=== PATIENT | female | born 1945 | race Caucasian/White ===

== ENCOUNTER 2022-06-15 10:12 | Inpatient (IN) ==
[2022-06-15] MEDS ORDERED: CEFEPIME 2,000 MG/20 ML VIAL IV STA (10:41)
[2022-06-15] MEDS ORDERED: SODIUM CHLORIDE 0.9% 1000ML 1,000 ML IV SCH (10:45)
[2022-06-15] MEDS ORDERED: methylPREDNISolone 125 MG/2 ML VIAL IV STA (10:59)
[2022-06-15] MEDS ORDERED: ALBUT/IPRATROP 3MG/0.5MG NEB 3 ML VIAL NEB STA (10:59)
--- NOTE | 2022-06-15 10:59 | Emergency Department Note ---
Impression & Plan Pneumonia, Tachycardia, Exertional dyspnea, URI (upper respiratory infection) ED Provider Note INFORMANT: Patient ED PROVIDER(S): Omar Briones DO CHIEF COMPLAINT: Weakness, upper respiratory infectious symptoms PLAN: Disposition: Admission Condition: Stable Outpatient prescription management: none Referral: I spoke with the hospitalist, who will see the patient for admission/observation and further evaluation and consultation. MEDICAL DECISION MAKING: This is a 76-year-old female who presents to the ED with a chief complaint of generalized weakness. She also reports some subjective fevers and chills. She reports decreased energy and tiredness as well as a cough. She is a smoker. History of COPD. The patient states that she was around her grandson who had the flu recently as well. The patient has diminished breath sounds bilaterally with expiratory wheezing. She is tachycardic with a heart rate of 127. Her blood pressure is mildly elevated. She is afebrile. Oxygen saturations are in the high 80s to low 90s without oxygen. A chest x-ray shows a right upper lobe pneumonia. The patient does have a leukocytosis of 21,000. Chemistry panel did not show any electrolyte abnormality. Troponin was mildly elevated likely related to her tachycardia. Lactic acid was negative and a procalcitonin was positive. The patient was given IV cefepime. She was also given 2 L normal saline IV as well as IV Solu-Medrol and a DuoNeb treatment. She will be seen by the hospitalist for further inpatient evaluation and care. Triage Nursing notes reviewed. Vital Signs: reviewed Prior /Outside records reviewed: none Differential diagnosis: Differential includes pneumonia, influenza, other viral illness, hypoxia, less likely PE, tachycardia could be related to dehydration or infection Diagnostics, as interpreted by me: 12 lead ECG: Sinus tach rate of 120. No ST elevation. No PVCs. Normal QTC. Cardiac Monitoring ordered: Sinus tach at a rate of 120s Medical decision rules: Imaging studies: Chest x-ray: Right upper lobe pneumonia. Procedures: none. Critical care: none. HPI: See MDM above. PAST MEDICAL HISTORY: See Below PAST SURGICAL HISTORY: See Below SOCIAL HISTORY: See Below HOME MEDICATIONS: See Below ALLERGIES: See Below VITALS: See Below PHYSICAL EXAMINATION: CONSTITUTIONAL/VITAL SIGNS: Reviewed GENERAL: Non-toxic in appearance. INTEGUMENTARY: Warm, dry, and [place]. HEAD: Normocephalic. EYES: without scleral icterus. ENT/OROPHARYNX: clear and moist. RESPIRATORY: No increased work of breathing. Lungs clear. CARDIOVASCULAR: Regular rate. Regular rhythm. GI/ABDOMEN: Soft and nontender. . EXTREMITIES: Normal NEUROLOGICAL: Intact without focal deficits. PSYCHIATRIC: Normal affect. MUSCULOSKELETAL: Normal. TRIAGE NURSING DOCUMENTATION REVIEWED. Past Med/Surg History Medical History COPD (chronic obstructive pulmonary disease) Smoker Social History Smoking Status: Current every day smoker Preferred Language: Romanian Feels Safe at Home: Yes Allergies Allergies Allergy/AdvReac Type Severity Reaction Status Date / Time No Known Allergies Allergy Unverified 07/19/18 15:12 Home Meds Home Medications Medication Instructions Recorded Confirmed albuterol sulfate 90 mcg/actuation 2 inha inhalation Q4H PRN 06/15/22 06/15/22 aerosol inhaler shortness of breath or wheezing budesonide-formoterol HFA 160 2 puff inhalation BID 06/15/22 06/15/22 mcg-4.5 mcg/actuation aerosol inhaler Results & Data (ED) Vital Signs Vital Signs - 24 hr 06/15/22 10:28 06/15/22 11:12 06/15/22 11:12 Temperature 36.6 C Temperature Source Temporal Artery Scan Pulse Rate 127 H Pulse Rate [Right Finger] Pulse Rhythm [Right Finger] Pulse Strength [Right Finger] Respiratory Rate 20 Respiratory Effort / Characteristics Respiratory Depth Respiratory Pattern Blood Pressure 153/69 H Blood Pressure [Right Arm] Blood Pressure Mean 97 Blood Pressure Mean [Right Arm] Pulse Oximetry 90 Oxygen Delivery Method Room Air Room Air Room Air Oxygen Flow Rate Sepsis New/Unexplained Change in Mental Status No Sepsis Action Taken by Nursing No Action Required Oxygen Flow Rate - Titration Pulse Oximetry Post Tiitration 06/15/22 12:00 06/15/22 12:30 Temperature Temperature Source Pulse Rate Pulse Rate [Right Finger] 107 H Pulse Rhythm [Right Finger] Regular Pulse Strength [Right Finger] Normal Respiratory Rate 18 Respiratory Effort / Characteristics Non-Labored Respiratory Depth Normal Respiratory Pattern Regular Blood Pressure Blood Pressure [Right Arm] 135/82 Blood Pressure Mean Blood Pressure Mean [Right Arm] 99 Pulse Oximetry 92 88 L Oxygen Delivery Method Room Air Nasal Cannula Oxygen Flow Rate 0 Sepsis New/Unexplained Change in Mental Status Sepsis Action Taken by Nursing Oxygen Flow Rate - Titration 2 Pulse Oximetry Post Tiitration 97 Laboratory Data 06/15/22 10:59 06/15/22 10:59 Lab Results 06/15/22 06/15/22 06/15/22 Range/Units 10:59 10:59 10:59 WBC 21.03 H (4.8-10.8) K/ul RBC 4.31 (4.20-5.40) M/uL Hgb 13.8 (12.0-16.0) g/dl Hct 39.0 (37.0-47.0) % MCV 90.5 (80.0-100.0) fL MCH 32.0 (25.0-34.0) pg MCHC 35.4 (32.0-36.0) g/dL RDW Std Deviation 41.8 (36.4-46.3) fL RDW Coeff of Fernanda 12.4 (11.5-14.5) % Plt Count 279 (130-400) K/uL MPV 10.3 (9.4-12.4) fL Immature Gran % (Auto) 0.9 % Neut % (Auto) 83.1 % Lymph % (Auto) 4.0 % Gilliam % (Auto) 11.7 % Eos % (Auto) 0.1 % Baso % (Auto) 0.2 % Neut # (Auto) 17.47 H (1.40-6.50) K/uL Lymph # (Auto) 0.85 L (1.2-3.4) K/uL Gilliam # (Auto) 2.45 H (0.11-0.59) K/uL Eos # (Auto) 0.03 (0-0.50) K/uL Baso # (Auto) 0.05 (0-0.2) K/uL Immature Gran # (Auto) 0.18 (0.01-0.20) K/uL Sodium 130 L (136-145) mmol/L Potassium 4.0 (3.5-5.1) mmol/L Chloride 96 L (98-107) mmol/L Carbon Dioxide 26 (21-32) mmol/L Anion Gap 8 (3-11) BUN 18 (6-23) mg/dl Creatinine 0.87 (0.6-1.2) mg/dl Est Cr Clr Drug Dosing 45.5 ml/min Est GFR ( Amer) 75.0 ml/min Est GFR (Non-Af Amer) 64.7 ml/min BUN/Creatinine Ratio 20.7 H (10-20) Glucose 140 H (70-99(Fasting)) mg/dl Lactate 1.1 (0.4-2.0) mmol/L Calcium 8.8 (8.5-10.1) mg/dl Magnesium 1.8 (1.7-2.4) mg/dl Total Bilirubin 0.9 (0.2-1.0) mg/dl Direct Bilirubin 0.4 H (0-0.2) mg/dl AST 18 (13-39) U/L ALT 23 (7-52) U/L Alkaline Phosphatase 255 H (34-104) U/L Troponin I High Sens 19.7 H (0-14) pg/ml Total Protein 6.4 (6.0-8.3) gm/dl Albumin 3.1 L (3.4-5.0) gm/dl Procalcitonin (0-0.5) ng/ml SARS-CoV-2 (PCR) (Negative) Influenza Type A (PCR) (Neg) Influenza Type B (PCR) (Neg) RSV (RT-PCR) (Neg) 06/15/22 06/15/22 Range/Units 10:59 11:44 WBC (4.8-10.8) K/ul RBC (4.20-5.40) M/uL Hgb (12.0-16.0) g/dl Hct (37.0-47.0) % MCV (80.0-100.0) fL MCH (25.0-34.0) pg MCHC (32.0-36.0) g/dL RDW Std Deviation (36.4-46.3) fL RDW Coeff of Fernanda (11.5-14.5) % Plt Count (130-400) K/uL MPV (9.4-12.4) fL Immature Gran % (Auto) % Neut % (Auto) % Lymph % (Auto) % Gilliam % (Auto) % Eos % (Auto) % Baso % (Auto) % Neut # (Auto) (1.40-6.50) K/uL Lymph # (Auto) (1.2-3.4) K/uL Gilliam # (Auto) (0.11-0.59) K/uL Eos # (Auto) (0-0.50) K/uL Baso # (Auto) (0-0.2) K/uL Immature Gran # (Auto) (0.01-0.20) K/uL Sodium (136-145) mmol/L Potassium (3.5-5.1) mmol/L Chloride (98-107) mmol/L Carbon Dioxide (21-32) mmol/L Anion Gap (3-11) BUN (6-23) mg/dl Creatinine (0.6-1.2) mg/dl Est Cr Clr Drug Dosing ml/min Est GFR ( Amer) ml/min Est GFR (Non-Af Amer) ml/min BUN/Creatinine Ratio (10-20) Glucose (70-99(Fasting)) mg/dl Lactate (0.4-2.0) mmol/L Calcium (8.5-10.1) mg/dl Magnesium (1.7-2.4) mg/dl Total Bilirubin (0.2-1.0) mg/dl Direct Bilirubin (0-0.2) mg/dl AST (13-39) U/L ALT (7-52) U/L Alkaline Phosphatase (34-104) U/L Troponin I High Sens (0-14) pg/ml Total Protein (6.0-8.3) gm/dl Albumin (3.4-5.0) gm/dl Procalcitonin 3.27 H (0-0.5) ng/ml SARS-CoV-2 (PCR) NEGATIVE (Negative) Influenza Type A (PCR) Negative (Neg) Influenza Type B (PCR) Negative (Neg) RSV (RT-PCR) Negative (Neg) Administered Medications Discontinued Medications Albuterol (Albut/Ipratrop 3mg/0.5mg Neb 3 Ml Vial) 3 ml NEB NOW STA; Protocol Stop: 06/15/22 11:00 Last Admin: 06/15/22 11:38 Dose: 3 ml Documented By: AP Sodium Chloride (Nss 1000ml) 1,000 mls @ 999 mls/hr IV .Q1H1M YU Stop: 06/15/22 11:45 Last Admin: 06/15/22 11:39 Dose: Not Given Documented By: AP Cefepime HCl (Maxipime) 2,000 mg in 20 mls @ 5 mls/min IV NOW STA; Protocol Stop: 06/15/22 10:44 Last Admin: 06/15/22 11:38 Dose: 5 mls/min Documented By: AP Sodium Chloride (Nss 1000ml) 1,000 mls @ 999 mls/hr IV .Q1H1M ONE Stop: 06/15/22 12:37 Last Admin: 06/15/22 11:38 Dose: 999 mls/hr Documented By: AP Methylprednisolone (Methylprednisolone 125 Mg/2 Ml Vial) 125 mg IV NOW STA Stop: 06/15/22 11:00 Last Admin: 06/15/22 11:38 Dose: 125 mg Documented By: AP Imaging Data Radiologist's Impression: Chest X-Ray 06/15/22 10:40 SINGLE VIEW CHEST CLINICAL HISTORY: Sepsis. Cough FINDINGS: An AP, portable, upright chest radiograph is compared to study dated 07/19/2018. The heart is top normal for projection noting atherosclerotic calcification of the thoracic aorta. Emphysema and chronic interstitial thickening is similar to previous. There is dense right apical consolidation. The left lung appears clear. Scarring/atelectasis is noted at the lung bases. No pneumothorax is seen. The skeletal structures are osteopenic. The bony thorax is grossly intact. IMPRESSION: 1. There is dense right apical consolidation comment typical appearance for pneumonia. Clinical correlation will be required and radiographic follow-up to resolution is recommended. 2. Emphysema. ACT 112: Negative or not required by law. Electronically signed by: Jose M Singleton M.D. 06/15/2022 11:10 AM Discharge Plan Visit Data Chief Complaint: Weakness Stated Complaint: TROUBLE BREATHING, WEAKNESS, DIZZY, FATIGUE ED Provider: Omar Briones Discharge Problem: Pneumonia, Tachycardia, Exertional dyspnea, URI (upper respiratory infection) Forms Stand Alone Forms: My Scheduling Employee Scheduling Software Prescriptions Prescriptions: No Action budesonide-formoterol 160-4.5 mcg/actuation HFA aerosol inhaler 2 puff INHALATION BID albuterol sulfate 90 mcg/actuation HFA aerosol inhaler 2 inha INH Q4H PRN (Reason: shortness of breath or wheezing) Referrals Referrals: Ele Alford DO [Primary Care Provider] -
--- NOTE | 2022-06-15 11:12 | XRay Report ---
SINGLE VIEW CHEST CLINICAL HISTORY: Sepsis. Cough FINDINGS: An AP, portable, upright chest radiograph is compared to study dated 07/19/2018. The heart i s top normal for projection noting atherosclerotic calcification of the thoracic aorta. Emphysema and chronic interstitial thickening is similar to previous. There is dense right apical consolidation. T he left lung appears clear. Scarring/atelectasis is noted at the lung bases. No pneumothorax is seen. The skeletal structures are osteopenic. The bony thorax is grossly intact. IMPRESSION: 1. There is dense right apical consolidation comment typical appearance for pneumonia. Clinical corre lation will be required and radiographic follow-up to resolution is recommended. 2. Emphysema. ACT 112: Negative or not required by law. Electronically signed by: Jose M Singleton M.D. 06/15/2022 11:10 AM
[2022-06-15 11:13] LABS: Basophils # (auto) 0.05 K/uL (0-0.2); Basophils % (auto) 0.2 %; Eosinophils # (auto) 0.03 K/uL (0-0.50); Eosinophils % (auto) 0.1 %; Hemoglobin 13.8 g/dl (12.0-16.0); Immature Granulocytes # (auto) 0.18 K/uL (0.01-0.20); Immature Granulocytes % (auto) 0.9 %; Lymphocytes # (auto) 0.85 K/uL (1.2-3.4); Mean Corpuscular Hgb Conc 35.4 g/dL (32.0-36.0); Mean Corpuscular Volume 90.5 fL (80.0-100.0); Mean Platelet Volume 10.3 fL (9.4-12.4); Monocytes # (auto) 2.45 K/uL (0.11-0.59); Monocytes % (auto) 11.7 %; Neutrophils # (auto) 17.47 K/uL (1.40-6.50); Neutrophils % (auto) 83.1 %; Platelet Count 279 K/uL (130-400); RDW Coefficient of Variation 12.4 % (11.5-14.5); RDW Standard Deviation 41.8 fL (36.4-46.3); Red Blood Count 4.31 M/uL (4.20-5.40); White Blood Count 21.03 K/ul (4.8-10.8)
[2022-06-15] MEDS ORDERED: SODIUM CHLORIDE 0.9% 1000ML 1,000 ML IV ONE (11:37)
[2022-06-15 11:39] LABS: Albumin Level 3.1 gm/dl (3.4-5.0); BUN Creatinine Ratio 20.7 (10-20); Bilirubin Direct 0.4 mg/dl (0-0.2); Bilirubin,Total 0.9 mg/dl (0.2-1.0); Calcium 8.8 mg/dl (8.5-10.1); Creatinine Clr Calc Pharmacy 45.5 ml/min; Est GFR (Non-African American) 64.7 ml/min; Magnesium 1.8 mg/dl (1.7-2.4); Total Protein 6.4 gm/dl (6.0-8.3)
[2022-06-15 11:47] LABS: Troponin I High Sensitivity 19.7 pg/ml (0-14)
[2022-06-15 12:59] LABS: Influenza A virus by PCR Negative (Neg); Influenza B virus by PCR Negative (Neg); RSV by PCR Negative (Neg); SARS CoV2 RNA(COVID-19) Ceph NEGATIVE (Negative)
--- NOTE | 2022-06-15 13:35 | History & Physical Report ---
Date of Service June 15, 2022 Assessment & Plan (1) Acute respiratory failure with hypoxia: (2) Sepsis: (3) Pneumonia: (4) COPD (chronic obstructive pulmonary disease): Plan: Admit to tele Patient presenting from home with reports of generalized weakness. On presentation, meets sepsis criteria tachycardia in the 120s, WBC 21K, hypoxic on room air at 88%. Procalcitonin 3.27. Lactate 1.1, BP stable. CXR showing right apical consolidation In the ED, patient received IV cefepime, IV Solu-Medrol, nebulizer treatment, IVF. Will continue with IV ceftriaxone and IV azithromycin No wheezing on exam, will hold on steroids at this time Follow blood cultures Pulmonary toilet with nebs, Mucinex, incentive prompter, flutter valve DVT PROPHYLAXIS SQ Lovenox History of Present Illness Chief Complaint: Generalized Weakness Primary Care Provider: Ele Alford DO 76 year old female with PMH COPD, osteoporosis, tobacco abuse, and other problems listed below who presents to the ED for evaluation of generalized weakness. Patient reports she has been feeling sick for about one week. Reports an exposure to flu from her grandson. Patient reports progressive generalized weakness and poor appetite. No abdominal pain, nausea, vomiting, or diarrhea. She reports feeling unsteady whenever she stands. No lightheadedness, dizziness, diaphoresis, syncopal events. Patient has underlying COPD and is an active smoker. Reports she has a chronic cough which has been unchanged from baseline. She reports having chills and episodes of feeling hot however did not take her temperature. No chest pain or palpitations. Mild shortness of breath with exertion. No urinary symptoms. In the ED, patient was tachycardic in the 120s. WBC 21K. Hypoxic on room air at 88%. CXR shows right apical consolidation typical appearance for pneumonia. Patient was given nebulizer treatment, IV cefepime, IV Solu-Medrol, IVF. Allergies Allergy/AdvReac Type Severity Reaction Status Date / Time No Known Allergies Allergy Unverified 07/19/18 15:12 Home Medications Medication Instructions Recorded Confirmed Type albuterol sulfate 90 mcg/actuation 2 inha inhalation Q4H PRN 06/15/22 06/15/22 History aerosol inhaler shortness of breath or wheezing budesonide-formoterol HFA 160 2 puff inhalation BID 06/15/22 06/15/22 History mcg-4.5 mcg/actuation aerosol inhaler Past Med/Surg History Medical History COPD (chronic obstructive pulmonary disease) Smoker Surgical History No significant past surgical history Family History Mother Diabetes Social History (Updated 06/15/22 @ 13:31 by OTILIO Mann) Smoking Status: Current every day smoker Second Hand Exposure: No; Do You Dip or Chew Tobacco: No; Tobacco Cessation Education Requested by Patient: No Hx Alcohol Use: No Hx Substance Use: No Preferred Language: Mohawk Communication Ability: Effective Chief Airport Guide Required: No Beliefs That Will Affect Care: None Current Living Situation: Alone Other Information That Helps Us Care for You: No Feels Safe at Home: No Is there a partner from a previous relationship who is making you feel unsafe now?: No Any Concerns about Your Family Situation: No Would You Like to Speak to Someone About Your Situation: No Safety Concerns: Feels Safe At This Time Assistive Devices: Denture - Upper and Glasses Review of Systems Review of Systems: ROS per HPI, all other systems reviewed and negative Physical Exam Constitutional: + thin; no acute distress vitals as above Eyes: PERRL, conjunctivae normal, anicteric sclerae ENMT: external ear and nose normal, oropharynx normal Respiratory: no respiratory distress Auscultation: + diminished lung sounds; no wheezes Cardiovascular: Rate/Rhythm: regular rhythm and + tachycardic Vessels: no rmal peripheral pulses Extremities: no edema Gastrointestinal (Abdomen): normal bowel sounds, soft, nontender, no hepatosplenomegaly Musculoskeletal: no cyanosis or clubbing, extremities motor strength 5/5 Skin: no rashes, warm and dry Neurologic: PERRL, EOMI, accommodation nl, no face palsy, no dysarthria Psychiatric: A+Ox3, euthymic affect Results & Data Results & Data ([facility]) Vital Signs (Past 12 Hours) Vital Signs Temp Pulse Pulse Resp BP BP Pulse Ox 06/15/22 12:30 88 L 06/15/22 12:00 107 H 18 135/82 92 06/15/22 11:12 06/15/22 11:12 06/15/22 10:28 36.6 C 127 H 20 153/69 H 90 O2 Del Method O2 Flow Rate 06/15/22 12:30 Nasal Cannula 0 06/15/22 12:00 Room Air 06/15/22 11:12 Room Air 06/15/22 11:12 Room Air 06/15/22 10:28 Room Air Laboratory Results Short CBC 06/15/22 Range/Units 10:59 WBC 21.03 H (4.8-10.8) K/ul Hgb 13.8 (12.0-16.0) g/dl Hct 39.0 (37.0-47.0) % Plt Count 279 (130-400) K/uL BMP 06/15/22 10:59 Sodium 130 L Potassium 4.0 Chloride 96 L Carbon Dioxide 26 BUN 18 Creatinine 0.87 Glucose 140 H Calcium 8.8 Liver Function 06/15/22 Range/Units 10:59 Total Bilirubin 0.9 (0.2-1.0) mg/dl Direct Bilirubin 0.4 H (0-0.2) mg/dl AST 18 (13-39) U/L ALT 23 (7-52) U/L Alkaline Phosphatase 255 H (34-104) U/L Albumin 3.1 L (3.4-5.0) gm/dl Diagnostic Findings Chest X-Ray 06/15/22 10:40 SINGLE VIEW CHEST CLINICAL HISTORY: Sepsis. Cough FINDINGS: An AP, portable, upright chest radiograph is compared to study dated 07/19/2018. The heart is top normal for projection noting atherosclerotic calc ification of the thoracic aorta. Emphysema and chronic interstitial thickening is similar to previous. There is dense right apical consolidation. The left lung appears clear. Scarring/atelectasis is noted at the lung bases. No pneumothorax is seen. The skeletal structures are osteopenic. The bony thorax is grossly intact. IMPRESSION: 1. There is dense right apical consolidation comment typical appearance for pneumonia. Clinical correlation will be required and radiographic follow-up to resolution is recommended. 2. Emphysema. ACT 112: Negative or not required by law. Electronically signed by: Jose M Singleton M.D. 06/15/2022 11:10 AM Supervising Physician Co-Signing Physician Notes I have seen and examined the patient and have discussed the case with the provider above. I agree with the assessment and plan as stated. The patient is a 76-year-old female presenting with shortness of breath found to have right upper lobe pneumonia. She has a sick contact at home and has been sick for approximately 5 to 6 days. She reports malaise weakness and poor appetite. She denies significant cough but is hypoxic on room air at 88% today. She meets sepsis criteria and was resuscitated with IV fluids and broad- spectrum antibiotics. She was given IV Solu-Medrol and nebulized bronchodilators with a history of COPD. On physical exam she appears comfortable in no acute distress. She has 2 L nasal cannula in place and is not working to breathe. She is mentating clearly but is generally ill-appearing. Pulmonary auscultation is clear throughout with very decreased breath sounds, no rales or wheezing heard. Cardiac exam reveals a tachycardic rate with a regular rhythm, S2/S1 heard with no evidence of murmurs. She is euvolemic to dry. There is no evidence of peripheral edema. Abdomen is benign, skin is warm and dry. Lab work reveals leukocytosis of 21,000 with a left shift. Chemistry shows a sodium of 130, potassium 4.0 chloride of 96 and a BUN to creatinine ratio of 21 all consistent with dehydration. Alkaline phosphatase is elevated at 255. Highly sensitive troponin is 19.7. Procalcitonin is 3.27. Nasal swab for flu, SARS-CoV-2, RSV are negative. Chest x-ray revealed dense right apical consolidation which is a typical appearance for pneumonia. This is in a backgr ound of emphysema. Blood cultures are pending sputum cultures are pending. EKG with no evidence of ischemia and sinus tachycardia with a rate of 118. Overall this is a 76-year-old patient with COPD and active smoking who presents with possible developing sepsis secondary to right upper lobe pneumonia. She does not appear to be in exacerbation for COPD. Agree with holding off on steroids at this time. Agree with continuing broad-spectrum antibiotics as above and Mucinex, nebulizers as needed, and other pulmonary toilet efforts including incentive spirometer and flutter valve. Will monitor for worsening hypoxia after sepsis resuscitation. She is a confirmed full code per my discussion with her on admission. She requested that if she was unable to return to her quality of life, she would not want to be on life support for prolonged period of time. She reports that her POA's are her children, her son and daughter. Mak, DO
[2022-06-15] MEDS ORDERED: ACETAMINOPHEN 325 MG TAB PO PRN (14:25)
[2022-06-15] MEDS: SODIUM CHLORIDE 0.9% 1000ML 1,000 ML IV SCH (14:52)
[2022-06-15] MEDS: ALBUT/IPRATROP 3MG/0.5MG NEB 3 ML VIAL NEB SCH ×2 (15:11→19:20)
[2022-06-15] MEDS: AZITHROMYCIN 500 MG in DEXTROSE 5% 250 ML IV SCH (15:41)
[2022-06-15] MEDS: cefTRIAXone SODIUM 1,000 MG in DEXTROSE 5% AD-VAN 50 ML IV SCH (17:51)
[2022-06-15] MEDS: guaiFENesin 600 MG TABCR PO SCH (20:07)
[2022-06-16] MEDS: SODIUM CHLORIDE 0.9% 1000ML 1,000 ML IV SCH ×2 (04:07→15:43)
[2022-06-16 04:13] LABS: Appearance Urine Clear (Clear); Bacteria Urine Automated Negative (Negative); Bilirubin Urine Negative (Negative); Blood Urine Trace (Negative); Color Urine Yellow; Epithelial Cell Urine Auto 20-30 /lpf (0-5); Glucose Urine UA 1+ (Negative); Ketones Urine Negative (Negative); Leukocyte Esterase Urine Negative (Negative); Nitrite Urine Negative (Negative); Protein Urine 1+ (Negative); RBC Urine Automated 0-4 /hpf (0-4); Specific Gravity Urine 1.015 (1.000-1.030); Urobilinogen Urine Negative (Negative)
[2022-06-16 06:42] LABS: Hematocrit (blood only) 32.2 % (37.0-47.0); Hemoglobin 11.2 g/dl (12.0-16.0); Mean Corpuscular Hemoglobin 31.5 pg (25.0-34.0); Mean Corpuscular Hgb Conc 34.8 g/dL (32.0-36.0); Mean Corpuscular Volume 90.7 fL (80.0-100.0); Mean Platelet Volume 10.1 fL (9.4-12.4); Platelet Count 268 K/uL (130-400); RDW Coefficient of Variation 11.9 % (11.5-14.5); Red Blood Count 3.55 M/uL (4.20-5.40)
[2022-06-16] MEDS: ALBUT/IPRATROP 3MG/0.5MG NEB 3 ML VIAL NEB SCH ×4 (07:01→19:59)
[2022-06-16 07:08] LABS: BUN Creatinine Ratio 29.2 (10-20); Calcium 8.9 mg/dl (8.5-10.1); Est GFR (African American) 94.3 ml/min; Est GFR (Non-African American) 81.3 ml/min; Potassium 4.3 mmol/L (3.5-5.1)
[2022-06-16] MEDS: guaiFENesin 600 MG TABCR PO SCH ×2 (08:11→21:05)
--- NOTE | 2022-06-16 08:55 | Electrocardiogram Report ---
Test Reason : Blood Pressure : / mmHG Vent. Rate : 118 BPM Atrial Rate : 118 BPM P-R Int : 128 ms QRS Dur : 078 ms QT Int : 308 ms P-R-T Axes : 076 101 049 degrees QTc Int : 431 ms Sinus tachycardia Rightward axis Borderline ECG When compared with ECG of 19-JUL-2018 14:14, HR has increased by 32 bpm Otherwise no significant change Confirmed by Brian Abrams ([id number]) on 06/16/2022 8:55:18 AM Referred By: ED Confirmed By:Brian Abrams
[2022-06-16] MEDS ORDERED: FLUTICASONE/VILANTEROL 100/25MCG 14 PUFFS/INHALER INH SCH (09:00)
[2022-06-16] MEDS: AZITHROMYCIN 500 MG in DEXTROSE 5% 250 ML IV SCH (14:41)
--- NOTE | 2022-06-16 15:32 | Hospitalist Progress Note ---
Date of Service June 16, 2022 Assessment & Plan (1) Acute respiratory failure with hypoxia: Plan: Noted to be acute respiratory failure with hypoxia secondary to pneumonia complicated by COPD Has been improving since admission and is requiring only 1 L oxygen via nasal cannula to maintain saturation Does not use any oxygen at home (2) Sepsis: Plan: Presented with sepsis secondary to right upper lobe pneumonia Has been on intravenous azithromycin and ceftriaxone (3) Pneumonia: Plan: Patient presenting from home with reports of generalized weakness. On presentation, meets sepsis criteria tachycardia in the 120s, WBC 21K, hypoxic on room air at 88%. Procalcitonin 3.27. Lactate 1.1, BP stable. CXR showing right apical consolidation In the ED, patient received IV cefepime, IV Solu-Medrol, nebulizer treatment, IVF. Will continue with IV ceftriaxone and IV azithromycin No wheezing on exam, will hold on steroids at this time Follow blood cultures-have been negative so far (4) COPD (chronic obstructive pulmonary disease): Plan: Pulmonary toilet with nebs, Mucinex, incentive prompter, flutter valve Clinically improved Will need to wait to have stable O2 saturation test prior to discharge DVT PROPHYLAXIS SQ Lovenox Admission and Anticipated Discharge Date Admission Date: June 15, 2022 Subjective 06/16/2022 The patient was seen and examined in telemetry unit He has been feeling a little better since admission Still has shortness of breath but requiring only 1 L of oxygen to maintain saturation via nasal cannula Denies any fever and/or chills Has cough without any phlegm Review of Systems Review of Systems: All systems reviewed and are unremarkable except as noted below Respiratory: Moderate respiratory distress at rest Physical Exam Physical Exam: Lying in bed with mild to moderate shortness of breath Constitutional: + ill appearing and average body habitus Eyes: PERRL, conjunctivae normal, anicteric sclerae ENMT: external ear and nose normal, oropharynx normal Neck: trachea midline, no thyromegaly Respiratory: + respiratory distress (Mild to moderate respiratory distress at rest) Auscultation: + diminished lung sounds and + crackles (Minimal to no crackles at the bases) Cardiovascular: Rate/Rhythm: regular rate and regular rhythm; not tachycardic Extremities: no edema Gastrointestinal (Abdomen): Inspection/Auscultation: normal bowel sounds; abdomen not distended Percussion/Palpation: abdomen soft; abdomen nontender Musculoskeletal: No acute arthritis involving any joint Neurologic: Alert, awake and oriented x3. Generally weak and shaky but no focal neurodeficit Lymphatic: no cervical or axillary lymphadenopathy Results & Data Results & Data ([facility]) Vital Signs (Past 12 Hours) Vital Signs Temp Pulse Pulse Resp BP Pulse Ox O2 Del Method 06/16/22 14:25 91 H 18 93 Nasal Cannula 06/16/22 11:26 36.3 C L 87 18 119/69 Nebulizer 06/16/22 11:02 82 18 98 Nasal Cannula 06/16/22 07:56 36.3 C L 84 20 123/65 94 Nasal Cannula 06/16/22 07:28 Room Air, Nasal Cannula 06/16/22 07:01 82 18 97 Nasal Cannula 06/16/22 06:00 77 06/16/22 04:00 36.7 C 83 18 120/53 L 93 Nasal Cannula O2 Flow Rate 06/16/22 14:25 1 06/16/22 11:26 06/16/22 11:02 2 06/16/22 07:56 2 06/16/22 07:28 2 06/16/22 07:01 2 06/16/22 06:00 06/16/22 04:00 2 Laboratory Results Short CBC 06/16/22 Range/Units 06:29 WBC 14.30 H (4.8-10.8) K/ul Hgb 11.2 L (12.0-16.0) g/dl Hct 32.2 L (37.0-47.0) % Plt Count 268 (130-400) K/uL BMP 06/16/22 06:29 Sodium 133 L Potassium 4.3 Chloride 104 Carbon Dioxide 26 BUN 21 Creatinine 0.72 Glucose 153 H Calcium 8.9 Urine 06/16/22 Range/Units Unknown Urine Color Yellow Urine Appearance Clear (Clear) Urine pH 6.0 (4.5-7.5) Ur Specific [place] 1.015 (1.000-1.030) Urine Protein 1+ H (Negative) Urine Glucose (UA) 1+ H (Negative) Medications Administered Current Inpatient Medications Acetaminophen (Acetaminophen 325 Mg Tab) 650 mg PO Q4H PRN PRN Reason: Pain or Fever Stop: 07/15/22 14:24 Albuterol (Albut/Ipratrop 3mg/0.5mg Neb 3 Ml Vial) 3 ml NEB QIDR [facility]; Protocol Stop: 07/15/22 14:59 Last Admin: 06/16/22 14:25 Dose: 3 ml Fluticasone/Vilanterol (Fluticasone/Vilanterol 100/25mcg 14 Puffs/Inhaler) 1 puffs INH DAILY [facility] Stop: 07/16/22 08:59 Last Admin: 06/16/22 08:10 Dose: 1 puffs Guaifenesin (Guaifenesin 600 Mg Tabcr) 1,200 mg PO Q12 [facility] Stop: 07/15/22 20:59 Last Admin: 06/16/22 08:11 Dose: 1,200 mg Sodium Chloride (Nss 1000ml) 1,000 mls @ 80 mls/hr IV .[id number] [facility] Stop: 07/15/22 14:24 Last Admin: 06/16/22 04:07 Dose: 80 mls/hr Ceftriaxone Sodium 1,000 mg/ (Dextrose) 50 mls @ 100 mls/hr IV Q24H [facility]; Protocol Stop: 06/22/22 17:59 Last Infusion: 06/15/22 18:40 Dose: Infused Azithromycin 500 mg/ Dextrose 255 mls @ 125 mls/hr IV Q24H [facility] Stop: 06/22/22 14:59 Last Admin: 06/16/22 14:41 Dose: 125 mls/hr
[2022-06-16] MEDS: cefTRIAXone SODIUM 1,000 MG in DEXTROSE 5% AD-VAN 50 ML IV SCH (17:28)
[2022-06-16] MEDS ORDERED: MELATONIN 3 MG TAB PO PRN (22:15)
[2022-06-17] MEDS ORDERED: dilTIAZem HCl 5 MG/ML 5 ML VIAL IV ONE (03:53)
[2022-06-17] MEDS ORDERED: methylPREDNISolone 60 MG in SYRINGE 0 ML IV ONE (04:00)
[2022-06-17] MEDS ORDERED: dilTIAZem HCl 5 MG/ML 5 ML VIAL IV STA (04:36)
[2022-06-17 04:39] LABS: Base Excess ABG 1.5 mEq/L (-9-1.8); HCO3 ABG 26 mmol/L (19-24); Oxygen Saturation ABG 97.4 % (90-95); PCO2 ABG 39 mmHg (35-46); PO2 ABG 71 mmHg (80-95); pH ABG 7.43 (7.35-7.45)
[2022-06-17 04:56] LABS: Allen Test Pos (Pos)
[2022-06-17] MEDS: MAGNESIUM SULFATE / D5W 1 GM/100 ML BAG IV SCH ×2 (04:56→05:49)
[2022-06-17] MEDS ORDERED: PIPERACILLIN/TAZOBACTAM 4.5 GM in DEXTROSE 5% 100 ML IV ONE (05:00)
[2022-06-17] MEDS ORDERED: OPTIRAY 320 500ml IV ONE (05:32)
[2022-06-17] MEDS: BUDESONIDE 0.5 MG/2 ML VIAL (PULMICORT) NEB SCH ×2 (07:08→19:04)
[2022-06-17] MEDS: FORMOTEROL 20 MCG/2 ML VIAL NEB SCH ×2 (07:09→19:04)
[2022-06-17] MEDS: ALBUT/IPRATROP 3MG/0.5MG NEB 3 ML VIAL NEB SCH ×4 (07:09→19:04)
[2022-06-17 07:14] LABS: Adenovirus PCR Not Detected (NotDetected); Bordetella parapertussis PCR Not Detected (NotDetected); Bordetella pertussis PCR Not Detected (NotDetected); Chlamydia pneumoniae PCR Not Detected (NotDetected); Coronavirus 229E PCR Not Detected (NotDetected); Coronavirus CoV-2 (COVID19)PCR Not Detected (NotDetected); Coronavirus HKU1 PCR Not Detected (NotDetected); Coronavirus NL63 PCR Not Detected (NotDetected); Coronavirus OC43PCR Not Detected (NotDetected); Human Metapneumovirus PCR Not Detected (NotDetected); Influenza A PCR Not Detected (NotDetected); Influenza B PCR Not Detected (NotDetected); Mycoplasma pneumoniae PCR Not Detected (NotDetected); Parainfluenza Virus 1 PCR Not Detected (NotDetected); Parainfluenza Virus 2 PCR Not Detected (NotDetected); Parainfluenza Virus 3 PCR Not Detected (NotDetected); Parainfluenza Virus 4 PCR Not Detected (NotDetected); Respiratory Syncytial VirusPCR Not Detected (NotDetected); Rhinovirus/Enterovirus PCR Not Detected (NotDetected)
--- NOTE | 2022-06-17 07:20 | CT Scan Report ---
CT ANGIOGRAM OF THE CHEST CLINICAL HISTORY: Atypical chest pain. Dyspnea. COMPARISON STUDY: Chest x-ray dated 06/17/2022. TECHNIQUE: Following the IV administration of 91 cc of Optiray 320, CT angiogram of the chest was per formed from the upper abdomen to the thoracic inlet utilizing the pulmonary embolus protocol. Images are reviewed in the axial, sagittal, and coronal planes. 3-D MIPS images are created and assessed. IV contrast was administered without complication. A dose lowering technique was utilized adhering to the principles of ALARA. CT DOSE: 243.54 mGy.cm FINDINGS: Thyroid: Imaged portions of the thyroid gland are normal in size and attenuation. Thoracic aorta: There is atherosclerotic calcification of the thoracic aorta, which is normal in renée rosalia and demonstrates standard 3-vessel arch anatomy. No dissection is seen. Pulmonary vasculature: The main pulmonary arteries are dilated suggesting pulmonary artery hypertensi on. There are no filling defects identified in main, lobar, or segmental pulmonary branches to sugges t pulmonary embolus. Heart: The heart is enlarged and without pericardial effusion. There are coronary artery calcificatio ns. Lungs and pleural spaces: Evaluation of the lung parenchyma is compromised by motion artifact. There are small pleural effusions seen bilaterally. There is advanced emphysema. Dense airspace consolidati on is seen throughout the right upper lobe. Milder patchy/nodular consolidation is seen in the right middle and right lower lobes. Question minimal cavitation within a 3.5 cm nodular focus of right lowe r lobe consolidation seen on image #126. Peripheral scarring is seen in the lingula. There are scatte red calcified granulomas. The trachea and central airways appear clear. Debris is seen within the rig ht lower lobe airways. Mediastinum: Mildly enlarged mediastinal lymph nodes measure up to 12 mm in short axis. These are lik sailaja reactive. Iram: Clear. Axillae: There is no axillary lymphadenopathy. Upper abdomen: Partially visualized upper abdominal viscera is within normal limits. Skeletal structures: The skeletal structures are osteopenic. Numerous compression deformities are see n throughout the thoracolumbar spine. No lytic or blastic bony lesions are seen. Arthritic change is seen in the shoulders. IMPRESSION: 1. There is no evidence of pulmonary embolus in the main, lobar, or segmental pulmonary arteries. 2. Cardiomegaly and advanced emphysema. 3. Dense airspace consolidation is seen throughout the right upper lobe, with milder patchy/nodular c onsolidation in the right middle and right lower lobes. The appearance is typical for multifocal pneu monia. 4. A 3.5 cm focus of nodular consolidation in the right lower lobe shows internal cavitation. A follo w-up chest CT in 1 to 2 months time is recommended to document resolution and to reassess the underly ing lung parenchyma. 5. Additional findings as above. ACT 112: Positive. There are findings on this exam that require communication between the performing entity and the patient following Patient Test Result Information Act ([place] Act 112) guidelines. Electronically signed by: Jose M Singleton M.D. 06/17/2022 7:19 AM
[2022-06-17 07:22] LABS: Basophils # (auto) 0.03 K/uL (0-0.2); Basophils % (auto) 0.1 %; Hematocrit (blood only) 32.4 % (37.0-47.0); Hemoglobin 11.6 g/dl (12.0-16.0); Lymphocytes # (auto) 0.43 K/uL (1.2-3.4); Mean Corpuscular Hemoglobin 31.9 pg (25.0-34.0); Mean Corpuscular Hgb Conc 35.8 g/dL (32.0-36.0); Mean Platelet Volume 9.7 fL (9.4-12.4); Monocytes # (auto) 1.48 K/uL (0.11-0.59); Neutrophils # (auto) 18.89 K/uL (1.40-6.50); Neutrophils % (auto) 89.9 %; Platelet Count 338 K/uL (130-400); RDW Coefficient of Variation 12.2 % (11.5-14.5); RDW Standard Deviation 40.5 fL (36.4-46.3); Red Blood Count 3.64 M/uL (4.20-5.40); White Blood Count 21.03 K/ul (4.8-10.8)
--- NOTE | 2022-06-17 07:29 | Pulmonary Consultation ---
Date of Consultation June 17, 2022 Assessment & Plan (1) COPD (chronic obstructive pulmonary disease): (2) Acute respiratory failure with hypoxia: (3) Sepsis: (4) Multilobar lung infiltrate: (5) Pleural effusion: Plan CT chest 06/17/2022 personally reviewed: Centrilobular emphysema appreciated bilaterally Dense consolidative process appreciated in the right upper right middle as well as right lower lobe Small right-sided pleural effusion No significant mediastinal lymphadenopathy ABG 7.43/39/71 on 2 L -- Acute hypoxic respiratory failure Secondary to multilobar pneumonia Procalcitonin 3.27 Respiratory bio fire negative for everything including COVID-19 PCR, influenza A/B and RSV QTc 431 [address] need to repeat CT chest done in 6 weeks --COPD with emphysema On Symbicort at home Would recommend to be on Trelegy or BrezTri on discharge PFT as an outpatient in 2 months -- Pleural effusion Small right-sided Likely parapneumonic No intervention needed right now Plan: Follow-up nasal MRSA Give a dose of vancomycin, give Zosyn to cover for anaerobes Continue with azithromycin for atypical coverage We will consider bronchoscopy if there is no improvement in patient's symptom and oxygen requirement is not that high Try to titrate her off high flow and go to nasal cannula Case was discussed with Dr. Lancaster Please note the above document was generated using voice recognition software. It may contain grammatical, syntax or spelling errors.Any formal questions or concerns about the content, text or information contained within the body of this dictation should be directly addressed to the provider for clarification. History of Present Illness Attending Physician: Jewels Lancaster MD History of Present Illness 76-year-old female presented to the hospital with complaints of shortness of breath and coughing going on for approximately 1 week Past medical history: COPD, active smoker, osteoporosis Pulmonary consulted for acute hypoxic respiratory failure At the time of examination patient was saturating 95 to 96% on 35 L, 35% high flow Patient stated she is feeling better compared to when she came to the hospital She still complains of cough and difficulty bringing it up. Denies any chest pain No nausea vomiting No dysuria. Patient has been having loose bowel movement since coming to the [facility]. No headache, no blurry vision No night sweats, no unintentional weight loss Social history: [id number] smoking history, currently smoking half a pack a day Allergies Allergy/AdvReac Type Severity Reaction Status Date / Time No Known Allergies Allergy Unverified 07/19/18 15:12 Home Medications Medication Instructions Recorded Confirmed Type albuterol sulfate 90 mcg/actuation 2 inha inhalation Q4H PRN 06/15/22 06/15/22 History aerosol inhaler shortness of breath or wheezing budesonide-formoterol HFA 160 2 puff inhalation BID 06/15/22 06/15/22 History mcg-4.5 mcg/actuation aerosol inhaler Patient History Medical History COPD (chronic obstructive pulmonary disease) Smoker Surgical History No significant past surgical history Family History Mother Diabetes Social History (Updated 06/15/22 @ 13:31 by OTILIO Mann) Smoking Status: Current every day smoker Second Hand Exposure: No; Do You Dip or Chew Tobacco: No; Tobacco Cessation Education Requested by Patient: No Hx Alcohol Use: No Hx Substance Use: No Preferred Language: Gambian Communication Ability: Effective Band Saw Runner Required: No Beliefs That Will Affect Care: None Current Living Situation: Alone Other Information That Helps Us Care for You: No Feels Safe at Home: No Is there a partner from a previous relationship who is making you feel unsafe now?: No Any Concerns about Your Family Situation: No Would You Like to Speak to Someone About Your Situation: No Safety Concerns: Feels Safe At This Time Assistive Devices: None Review of Systems Review of Systems: All systems reviewed & are unremarkable except as noted in HPI & below Physical Exam Physical Exam: Constitutional: No acute distress, frail-appearing HEENT: EOMI, PERRLA Respiratory system: Decreased air entry bilaterally, no wheeze, rhonchi, positive crackles bilaterally more on the right side CVS: S1-S2 positive, no murmurs or gallops Abdomen: Soft, nontender, nondistended, positive bowel sounds x4 Extremities: +2 pulses bilaterally radialis/ dorsalis pedis, no cyanosis, no edema Neuro: Awake alert oriented x3 Psych: Normal mood and affect G/U: No Wong Skin: no rashes, warm and dry Lymphatic: no cervical or axillary lymphadenopathy Results & Data Results & Data ([facility]) Vital Signs (Past 12 Hours) Vital Signs Temp Pulse Pulse Resp BP Pulse Ox O2 Del Method 06/17/22 07:12 22 96 High Flow Nasal Cannula 06/17/22 06:58 36.6 C 102 H 23 105/53 L 95 High Flow Nasal Cannula 06/17/22 04:25 142 H 92 High Flow Nasal Cannula 06/17/22 03:52 48 H 92 06/17/22 02:14 36.7 C 113 H 24 142/80 H 94 Nasal Cannula 06/17/22 02:11 82 L Room Air 06/17/22 00:28 112 H 06/16/22 23:45 36.6 C 104 H 20 135/70 90 Room Air 06/16/22 20:25 Room Air 06/16/22 20:01 18 89 L Room Air 06/16/22 19:40 36.5 C 105 H 20 156/67 H 90 Room Air O2 Flow Rate FiO2 06/17/22 07:12 35 40 06/17/22 06:58 35 40 06/17/22 04:25 35 40 06/17/22 03:52 35 06/17/22 02:14 2 06/17/22 02:11 06/17/22 00:28 06/16/22 23:45 06/16/22 20:25 06/16/22 20:01 06/16/22 19:40 Laboratory Results 06/17/22 07:12 PG Care Time/CCT Total # of Minutes Spent Total Time Spent with Patient: Total time spent is greater than 50% in coordination of care (as documented) at patient's floor/unit and/or counseling patient: Coding Level of Care Code 42556 INT INP/OBS CARE 75MIN Diagnoses COPD (chronic obstructive pulmonary disease) J44.9 Acute respiratory failure with hypoxia J96.01 Sepsis A41.9 Multilobar lung infiltrate R91.8 Pleural effusion J90
[2022-06-17] MEDS ORDERED: VANCOMYCIN HCL 1,250 MG in SODIUM CHLORIDE 0.9% 500 ML IV ONE (07:30)
[2022-06-17] MEDS ORDERED: VANCOMYCIN CONSULT ACTIVE PRN (07:30)
[2022-06-17] MEDS ORDERED: VANCOMYCIN HCL 1,250 MG in SODIUM CHLORIDE 0.9% 250 ML IV ONE (07:45)
[2022-06-17 07:56] LABS: BUN Creatinine Ratio 23.9 (10-20); Calcium 8.8 mg/dl (8.5-10.1); Est GFR (Non-African American) 63.8 ml/min; Potassium 3.8 mmol/L (3.5-5.1)
[2022-06-17] MEDS: guaiFENesin 600 MG TABCR PO SCH ×2 (08:19→20:25)
[2022-06-17] MEDS: UMECLIDINIUM BROMIDE 62.5MCG/BLISTER 7 PUFFS/INHALER INH SCH (08:20)
--- NOTE | 2022-06-17 08:37 | Communication Note ---
Date of Service: June 17, 2022 Around 3:40am today patient was tachycardic, restless and tachypneic. Was placed on bipap and was sat> 90%. EKG showed sinus tachycardia rates in 160's. Gave a dose of diltiazem iv 10mg, solumedrol 60mg but continued to be same and was not tolerating bipap and was trying to take it out. D/W ICU . Critical care saw the patient and bipap was changed to high flow. ABG was ok. iv magnesium given. Pulmicort nebs given.Patient slowly improved. cxr showed worsening pneumonia. Rocephin changed to Zosyn. Pulmonary consulted. CT Chest PE study ordered.Later patient seems much improved. Am providers notified.
--- NOTE | 2022-06-17 08:39 | Communication Note ---
Date of Service: June 17, 2022 Home inhaler symbicort held and placed on pulmicort and performist nebs and placed on solumderol 40mg tid. Can give duonebs if heart rates improved.
--- NOTE | 2022-06-17 09:31 | XRay Report ---
XR chest 1V portable HISTORY: Shortness of breath. COMPARISON: Chest 06/15/2022. FINDINGS: Progressive consolidative airspace opacities within the right upper lobe and right perihila r location. No pneumothorax. Emphysema again noted. The heart remains mildly enlarged. No evidence fo r pulmonary edema. IMPRESSION: Progressive right upper lobe/right perihilar airspace opacities likely representing a pneumonia. ACT 112: Negative or not required by law. Electronically signed by: Guru Paul M.D. 06/17/2022 9:29 AM
[2022-06-17] MEDS: methylPREDNISolone 40 MG in SYRINGE 0 ML IV SCH ×3 (10:03→20:25)
[2022-06-17] MEDS: PIPERACILLIN/TAZOBACTAM 3.375 GM in DEXTROSE 5% 100 ML IV SCH ×2 (10:04→18:07)
[2022-06-17] MEDS: HYDROcodone/HOMATROPINE SYRUP 5MG/1.5MG 5ML UDP PO PRN ×2 (10:45→20:32)
--- NOTE | 2022-06-17 13:58 | Hospitalist Progress Note ---
Date of Service June 17, 2022 Assessment & Plan (1) Acute respiratory failure with hypoxia: Plan: Noted to be acute respiratory failure with hypoxia secondary to pneumonia complicated by COPD Has been improving since admission and is requiring only 1 L oxygen via nasal cannula to maintain saturation Does not use any oxygen at home Has a rough night yesterday Has been requiring 3 L to maintain saturation Appreciate pulmonary input and recommendation (2) Sepsis: Plan: Presented with sepsis secondary to right upper lobe pneumonia Has been on intravenous azithromycin and ceftriaxone Antibiotic changed to Zosyn and azithromycin (3) Pneumonia: Plan: Patient presenting from home with reports of generalized weakness. On presentation, meets sepsis criteria tachycardia in the 120s, WBC 21K, hypoxic on room air at 88%. Procalcitonin 3.27. Lactate 1.1, BP stable. CXR showing right apical consolidation In the ED, patient received IV cefepime, IV Solu-Medrol, nebulizer treatment, IVF. Will continue with IV ceftriaxone and IV azithromycin No wheezing on exam, will hold on steroids at this time Follow blood cultures-have been negative so far Ceftriaxone has been discontinued and replaced by azithromycin Clinically little better and will continue current medications (4) COPD (chronic obstructive pulmonary disease): Plan: Pulmonary toilet with nebs, Mucinex, incentive prompter, flutter valve Clinically improved Will need to wait to have stable O2 saturation test prior to discharge Continue IV Solu-Medrol 3 times daily DVT PROPHYLAXIS SQ Lovenox Admission and Anticipated Discharge Date Admission Date: June 15, 2022 Subjective 06/16/2022 The patient was seen and examined in telemetry unit He has been feeling a little better since admission Still has shortness of breath but requiring only 1 L of oxygen to maintain saturation via nasal cannula Denies any fever and/or chills Has cough without any phlegm 06/17/2022 The patient was seen and examined in telemetry unit She has had a rough night last night Has been feeling reasonably better since this morning She was seen by the waste water plant operator this morning going Review of Systems Review of Systems: All systems reviewed and are unremarkable except as noted below Respiratory: Moderate respiratory distress at rest Physical Exam Physical Exam: Lying in bed with mild to moderate shortness of breath Constitutional: + ill appearing and average body habitus Eyes: PERRL, conjunctivae normal, anicteric sclerae ENMT: external ear and nose normal, oropharynx normal Neck: trachea midline, no thyromegaly Respiratory: + respiratory distress (Mild to moderate respiratory distress at rest) Auscultation: + diminished lung sounds and + crackles (Minimal to no crackles at the bases) Cardiovascular: Rate/Rhythm: regular rate and regular rhythm; not tachycardic Extremities: no edema Gastrointestinal (Abdomen): Inspection/Auscultation: normal bowel sounds; abdomen not distended Percussion/Palpation: abdomen soft; abdomen nontender Musculoskeletal: No acute arthritis involving any joint Neurologic: Alert, awake and oriented x3. Generally very weak Lymphatic: no cervical or axillary lymphadenopathy Results & Data Results & Data ([facility]) Vital Signs (Past 12 Hours) Vital Signs Temp Pulse Resp BP Pulse Ox O2 Del Method O2 Flow Rate 06/17/22 11:15 36.6 C 91 H 20 109/58 L 94 Nasal Cannula 3 06/17/22 10:55 93 H 20 93 Nasal Cannula 3 06/17/22 10:18 88 20 94 Nasal Cannula 3 06/17/22 08:01 High Flow Nasal Cannula 35 06/17/22 07:12 22 96 High Flow Nasal Cannula 35 06/17/22 06:58 36.6 C 102 H 23 105/53 L 95 High Flow Nasal Cannula 35 06/17/22 04:25 142 H 92 High Flow Nasal Cannula 35 06/17/22 03:52 48 H 92 06/17/22 02:14 36.7 C 113 H 24 142/80 H 94 Nasal Cannula 2 06/17/22 02:11 82 L Room Air FiO2 06/17/22 11:15 06/17/22 10:55 06/17/22 10:18 06/17/22 08:01 35 06/17/22 07:12 40 06/17/22 06:58 40 06/17/22 04:25 40 06/17/22 03:52 35 06/17/22 02:14 06/17/22 02:11 Laboratory Results Short CBC 06/17/22 Range/Units 07:12 WBC 21.03 H (4.8-10.8) K/ul Hgb 11.6 L (12.0-16.0) g/dl Hct 32.4 L (37.0-47.0) % Plt Count 338 (130-400) K/uL BMP 06/17/22 07:12 Sodium 131 L Potassium 3.8 Chloride 101 Carbon Dioxide 26 BUN 21 Creatinine 0.88 Glucose 174 H Calcium 8.8 Medications Administered Current Inpatient Medications Acetaminophen (Acetaminophen 325 Mg Tab) 650 mg PO Q4H PRN PRN Reason: Pain or Fever Stop: 07/15/22 14:24 Albuterol (Albut/Ipratrop 3mg/0.5mg Neb 3 Ml Vial) 3 ml NEB QIDR [facility]; Protocol Stop: 07/15/22 14:59 Last Admin: 06/17/22 10:53 Dose: 3 ml Budesonide (Budesonide 0.5 Mg/2 Ml Vial (Pulmicort)) 0.5 mg NEB BIDR [facility] Stop: 07/17/22 06:59 Last Admin: 06/17/22 07:08 Dose: 0.5 mg Formoterol Fumarate (Formoterol 20 Mcg/2 Ml Vial) 20 mcg NEB BIDR [facility] Stop: 07/17/22 06:59 Last Admin: 06/17/22 07:09 Dose: 20 mcg Guaifenesin (Guaifenesin 600 Mg Tabcr) 1,200 mg PO Q12 [facility] Stop: 07/15/22 20:59 Last Admin: 06/17/22 08:19 Dose: 1,200 mg Hydrocodone Bit/Homatropine Methylb (Hydrocodone/Homatropine Syrup 5mg/1.5mg 5ml Udp) 5 ml PO Q6H PRN PRN Reason: Cough Stop: 07/01/22 10:27 Last Admin: 06/17/22 10:45 Dose: 5 ml Azithromycin 500 mg/ Dextrose 255 mls @ 125 mls/hr IV Q24H [facility] Stop: 06/22/22 14:59 Last Infusion: 06/16/22 16:44 Dose: Infused Piperacillin Sod/Tazobactam (Sod 3.375 gm/ Dextrose) 115 mls @ 28.75 mls/hr IV Q8H [facility]; Protocol Stop: 06/24/22 09:59 Last Admin: 06/17/22 10:04 Dose: 28.8 mls/hr Methylprednisolone 40 mg/ (Syringe) 0.64 mls @ 1.5 mls/min IV TID [facility] Stop: 07/17/22 08:59 Last Admin: 06/17/22 10:03 Dose: 1.5 mls/min Melatonin (Melatonin 3 Mg Tab) 3 mg PO HS PRN PRN Reason: Sleep Stop: 07/16/22 22:14 Sodium Chloride (Sodium Chlor 7% 4 Ml Neb) 4 ml NEB BIDR [facility] Stop: 07/17/22 18:59 Umeclidinium Era (Umeclidinium Era 62.5mcg/Blister 7 Puffs/Inhaler) 1 puffs INH DAILY [facility] Stop: 07/17/22 08:59 Last Admin: 06/17/22 08:20 Dose: 1 puffs
[2022-06-17] MEDS: AZITHROMYCIN 500 MG in DEXTROSE 5% 250 ML IV SCH (15:18)
[2022-06-17] MEDS: SODIUM CHLOR 7% 4 ML NEB NEB SCH (19:04)
[2022-06-18] MEDS: PIPERACILLIN/TAZOBACTAM 3.375 GM in DEXTROSE 5% 100 ML IV SCH ×3 (02:25→17:51)
[2022-06-18 06:26] LABS: Hematocrit (blood only) 31.5 % (37.0-47.0); Hemoglobin 11.2 g/dl (12.0-16.0); Mean Corpuscular Hemoglobin 31.7 pg (25.0-34.0); Mean Corpuscular Hgb Conc 35.6 g/dL (32.0-36.0); Mean Corpuscular Volume 89.2 fL (80.0-100.0); Mean Platelet Volume 9.7 fL (9.4-12.4); Platelet Count 362 K/uL (130-400); RDW Coefficient of Variation 12.3 % (11.5-14.5); RDW Standard Deviation 40.1 fL (36.4-46.3); Red Blood Count 3.53 M/uL (4.20-5.40); White Blood Count 23.58 K/ul (4.8-10.8)
[2022-06-18 06:45] LABS: BUN Creatinine Ratio 23.2 (10-20); Calcium 8.7 mg/dl (8.5-10.1); Creatinine Clr Calc Pharmacy 57.4 ml/min; Est GFR (Non-African American) 84.6 ml/min; Magnesium 2.2 mg/dl (1.7-2.4); Potassium 4.4 mmol/L (3.5-5.1)
[2022-06-18 06:54] LABS: Basophils # (auto) 0.06 K/uL (0-0.2); Basophils % (auto) 0.3 %; Immature Granulocytes # (auto) 0.15 K/uL (0.01-0.20); Immature Granulocytes % (auto) 0.6 %; Lymphocytes # (auto) 0.66 K/uL (1.2-3.4); Lymphocytes % (auto) 2.8 %; Monocytes # (auto) 0.67 K/uL (0.11-0.59); Monocytes % (auto) 2.8 %; Neutrophils # (auto) 22.04 K/uL (1.40-6.50); Neutrophils % (auto) 93.5 %; Toxic Vacuolation 1+
[2022-06-18] MEDS: FORMOTEROL 20 MCG/2 ML VIAL NEB SCH ×2 (07:11→19:35)
[2022-06-18] MEDS: SODIUM CHLOR 7% 4 ML NEB NEB SCH ×2 (07:12→19:35)
[2022-06-18] MEDS: BUDESONIDE 0.5 MG/2 ML VIAL (PULMICORT) NEB SCH ×2 (07:12→19:35)
[2022-06-18] MEDS: ALBUT/IPRATROP 3MG/0.5MG NEB 3 ML VIAL NEB SCH ×4 (07:12→19:34)
--- NOTE | 2022-06-18 07:50 | Pulmonology Progress Note ---
Date of Service June 18, 2022 Assessment & Plan (1) COPD (chronic obstructive pulmonary disease): (2) Acute respiratory failure with hypoxia: (3) Sepsis: (4) Multilobar lung infiltrate: (5) Pleural effusion: Plan CT chest 06/17/2022 personally reviewed: Centrilobular emphysema appreciated bilaterally Dense consolidative process appreciated in the right upper right middle as well as right lower lobe Small right-sided pleural effusion No significant mediastinal lymphadenopathy ABG 7.43/39/71 on 2 L -- Acute hypoxic respiratory failure Secondary to multilobar pneumonia Procalcitonin 3.27 Respiratory bio fire negative for everything including COVID-19 PCR, influenza A/B and RSV QTc 431 Nasal MRSA negative Will need to repeat CT chest done in 6 weeks --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 Lancaster Please note the above document was generated using voice recognition software. It may contain grammatical, syntax or spelling errors.Any formal questions or concerns about the content, text or information contained within the body of this dictation should be directly addressed to the provider for clarification. Admission and Anticipated Discharge Date Admission Date: June 15, 2022 Subjective Patient seen and examined at bedside. No acute distress, no adverse events overnight She was saturating 90-91% on 3 L nasal cannula at rest at the time of examination She is still complaining of cough and bringing up clear phlegm. Denies any hemoptysis Does have difficulty bringing up the phlegm No nausea vomiting Fair appetite Review of Systems Review of Systems: All systems reviewed & are unremarkable except as noted in Subjective Physical Exam Physical Exam: Constitutional: No acute distress, frail-appearing HEENT: EOMI, PERRLA Respiratory system: Decreased air entry bilaterally, no wheeze, rhonchi, positive crackles bilaterally more on the right side CVS: S1-S2 positive, no murmurs or gallops Abdomen: Soft, nontender, nondistended, positive bowel sounds x4 Extremities: +2 pulses bilaterally radialis/ dorsalis pedis, no cyanosis, no edema Neuro: Awake alert oriented x3 Psych: Normal mood and affect G/U: No Wong Skin: no rashes, warm and dry Lymphatic: no cervical or axillary lymphadenopathy Results & Data Results & Data ([facility]) Vital Signs (Past 12 Hours) Vital Signs Temp Pulse Pulse Resp BP Pulse Ox O2 Del Method 06/18/22 07:12 99 H 18 93 Nasal Cannula 06/18/22 02:27 36.8 C 103 H 18 112/71 94 Nasal Cannula 06/17/22 23:45 88 06/17/22 22:25 94 H 18 92 Nasal Cannula 06/17/22 22:29 36.5 C 99 H 16 122/79 95 Nasal Cannula 06/17/22 20:00 Nasal Cannula O2 Flow Rate 06/18/22 07:12 2 06/18/22 02:27 2 06/17/22 23:45 06/17/22 22:25 2 06/17/22 22:29 2 06/17/22 20:00 2 Laboratory Results 06/18/22 05:58 06/18/22 05:58 PG Care Time/CCT Total # of Minutes Spent Total Time Spent with Patient: Total time spent is greater than 50% in coordination of care (as documented) at patient's floor/unit and/or counseling patient: Coding Level of Care Code 24559 SUB INP/OBS CARE 3/50MIN Diagnoses COPD (chronic obstructive pulmonary disease) J44.9 Acute respiratory failure with hypoxia J96.01 Sepsis A41.9 Multilobar lung infiltrate R91.8 Pleural effusion J90
[2022-06-18] MEDS: guaiFENesin 600 MG TABCR PO SCH ×2 (08:49→20:04)
[2022-06-18] MEDS: UMECLIDINIUM BROMIDE 62.5MCG/BLISTER 7 PUFFS/INHALER INH SCH (08:49)
[2022-06-18] MEDS: methylPREDNISolone 40 MG in SYRINGE 0 ML IV SCH (08:50)
--- NOTE | 2022-06-18 14:09 | Hospitalist Progress Note ---
Date of Service June 18, 2022 Assessment & Plan (1) Acute respiratory failure with hypoxia: Plan: Noted to be acute respiratory failure with hypoxia secondary to pneumonia complicated by COPD Has been improving since admission and is requiring only 1 L oxygen via nasal cannula to maintain saturation Does not use any oxygen at home Has a rough night yesterday Has been requiring 3 L to maintain saturation Appreciate pulmonary input and recommendation Clinically better today-can converse almost normally Cough and shortness of breath is improved We will continue current medications (2) Sepsis: Plan: Presented with sepsis secondary to right upper lobe pneumonia Has been on intravenous azithromycin and ceftriaxone Antibiotic changed to Zosyn and azithromycin (3) Pneumonia: Plan: Patient presenting from home with reports of generalized weakness. On presentation, meets sepsis criteria tachycardia in the 120s, WBC 21K, hypoxic on room air at 88%. Procalcitonin 3.27. Lactate 1.1, BP stable. CXR showing right apical consolidation In the ED, patient received IV cefepime, IV Solu-Medrol, nebulizer treatment, IVF. Will continue with IV ceftriaxone and IV azithromycin No wheezing on exam, will hold on steroids at this time Follow blood cultures-have been negative so far Ceftriaxone has been discontinued and replaced by azithromycin Clinically little better and will continue current medications We will continue current management as above (4) COPD (chronic obstructive pulmonary disease): Plan: Pulmonary toilet with nebs, Mucinex, incentive prompter, flutter valve Clinically improved Will need to wait to have stable O2 saturation test prior to discharge Continue IV Solu-Medrol 3 times daily DVT PROPHYLAXIS SQ Lovenox Admission and Anticipated Discharge Date Admission Date: June 15, 2022 Subjective 06/16/2022 The patient was seen and examined in telemetry unit He has been feeling a little better since admission Still has shortness of breath but requiring only 1 L of oxygen to maintain saturation via nasal cannula Denies any fever and/or chills Has cough without any phlegm 06/17/2022 The patient was seen and examined in telemetry unit She has had a rough night last night Has been feeling reasonably better since this morning She was seen by the button sewer this morning going 06/18/2022 The patient was seen and examined in telemetry unit She has been much better today and has been calm and getting normal Still has cough and moderate shortness of breath at rest Review of Systems Review of Systems: All systems reviewed and are unremarkable except as noted below Respiratory: Moderate respiratory distress at rest Physical Exam Physical Exam: Lying in bed with mild to moderate shortness of breath Constitutional: + ill appearing and average body habitus Eyes: PERRL, conjunctivae normal, anicteric sclerae ENMT: external ear and nose normal, oropharynx normal Neck: trachea midline, no thyromegaly Respiratory: + respiratory distress (Mild to moderate respiratory distress at rest) Auscultation: + diminished lung sounds and + crackles (Minimal to no crackles at the bases) Cardiovascular: Rate/Rhythm: regular rate and regular rhythm; not tachycardic Extremities: no edema Gastrointestinal (Abdomen): Inspection/Auscultation: normal bowel sounds; abdomen not distended Percussion/Palpation: abdomen soft; abdomen nontender Musculoskeletal: No acute arthritis involving any joint Neurologic: Alert, awake and oriented x3. Generally weak but no focal sensory or motor deficit appreciated Lymphatic: no cervical or axillary lymphadenopathy Results & Data Results & Data ([facility]) Vital Signs (Past 12 Hours) Vital Signs Temp Pulse Pulse Resp BP Pulse Ox O2 Del Method 06/18/22 12:03 36.7 C 93 H 143/77 H 91 Nasal Cannula 06/18/22 11:15 96 H 18 96 Nasal Cannula 06/18/22 08:00 85 06/18/22 08:00 Nasal Cannula 06/18/22 07:59 36.4 C L 97 H 20 154/80 H 91 Nasal Cannula 06/18/22 07:12 99 H 18 93 Nasal Cannula 06/18/22 02:27 36.8 C 103 H 18 112/71 94 Nasal Cannula O2 Flow Rate 06/18/22 12:03 2 06/18/22 11:15 2.5 06/18/22 08:00 06/18/22 08:00 2 06/18/22 07:59 3 06/18/22 07:12 2 06/18/22 02:27 2 Laboratory Results Short CBC 06/18/22 Range/Units 05:58 WBC 23.58 H (4.8-10.8) K/ul Hgb 11.2 L (12.0-16.0) g/dl Hct 31.5 L (37.0-47.0) % Plt Count 362 (130-400) K/uL BMP 06/18/22 05:58 Sodium 133 L Potassium 4.4 Chloride 101 Carbon Dioxide 29 BUN 16 Creatinine 0.69 Glucose 169 H Calcium 8.7 Medications Administered Current Inpatient Medications Acetaminophen (Acetaminophen 325 Mg Tab) 650 mg PO Q4H PRN PRN Reason: Pain or Fever Stop: 07/15/22 14:24 Albuterol (Albut/Ipratrop 3mg/0.5mg Neb 3 Ml Vial) 3 ml NEB QIDR REPLACED BY [facility]; Protocol Stop: 07/15/22 14:59 Last Admin: 06/18/22 11:14 Dose: 3 ml Budesonide (Budesonide 0.5 Mg/2 Ml Vial (Pulmicort)) 0.5 mg NEB BIDR REPLACED BY [facility] Stop: 07/17/22 06:59 Last Admin: 06/18/22 07:12 Dose: 0.5 mg Formoterol Fumarate (Formoterol 20 Mcg/2 Ml Vial) 20 mcg NEB BIDR REPLACED BY [facility] Stop: 07/17/22 06:59 Last Admin: 06/18/22 07:11 Dose: 20 mcg Guaifenesin (Guaifenesin 600 Mg Tabcr) 1,200 mg PO Q12 REPLACED BY [facility] Stop: 07/15/22 20:59 Last Admin: 06/18/22 08:49 Dose: 1,200 mg Hydrocodone Bit/Homatropine Methylb (Hydrocodone/Homatropine Syrup 5mg/1.5mg 5ml Udp) 5 ml PO Q6H PRN PRN Reason: Cough Stop: 07/01/22 10:27 Last Admin: 06/17/22 20:32 Dose: 5 ml Azithromycin 500 mg/ Dextrose 255 mls @ 125 mls/hr IV Q24H REPLACED BY [facility] Stop: 06/22/22 14:59 Last Infusion: 06/17/22 18:07 Dose: Infused Piperacillin Sod/Tazobactam (Sod 3.375 gm/ Dextrose) 115 mls @ 28.75 mls/hr IV Q8H REPLACED BY [facility]; Protocol Stop: 06/24/22 09:59 Last Infusion: 06/18/22 13:36 Dose: Infused Methylprednisolone 40 mg/ (Syringe) 0.64 mls @ 1.5 mls/min IV DAILY REPLACED BY [facility] Stop: 07/18/22 08:59 Last Admin: 06/18/22 08:50 Dose: 1.5 mls/min Melatonin (Melatonin 3 Mg Tab) 3 mg PO HS PRN PRN Reason: Sleep Stop: 07/16/22 22:14 Sodium Chloride (Sodium Chlor 7% 4 Ml Neb) 4 ml NEB BIDR REPLACED BY [facility] Stop: 07/17/22 18:59 Last Admin: 06/18/22 07:12 Dose: 4 ml Umeclidinium [place] (Umeclidinium [place] 62.5mcg/Blister 7 Puffs/Inhaler) 1 puffs INH DAILY REPLACED BY [facility] Stop: 07/17/22 08:59 Last Admin: 06/18/22 08:49 Dose: 1 puffs
[2022-06-18] MEDS: AZITHROMYCIN 500 MG in DEXTROSE 5% 250 ML IV SCH (15:37)
[2022-06-18] MEDS: HYDROcodone/HOMATROPINE SYRUP 5MG/1.5MG 5ML UDP PO PRN (20:04)
[2022-06-19] MEDS: PIPERACILLIN/TAZOBACTAM 3.375 GM in DEXTROSE 5% 100 ML IV SCH ×3 (01:44→17:46)
[2022-06-19] MEDS: BUDESONIDE 0.5 MG/2 ML VIAL (PULMICORT) NEB SCH ×2 (07:19→19:15)
[2022-06-19] MEDS: SODIUM CHLOR 7% 4 ML NEB NEB SCH ×2 (07:19→19:15)
[2022-06-19] MEDS: FORMOTEROL 20 MCG/2 ML VIAL NEB SCH ×2 (07:19→19:15)
[2022-06-19] MEDS: ALBUT/IPRATROP 3MG/0.5MG NEB 3 ML VIAL NEB SCH ×4 (07:20→19:15)
--- NOTE | 2022-06-19 07:37 | XRay Report ---
XR chest 1V portable HISTORY: 76 years-old Female f/u acute shortness of breath COMPARISON: Chest radiograph and CTA chest 06/17/2022 TECHNIQUE: AP view of the chest FINDINGS: Small pleural effusions, mildly increased in size on the left. Emphysema with chronic interstitial co arsening. No pneumothorax identified. Irregular airspace opacities most pronounced within the right p erihilar distribution right upper lobe appears similar to prior. Bones appear grossly intact. IMPRESSION: 1. Emphysema with dense consolidation throughout the right lung redemonstrated suggestive of multifoc al pneumonia. 2. Small pleural effusions, mildly increased in size on the left. ACT 112: Negative or not required by law. The above report was generated using voice recognition software. It may contain grammatical, syntax o r spelling errors. Electronically signed by: Jose A Lloyd M.D. 06/19/2022 7:36 AM
[2022-06-19] MEDS ORDERED: FUROSEMIDE 40 MG/4 ML VIAL IV ONE (07:59)
--- NOTE | 2022-06-19 08:01 | Pulmonology Progress Note ---
Date of Service June 19, 2022 Assessment & Plan (1) COPD (chronic obstructive pulmonary disease): (2) Acute respiratory failure with hypoxia: (3) Sepsis: (4) Multilobar lung infiltrate: (5) Pleural effusion: Plan CT chest 06/17/2022 personally reviewed: Centrilobular emphysema appreciated bilaterally Dense consolidative process appreciated in the right upper right middle as well as right lower lobe Small right-sided pleural effusion No significant mediastinal lymphadenopathy ABG 7.43/39/71 on 2 L -- Acute hypoxic respiratory failure Secondary to multilobar pneumonia Procalcitonin 3.27 Respiratory bio fire negative for everything including COVID-19 PCR, influenza A/B and RSV QTc 431 Nasal MRSA negative Will need to repeat CT chest done in 6 weeks Sputum culture no growth till date --COPD with emphysema On Symbicort at home Would recommend to add Spiriva/Incruse to Symbicort on discharge PFT as an outpatient in 2 months -- Pleural effusion Small right-sided Likely parapneumonic No intervention needed right now Plan: In/out: +5 L since coming to the hospital Chest x-ray from today still shows a consolidative process in the right upper lobe, she is developing a new left-sided pleural effusion 40 mg of Lasix given to the patient Continue with Zosyn and azithromycin Continue with Mucinex and hypertonic saline nebulized along with flutter valve Tapering prednisone as of tomorrow Case was discussed with Dr. Lancaster Please note the above document was generated using voice recognition software. It may contain grammatical, syntax or spelling errors.Any formal questions or concerns about the content, text or information contained within the body of this dictation should be directly addressed to the provider for clarification. Admission and Anticipated Discharge Date Admission Date: June 15, 2022 Subjective Patient seen and examined at bedside. No acute distress, no adverse events overnight Patient was saturating 93% on 2 L nasal cannula at the time of examination Denied any chest pain. She has been coughing and bringing up clear phlegm. Denies any hemoptysis No nausea vomiting Fair appetite. No headache, no blurry vision Review of Systems Review of Systems: All systems reviewed & are unremarkable except as noted in Subjective Physical Exam Physical Exam: Constitutional: No acute distress, frail-appearing HEENT: EOMI, PERRLA Respiratory system: Decreased air entry bilaterally, no wheeze, rhonchi, positive crackles bilaterally more on the right side CVS: S1-S2 positive, no murmurs or gallops Abdomen: Soft, nontender, nondistended, positive bowel sounds x4 Extremities: +2 pulses bilaterally radialis/ dorsalis pedis, no cyanosis, no edema Neuro: Awake alert oriented x3 Psych: Normal mood and affect G/U: No Wong Skin: no rashes, warm and dry Lymphatic: no cervical or axillary lymphadenopathy Results & Data Results & Data ([facility]) Vital Signs (Past 12 Hours) Vital Signs Temp Pulse Pulse Resp BP Pulse Ox O2 Del Method 06/19/22 07:20 92 H 18 93 Nasal Cannula 06/19/22 03:00 36.7 C 79 20 119/83 97 Nasal Cannula 06/18/22 23:07 81 06/18/22 22:35 36.7 C 90 18 125/70 97 Nasal Cannula 06/18/22 20:20 Nasal Cannula O2 Flow Rate 06/19/22 07:20 2 06/19/22 03:00 06/18/22 23:07 06/18/22 22:35 2 06/18/22 20:20 2 Laboratory Results 06/18/22 05:58 06/18/22 05:58 PG Care Time/CCT Total # of Minutes Spent Total Time Spent with Patient: Total time spent is greater than 50% in coordination of care (as documented) at patient's floor/unit and/or counseling patient: Coding Level of Care Code 59798 SUB INP/OBS CARE 3/50MIN Diagnoses COPD (chronic obstructive pulmonary disease) J44.9 Acute respiratory failure with hypoxia J96.01 Sepsis A41.9 Multilobar lung infiltrate R91.8 Pleural effusion J90
[2022-06-19] MEDS: methylPREDNISolone 40 MG in SYRINGE 0 ML IV SCH (08:59)
[2022-06-19] MEDS: guaiFENesin 600 MG TABCR PO SCH ×2 (08:59→20:25)
[2022-06-19] MEDS: UMECLIDINIUM BROMIDE 62.5MCG/BLISTER 7 PUFFS/INHALER INH SCH (08:59)
[2022-06-19] MEDS: HYDROcodone/HOMATROPINE SYRUP 5MG/1.5MG 5ML UDP PO PRN ×2 (09:05→20:32)
--- NOTE | 2022-06-19 12:15 | Electrocardiogram Report ---
Test Reason : Blood Pressure : / mmHG Vent. Rate : 163 BPM Atrial Rate : 163 BPM P-R Int : 128 ms QRS Dur : 066 ms QT Int : 298 ms P-R-T Axes : 076 106 055 degrees QTc Int : 490 ms Poor data quality, interpretation may be adversely affected Sinus tachycardia Rightward axis Low voltage QRS Cannot rule out Anteroseptal infarct , age undetermined Abnormal ECG When compared with ECG of 15-JUN-2022 10:44, Minimal criteria for Anteroseptal infarct are now Present Confirmed by Brian Abrams ([id number]) on 06/19/2022 12:15:29 PM Referred By: REFERRED SELF Confirmed By:Brian Abrams
--- NOTE | 2022-06-19 14:08 | Hospitalist Progress Note ---
Date of Service June 19, 2022 Assessment & Plan (1) Acute respiratory failure with hypoxia: Plan: Noted to be acute respiratory failure with hypoxia secondary to pneumonia complicated by COPD Has been improving since admission and is requiring only 1 L oxygen via nasal cannula to maintain saturation Does not use any oxygen at home Has a rough night yesterday Has been requiring 3 L to maintain saturation Appreciate pulmonary input and recommendation Clinically better today-can converse almost normally Cough and shortness of breath is improved Clinically better and the chest x-ray showing minimal or no improvement but has a little left pleural effusion Intravenous Lasix of 40 mg was administered Continue current management (2) Sepsis: Plan: Presented with sepsis secondary to right upper lobe pneumonia Has been on intravenous azithromycin and ceftriaxone Antibiotic changed to Zosyn and azithromycin (3) Pneumonia: Plan: Patient presenting from home with reports of generalized weakness. On presentation, meets sepsis criteria tachycardia in the 120s, WBC 21K, hypoxic on room air at 88%. Procalcitonin 3.27. Lactate 1.1, BP stable. CXR showing right apical consolidation In the ED, patient received IV cefepime, IV Solu-Medrol, nebulizer treatment, IVF. Will continue with IV ceftriaxone and IV azithromycin No wheezing on exam, will hold on steroids at this time Follow blood cultures-have been negative so far Ceftriaxone has been discontinued and replaced by azithromycin Clinically little better and will continue current medications We will continue current management as above Patchy opacity right apex and adjoining area persist (4) COPD (chronic obstructive pulmonary disease): Plan: Pulmonary toilet with nebs, Mucinex, incentive prompter, flutter valve Clinically improved Will need to wait to have stable O2 saturation test prior to discharge Continue IV Solu-Medrol 3 times daily IV Solu-Medrol has been decreased to once daily DVT PROPHYLAXIS SQ Lovenox Likely discharge over the weekend Will need to the steps O2 saturation prior to discharge Admission and Anticipated Discharge Date Admission Date: June 15, 2022 Subjective 06/16/2022 The patient was seen and examined in telemetry unit He has been feeling a little better since admission Still has shortness of breath but requiring only 1 L of oxygen to maintain saturation via nasal cannula Denies any fever and/or chills Has cough without any phlegm 06/17/2022 The patient was seen and examined in telemetry unit She has had a rough night last night Has been feeling reasonably better since this morning She was seen by the learning support assistant this morning going 06/18/2022 The patient was seen and examined in telemetry unit She has been much better today and has been calm and getting normal Still has cough and moderate shortness of breath at rest 06/19/2022 The patient was seen and examined in telemetry unit She has been feeling a little better but he still remains significant shortness of breath Has cough without any phlegm Denies any chest pain and/or palpitation Review of Systems Review of Systems: All systems reviewed and are unremarkable except as noted below Respiratory: Moderate respiratory distress at rest Physical Exam Physical Exam: Lying in bed with mild to moderate shortness of breath Constitutional: + ill appearing and average body habitus Eyes: PERRL, conjunctivae normal, anicteric sclerae ENMT: external ear and nose normal, oropharynx normal Neck: trachea midline, no thyromegaly Respiratory: + respiratory distress (Mild to moderate respiratory distress at rest) Auscultation: + diminished lung sounds and + crackles (Minimal to no crackles at the bases) Cardiovascular: Rate/Rhythm: regular rate and regular rhythm; not tachycardic Extremities: no edema Gastrointestinal (Abdomen): Inspection/Auscultation: normal bowel sounds; abdomen not distended Percussion/Palpation: abdomen soft; abdomen nontender Musculoskeletal: No acute arthritis involving any joint Neurologic: normal touch/pain/proprioception and moves all extremities; no focal motor deficits Lymphatic: no cervical or axillary lymphadenopathy Results & Data Results & Data ([facility]) Vital Signs (Past 12 Hours) Vital Signs Temp Pulse Pulse Resp BP Pulse Ox O2 Del Method 06/19/22 12:25 36.7 C 100 H 18 153/75 H 96 Nasal Cannula 06/19/22 07:45 Nasal Cannula 06/19/22 11:29 88 18 91 Room Air 06/19/22 07:00 87 06/19/22 08:48 36.6 C 94 H 18 144/63 H 90 Nasal Cannula 06/19/22 07:20 92 H 18 93 Nasal Cannula 06/19/22 03:00 36.7 C 79 20 119/83 97 Nasal Cannula O2 Flow Rate 06/19/22 12:25 2 06/19/22 07:45 2 06/19/22 11:29 06/19/22 07:00 06/19/22 08:48 2 06/19/22 07:20 2 06/19/22 03:00 Medications Administered Current Inpatient Medications Acetaminophen (Acetaminophen 325 Mg Tab) 650 mg PO Q4H PRN PRN Reason: Pain or Fever Stop: 07/15/22 14:24 Albuterol (Albut/Ipratrop 3mg/0.5mg Neb 3 Ml Vial) 3 ml NEB QIDR [facility]; Protocol Stop: 07/15/22 14:59 Last Admin: 06/19/22 11:26 Dose: 3 ml Budesonide (Budesonide 0.5 Mg/2 Ml Vial (Pulmicort)) 0.5 mg NEB BIDR [facility] Stop: 07/17/22 06:59 Last Admin: 06/19/22 07:19 Dose: 0.5 mg Formoterol Fumarate (Formoterol 20 Mcg/2 Ml Vial) 20 mcg NEB BIDR [facility] Stop: 07/17/22 06:59 Last Admin: 06/19/22 07:19 Dose: 20 mcg Guaifenesin (Guaifenesin 600 Mg Tabcr) 1,200 mg PO Q12 [facility] Stop: 07/15/22 20:59 Last Admin: 06/19/22 08:59 Dose: 1,200 mg Hydrocodone Bit/Homatropine Methylb (Hydrocodone/Homatropine Syrup 5mg/1.5mg 5ml Udp) 5 ml PO Q6H PRN PRN Reason: Cough Stop: 07/01/22 10:27 Last Admin: 06/19/22 09:05 Dose: 5 ml Azithromycin 500 mg/ Dextrose 255 mls @ 125 mls/hr IV Q24H [facility] Stop: 06/22/22 14:59 Last Infusion: 06/18/22 17:51 Dose: Infused Piperacillin Sod/Tazobactam (Sod 3.375 gm/ Dextrose) 115 mls @ 28.75 mls/hr IV Q8H [facility]; Protocol Stop: 06/24/22 09:59 Last Admin: 06/19/22 10:30 Dose: 28.8 mls/hr Methylprednisolone 40 mg/ (Syringe) 0.64 mls @ 1.5 mls/min IV DAILY [facility] Stop: 07/18/22 08:59 Last Admin: 06/19/22 08:59 Dose: 1.5 mls/min Melatonin (Melatonin 3 Mg Tab) 3 mg PO HS PRN PRN Reason: Sleep Stop: 07/16/22 22:14 Sodium Chloride (Sodium Chlor 7% 4 Ml Neb) 4 ml NEB BIDR [facility] Stop: 07/17/22 18:59 Last Admin: 06/19/22 07:19 Dose: 4 ml Umeclidinium [place] (Umeclidinium [place] 62.5mcg/Blister 7 Puffs/Inhaler) 1 puffs INH DAILY [facility] Stop: 07/17/22 08:59 Last Admin: 06/19/22 08:59 Dose: 1 puffs
[2022-06-19] MEDS: AZITHROMYCIN 500 MG in DEXTROSE 5% 250 ML IV SCH (14:29)
[2022-06-20] MEDS: PIPERACILLIN/TAZOBACTAM 3.375 GM in DEXTROSE 5% 100 ML IV SCH ×3 (01:19→18:12)
[2022-06-20 06:42] LABS: Basophils # (auto) 0.01 K/uL (0-0.2); Basophils % (auto) 0.1 %; Eosinophils # (auto) 0.04 K/uL (0-0.50); Eosinophils % (auto) 0.2 %; Hematocrit (blood only) 34.2 % (37.0-47.0); Hemoglobin 11.9 g/dl (12.0-16.0); Immature Granulocytes # (auto) 0.17 K/uL (0.01-0.20); Lymphocytes # (auto) 1.32 K/uL (1.2-3.4); Lymphocytes % (auto) 7.5 %; Mean Corpuscular Hemoglobin 31.6 pg (25.0-34.0); Mean Corpuscular Hgb Conc 34.8 g/dL (32.0-36.0); Mean Platelet Volume 8.7 fL (9.4-12.4); Monocytes # (auto) 1.13 K/uL (0.11-0.59); Monocytes % (auto) 6.4 %; Neutrophils # (auto) 14.88 K/uL (1.40-6.50); Neutrophils % (auto) 84.8 %; Platelet Count 442 K/uL (130-400); RDW Coefficient of Variation 12.6 % (11.5-14.5); RDW Standard Deviation 42.3 fL (36.4-46.3); Red Blood Count 3.76 M/uL (4.20-5.40); White Blood Count 17.55 K/ul (4.8-10.8)
[2022-06-20] MEDS: ALBUT/IPRATROP 3MG/0.5MG NEB 3 ML VIAL NEB SCH ×4 (07:04→20:12)
[2022-06-20] MEDS: FORMOTEROL 20 MCG/2 ML VIAL NEB SCH ×2 (07:04→20:12)
[2022-06-20] MEDS: BUDESONIDE 0.5 MG/2 ML VIAL (PULMICORT) NEB SCH ×2 (07:04→20:13)
[2022-06-20] MEDS: SODIUM CHLOR 7% 4 ML NEB NEB SCH ×2 (07:04→20:12)
[2022-06-20 07:05] LABS: Calcium 8.3 mg/dl (8.5-10.1); Potassium 3.8 mmol/L (3.5-5.1)
[2022-06-20 07:11] LABS: BUN Creatinine Ratio 26.3 (10-20); Creatinine Clr Calc Pharmacy 52.1 ml/min; Est GFR (African American) 88.3 ml/min; Est GFR (Non-African American) 76.2 ml/min
[2022-06-20] MEDS ORDERED: FUROSEMIDE INJ 20 MG/2 ML VIAL IV ONE (07:30)
[2022-06-20] MEDS ORDERED: POTASSIUM CHLORIDE CRTAB 20 MEQ TABCR PO STA (07:30)
--- NOTE | 2022-06-20 07:33 | Pulmonology Progress Note ---
Date of Service June 20, 2022 Assessment & Plan (1) COPD (chronic obstructive pulmonary disease): (2) Acute respiratory failure with hypoxia: (3) Sepsis: (4) Multilobar lung infiltrate: (5) Pleural effusion: Plan CT chest 06/17/2022 personally reviewed: Centrilobular emphysema appreciated bilaterally Dense consolidative process appreciated in the right upper right middle as well as right lower lobe Small right-sided pleural effusion No significant mediastinal lymphadenopathy ABG 7.43/39/71 on 2 L -- Acute hypoxic respiratory failure Secondary to multilobar pneumonia Procalcitonin 3.27 Respiratory bio fire negative for everything including COVID-19 PCR, influenza A/B and RSV QTc 431 Nasal MRSA negative Will need to repeat CT chest done in 6 weeks Sputum culture no growth till date --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 Mcege Please note the above document was generated using voice recognition software. It may contain grammatical, syntax or spelling errors.Any formal questions or concerns about the content, text or information contained within the body of this dictation should be directly addressed to the provider for clarification. Admission and Anticipated Discharge Date Admission Date: June 15, 2022 Subjective Patient seen and examined at bedside. No acute distress, no adverse events overnight She was saturating 94% on 5 L nasal cannula. I went down to 3 L. Overall she says she is feeling better. Still coughing bringing up clear phlegm. Denies any hemoptysis No nausea vomiting, fair appetite No headache. Asking if she could walk around. Review of Systems Review of Systems: All systems reviewed & are unremarkable except as noted in HPI & below Physical Exam Physical Exam: Constitutional: No acute distress, frail-appearing HEENT: EOMI, PERRLA Respiratory system: Decreased air entry bilaterally, no wheeze, rhonchi, positive crackles bilaterally more on the right side CVS: S1-S2 positive, no murmurs or gallops Abdomen: Soft, nontender, nondistended, positive bowel sounds x4 Extremities: +2 pulses bilaterally radialis/ dorsalis pedis, no cyanosis, no edema Neuro: Awake alert oriented x3 Psych: Normal mood and affect G/U: No Wong Skin: no rashes, warm and dry Lymphatic: no cervical or axillary lymphadenopathy Results & Data Results & Data ([facility]) Vital Signs (Past 12 Hours) Vital Signs Temp Pulse Pulse Resp BP Pulse Ox O2 Del Method 06/20/22 07:06 84 20 95 Nasal Cannula 06/20/22 02:54 36.6 C 101 H 18 130/87 90 Nasal Cannula 06/20/22 00:00 86 06/19/22 22:57 37.0 C 93 H 18 128/66 93 Room Air 06/19/22 20:00 Nasal Cannula O2 Flow Rate 06/20/22 07:06 2 06/20/22 02:54 2 06/20/22 00:00 06/19/22 22:57 06/19/22 20:00 2 Laboratory Results 06/20/22 06:27 06/20/22 06:27 PG Care Time/CCT Total # of Minutes Spent Total Time Spent with Patient: Total time spent is greater than 50% in coordination of care (as documented) at patient's floor/unit and/or counseling patient: Coding Level of Care Code 99529 SUB INP/OBS CARE 3/50MIN Diagnoses COPD (chronic obstructive pulmonary disease) J44.9 Acute respiratory failure with hypoxia J96.01 Sepsis A41.9 Multilobar lung infiltrate R91.8 Pleural effusion J90
[2022-06-20] MEDS: guaiFENesin 600 MG TABCR PO SCH ×2 (09:02→19:37)
[2022-06-20] MEDS: UMECLIDINIUM BROMIDE 62.5MCG/BLISTER 7 PUFFS/INHALER INH SCH (09:03)
[2022-06-20] MEDS: predniSONE 20 MG TAB PO SCH (10:00)
--- NOTE | 2022-06-20 12:29 | Hospitalist Progress Note ---
Date of Service June 20, 2022 Assessment & Plan (1) Acute respiratory failure with hypoxia: Plan: per Dr. Lancaster's notes with addendum: Noted to be acute respiratory failure with hypoxia secondary to pneumonia complicated by COPD Has been improving since admission and is requiring only 1 L oxygen via nasal cannula to maintain saturation Does not use any oxygen at home Has a rough night yesterday Has been requiring 3 L to maintain saturation Appreciate pulmonary input and recommendation Clinically better today-can converse almost normally Cough and shortness of breath is improved Clinically better and the chest x-ray showing minimal or no improvement but has a little left pleural effusion Intravenous Lasix of 40 mg was administered Continue current management 06/20 improving gradually on 3 L NC continue Zosyn + Azithromycin continue Nebs, Prednisone taper wean off O2 will need 2 step exercise test upon discharge will need neb machine at home (2) Sepsis: Plan: Presented with sepsis secondary to right upper lobe pneumonia Has been on intravenous azithromycin and ceftriaxone Antibiotic changed to Zosyn and azithromycin -- resolved (3) Pneumonia: Plan: Patient presenting from home with reports of generalized weakness. On presentation, meets sepsis criteria tachycardia in the 120s, WBC 21K, hypoxic on room air at 88%. Procalcitonin 3.27. Lactate 1.1, BP stable. CXR showing right apical consolidation In the ED, patient received IV cefepime, IV Solu-Medrol, nebulizer treatment, IVF. Will continue with IV ceftriaxone and IV azithromycin No wheezing on exam, will hold on steroids at this time Follow blood cultures-have been negative so far Ceftriaxone has been discontinued and replaced by azithromycin Clinically little better and will continue current medications We will continue current management as above Patchy opacity right apex and adjoining area persist 06/20 improving gradually (4) COPD (chronic obstructive pulmonary disease): Plan: Pulmonary toilet with nebs, Mucinex, incentive prompter, flutter valve Clinically improved Will need to wait to have stable O2 saturation test prior to discharge Continue IV Solu-Medrol 3 times daily IV Solu-Medrol has been decreased to once daily 06/20 management per #1 DVT PROPHYLAXIS SQ Lovenox Likely discharge over the weekend Will need to the steps O2 saturation prior to discharge Admission and Anticipated Discharge Date Admission Date: June 15, 2022 Subjective ff up for R sided pneumonia, COPD exacerbation, etc seen resting in bed, comfortable on 3 L NC states she feels ok overall breathing improving sputum now clear still has some cough no chest pain, dyspnea, palpitations, dizziness no other symptoms Review of Systems Review of Systems: all noted and negative except for above Physical Exam Physical Exam: General- oriented x 3, not in distress, speaks in sentences with no effort or accessory muscle use Eyes- anicteric Neck- no JVD Lungs- clear BS bilaterally, no rales/wheezes Heart- normal rate, regular rhythm; no murmurs Abdomen- normal bowel sounds, nondistended, soft, nontender Extremities- no pretibial edema, no calf tenderness Neuro- alert, oriented x 3; no gross focal neurologic deficits Skin- warm & dry Results & Data Results & Data ([facility]) Vital Signs (Past 12 Hours) Vital Signs Temp Pulse Pulse Resp BP BP Pulse Ox 06/20/22 07:15 06/20/22 11:25 36.7 C 86 22 158/80 H 92 06/20/22 10:59 104 H 18 92 06/20/22 07:48 78 06/20/22 07:41 36.6 C 96 H 18 113/69 90 06/20/22 07:06 84 20 95 06/20/22 02:54 36.6 C 101 H 18 130/87 90 O2 Del Method O2 Flow Rate 06/20/22 07:15 Nasal Cannula 2 06/20/22 11:25 Nasal Cannula 3 06/20/22 10:59 Nasal Cannula 3 06/20/22 07:48 06/20/22 07:41 Nasal Cannula 2 06/20/22 07:06 Nasal Cannula 2 06/20/22 02:54 Nasal Cannula 2 all noted and reviewed including below
[2022-06-20] MEDS ORDERED: AZITHROMYCIN 250 MG TAB PO SCH (15:00)
[2022-06-21] MEDS: PIPERACILLIN/TAZOBACTAM 3.375 GM in DEXTROSE 5% 100 ML IV SCH ×2 (03:42→09:46)
[2022-06-21] MEDS: FORMOTEROL 20 MCG/2 ML VIAL NEB SCH (05:10)
[2022-06-21] MEDS: BUDESONIDE 0.5 MG/2 ML VIAL (PULMICORT) NEB SCH (05:10)
[2022-06-21] MEDS: SODIUM CHLOR 7% 4 ML NEB NEB SCH (05:10)
[2022-06-21] MEDS: ALBUT/IPRATROP 3MG/0.5MG NEB 3 ML VIAL NEB SCH ×2 (05:10→10:56)
[2022-06-21] MEDS: UMECLIDINIUM BROMIDE 62.5MCG/BLISTER 7 PUFFS/INHALER INH SCH (08:44)
[2022-06-21] MEDS: predniSONE 20 MG TAB PO SCH (08:44)
[2022-06-21] MEDS: guaiFENesin 600 MG TABCR PO SCH (08:44)
--- NOTE | 2022-06-21 13:02 | Pulmonology Progress Note ---
Date of Service June 21, 2022 Assessment & Plan (1) COPD (chronic obstructive pulmonary disease): (2) Acute respiratory failure with hypoxia: (3) Sepsis: (4) Multilobar lung infiltrate: (5) Pleural effusion: Plan CT chest 06/17/2022 personally reviewed: Centrilobular emphysema appreciated bilaterally Dense consolidative process appreciated in the right upper right middle as well as right lower lobe Small right-sided pleural effusion No significant mediastinal lymphadenopathy ABG 7.43/39/71 on 2 L -- Acute hypoxic respiratory failure Secondary to multilobar pneumonia Procalcitonin 3.27 Respiratory bio fire negative for everything including COVID-19 PCR, influenza A/B and RSV QTc 431 Nasal MRSA negative Will need to repeat CT chest done in 6 weeks Sputum culture no growth till date --COPD with emphysema On Symbicort at home Would recommend to add Spiriva/Incruse to Symbicort on discharge PFT as an outpatient in 2 months -- Pleural effusion Small right-sided Likely parapneumonic No intervention needed right now Plan: Patient will need oxygen on exertion at home Can transition IV antibiotics to cefdinir or cefpodoxime to be given for total of 14 days Finish tapering prednisone. With Symbicort at home and add Spiriva or Incruse on discharge Will need repeat CT chest to be done in 6 weeks No further recommendation from pulmonary perspective. We will sign off. Please call directly with any questions Case was discussed with Dr. Mcgee Please note the above document was generated using voice recognition software. It may contain grammatical, syntax or spelling errors.Any formal questions or concerns about the content, text or information contained within the body of this dictation should be directly addressed to the provider for clarification. Admission and Anticipated Discharge Date Admission Date: June 15, 2022 Subjective Patient seen and examined at bedside. No acute distress, no adverse events overnight She was saturating 91-93% on 1 L nasal cannula Overall she stated she is feeling well. Bringing up phlegm which is clear. Denies any hemoptysis No headache, no nausea, no vomiting Fair appetite. Asking if she could go home Review of Systems Review of Systems: All systems reviewed & are unremarkable except as noted in Subjective Physical Exam Physical Exam: Constitutional: No acute distress, frail-appearing HEENT: EOMI, PERRLA Respiratory system: Decreased air entry bilaterally, no wheeze, rhonchi, positive crackles bilaterally more on the right side CVS: S1-S2 positive, no murmurs or gallops Abdomen: Soft, nontender, nondistended, positive bowel sounds x4 Extremities: +2 pulses bilaterally radialis/ dorsalis pedis, no cyanosis, no edema Neuro: Awake alert oriented x3 Psych: Normal mood and affect G/U: No Wong Skin: no rashes, warm and dry Lymphatic: no cervical or axillary lymphadenopathy Results & Data Results & Data ([facility]) Vital Signs (Past 12 Hours) Vital Signs Temp Pulse Pulse Pulse Pulse Pulse Resp 06/21/22 11:24 36.8 C 97 H 19 06/21/22 10:56 96 H 18 06/21/22 09:21 116 H 120 H 110 H 113 H 06/21/22 09:19 06/21/22 07:08 36.7 C 99 H 20 06/21/22 05:12 85 18 06/21/22 03:18 36.8 C 81 18 Resp Resp Resp Resp BP Pulse Ox Pulse Ox 06/21/22 11:24 142/68 H 91 06/21/22 10:56 96 06/21/22 09:21 20 22 20 18 91 06/21/22 09:19 06/21/22 07:08 153/75 H 92 06/21/22 05:12 89 L 06/21/22 03:18 151/67 H 95 Pulse Ox Pulse Ox Pulse Ox O2 Del Method O2 Flow Rate O2 Flow Rate 06/21/22 11:24 Room Air 06/21/22 10:56 Nasal Cannula 2 06/21/22 09:21 87 L 91 90 2 06/21/22 09:19 Nasal Cannula 1 06/21/22 07:08 Nasal Cannula 1 06/21/22 05:12 Nasal Cannula 1 06/21/22 03:18 Nasal Cannula 1 Laboratory Results 06/20/22 06:27 06/20/22 06:27 PG Care Time/CCT Total # of Minutes Spent Total Time Spent with Patient: Total time spent is greater than 50% in coordination of care (as documented) at patient's floor/unit and/or counseling patient: Coding Level of Care Code 25380 SUB INP/OBS CARE 2/35MIN Diagnoses COPD (chronic obstructive pulmonary disease) J44.9 Acute respiratory failure with hypoxia J96.01 Sepsis A41.9 Multilobar lung infiltrate R91.8 Pleural effusion J90
--- NOTE | 2022-06-21 18:50 | Hospitalist Progress Note ---
Date of Service June 21, 2022 delayed entry date of service noted above Assessment & Plan (1) Acute respiratory failure with hypoxia: Plan: per Dr. Lancaster's notes with addendum: Noted to be in acute respiratory failure with hypoxia secondary to pneumonia complicated by COPD CT chest: 1. There is no evidence of pulmonary embolus in the main, lobar, or segmental pulmonary arteries. 2. Cardiomegaly and advanced emphysema. 3. Dense airspace consolidation is seen throughout the right upper lobe, with milder patchy/nodular consolidation in the right middle and right lower lobes. The appearance is typical for multifocal pneumonia. 4. A 3.5 cm focus of nodular consolidation in the right lower lobe shows internal cavitation. A follow-up chest CT in 1 to 2 months time is recommended to document resolution and to reassess the underlying lung parenchyma. 5. Additional findings as above. 06/21 improving gradually Oxygen supplementation gradually weaned off, now on 2 L of oxygen Was given Zosyn + Azithromycin x5 days, nebs, Solu-Medrol then prednisone taper Discharge plan, recommendations per ppa teacher: Cefpodoxime 200 mg twice daily x7 more days Prednisone taper 40 mg x 2 days, then 30 mg daily for 2 days, etc. until finish ed Anoro Ellipta added Continue usual formoterol/salmeterol Patient requiring 2 L of oxygen while ambulating based on two-step exercise test Wean off accordingly as an outpatient (2) Sepsis: Plan: Presented with sepsis secondary to right upper lobe pneumonia -- resolved (3) Pneumonia: Plan: Patient presenting from home with reports of generalized weakness. On presentation, meets sepsis criteria tachycardia in the 120s, WBC 21K, hypoxic on room air at 88%. Procalcitonin 3.27. Lactate 1.1, BP stable. CXR showing right apical consolidation Blood cultures: Negative 06/20 Management per above (4) COPD (chronic obstructive pulmonary disease): Plan: Pulmonary toilet with nebs, Mucinex, incentive prompter, flutter valve Clinically improved management per #1 DVT PROPHYLAXIS SQ Lovenox Disposition Discharge to home Follow-up with PCP in 1 week Admission and Anticipated Discharge Date Admission Date: June 15, 2022 Subjective Follow-up for COPD exacerbation, right-sided pneumonia, etc. Seen resting in bed, comfortable, sitting up Patient's daughter at the bedside States she feels much better overall No cough, no shortness of breath No other symptoms States she is ready for discharge Review of Systems Review of Systems: all noted and negative except for above Physical Exam Physical Exam: General- oriented x 3, not in distress, speaks in sentences with no effort or accessory muscle use Eyes- anicteric Neck- no JVD Lungs- clear breath sounds bilaterally, no wheezing/crackles Heart- normal rate, regular rhythm; no murmurs Abdomen- normal bowel sounds, nondistended, soft, nontender Extremities- no pretibial edema, no calf tenderness Neuro- alert, oriented x 3; no gross focal neurologic deficits Skin- warm & dry Results & Data Results & Data ([facility]) Vital Signs (Past 12 Hours) Vital Signs Temp Pulse Pulse Pulse Pulse Pulse Pulse 06/21/22 13:30 36.8 C 97 H 95 H 06/21/22 11:24 36.8 C 97 H 06/21/22 10:56 96 H 06/21/22 09:21 116 H 120 H 110 H 113 H 06/21/22 09:19 06/21/22 07:08 36.7 C 99 H Resp Resp Resp Resp Resp BP Pulse Ox 06/21/22 13:30 19 142/68 H 91 06/21/22 11:24 19 142/68 H 91 06/21/22 10:56 18 96 06/21/22 09:21 20 22 20 18 06/21/22 09:19 06/21/22 07:08 20 153/75 H 92 Pulse Ox Pulse Ox Pulse Ox Pulse Ox O2 Del Method O2 Flow Rate O2 Flow Rate 06/21/22 13:30 06/21/22 11:24 Room Air 06/21/22 10:56 Nasal Cannula 2 06/21/22 09:21 91 87 L 91 90 2 06/21/22 09:19 Nasal Cannula 1 06/21/22 07:08 Nasal Cannula 1 all noted and reviewed including below
--- NOTE | 2022-06-22 17:35 | Discharge Summary ---
Discharge Summary Date of Service June 22, 2022 Notes For Next Care Provider CT chest: A 3.5 cm focus of nodular consolidation in the right lower lobe shows internal cavitation. A follow-up chest CT in 1 to 2 months time is recommended to document resolution and to reassess the underlying lung parenchyma. Medication Changes From Visit Cefpodoxime 200 mg twice daily x1 week Mucinex 1200 mg twice daily x5 days Prednisone taper-40 mg x 2 days, 30 mg for 2 days, 20 mg x 2 days, 10 mg for 2 days, then stop Incruse Ellipta 1 elation daily Admission HPI Per Admitting Provider 76 year old female with PMH COPD, osteoporosis, tobacco abuse, and other problems listed below who presents to the ED for evaluation of generalized weakness. Patient reports she has been feeling sick for about one week. Reports an exposure to flu from her grandson. Patient reports progressive generalized weakness and poor appetite. No abdominal pain, nausea, vomiting, or diarrhea. She reports feeling unsteady whenever she stands. No lightheadedness, dizziness, diaphoresis, syncopal events. Patient has underlying COPD and is an active smoker. Reports she has a chronic cough which has been unchanged from baseline. She reports having chills and episodes of feeling hot however did not take her temperature. No chest pain or palpitations. Mild shortness of breath with exertion. No urinary symptoms. In the ED, patient was tachycardic in the 120s. WBC 21K. Hypoxic on room air at 88%. CXR shows right apical consolidation typical appearance for pneumonia. Patient was given nebulizer treatment, IV cefepime, IV Solu-Medrol, IVF. Admission Exam Per Admitting Provider Constitutional: + thin; no acute distress vitals as abo ve Eyes: PERRL, conjunctivae normal, anicteric sclerae ENMT: external ear and nose normal, oropharynx normal Respiratory: no respiratory distress Auscultation: + diminished lung sounds; no wheezes Cardiovascular: Rate/Rhythm: regular rhythm and + tachycardic Vessels: normal peripheral pulses Extremities: no edema Gastrointestinal (Abdomen): normal bowel sounds, soft, nontender, no hepatosplenomegaly Musculoskeletal: no cyanosis or clubbing, extremities motor strength 5/5 Skin: no rashes, warm and dry Neurologic: PERRL, EOMI, accommodation nl, no face palsy, no dysarthria Psychiatric: A+Ox3, euthymic affect Principal Dx & Hospital Course #1 = Principal Diagnosis (1) Acute respiratory failure with hypoxia: per Dr. Lancaster's notes with addendum: Noted to be in acute respiratory failure with hypoxia secondary to pneumonia complicated by COPD CT chest: 1. There is no evidence of pulmonary embolus in the main, lobar, or segmental p ulmonary arteries. 2. Cardiomegaly and advanced emphysema. 3. Dense airspace consolidation is seen throughout the right upper lobe, with milder patchy/nodular consolidation in the right middle and right lower lobes. The appearance is typical for multifocal pneumonia. 4. A 3.5 cm focus of nodular consolidation in the right lower lobe shows internal cavitation. A follow-up chest CT in 1 to 2 months time is recommended to document resolution and to reassess the underlying lung parenchyma. 5. Additional findings as above. 06/21 improving gradually Oxygen supplementation gradually weaned off, now on 2 L of oxygen Was given Zosyn + Azithromycin x5 days, nebs, Solu-Medrol then prednisone taper Discharge plan, recommendations per director of investigations: Cefpodoxime 200 mg twice daily x7 more days Prednisone taper 40 mg x 2 days, then 30 mg daily for 2 days, etc. until finished Anoro Ellipta added Continue usual formoterol/salmeterol Patient requiring 2 L of oxygen while ambulating based on two-step exercise test Wean off accordingly as an outpatient (2) Sepsis: Presented with sepsis secondary to right upper lobe pneumonia -- resolved (3) Pneumonia: Patient presenting from home with reports of generalized weakness. On presentation, meets sepsis criteria tachycardia in the 120s, WBC 21K, hypoxic on room air at 88%. Procalcitonin 3.27. Lactate 1.1, BP stable. CXR showing right apical consolidation Blood cultures: Negative 06/20 Management per above (4) COPD (chronic obstructive pulmonary disease): Pulmonary toilet with nebs, Mucinex, incentive prompter, flutter valve Clinically improved management per #1 DVT PROPHYLAXIS SQ Lovenox Disposition Discharge to home Follow-up with PCP in 1 week Discharge Exam General- oriented x 3, not in distress, speaks in sentences with no effort or accessory muscle use Eyes- anicteric Neck- no JVD Lungs- clear breath sounds bilaterally, no wheezing/crackles Heart- normal rate, regular rhythm; no murmurs Abdomen- normal bowel sounds, nondistended, soft, nontender Extremities- no pretibial edema, no calf tenderness Neuro- alert, oriented x 3; no gross focal neurologic deficits Skin- warm & dry Updated Medication List Medication Instructions Recorded Confirmed Type albuterol sulfate 90 mcg/actuation 2 inha inhalation Q4H PRN 06/15/22 06/15/22 History aerosol inhaler shortness of breath or wheezing budesonide-formoterol HFA 160 2 puff inhalation BID 06/15/22 06/15/22 History mcg-4.5 mcg/actuation aerosol inhaler cefpodoxime 200 mg tablet 200 mg PO BID 7 days #14 tabs 06/21/22 Rx guaifenesin 600 mg tablet, 1,200 mg PO Q12 5 days #20 tabs 06/21/22 Rx extended release 12 hr (Mucinex) prednisone 10 mg tablet 10 mg PO UD #20 tabs 06/21/22 Rx umeclidinium 62.5 mcg/actuation 1 inh inhalation DAILY 30 days #30 06/21/22 Rx blister powder for inhalation ea (Incruse Ellipta) Hospital Stay Data Consultations 06/15/22 12:12 ED Decision to Admit Stat 06/17/22 04:50 Consult Pulmonology Routine Diagnostic Imagining Performed 06/17/22 04:59 CT angio chest PE protocol Urgent CT ANGIOGRAM OF THE CHEST CLINICAL HISTORY: Atypical chest pain. Dyspnea. COMPARISON STUDY: Chest x-ray dated 06/17/2022. TECHNIQUE: Following the IV administration of 91 cc of Optiray 320, CT angiogram of the chest was performed from the upper abdomen to the thoracic inlet utilizing the pulmonary embolus protocol. Images are reviewed in the axial, sagittal, and coronal planes. 3-D MIPS images are created and assessed. IV contrast was administered without complication. A dose lowering technique was utilized adhering to the principles of ALARA. CT DOSE: 243.54 mGy.cm FINDINGS: Thyroid: Imaged portions of the thyroid gland are normal in size and attenuation. Thoracic aorta: There is atherosclerotic calcification of the thoracic aorta, which is normal in caliber and demonstrates standard 3-vessel arch anatomy. No dissection is seen. Pulmonary vasculature: The main pulmonary arteries are dilated suggesting pulmonary artery hypertension. There are no filling defects identified in main, lobar, or segmental pulmonary branches to suggest pulmonary embolus. Heart: The heart is enlarged and without pericardial effusion. There are coronary artery calcifications. Lungs and pleural spaces: Evaluation of the lung parenchyma is compromised by motion artifact. There are small pleural effusions seen bilaterally. There is advanced emphysema. Dense airspace consolidation is seen throughout the right upper lobe. Milder patchy/nodular consolidation is seen in the right middle and right lower lobes. Question minimal cavitation within a 3.5 cm nodular focus of right lower lobe consolidation seen on image #126. Peripheral scarring is seen in the lingula. There are scattered calcified granulomas. The trachea and central airways appear clear. Debris is seen within the right lower lobe airways. Mediastinum: Mildly enlarged mediastinal lymph nodes measure up to 12 mm in short axis. These are likely reactive. Iram: Clear. Axillae: There is no axillary lymphadenopathy. Upper abdomen: Partially visualized upper abdominal viscera is within normal limits. Skeletal structures: The skeletal structures are osteopenic. Numerous compression deformities are seen throughout the thoracolumbar spine. No lytic or blastic bony lesions are seen. Arthritic change is seen in the shoulders. IMPRESSION: 1. There is no evidence of pulmonary embolus in the main, lobar, or segmental pulmonary arteries. 2. Cardiomegaly and advanced emphysema. 3. Dense airspace consolidation is seen throughout the right upper lobe, with milder patchy/nodular consolidation in the right middle and right lower lobes. The appearance is typical for multifocal pneumonia. 4. A 3.5 cm focus of nodular consolidation in the right lower lobe shows internal cavitation. A follow-up chest CT in 1 to 2 months time is recommended to document resolution and to reassess the underlying lung parenchyma. 5. Additional findings as above. ACT 112: Positive. There are findings on this exam that require communication between the performing entity and the patient following Patient Test Result Information Act ([place] Act 112) guidelines. Electronically signed by: Jose M Singleton M.D. 06/17/2022 7:19 AM Pending Results Patient Have Any Pending Studies at Discharge: Yes Discharge Instructions Given to Patient (Per Discharging Provider) PLEASE REFER TO YOUR NEW MEDICATION LIST AND FOLLOW INSTRUCTIONS CAREFULLY. YOUR NEW MEDICATIONS INCLUDE: Cefpodoxime-antibiotic for pneumonia Prednisone taper-steroid for COPD exacerbation, to be taken as follows: 40 mg x 2 days, then 30 mg x 2 days, then 20 mg x 2 days, then 10 mg x 2 days, then stop Incruse Ellipta-inhaler for COPD Probiotics daily-to prevent diarrhea Continue using incentive spirometry and flutter valve frequently at home. Drink plenty of water daily. YOU NEED TO HAVE A REPEAT CT SCAN OF YOUR CHEST IN 6 WEEKS. YOUR PRIMARY CARE PHYSICIAN OR LUNG SPECIALIST CAN ORDER THIS FOR YOU. PLEASE CALL YOUR PRIMARY CARE PHYSICIAN OR RETURN TO THE ER IF WITH WORSENING OF SYMPTOMS, INCLUDING Shortness of breath, cough, chest pain, fevers or chills, diarrhea, etc. FOLLOW UP WITH PRIMARY CARE PHYSICIAN OUTLINED ABOVE. FOLLOW-UP WITH LUNG SPECIALIST IN 2 TO 3 WEEKS. PLEASE CONTACT HIS OFFICE FOR AN APPOINTMENT. CONTACT INFORMATION NOTED ABOVE. Total Time Total Time Spent Total Time Spent (In Minutes): > 30 months
== END 2022-06-21 14:02 | disposition home health service (06) | DRG 871 ==
LOC: ED 10:12 → SUATTDRO 12:26 → 2S 12:26

== ENCOUNTER 2023-02-05 08:08 | Inpatient (IN) ==
--- NOTE | 2023-02-05 09:04 | Emergency Department Note ---
Impression & Plan Retrosternal chest pain, Abdominal pain, right upper quadrant, Right lower lobe lung mass, Elevated troponin ED Provider Note INFORMANT: Patient ED PROVIDER(S): Michael Francisco MD CHIEF COMPLAINT: Chest pain PLAN: Disposition: Admitted Condition: Good Outpatient prescription management: none Referral: None MEDICAL DECISION MAKING: Patient presented because of chest pain that was also radiating to her back and was in the right upper quadrant. Patient had a nonischemic ECG. Her blood work was obtained. Chest x-ray and imaging ordered. Patient was found to have some improvement on chest x-ray but her cardiac troponin and D-dimer were elevated. Patient was sent for CT imaging. No PE was noted. The patient does have a large right lower lobe mass noted. I did discuss this with Dr. Blakely of pulmonology. He felt the patient will need a work-up, as an outpatient with a PET scan. Patient will need further management in the hospital given the elevated troponin. Consultation was made with the [facility]. Case was discussed and diagnostics were reviewed. The patient will be admitted by Dr. Graham Discussed with barn manager After review of the information above and other included data, I feel the patient requires admission. Triage Nursing notes reviewed and agree them. Vital Signs: reviewed and remarkable for no significant abnormalities Prior /Outside records Reviewed: recent pulmonary note reviewed. Patient has a history of COPD as well as a multilobar infiltrate. Differential diagnosis: Cardiac ischemia, aortic dissection, pulmonary embolism, pneumothorax, pneumonia, pericarditis, myocarditis, esophageal rupture, GERD, cholecystitis, pancreatitis, musculoskeletal, as well as other pathologies. Diagnostics, as interpreted by me: ECG: Twelve-lead ECG reveals a normal sinus rhythm at 100 bpm. There is left atrial lodgment. Poor R wave progression. No ST elevation. Cardiac Monitoring: Cardiac monitoring ordered by me: The patient was placed on continuous cardiac monitoring and observed. It revealed a normal sinus rhythm at 94 beats per minute without ectopy or evidence of dysrhythmia. Medical decision rules: none Imaging studies: Chest x-ray and CT scan as above. Patient also had gallbladder ultrasound imaging which was negative. HPI: The patient is a 77year old for who presents to the Emergency Room with complaints of chest. This started a few days ago and is worsening. The patient also notes the following associated symptoms, pain in the mid back and neck. The patient has found no relieving factors. Current pain is rated as 2/10. Pt denies LOC, headache, fevers, chills, diaphoresis, visual changes, ne ck pain, nausea, vomiting, abdominal pain, melena, hematochezia, urinary symptoms, numbness, weakness, lymphadenopathy, rash, or other complaints. PAST MEDICAL HISTORY: See Below, COPD PAST SURGICAL HISTORY: See Below, SOCIAL HISTORY: See Below, smoker HOME MEDICATIONS: See Below ALLERGIES: See Below VITALS: See Below PHYSICAL EXAMINATION: GENERAL: Awake, alert, nontoxic-appearing, in no distress HENT: Normocephalic, atraumatic. Oropharynx unremarkable. EYES: Normal conjunctiva. Sclera non-icteric. NECK: Inspection normal. Non-tender. Supple. No nuchal rigidity. FROM. No masses. RESPIRATORY: Clear to auscultation. No wheezes. No rales. Normal respiratory effort. CARDIAC: Normal rate. Normal rhythm. No murmurs. No rubs. Extremities warm and well perfused. Pulses equal. No JVD. GI: Soft, non-distended. No tenderness to palpation. No rebound or guarding. No masses. RECTAL: Deferred. MUSCULOSKELETAL: Atraumatic. Chest examination reveals no tenderness. The back is symmetrical on inspection without obvious abnormality. There is no CVA tenderness to palpation. No joint edema. LOWER EXTREMITIES: Calves are equal size bilaterally and non-tender. No edema. No discoloration. NEURO: Normal sensorium. No sensory or motor deficits noted. SKIN: No rash or jaundice noted. Past Med/Surg History Medical History COPD (chronic obstructive pulmonary disease) Smoker Tobacco use disorder Surgical History History of partial hysterectomy Family History Mother Diabetes Other Heart disease Social History Smoking Status: Current every day smoker Tobacco Type: Cigarettes Age Started Using Tobacco: 11; Cigarettes Per Day: 4-5; Second Hand Exposure: No; Do You Dip or Chew Tobacco: No; Hx Alcohol Use: No Hx Substance Use: No Preferred Language: Khmer Communication Ability: Effective Office Support Clerk Required: No Beliefs That Will Affect Care: None Current Living Situation: Alone Feels Safe at Home: Yes Assistive Devices: Denture - Upper and Glasses Allergies Allergies Allergy/AdvReac Type Severity Reaction Status Date / Time No Known Allergies Allergy Unverified 07/19/18 15:12 Home Meds Home Medications Medication Instructions Recorded Confirmed metoprolol tartrate 25 mg tablet 25 mg PO BID 02/05/23 02/05/23 Previous Rx's Medication Instructions Recorded albuterol sulfate 90 mcg/actuation 2 inh inhalation Q4H PRN shortness 08/14/22 aerosol inhaler of breath or wheezing #8.5 grams budesonide-formoterol HFA 160 2 puff inhalation BID #10.2 grams 08/14/22 mcg-4.5 mcg/actuation aerosol inhaler Results & Data (ED) Vital Signs Vital Signs - 24 hr 02/05/23 08:15 02/05/23 08:25 02/05/23 08:25 Temperature 36.3 C L Temperature Source Temporal Artery Scan Pulse Rate 100 H Pulse Rate [Apical] 94 H Pulse Rhythm Pulse Rhythm [Apical] Regular Pulse Strength [Apical] Normal Respiratory Rate 16 20 Respiratory Effort / Characteristics Non-Labored Non-Labored Spontaneous Respiratory Depth Normal Normal Respiratory Pattern Regular Blood Pressure 126/66 Blood Pressure [Right Arm] 151/87 H Blood Pressure Mean 86 Blood Pressure Mean [Right Arm] 108 Blood Pressure Position [Right Arm] Sitting Pulse Oximetry 93 94 Oxygen Delivery Method Room Air Room Air Room Air Sepsis Recent Fever Within 48 Hours No Sepsis New/Unexplained Change in Mental Status No Sepsis Action Taken by Nursing No Action Required 02/05/23 08:32 02/05/23 08:35 02/05/23 10:08 Temperature Temperature Source Pulse Rate 100 H 88 Pulse Rate [Apical] 88 Pulse Rhythm Regular Pulse Rhythm [Apical] Regular Pulse Strength [Apical] Normal Respiratory Rate 20 20 Respiratory Effort / Characteristics Non-Labored Spontaneous Respiratory Depth Normal Respiratory Pattern Regular Blood Pressure Blood Pressure [Right Arm] 152/88 H Blood Pressure Mean Blood Pressure Mean [Right Arm] 109 Blood Pressure Position [Right Arm] Sitting Pulse Oximetry 93 94 Oxygen Delivery Method Room Air Room Air Sepsis Recent Fever Within 48 Hours Sepsis New/Unexplained Change in Mental Status Sepsis Action Taken by Nursing 02/05/23 12:00 02/05/23 13:17 Temperature Temperature Source Pulse Rate 92 H Pulse Rate [Apical] 92 H Pulse Rhythm Pulse Rhythm [Apical] Regular Pulse Strength [Apical] Normal Respiratory Rate 20 Respiratory Effort / Characteristics Non-Labored Spontaneous Respiratory Depth Normal Respiratory Pattern Regular Blood Pressure Blood Pressure [Right Arm] 148/86 H Blood Pressure Mean Blood Pressure Mean [Right Arm] 106 Blood Pressure Position [Right Arm] Sitting Pulse Oximetry 92 Oxygen Delivery Method Room Air Sepsis Recent Fever Within 48 Hours Sepsis New/Unexplained Change in Mental Status Sepsis Action Taken by Nursing Laboratory Data 02/05/23 08:48 02/05/23 08:48 Lab Results 02/05/23 02/05/23 02/05/23 Range/Units 08:48 08:48 08:48 WBC 9.03 (4.8-10.8) K/ul RBC 4.31 (4.20-5.40) M/uL Hgb 13.3 (12.0-16.0) g/dl Hct 38.3 (37.0-47.0) % MCV 88.9 (80.0-100.0) fL MCH 30.9 (25.0-34.0) pg MCHC 34.7 (32.0-36.0) g/dL RDW Std Deviation 42.4 (36.4-46.3) fL RDW Coeff of Fernanda 12.9 (11.5-14.5) % Plt Count 316 (130-400) K/uL MPV 9.8 (9.4-12.4) fL Immature Gran % (Auto) 0.4 % Neut % (Auto) 71.6 % Lymph % (Auto) 13.2 % Craig % (Auto) 11.5 % Eos % (Auto) 2.4 % Baso % (Auto) 0.9 % Neut # (Auto) 6.46 (1.40-6.50) K/uL Lymph # (Auto) 1.19 L (1.20-3.40) K/uL Craig # (Auto) 1.04 H (0.11-0.59) K/uL Eos # (Auto) 0.22 (0.00-0.50) K/uL Baso # (Auto) 0.08 (0.00-0.20) K/uL Immature Gran # (Auto) 0.04 (0.01-0.20) K/uL ESR (0-30) mm/hr D-Dimer 5840 H* (0-500) ug/L FEU Sodium 131 L (136-145) mmol/L Potassium 4.0 (3.5-5.1) mmol/L Chloride 99 (98-107) mmol/L Carbon Dioxide 28 (21-32) mmol/L Anion Gap 4 (3-11) BUN 16 (6-23) mg/dl Creatinine 0.78 (0.6-1.2) mg/dl Est Cr Clr Drug Dosing 45.6 ml/min Est GFR ( Amer) 85.0 ml/min Est GFR (Non-Af Amer) 73.3 ml/min BUN/Creatinine Ratio 20.5 H (10-20) Glucose 124 H (70-99(Fasting)) mg/dl Calcium 9.0 (8.6-10.3) mg/dl Total Bilirubin 0.4 (0.2-1.0) mg/dl AST 15 (13-39) U/L ALT 11 (7-52) U/L Alkaline Phosphatase 106 H (34-104) U/L Troponin I High Sens 37.7 H (0-14) pg/ml C-Reactive Protein (0-0.5) mg/dl Total Protein 6.8 (6.0-8.3) gm/dl Albumin 3.9 (3.4-5.0) gm/dl Globulin 2.9 (2.5-4.0) gm/dl Albumin/Globulin Ratio 1.3 (0.9-2) Lipase 7 L (11-82) U/L 02/05/23 02/05/23 02/05/23 Range/Units 08:48 08:48 11:25 WBC (4.8-10.8) K/ul RBC (4.20-5.40) M/uL Hgb (12.0-16.0) g/dl Hct (37.0-47.0) % MCV (80.0-100.0) fL MCH (25.0-34.0) pg MCHC (32.0-36.0) g/dL RDW Std Deviation (36.4-46.3) fL RDW Coeff of Fernanda (11.5-14.5) % Plt Count (130-400) K/uL MPV (9.4-12.4) fL Immature Gran % (Auto) % Neut % (Auto) % Lymph % (Auto) % Craig % (Auto) % Eos % (Auto) % Baso % (Auto) % Neut # (Auto) (1.40-6.50) K/uL Lymph # (Auto) (1.20-3.40) K/uL Craig # (Auto) (0.11-0.59) K/uL Eos # (Auto) (0.00-0.50) K/uL Baso # (Auto) (0.00-0.20) K/uL Immature Gran # (Auto) (0.01-0.20) K/uL ESR 27 (0-30) mm/hr D-Dimer (0-500) ug/L FEU Sodium (136-145) mmol/L Potassium (3.5-5.1) mmol/L Chloride (98-107) mmol/L Carbon Dioxide (21-32) mmol/L Anion Gap (3-11) BUN (6-23) mg/dl Creatinine (0.6-1.2) mg/dl Est Cr Clr Drug Dosing ml/min Est GFR ( Amer) ml/min Est GFR (Non-Af Amer) ml/min BUN/Creatinine Ratio (10-20) Glucose (70-99(Fasting)) mg/dl Calcium (8.6-10.3) mg/dl Total Bilirubin (0.2-1.0) mg/dl AST (13-39) U/L ALT (7-52) U/L Alkaline Phosphatase (34-104) U/L Troponin I High Sens 38.6 H (0-14) pg/ml C-Reactive Protein 1.17 H (0-0.5) mg/dl Total Protein (6.0-8.3) gm/dl Albumin (3.4-5.0) gm/dl Globulin (2.5-4.0) gm/dl Albumin/Globulin Ratio (0.9-2) Lipase (11-82) U/L Administered Medications Enoxaparin Sodium (Enoxaparin Inj 40 Mg/0.4 Ml Syr) 40 mg SQ Q24H YU Stop: 03/07/23 15:19 Last Admin: 02/05/23 16:35 Dose: Not Given Documented By: KGY Ceftriaxone Sodium 1,000 mg/ (Dextrose) 60 mls @ 100 mls/hr IV Q24H [facility]; Protocol Stop: 02/07/23 16:59 Last Admin: 02/05/23 17:46 Dose: 100 mls/hr Documented By: JUDE Discontinued Medications Aspirin (Aspirin Chew 324 Mg) 324 mg PO NOW STA Stop: 02/05/23 12:50 Last Admin: 02/05/23 13:03 Dose: 324 mg Documented By: SEAN Ioversol (Optiray 320 125ml) 115 ml IV ONCE ONE Stop: 02/05/23 11:24 Last Admin: 02/05/23 11:19 Dose: 115 ml Documented By: BRSheila Imaging Data Radiologist's Impression: Chest X-Ray 02/05/23 08:42 XR chest 1V portable HISTORY: Chest pain, nonspecific COMPARISON: Chest 06/19/2022. FINDINGS: No pneumothorax. No pleural effusions. The heart is mildly enlarged. This remains unchanged. The left lung is clear. The right upper lobe airspace opacities have significantly improved in the interval. Small patchy densities remain and which may represent residual scarring. There is progressive right apical pleural thickening measuring up to 8 mm in thickness. Right hilar fullness is again noted. IMPRESSION: 1. The right upper lobe airspace opacities have significantly improved in the interval. Small patchy densities remain and which may represent residual scarring. 2. Right hilar fullness again noted. This will be better appreciated on the same day chest CTA. ACT 112: Negative or not required by law. Electronically signed by: Guru Paul M.D. 02/05/2023 9:45 AM Chest CTA 02/05/23 08:56 CT angio chest PE protocol CT DOSE: 318.76 mGy.cm HISTORY: 77 years-old Female with Chest Pain, eval for PE, hx of copd, pna. Acute chest pain with shortness of breath TECHNIQUE: Multiple CTA images of the chest were obtained after the intravenous administration of 1:15 ml Optiray. Coronal and sagittal MIPS were obtained from the axial data set and were submitted for review. All measurements were obtained according to NASCET criteria. A dose lowering technique was utilized adhering to the principles of ALARA. COMPARISON: Chest radiograph of same day, chest CT 08/01/2022, 06/17/2022. FINDINGS: CTA: Moderate cardiomegaly with small pericardial effusion. Atherosclerosis of the thoracic aorta without aneurysm. Dilation of the pulmonary arteries suggestive of pulmonary arterial hypertension. No pulmonary emboli identified. CT CHEST: Normal thyroid. Pathologic mediastinal and right hilar lymphadenopathy. There is a right infrahilar/subcarinal centrally necrotic mass versus adenopathy with subcarinal component measuring 4.8 x 3.3 cm on image 119 series 4. There is abutment and posterior displacement of the mid esophagus. Circumferential wall thickening of the mid to distal esophagus. Spiculated centrally cavitary irr egular masslike consolidation in the subpleural right lower lobe on image 103 measures 4.6 x 2.8 cm, previously 3.8 x 2.8 cm when measured in a similar fashion. This demonstrates a nodular component which tracks along several adjacent right lower lobe bronchi. Moderate emphysema with chronic bronchitis. There is a 7 mm solid nodule within the superior segment left lower lobe on image 143 which was not definitively seen on prior. 5 mm left upper lobe pulmonary nodule on image 183. Ill-defined 1.6 cm groundglass nodular density of the lingula on image 122 appears stable. 7 mm right upper lobe solid nodule or unchanged. Right apical pleural-parenchymal scarring is again noted along with an irregular partially cavitary 6.1 x 2.6 x 4.9 cm focus which has progressively decreased in size. Narrowing of the right lower lobe bronchus. Mild thickening of the left adrenal gland. Unremarkable soft tissues. No acute fracture or destructive bone lesion identified. Chronic thoracolumbar compression deformities. IMPRESSION: 1. Cavitary spiculated masslike area of consolidation within the subpleural right lower lobe measuring up to 4.6 cm is suggestive of primary bronchogenic malignancy. Follow-up with pulmonology is needed. 2. Chronic mediastinal and right hilar pathologic lymphadenopathy likely represents metastatic disease. 3. Pleural parenchymal scarring at the right lung apex with irregular apical consolidative opacity continues to decrease in size from the prior study. Continued follow-up is needed. 4. Pulmonary emphysema. 5. No pulmonary emboli identified. ACT 112: Negative or not required by law. The above report was generated using voice recognition software. It may contain grammatical, syntax or spelling errors. Electronically signed by: Jose A Lloyd M.D. 02/05/2023 11:46 AM Gallbladder Ultrasound 02/05/23 08:56 US gallbladder CLINICAL HISTORY: epigastric, RUQ pain TECHNIQUE: Multiple real-time sonographic images of the right upper quadrant were obtained. Comparison: None available at the time of this dictation. FINDINGS: The liver is diffusely echogenic in appearance with poor ultrasound penetration, with normal contour, which is consistent with fatty infiltration. No focal mass lesions are seen. No intrahepatic ductal dilatation is seen. No gallstones or sludge are identified within the gallbladder. The gallbladder wall is not thickened. There is no pericholecystic fluid present. A sonographic Grey's sign was not elicited by the vp marketing services and skin. The common duct measures 0.7 cm in diameter at the level of the hepatic artery. The visualized portions of the pancreas appear normal. The right kidney shows normal echogenicity, cortical thickness and renal contour. The right kidney shows no evidence of hydronephrosis or mass. No ascites or free fluid is seen in Jha's pouch. IMPRESSION: 1. No acute abnormalities and in particular no evidence of acute cholecystitis. 2. Hepatic steatosis. ACT 112: Negative or not required by law. Electronically signed by: Musa Yoo M.D. 02/05/2023 12:12 PM Discharge Plan Visit Data Chief Complaint: Cardiac Assessment Stated Complaint: PAIN IN CHEST AND BACK, HEADACHE ON R SIDE ED Provider: Michael Francisco Discharge Problem: Retrosternal chest pain, Abdominal pain, right upper quadrant, Right lower lobe lung mass, Elevated troponin Patient Disposition: Admitted As Inpatient Discharge Instructions Interventions: ED Discharge Assessment Last Done: 02/05/23 15:51
[2023-02-05 09:24] LABS: Basophils # (auto) 0.08 K/uL (0.00-0.20); Basophils % (auto) 0.9 %; Eosinophils # (auto) 0.22 K/uL (0.00-0.50); Eosinophils % (auto) 2.4 %; Hematocrit (blood only) 38.3 % (37.0-47.0); Hemoglobin 13.3 g/dl (12.0-16.0); Immature Granulocytes # (auto) 0.04 K/uL (0.01-0.20); Immature Granulocytes % (auto) 0.4 %; Lymphocytes # (auto) 1.19 K/uL (1.20-3.40); Lymphocytes % (auto) 13.2 %; Mean Corpuscular Hemoglobin 30.9 pg (25.0-34.0); Mean Corpuscular Hgb Conc 34.7 g/dL (32.0-36.0); Mean Corpuscular Volume 88.9 fL (80.0-100.0); Mean Platelet Volume 9.8 fL (9.4-12.4); Monocytes # (auto) 1.04 K/uL (0.11-0.59); Monocytes % (auto) 11.5 %; Neutrophils # (auto) 6.46 K/uL (1.40-6.50); Neutrophils % (auto) 71.6 %; Platelet Count 316 K/uL (130-400); RDW Coefficient of Variation 12.9 % (11.5-14.5); RDW Standard Deviation 42.4 fL (36.4-46.3); Red Blood Count 4.31 M/uL (4.20-5.40); White Blood Count 9.03 K/ul (4.8-10.8)
--- NOTE | 2023-02-05 09:47 | XRay Report ---
XR chest 1V portable HISTORY: Chest pain, nonspecific COMPARISON: Chest 06/19/2022. FINDINGS: No pneumothorax. No pleural effusions. The heart is mildly enlarged. This remains unchanged . The left lung is clear. The right upper lobe airspace opacities have significantly improved in the interval. Small patchy densities remain and which may represent residual scarring. There is progressi ve right apical pleural thickening measuring up to 8 mm in thickness. Right hilar fullness is again n oted. IMPRESSION: 1. The right upper lobe airspace opacities have significantly improved in the interval. Small patchy densities remain and which may represent residual scarring. 2. Right hilar fullness again noted. This will be better appreciated on the same day chest CTA. ACT 112: Negative or not required by law. Electronically signed by: Guru Paul M.D. 02/05/2023 9:45 AM
[2023-02-05 09:53] LABS: Albumin Level 3.9 gm/dl (3.4-5.0); Bilirubin,Total 0.4 mg/dl (0.2-1.0)
[2023-02-05 09:59] LABS: Albumin Globulin Ratio 1.3 (0.9-2); BUN Creatinine Ratio 20.5 (10-20); Creatinine Clr Calc Pharmacy 45.6 ml/min; Est GFR (Non-African American) 73.3 ml/min; Globulin 2.9 gm/dl (2.5-4.0); Total Protein 6.8 gm/dl (6.0-8.3)
[2023-02-05 10:03] LABS: Troponin I High Sensitivity 37.7 pg/ml (0-14)
[2023-02-05 10:11] LABS: D Dimer 5840 ug/L FEU (0-500)
[2023-02-05] MEDS ORDERED: OPTIRAY 320 125ml IV ONE (11:23)
--- NOTE | 2023-02-05 11:48 | CT Scan Report ---
CT angio chest PE protocol CT DOSE: 318.76 mGy.cm HISTORY: 77 years-old Female with Chest Pain, eval for PE, hx of copd, pna. Acute chest pain with s hortness of breath TECHNIQUE: Multiple CTA images of the chest were obtained after the intravenous administration of 1:1 5 ml Optiray. Coronal and sagittal MIPS were obtained from the axial data set and were submitted for review. All measurements were obtained according to NASCET criteria. A dose lowering technique was utilized adhering to the principles of ALARA. COMPARISON: Chest radiograph of same day, chest CT 08/01/2022, 06/17/2022. FINDINGS: CTA: Moderate cardiomegaly with small pericardial effusion. Atherosclerosis of the thoracic aorta without aneurysm. Dilation of the pulmonary arteries suggestive of pulmonary arterial hypertension. No pulmon monica emboli identified. CT CHEST: Normal thyroid. Pathologic mediastinal and right hilar lymphadenopathy. There is a right infrahilar/s ubcarinal centrally necrotic mass versus adenopathy with subcarinal component measuring 4.8 x 3.3 cm on image 119 series 4. There is abutment and posterior displacement of the mid esophagus. Circumferen tial wall thickening of the mid to distal esophagus. Spiculated centrally cavitary irregular masslike consolidation in the subpleural right lower lobe on image 103 measures 4.6 x 2.8 cm, previously 3.8 x 2.8 cm when measured in a similar fashion. This demonstrates a nodular component which tracks along several adjacent right lower lobe bronchi. Moderate emphysema with chronic bronchitis. There is a 7 mm solid nodule within the superior segment left lower lobe on image 143 which was not definitively s een on prior. 5 mm left upper lobe pulmonary nodule on image 183. Ill-defined 1.6 cm groundglass nodu lar density of the lingula on image 122 appears stable. 7 mm right upper lobe solid nodule or unchang ed. Right apical pleural-parenchymal scarring is again noted along with an irregular partially cavita ry 6.1 x 2.6 x 4.9 cm focus which has progressively decreased in size. Narrowing of the right lower l obe bronchus. Mild thickening of the left adrenal gland. Unremarkable soft tissues. No acute fracture or destructiv e bone lesion identified. Chronic thoracolumbar compression deformities. IMPRESSION: 1. Cavitary spiculated masslike area of consolidation within the subpleural right lower lobe measurin g up to 4.6 cm is suggestive of primary bronchogenic malignancy. Follow-up with pulmonology is needed . 2. Chronic mediastinal and right hilar pathologic lymphadenopathy likely represents metastatic diseas e. 3. Pleural parenchymal scarring at the right lung apex with irregular apical consolidative opacity co ntinues to decrease in size from the prior study. Continued follow-up is needed. 4. Pulmonary emphysema. 5. No pulmonary emboli identified. ACT 112: Negative or not required by law. The above report was generated using voice recognition software. It may contain grammatical, syntax o r spelling errors. Electronically signed by: Jose A Lloyd M.D. 02/05/2023 11:46 AM
--- NOTE | 2023-02-05 12:14 | Ultrasound Report ---
US gallbladder CLINICAL HISTORY: epigastric, RUQ pain TECHNIQUE: Multiple real-time sonographic images of the right upper quadrant were obtained. Comparison: None available at the time of this dictation. FINDINGS: The liver is diffusely echogenic in appearance with poor ultrasound penetration, with normal contour, which is consistent with fatty infiltration. No focal mass lesions are seen. No intrahepatic duct al dilatation is seen. No gallstones or sludge are identified within the gallbladder. The gallbladde r wall is not thickened. There is no pericholecystic fluid present. A sonographic Grey's sign was n ot elicited by the massage therapist. The common duct measures 0.7 cm in diameter at the level of the hep atic artery. The visualized portions of the pancreas appear normal. The right kidney shows normal echogenicity, cortical thickness and renal contour. The right kidney sh ows no evidence of hydronephrosis or mass. No ascites or free fluid is seen in Jha's pouch. IMPRESSION: 1. No acute abnormalities and in particular no evidence of acute cholecystitis. 2. Hepatic steatosis. ACT 112: Negative or not required by law. Electronically signed by: Musa Yoo M.D. 02/05/2023 12:12 PM
[2023-02-05] MEDS ORDERED: ASPIRIN CHEW 324 MG PO STA (12:49)
--- NOTE | 2023-02-05 13:27 | History & Physical Report ---
Date of Service February 05, 2023 Assessment & Plan (1) Retrosternal chest pain: (2) Right lower lobe lung mass: (3) Tobacco use disorder: (4) COPD (chronic obstructive pulmonary disease): (5) Hyponatremia: Plan This is a 77yo M with a PMH of longstanding tobacco use, COPD, tachycardia and other medical problems listed below who presents from home with lower chest pain and was found to have RLL lung mass concerning for malignancy. Right lower lobe mass In setting of longstanding tobacco use H/o of multilobar pneumonia on the right side in June 2022 requiring admission and pulm follow up imaging CT chest from July 2022 with consolidative changes are still appreciated especially in the right upper lobe, there is a right lower lobe medial peripheral 3.1 Consolidative process(previously 3.5 cm) Follows with Dr. Bryant, due to repeat CT chest imaging due to high risk for lung ca but has been hesitant to pursue bronchoscopy in the past, opting for surveillance with imaging instead CTA chest today with cavitary spiculated masslike area of consolidation within the subpleural right lower lobe measuring up to 4.6 cm is suggestive of primary bronchogenic malignancy Pulmonology consulted - Dr. Blakely plans for bronchoscopy with EBUS and transbronchial biopsies/brushings and patient is agreeable - NPO at [place], holding SQ lovenox Patient unsure of desire to pursue chemo/radiation following tissue collection Of note, recently underwent brain MRI w/wo contrast as an [facility] outpatient 01/29/23 for headaches that revealed no acute intracranial abnormality. No metastasis Atypical chest pain Intermittent lower chest wall pain, worse over past week in setting of RLL mass as above, small pericardial effusion EKG without acute ST changes but low QRS voltage noted Discussed 2D echo findings with small circumferential pericardial effusion, tamponade is absent Discussed with Dr. Holman- pericardial effusion along with mild trop elevation may indicate pericarditis. Added CRP, ESR. Appreciate cards input Trend troponin, monitor on tele Tobacco use disorder 60 pack years, currently reduced to 1/4 ppd COPD No evidence of current exacerbation. Continue home inhalers, no indication for steroids. Initiated on antibiotics, per pulm Hyponatremia Na 131 (baseline 133-137). Added serum osm, urine osm, urine Na Likely SIADH, appears euvolemic. Fluid restriction, repeat BMP in AM DVT Ppx: holding SQ lovenox for now given bronchoscopy in AM Code status: DNR/DNI per discussion with patient PCP: Rocío Dispo: Admitted to PCU Patient seen in collaboration with Dr. Graham. Please see addendum. History of Present Illness Chief Complaint: CP Primary Care Provider: Ele Alford DO This is a 77yo M with a PMH of longstanding tobacco use, COPD, tachycardia and other medical problems listed below who presents from home with lower chest pain. Has been having dull, intermittent pain in lower aspect of chest over the last week. Pain woke her up last night which prompted visit to ED. Pain does not seem to be related to exertion or deep inspirations. Denies any discomfort during evaluation. Endorses chronic cough and no change or increased SOB lately. States she is compliant with inhalers. No F,C, appetite changes or hemoptysis. + Worsening fatigue. Endorses intermittent visual changes, R>L eye and dull headaches over the past month that she has seen PCP about. Underwent brain MRI w/wo contrast through [facility] on 01/29/23 that revealed no acute intracranial abnormality. No metastasis. Denies any nausea, vomiting, abdominal discomfort, dysuria, hematuria, diarrhea or constipation. Patient lives alone and ambulates independently. Has reduced cigarettes to 4 daily. History of multilobar pneumonia on the right side in June 2022 requiring admission and pulm follow up. CT chest from July 2022 with consolidative changes are still appreciated especially in the right upper lobe, there is a right lower lobe medial peripheral 3.1 Consolidative process(previously 3.5 cm). [address] Bryant in August and discussed the fact that lung cancer could not be ruled out based on CT findings and that given significant smoking history, patient was still at very high risk for lung cancer. The plan was for a repeat CT and if still persistence of a consolidative process, navigational bronchoscopy to be pursued. Allergies Allergy/AdvReac Type Severity Reaction Status Date / Time No Known Allergies Allergy Unverified 07/19/18 15:12 Home Medications Medication Instructions Recorded Confirmed Type albuterol sulfate 90 mcg/actuation 2 inh inhalation Q4H PRN shortness 08/14/22 02/05/23 Rx aerosol inhaler of breath or wheezing #8.5 grams budesonide-formoterol HFA 160 2 puff inhalation BID #10.2 grams 08/14/22 02/05/23 Rx mcg-4.5 mcg/actuation aerosol inhaler metoprolol tartrate 25 mg tablet 25 mg PO BID 02/05/23 02/05/23 History Past Med/Surg History Medical History COPD (chronic obstructive pulmonary disease) Smoker Tobacco use disorder Surgical History History of partial hysterectomy Family History Mother Diabetes Other Heart disease Social History Smoking Status: Current every day smoker Tobacco Type: Cigarettes Age Started Using Tobacco: 11; Cigarettes Per Day: 4-5; Second Hand Exposure: No; Do You Dip or Chew Tobacco: No; Hx Alcohol Use: No Hx Substance Use: No Preferred Language: Emirati Communication Ability: Effective Rubber Molder Required: No Beliefs That Will Affect Care: None Current Living Situation: Alone Feels Safe at Home: Yes Assistive Devices: Denture - Upper and Glasses Review of Systems Review of Systems: At least ten systems reviewed and negative except as noted in the HPI. Physical Exam Physical Exam: General Appearance: WD/WN, vitals as above, NAD, sitting up in bed, thin female, cooperative Head: normocephalic, atraumatic Eyes: normal inspection, PERRL, conjunctivae normal, anicteric sclerae ENT: external ear and nose normal, oropharynx normal Neck: normal visual inspection, trachea midline, no thyromegaly Respiratory: normal respiratory effort, diminished lung sounds, diffuse rhonchi and bibasilar rales. No accessory muscle use Cardiovascular: tachycardic rate, regluar rhythm, no BLE edema. Vessels: no JVD Chest: + TTP retrosternal to xiphoid process Abdomen/GI: normal bowel sounds, soft, nontender, no hepatosplenomegaly Extremities/Musculoskeletal: no cyanosis or clubbing, extremities motor strength 5/5 Neurologic: PERRL, EOMI, accommodation nl, no face palsy, no dysarthria, CN's II-XI intact bilaterally and moves all extremities Psychiatric: A+Ox3, euthymic affect Skin: no rashes, normal color, warm/dry Results & Data Results & Data Vital Signs (Past 12 Hours) Vital Signs Temp Pulse Pulse Resp BP BP Pulse Ox 02/05/23 13:17 92 H 02/05/23 12:00 92 H 20 148/86 H 92 02/05/23 10:08 88 20 152/88 H 94 02/05/23 08:35 88 20 93 02/05/23 08:32 100 H 02/05/23 08:25 94 H 20 151/87 H 94 02/05/23 08:25 02/05/23 08:15 36.3 C L 100 H 16 126/66 93 O2 Del Method 02/05/23 13:17 02/05/23 12:00 Room Air 02/05/23 10:08 Room Air 02/05/23 08:35 Room Air 02/05/23 08:32 02/05/23 08:25 Room Air 02/05/23 08:25 Room Air 02/05/23 08:15 Room Air Laboratory Results Short CBC 02/05/23 Range/Units 08:48 WBC 9.03 (4.8-10.8) K/ul Hgb 13.3 (12.0-16.0) g/dl Hct 38.3 (37.0-47.0) % Plt Count 316 (130-400) K/uL BMP 02/05/23 08:48 Sodium 131 L Potassium 4.0 Chloride 99 Carbon Dioxide 28 BUN 16 Creatinine 0.78 Glucose 124 H Calcium 9.0 Liver Function 02/05/23 Range/Units 08:48 Total Bilirubin 0.4 (0.2-1.0) mg/dl AST 15 (13-39) U/L ALT 11 (7-52) U/L Alkaline Phosphatase 106 H (34-104) U/L Albumin 3.9 (3.4-5.0) gm/dl Diagnostic Findings Chest X-Ray 02/05/23 08:42 XR chest 1V portable HISTORY: Chest pain, nonspecific COMPARISON: Chest 06/19/2022. FINDINGS: No pneumothorax. No pleural effusions. The heart is mildly enlarged. This remains unchanged. The left lung is clear. The right upper lobe airspace opacities have significantly improved in the interval. Small patchy densities remain and which may represent residual scarring. There is progressive right apical pleural thickening measuring up to 8 mm in thickness. Right hilar fullness is again noted. IMPRESSION: 1. The right upper lobe airspace opacities have significantly improved in the interval. Small patchy densities remain and which may represent residual scarring. 2. Right hilar fullness again noted. This will be better appreciated on the same day chest CTA. ACT 112: Negative or not required by law. Electronically signed by: Guru Paul M.D. 02/05/2023 9:45 AM Chest CTA 02/05/23 08:56 CT angio chest PE protocol CT DOSE: 318.76 mGy.cm HISTORY: 77 years-old Female with Chest Pain, eval for PE, hx of copd, pna. Acute chest pain with shortness of breath TECHNIQUE: Multiple CTA images of the chest were obtained after the intravenous administration of 1:15 ml Optiray. Coronal and sagittal MIPS were obtained from the axial data set and were submitted for review. All measurements were obtained according to NASCET criteria. A dose lowering technique was utilized adhering to the principles of ALARA. COMPARISON: Chest radiograph of same day, chest CT 08/01/2022, 06/17/2022. FINDINGS: CTA: Moderate cardiomegaly with small pericardial effusion. Atherosclerosis of the thoracic aorta without aneurysm. Dilation of the pulmonary arteries suggestive of pulmonary arterial hypertension. No pulmonary emboli identified. CT CHEST: Normal thyroid. Pathologic mediastinal and right hilar lymphadenopathy. There is a right infrahilar/subcarinal centrally necrotic mass versus adenopathy with subcarinal component measuring 4.8 x 3.3 cm on image 119 series 4. There is abutment and posterior displacement of the mid esophagus. Circumferential wall thickening of the mid to distal esophagus. Spiculated centrally cavitary irregular masslike consolidation in the subpleural right lower lobe on image 103 measures 4.6 x 2.8 cm, previously 3.8 x 2.8 cm when measured in a similar fashion. This demonstrates a nodular component which tracks along several adjacent right lower lobe bronchi. Moderate emphysema with chronic bronchitis. There is a 7 mm solid nodule within the superior segment left lower lobe on image 143 which was not definitively seen on prior. 5 mm left upper lobe pulmonary nodule on image 183. Ill-defined 1.6 cm groundglass nodular density of the lingula on image 122 appears stable. 7 mm right upper lobe solid nodule or unchanged. Right apical pleural-parenchymal scarring is again noted along with an irregular partially cavitary 6.1 x 2.6 x 4.9 cm focus which has progressively decreased in size. Narrowing of the right lower lobe bronchus. Mild thickening of the left adrenal gland. Unremarkable soft tissues. No acute fracture or destructive bone lesion identified. Chronic thoracolumbar compression deformities. IMPRESSION: 1. Cavitary spiculated masslike area of consolidation within the subpleural right lower lobe measuring up to 4.6 cm is suggestive of primary bronchogenic malignancy. Follow-up with pulmonology is needed. 2. Chronic mediastinal and right hilar pathologic lymphadenopathy likely represents metastatic disease. 3. Pleural parenchymal scarring at the right lung apex with irregular apical consolidative opacity continues to decrease in size from the prior study. Continued follow-up is needed. 4. Pulmonary emphysema. 5. No pulmonary emboli identified. ACT 112: Negative or not required by law. The above report was generated using voice recognition software. It may contain grammatical, syntax or spelling errors. Electronically signed by: Jose A Lloyd M.D. 02/05/2023 11:46 AM Gallbladder Ultrasound 02/05/23 08:56 US gallbladder CLINICAL HISTORY: epigastric, RUQ pain TECHNIQUE: Multiple real-time sonographic images of the right upper quadrant were obtained. Comparison: None available at the time of this dictation. FINDINGS: The liver is diffusely echogenic in appearance with poor ultrasound penetration, with normal contour, which is consistent with fatty infiltration. No focal mass lesions are seen. No intrahepatic ductal dilatation is seen. No gallstones or sludge are identified within the gallbladder. The gallbladder wall is not thickened. There is no pericholecystic fluid present. A sonographic Grey's sign was not elicited by the sas developer analyst. The common duct measures 0.7 cm in diameter at the level of the hepatic artery. The visualized portions of the pancreas appear normal. The right kidney shows normal echogenicity, cortical thickness and renal contour. The right kidney shows no evidence of hydronephrosis or mass. No ascites or free fluid is seen in Jha's pouch. IMPRESSION: 1. No acute abnormalities and in particular no evidence of acute cholecystitis. 2. Hepatic steatosis. ACT 112: Negative or not required by law. Electronically signed by: Musa Yoo M.D. 02/05/2023 12:12 PM Supervising Physician Co-Signing Physician Notes Patient seen and examined independently. Discussed with provider Patient is a 77-year-old female with past medical history of COPD who presents to the ED with chest pain. Was hospitalized in June due to pneumonia and had followed up with pulmonology for abnormal CT scan findings. On arrival to the ED, patient was normotensive, afebrile and saturating well on room air. CBC unremarkable. Sodium 131. D-dimer elevated for which CT angio chest was done which showed cavitary spiculated masslike area of consolidation within the subpleural right lower lobe concerning for malignancy. Assessment/plan Chest painEKG reviewed; normal sinus rhythm with low voltage QRS present. Echocardiogram shows a small pericardial effusion. Cardiology on board Lung mass -pulmonology consulted. Will appreciate recommendation. Hyponatremialikely SIADH, obtain urine electrolytes. Fluid restriction of 1200 cc. COPDnot on exacerbation, continue home inhalers.
[2023-02-05] MEDS ORDERED: ONDANSETRON INJ 2 MG/ML 2 ML VIAL IV PRN (15:20)
[2023-02-05] MEDS ORDERED: ENOXAPARIN INJ 40 MG/0.4 ML SYR SQ SCH (15:20)
[2023-02-05] MEDS ORDERED: ALBUTEROL HFA 8 GM INHALER INH PRN (15:20)
[2023-02-05] MEDS ORDERED: POLYETHYLENE (MIRALAX) 17 GM PACK PO PRN (15:20)
[2023-02-05] MEDS ORDERED: ACETAMINOPHEN 325 MG TAB PO PRN (15:20)
--- NOTE | 2023-02-05 16:13 | Cardiology Consultation ---
Date of Consultation February 05, 2023 Assessment & Plan (1) Retrosternal chest pain: Patient presents with waxing waning chest discomfort, mildly elevated HS troponin level of 37.7--> 38.6 ng/ml, with flat trend. Although the EKG suggest possible age-indeterminate anterior infarction, her echocardiogram reveals normal left ventricular wall motion without regional wall motion abnormalities and hyperdynamic biventricular systolic function. She has been found to have a small circumferential pericardial effusion. Per my review of the images of the CT scan performed in July of this year, she did have a small anterior and right lateral pericardial effusion at that time which has gotten a little bit bigger. She has been followed for a right-sided lung mass which has progressed. As noted given her presentation there is a high likelihood that the abnormality noted on CT scan is a malignancy. At present her symptoms do not seem to be suggestive of unstable angina or pericarditis clinically. Her D-dimer is elevated at 5840. ESR and CRP are currently pending. The pericardial effusion could represent a malignant pericardial effusion. Patient has already been seen by Dr Blakely of pulmonary medicine and bronchoscopy with EBUS and transbronchial biopsies/brushings tentatively planned for tomorrow and at present I do not think there is any cardiac contraindication to proceeding as such. History of Present Illness Attending Physician: Chauncey Graham MD History of Present Illness Lynette Santana is a 77 year old female seen in cardiology consultation per the request of Consuelo Grossman PA-C for the evaluation of chest pain. She describes that for the last week she has had an on and off discomfort at the caudal portion of the mid lower chest that occurs when she is laying down to sleep, as well as intermittently throughout the day, and is not associated with aerobic exertion. It is not exacerbated by taking a deep breath in or by lying flat. The discomfort radiates to her back. She ultimately came to the emergency department today because of the discomfort. At present during my assessment in room 234 she is in no distress. Recent history is notable for multilobar pneumonia diagnosed in June,. The repeat CT angiogram of the chest was performed today which was negative for pulmonary embolism however there was dilatation of the pulmonary arteries suggestive of underlying pulmonary hypertension. The patient was found to have a cavitary spiculated masslike area of consolidation in the subpleural right lobe with maximum dimension of 4.6 cm. Radiology report raises concerns that the findings suggest primary bronchogenic malignancy. A small circumferential pericardial effusion was observed. Compared to the previous CT dating back to July, lung findings as noted above have progressed. An echocardiogram was performed revealing mild concentric left ventricular hypertrophy with no regional wall motion abnormalities, hyperdynamic left ventricular systolic function with LVEF > 70%. Mild aortic valve sclerosis without stenosis is present, mild tricuspid regurgitation. A small circumferential pericardial effusion is present. The pulmonary systolic pressure is estimated be 36 mmHg which is the upper limit of normal. She notes having had a recent 7-day course of prednisone that was administered in early December for the treatment of hip pain. Family History: Patient states that both of her parents of heart disease, details unknown, when they were 67 years old Social History: The patient continues to smoke cigarettes, she is down to 4 cigarettes/day, having started smoking at the age of 11 She lives independently Allergies Allergy/AdvReac Type Severity Reaction Status Date / Time No Known Allergies Allergy Unverified 07/19/18 15:12 Home Medications Medication Instructions Recorded Confirmed Type albuterol sulfate 90 mcg/actuation 2 inh inhalation Q4H PRN shortness 08/14/22 02/05/23 Rx aerosol inhaler of breath or wheezing #8.5 grams budesonide-formoterol HFA 160 2 puff inhalation BID #10.2 grams 08/14/22 02/05/23 Rx mcg-4.5 mcg/actuation aerosol inhaler metoprolol tartrate 25 mg tablet 25 mg PO BID 02/05/23 02/05/23 History Patient History Medical History COPD (chronic obstructive pulmonary disease) Smoker Tobacco use disorder Surgical History History of partial hysterectomy Family History Mother Diabetes Other Heart disease Social History Smoking Status: Current every day smoker Tobacco Type: Cigarettes Age Started Using Tobacco: 11; Cigarettes Per Day: 4-5; Second Hand Exposure: No; Do You Dip or Chew Tobacco: No; Hx Alcohol Use: No Hx Substance Use: No Preferred Language: Guinean Communication Ability: Effective Medical Staff Assistant Required: No Beliefs That Will Affect Care: None Current Living Situation: Alone Feels Safe at Home: Yes Assistive Devices: Denture - Upper and Glasses Review of Systems Review of Systems: All systems reviewed & are unremarkable except as noted in HPI & below Physical Exam Constitutional: + thin Respiratory: Auscultation: + bronchial breath sounds (Coarse breath sounds throughout the right lung); no rales and no wheezes Cardiovascular: Rate/Rhythm: regular rhythm Heart Sounds: + murmur (1/6 systolic murmur) Extremities: no edema Gastrointestinal (Abdomen): normal bowel sounds, soft, nontender, no hepatosplenomegaly Neurologic: PERRL, EOMI, accommodation nl, no face palsy, no dysarthria Results & Data Vital Signs (Past 12 Hours) Vital Signs Temp Pulse Pulse Resp BP BP Pulse Ox 02/05/23 13:17 92 H 02/05/23 12:00 92 H 20 148/86 H 92 02/05/23 10:08 88 20 152/88 H 94 02/05/23 08:35 88 20 93 02/05/23 08:32 100 H 02/05/23 08:25 94 H 20 151/87 H 94 02/05/23 08:25 02/05/23 08:15 36.3 C L 100 H 16 126/66 93 O2 Del Method 02/05/23 13:17 02/05/23 12:00 Room Air 02/05/23 10:08 Room Air 02/05/23 08:35 Room Air 02/05/23 08:32 02/05/23 08:25 Room Air 02/05/23 08:25 Room Air 02/05/23 08:15 Room Air Laboratory Results Cardiac Enzymes 02/05/23 02/05/23 Range/Units 08:48 11:25 AST 15 (13-39) U/L Troponin I High Sens 37.7 H 38.6 H (0-14) pg/ml CBC 02/05/23 Range/Units 08:48 WBC 9.03 (4.8-10.8) K/ul RBC 4.31 (4.20-5.40) M/uL Hgb 13.3 (12.0-16.0) g/dl Hct 38.3 (37.0-47.0) % Plt Count 316 (130-400) K/uL Neut # (Auto) 6.46 (1.40-6.50) K/uL Lymph # (Auto) 1.19 L (1.20-3.40) K/uL Crawford # (Auto) 1.04 H (0.11-0.59) K/uL Eos # (Auto) 0.22 (0.00-0.50) K/uL Baso # (Auto) 0.08 (0.00-0.20) K/uL Comprehensive Metabolic Panel 02/05/23 Range/Units 08:48 Sodium 131 L (136-145) mmol/L Potassium 4.0 (3.5-5.1) mmol/L Chloride 99 (98-107) mmol/L Carbon Dioxide 28 (21-32) mmol/L BUN 16 (6-23) mg/dl Creatinine 0.78 (0.6-1.2) mg/dl Glucose 124 H (70-99(Fasting)) mg/dl Calcium 9.0 (8.6-10.3) mg/dl AST 15 (13-39) U/L ALT 11 (7-52) U/L Alkaline Phosphatase 106 H (34-104) U/L Total Protein 6.8 (6.0-8.3) gm/dl Albumin 3.9 (3.4-5.0) gm/dl Intake and Output 02/05/23 02/05/23 02/05/23 06:59 14:59 22:59 Other: Weight 51.3 kg 50.5 kg Weight Measurement Method Chair Scale Built in [facility] Patient Weight 02/06/23 06:59 Weight 50.5 kg Diagnostic Findings Summary of CTA chest performed 02/05/23: 1. Cavitary spiculated masslike area of consolidation within the subpleural right lower lobe measuring up to 4.6 cm is suggestive of primary bronchogenic malignancy. Follow-up with pulmonology is needed. 2. Chronic mediastinal and right hilar pathologic lymphadenopathy likely represents metastatic disease. 3. Pleural parenchymal scarring at the right lung apex with irregular apical consolidative opacity continues to decrease in size from the prior study. Continued follow-up is needed. 4. Pulmonary emphysema. 5. No pulmonary emboli identified. Summary of echocardiogram performed today 02/05/2023 and interpreted independently: Mild concentric LVH No regional wall motion abnormalities The LV systolic function is hyperdynamic > 70% Mild AV sclerosis without stenosis Mild TR The PA systolic pressure is estimated to be 36 mm Hg (upper limit of normal) There is a small circumferential pericardial effusion, tamponade is absent. There is no prior study available for comparison EKG performed 02/05/2023: Sinus tachycardia 100 bpm, poor R wave progression, compared to the previous tracing dating back to 06/17/2022 the ventricular rate has decreased by 63 bpm, poor R wave progression is a chronic finding
--- NOTE | 2023-02-05 16:21 | Pulmonary Consultation ---
Date of Consultation February 05, 2023 Assessment & Plan (1) Right lower lobe lung mass: (2) Abnormal chest CT: (3) COPD (chronic obstructive pulmonary disease): Plan Impression: 77-year-old female with extensive tobacco history now with bulky mediastinal adenopathy and enlarging right lower lobe mass concerning for malignancy. Recommendations: 1. Reviewed the CT scan and discussed with patient at bedside. These findings likely represent a malignant process. We discussed tissue diagnosis to include bronchoscopy with EBUS and transbronchial biopsies/brushings. The patient states that she is now agreeable to pursue a tissue diagnosis although she is unclear whether she would undergo any forms of therapy including chemotherapy or radiation therapy. We will make her n.p.o. after midnight and schedule the procedure for tomorrow. We will hold Lovenox initiated for DVT prophylaxis. 2. COPD: Do not believe the patient is having an exacerbation currently. No indication for steroids. She has been initiated on antibiotics. We will see what the culture results from bronchoscopy yield tomorrow and taper those appropriately. 3. Chest discomfort: Management per primary service. Unclear if this is related to the process identified on the CT scan or not. EXTR the opportunity participating in the care of this patient. We will continue to follow with you. Feel free to contact us with questions or concerns. History of Present Illness Attending Physician: Chauncey Graham MD History of Present Illness Asked by hospitalist to evaluate this patient with abnormal CT scan. History is obtained from discussion with the patient as well as review the electronic medical record. Patient is a 77-year-old female with a history of tobacco abuse ([id number] history, smoking half pack per day) she is established with Dr. Bryant in the outpatient setting. She was last seen back in August. She has a history of an abnormal CT scan and had pneumonia in June 2022. Follow-up CT scan demonstrated some interval improvement but persistent abnormalities. At that point time options were discussed with the patient to include bronchoscopy versus serial radiographic surveillance. The patient was not enthusiastic about invasive approaches at that point time and was recommended that a follow-up CT scan be performed in 3 months and if the abnormalities persisted, tissue diagnosis would be obtained. Patient was unclear at that point time whether she would want therapy if she were diagnosed with malignancy. The patient presented to the emergency room today for evaluation of chest discomfort. Patient describes pain which woke her up from sleep last night and was not associated with inspiration. She has not had any hemoptysis. No fevers chills or night sweats. She does complain of some fatigue. She reportedly had an MRI performed of the brain through the [facility] 01/29/2023 which I do not have available to review but the admission notes indicate no intracranial abnormalities. Allergies Allergy/AdvReac Type Severity Reaction Status Date / Time No Known Allergies Allergy Unverified 07/19/18 15:12 Home Medications Medication Instructions Recorded Confirmed Type albuterol sulfate 90 mcg/actuation 2 inh inhalation Q4H PRN shortness 08/14/22 02/05/23 Rx aerosol inhaler of breath or wheezing #8.5 grams budesonide-formoterol HFA 160 2 puff inhalation BID #10.2 grams 08/14/22 02/05/23 Rx mcg-4.5 mcg/actuation aerosol inhaler metoprolol tartrate 25 mg tablet 25 mg PO BID 02/05/23 02/05/23 History Patient History Medical History (Updated 02/05/23 @ 14:47 by Consuelo Grossman PA-C) COPD (chronic obstructive pulmonary disease) Smoker Tobacco use disorder Surgical History History of partial hysterectomy Family History Mother Diabetes Other Heart disease Social History Smoking Status: Current every day smoker Tobacco Type: Cigarettes Age Started Using Tobacco: 11; Cigarettes Per Day: 4-5; Second Hand Exposure: No; Do You Dip or Chew Tobacco: No; Hx Alcohol Use: No Hx Substance Use: No Preferred Language: Austrian Communication Ability: 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 Beliefs That Will Affect Care: None Current Living Situation: Alone Feels Safe at Home: Yes Assistive Devices: None Review of Systems 2 Review of Systems: All systems reviewed & are unremarkable except as noted in Subjective Physical Exam Constitutional: WD/WN, vitals as above Neck: trachea midline, no thyromegaly Respiratory: normal respiratory effort, lungs clear to auscultation Cardiovascular: RRR, no murmur, no edema Gastrointestinal (Abdomen): normal bowel sounds, soft, nontender, no hepatosplenomegaly Musculoskeletal: Extremities: extremities normal to inspection Skin: no rashes, warm and dry Neurologic: Nonfocal exam Lymphatic: no cervical lymphadenopathy Results & Data Results & Data Vital Signs (Past 12 Hours) Vital Signs Temp Pulse Pulse Resp BP BP Pulse Ox 02/05/23 13:17 92 H 02/05/23 12:00 92 H 20 148/86 H 92 02/05/23 10:08 88 20 152/88 H 94 02/05/23 08:35 88 20 93 02/05/23 08:32 100 H 02/05/23 08:25 94 H 20 151/87 H 94 02/05/23 08:25 02/05/23 08:15 36.3 C L 100 H 16 126/66 93 O2 Del Method 02/05/23 13:17 02/05/23 12:00 Room Air 02/05/23 10:08 Room Air 02/05/23 08:35 Room Air 02/05/23 08:32 02/05/23 08:25 Room Air 02/05/23 08:25 Room Air 02/05/23 08:15 Room Air Critical Care Results & Data Vital Signs (Past 12 Hours) Vital Signs Temp Pulse Pulse Resp BP BP Pulse Ox 02/05/23 16:03 36.7 C 99 H 22 158/81 H 91 02/05/23 13:17 92 H 02/05/23 12:00 92 H 20 148/86 H 92 02/05/23 10:08 88 20 152/88 H 94 02/05/23 08:35 88 20 93 02/05/23 08:32 100 H 02/05/23 08:25 94 H 20 151/87 H 94 02/05/23 08:25 02/05/23 08:15 36.3 C L 100 H 16 126/66 93 O2 Del Method 02/05/23 16:03 Room Air 02/05/23 13:17 02/05/23 12:00 Room Air 02/05/23 10:08 Room Air 02/05/23 08:35 Room Air 02/05/23 08:32 02/05/23 08:25 Room Air 02/05/23 08:25 Room Air 02/05/23 08:15 Room Air Lab & Micro Results (Past 24 Hours) RBC 4.31 M/uL (4.20-5.40) 02/05/23 WBC 9.03 K/ul (4.8-10.8) 02/05/23 Hgb 13.3 g/dl (12.0-16.0) 02/05/23 Hct 38.3 % (37.0-47.0) 02/05/23 MCV 88.9 fL (80.0-100.0) 02/05/23 MCH 30.9 pg (25.0-34.0) 02/05/23 MCHC 34.7 g/dL (32.0-36.0) 02/05/23 RDW Standard Deviation 42.4 fL (36.4-46.3) 02/05/23 RDW Coefficient of Variation 12.9 % (11.5-14.5) 02/05/23 Plt Count 316 K/uL (130-400) 02/05/23 MPV 9.8 fL (9.4-12.4) 02/05/23 Neutrophils (%) (Auto) 71.6 % 02/05/23 Lymphocytes (%) (Auto) 13.2 % 02/05/23 Monocytes # (Auto) 1.04 K/uL (0.11-0.59) H 02/05/23 Eosinophils # (Auto) 0.22 K/uL (0.00-0.50) 02/05/23 Immature Granulocyte % (Auto) 0.4 % 02/05/23 Neutrophils # (Auto) 6.46 K/uL (1.40-6.50) 02/05/23 Lymphocytes # (Auto) 1.19 K/uL (1.20-3.40) L 02/05/23 Monocytes # (Auto) 1.04 K/uL (0.11-0.59) H 02/05/23 Eosinophils # (Auto) 0.22 K/uL (0.00-0.50) 02/05/23 Basophils # (Auto) 0.08 K/uL (0.00-0.20) 02/05/23 Immature Granulocyte # (Auto) 0.04 K/uL (0.01-0.20) 3 Na 131 mmol/L (136-145) L 02/05/23 K 4.0 mmol/L (3.5-5.1) 02/05/23 Cl 99 mmol/L (98-107) 02/05/23 CO2 28 mmol/L (21-32) 02/05/23 Anion Gap 4 (3-11) 02/05/23 BUN 16 mg/dl (6-23) 02/05/23 Creatinine 0.78 mg/dl (0.6-1.2) 02/05/23 Estimated GFR ( Amer) 85.0 ml/min 02/05/23 Estimated GFR (Non-Af Amer) 73.3 ml/min 02/05/23 BUN/Creatinine Ratio 20.5 (10-20) H 02/05/23 Glu 124 mg/dl (70-99(Fasting)) H 02/05/23 Ca 9.0 mg/dl (8.6-10.3) 02/05/23 Total Bilirubin 0.4 mg/dl (0.2-1.0) 02/05/23 AST 15 U/L (13-39) 02/05/23 ALT 11 U/L (7-52) 02/05/23 Alkaline Phosphatase 106 U/L (34-104) H 02/05/23 TP 6.8 gm/dl (6.0-8.3) 02/05/23 Albumin 3.9 gm/dl (3.4-5.0) 02/05/23 Globulin 2.9 gm/dl (2.5-4.0) 02/05/23 Albumin/Globulin Ratio 1.3 (0.9-2) 02/05/23 Calcium Level 9.0 mg/dl (8.6-10.3) 02/05/23 08:48 Diagnostic Findings (Past 24 Hours) Chest X-Ray 02/05/23 08:42 XR chest 1V portable HISTORY: Chest pain, nonspecific COMPARISON: Chest 06/19/2022. FINDINGS: No pneumothorax. No pleural effusions. The heart is mildly enlarged. This remains unchanged. The left lung is clear. The right upper lobe airspace opacities have significantly improved in the interval. Small patchy densities remain and which may represent residual scarring. There is progressive right apical pleural thickening measuring up to 8 mm in thickness. Right hilar fullness is again noted. IMPRESSION: 1. The right upper lobe airspace opacities have significantly improved in the interval. Small patchy densities remain and which may represent residual scarring. 2. Right hilar fullness again noted. This will be better appreciated on the same day chest CTA. ACT 112: Negative or not required by law. Electronically signed by: Guru Paul M.D. 02/05/2023 9:45 AM Chest CTA 02/05/23 08:56 CT angio chest PE protocol CT DOSE: 318.76 mGy.cm HISTORY: 77 years-old Female with Chest Pain, eval for PE, hx of copd, pna. Acute chest pain with shortness of breath TECHNIQUE: Multiple CTA images of the chest were obtained after the intravenous administration of 1:15 ml Optiray. Coronal and sagittal MIPS were obtained from the axial data set and were submitted for review. All measurements were obtained according to NASCET criteria. A dose lowering technique was utilized adhering to the principles of ALARA. COMPARISON: Chest radiograph of same day, chest CT 08/01/2022, 06/17/2022. FINDINGS: CTA: Moderate cardiomegaly with small pericardial effusion. Atherosclerosis of the thoracic aorta without aneurysm. Dilation of the pulmonary arteries suggestive of pulmonary arterial hypertension. No pulmonary emboli identified. CT CHEST: Normal thyroid. Pathologic mediastinal and right hilar lymphadenopathy. There is a right infrahilar/subcarinal centrally necrotic mass versus adenopathy with subcarinal component measuring 4.8 x 3.3 cm on image 119 series 4. There is abutment and posterior displacement of the mid esophagus. Circumferential wall thickening of the mid to distal esophagus. Spiculated centrally cavitary irregular masslike consolidation in the subpleural right lower lobe on image 103 measures 4.6 x 2.8 cm, previously 3.8 x 2.8 cm when measured in a similar fashion. This demonstrates a nodular component which tracks along several adjacent right lower lobe bronchi. Moderate emphysema with chronic bronchitis. There is a 7 mm solid nodule within the superior segment left lower lobe on image 143 which was not definitively seen on prior. 5 mm left upper lobe pulmonary nodule on image 183. Ill-defined 1.6 cm groundglass nodular density of the lingula on image 122 appears stable. 7 mm right upper lobe solid nodule or unchanged. Right apical pleural-parenchymal scarring is again noted along with an irregular partially cavitary 6.1 x 2.6 x 4.9 cm focus which has progressively decreased in size. Narrowing of the right lower lobe bronchus. Mild thickening of the left adrenal gland. Unremarkable soft tissues. No acute fracture or destructive bone lesion identified. Chronic thoracolumbar compression deformities. IMPRESSION: 1. Cavitary spiculated masslike area of consolidation within the subpleural right lower lobe measuring up to 4.6 cm is suggestive of primary bronchogenic malignancy. Follow-up with pulmonology is needed. 2. Chronic mediastinal and right hilar pathologic lymphadenopathy likely represents metastatic disease. 3. Pleural parenchymal scarring at the right lung apex with irregular apical consolidative opacity continues to decrease in size from the prior study. Continued follow-up is needed. 4. Pulmonary emphysema. 5. No pulmonary emboli identified. ACT 112: Negative or not required by law. The above report was generated using voice recognition software. It may contain grammatical, syntax or spelling errors. Electronically signed by: Jose A Lloyd M.D. 02/05/2023 11:46 AM Gallbladder Ultrasound 02/05/23 08:56 US gallbladder CLINICAL HISTORY: epigastric, RUQ pain TECHNIQUE: Multiple real-time sonographic images of the right upper quadrant were obtained. Comparison: None available at the time of this dictation. FINDINGS: The liver is diffusely echogenic in appearance with poor ultrasound penetration, with normal contour, which is consistent with fatty infiltration. No focal mass lesions are seen. No intrahepatic ductal dilatation is seen. No gallstones or sludge are identified within the gallbladder. The gallbladder wall is not thickened. There is no pericholecystic fluid present. A sonographic Grey's sign was not elicited by the technical delivery manager. The common duct measures 0.7 cm in diameter at the level of the hepatic artery. The visualized portions of the pancreas appear normal. The right kidney shows normal echogenicity, cortical thickness and renal contour. The right kidney shows no evidence of hydronephrosis or mass. No ascites or free fluid is seen in Jha's pouch. IMPRESSION: 1. No acute abnormalities and in particular no evidence of acute cholecystitis. 2. Hepatic steatosis. ACT 112: Negative or not required by law. Electronically signed by: Musa Yoo M.D. 02/05/2023 12:12 PM RT Ventilator Mngmt (Last Documented) Ventilator Ordered Settings Respiratory Rate 22 02/05/23 16:03 Ventilator - PT Measurements Respiratory Rate 22 PG Care Time/CCT Total # of Minutes Spent Total Time Spent with Patient: Total time spent is greater than 50% in coordination of care (as documented) at patient's floor/unit and/or counseling patient: Coding Level of Care Code 62372 INT INP/OBS CARE MIN Diagnoses Right lower lobe lung mass R91.[address] R93.89 COPD (chronic obstructive pulmonary disease) J44.9
[2023-02-05] MEDS ORDERED: cefTRIAXone SODIUM 1,000 MG in DEXTROSE 5% 50 ML IV SCH (17:00)
[2023-02-05] MEDS: DOXYCYCLINE HYCLATE 100 MG in DEXTROSE 5% MINI-B 100 ML IV SCH (18:25)
[2023-02-05] MEDS: METOPROLOL TARTRATE 25 MG TAB PO SCH (20:48)
[2023-02-06] MEDS: DOXYCYCLINE HYCLATE 100 MG in DEXTROSE 5% MINI-B 100 ML IV SCH (06:13)
[2023-02-06 06:43] LABS: Hematocrit (blood only) 37.2 % (37.0-47.0); Mean Corpuscular Hemoglobin 30.7 pg (25.0-34.0); Mean Corpuscular Hgb Conc 34.9 g/dL (32.0-36.0); Mean Corpuscular Volume 87.9 fL (80.0-100.0); Mean Platelet Volume 9.9 fL (9.4-12.4); Platelet Count 311 K/uL (130-400); RDW Coefficient of Variation 12.6 % (11.5-14.5); RDW Standard Deviation 40.8 fL (36.4-46.3); Red Blood Count 4.23 M/uL (4.20-5.40); White Blood Count 12.63 K/ul (4.8-10.8)
[2023-02-06 06:58] LABS: BUN Creatinine Ratio 18.1 (10-20); Calcium 8.7 mg/dl (8.6-10.3); Creatinine Clr Calc Pharmacy 42.8 ml/min; Est GFR (African American) 78.8 ml/min; Potassium 3.9 mmol/L (3.5-5.1)
[2023-02-06] MEDS ORDERED: FLUTICASONE/VILANTEROL 200/25MCG 14 PUFFS/INHALER INH SCH (09:00)
[2023-02-06] MEDS ORDERED: fentaNYL citrate PF 100 MCG/2 ML VIAL ONE ×3 (09:27→10:12)
[2023-02-06] MEDS ORDERED: MIDAZOLAM HCL 5 MG/ML 1 ML VIAL ONE ×2 (09:27→10:12)
--- NOTE | 2023-02-06 10:05 | History & Physical Bridge Note ---
Date of Service February 06, 2023 History & Physical Bridge Note I have examined the patient, reviewed the History & Physical and in the interval since the performance of the History & Physical I have noted the following changes of clinical significance: no changes noted
--- NOTE | 2023-02-06 10:05 | Pre Anesthesia Assessment ---
Date of Service February 06, 2023 Pre Sedation Assessment Vital Signs Temp Pulse Pulse Pulse Resp BP BP 02/06/23 09:40 102 H 16 159/88 H 02/06/23 07:00 37.1 C 96 H 18 151/83 H 02/06/23 03:07 37.1 C 95 H 18 131/77 02/05/23 23:41 78 02/05/23 23:10 37.2 C 79 18 136/74 02/05/23 22:47 02/05/23 19:31 36.9 C 88 17 162/81 H 02/05/23 17:28 02/05/23 17:09 94 H 02/05/23 16:03 36.7 C 99 H 22 158/81 H 02/05/23 13:17 92 H 02/05/23 12:00 92 H 20 148/86 H 02/05/23 10:08 88 20 152/88 H Pulse Ox O2 Del Method O2 Flow Rate 02/06/23 09:40 100 Nebulizer 15 02/06/23 07:00 92 Room Air 02/06/23 03:07 91 Room Air 02/05/23 23:41 02/05/23 23:10 91 Room Air 02/05/23 22:47 Room Air 02/05/23 19:31 90 Room Air 02/05/23 17:28 Room Air 02/05/23 17:09 02/05/23 16:03 91 Room Air 02/05/23 13:17 02/05/23 12:00 92 Room Air 02/05/23 10:08 94 Room Air Pre-Sedation Airway Assessment Smoking Status: Current every day smoker Hx Sleep Apnea: No Short, Thick Neck: No Thyromental Distance: > or= 3.5 Finger Breadths Oral Cavity: + WNL Mallampati Class: III ASA: ASA4 NPO Status Date of Last Intake of Fluids: 02/05/23 Date of Last Intake of Solid Food: 02/05/23 Notes The planned sedation has been discussed with the patient. Informed Consent was obtained. I have identified the patient, determined the appropriateness of sedation and have assessed the patient immediately prior to the procedure. All medicine(s) and interventions are by my order.
--- NOTE | 2023-02-06 10:33 | Post Anesthesia Assessment ---
Date of Service February 06, 2023 Post Sedation Assessment Vital Signs Temp Pulse Pulse Pulse Resp BP BP 02/06/23 10:30 100 H 16 115/85 02/06/23 10:25 100 H 16 116/59 L 02/06/23 10:20 100 H 16 118/60 02/06/23 10:05 106 H 16 123/76 02/06/23 10:15 103 H 16 101/51 L 02/06/23 10:10 104 H 16 126/77 02/06/23 10:00 107 H 16 157/82 H 02/06/23 09:40 102 H 16 159/88 H 02/06/23 07:00 37.1 C 96 H 18 151/83 H 02/06/23 03:07 37.1 C 95 H 18 131/77 02/05/23 23:41 78 02/05/23 23:10 37.2 C 79 18 136/74 02/05/23 22:47 02/05/23 19:31 36.9 C 88 17 162/81 H 02/05/23 17:28 02/05/23 17:09 94 H 02/05/23 16:03 36.7 C 99 H 22 158/81 H 02/05/23 13:17 92 H 02/05/23 12:00 92 H 20 148/86 H Pulse Ox O2 Del Method O2 Flow Rate 02/06/23 10:30 7 L Oxymask 02/06/23 10:25 7 L Oxymask 02/06/23 10:20 7 L Oxymask 02/06/23 10:05 7 L Oxymask 02/06/23 10:15 7 L Oxymask 02/06/23 10:10 7 L Oxymask 02/06/23 10:00 7 L Oxymask 02/06/23 09:40 100 Nebulizer 15 02/06/23 07:00 92 Room Air 02/06/23 03:07 91 Room Air 02/05/23 23:41 02/05/23 23:10 91 Room Air 02/05/23 22:47 Room Air 02/05/23 19:31 90 Room Air 02/05/23 17:28 Room Air 02/05/23 17:09 02/05/23 16:03 91 Room Air 02/05/23 13:17 02/05/23 12:00 92 Room Air Recovery Score Activity: Moves 4 extremities Respiration: Deep Breath/Cough Circulation: +/-20% PreAnes Value Consciousness: Arouseable (by name) Oxygen Saturation: O2 needed for >90% Post Anesthesia Score: 8 Discharge Sedation Level of Care: Fast Track Phase II Post Sedation Plan On clinical assessment, the patient appears to have tolerated the sedation without complications. Patient is recovering as anticipated. Patient will continue to be monitored by nursing and may be discharged when sedation discharge criteria are met per below protocol. Upon Completions of procedure up to 15 minutes continue every 5 minute vital signs and the P.A.R. score; then discharge to a Phase I or Fast Track to Phase I I per the following guidelines: * Discharge Patient to appropriate Phase II area if PAR is 8 or greater or return to pre- procedure baseline. The post - procedure orders will be as directed. * If PAR score is less than 8 or not return to pre-procedure baseline then patient will follow Phase I monitoring till PAR is reached for Phase II. The Phase I may be done in procedure room or may call to secure a Phase I area. * If naloxone or flumazenil are used for reversal, hold in Phase I for continued monitoring from when last reversal dose was given for a minimum of 60 minutes or longer pending the nurse and/or physician discretion of patient condition before discharge to Phase II. Please call the Sedation Physician to re-evaluate and complete post-note for discharge to Phase II area. Do NOT discharge from procedure sedation or Phase 1 until post- sedation evaluation note is complete by procedure /sedation MD Sedation Discharge Instructions to be given to the patient at discharge to home.
--- NOTE | 2023-02-06 10:44 | Procedure Note ---
Procedure Note: Bronchoscopy Procedure Procedure: Fiberoptic bronchoscopy Endobronchial ultrasound evaluation during bronchoscopy Endobronchial ultrasound with transbronchial needle aspiration of lymph nodes, single station Conscious sedation Provider: Jaiden Blakely MD Consent: Signed by patient and timeout verified prior to procedure. Sedation start: 10:00 Sedation end: 1030 Conscious sedation: 125 mcg fentanyl, 5 mg Versed, topical lidocaine per RT protocol Indication: Abnormal CT scan Estimated blood loss: Less than 5 mL Procedure: Patient was brought to the bronchoscopy suite. Consent was verified. Appropriate radiographic studies had been reviewed prior to the procedure. Standard monitoring was applied. Oxygen was administered. After topical anesthesia of the airways per respiratory therapy protocol, the fiberoptic scope was advanced through the oropharynx via the bite-block. Oropharynx was unremarkable. Vocal cords were visualized and were normal in function and appearance. Topical anesthesia of the cords was achieved with instillation of lidocaine through the scope. Scope was then passed through the vocal cords. The trachea was slightly tortuous. Main valerie was splayed. Anesthesia of the lower airways was achieved with instillation of lidocaine through the scope. A sequential and systematic examination of the lower airways was conducted. The right-sided airways were patent and the right upper lobe was normal. The bronchus intermedius in the proximal portion was normal however in the distal section, proximal to the takeoff of the right middle lobe the mucosa at the 9 to 11 o'clock position was abnormal with apparent tumor. This narrows the airway somewhat although it did remain patent. This extended down into the lower lobe as well. The superior segment was patent. Left-sided airways were then examined. They were patent with some submucosal lymphatics noted at the valerie extending to the left mainstem bronchus. And the mucosa appeared friable. After the inspection bronchoscopy was completed, the fiberoptic scope was withdrawn and the endobronchial ultrasound advanced through the oropharynx via the bite-block. A brief survey of mediastinal lymph node stations was conducted demonstrating significant adenopathy within the 4R, 4L, 7, and 10 R stations. The scope was directed to the level 7 lymph node and transbronchial needle aspiration using a 21-gauge needle was conducted. A total of 8 passes were conducted with 15-20 sweeps per pass. Rapid onsite cytologic evaluation was available and confirmed adequacy of specimen with preliminary report being non- small cell lung cancer The bronchoscope was then removed from the airways. The patient tolerated the procedure well without obvious complication. Patient was returned to the recovery room. Impression: 1. Abnormal inspection bronchoscopy with splaying of the main valerie and tumor evident within the medial aspect of the bronchus intermedius extending down into the right lower lobe. 2. Adenopathy present within the 4R, 4L, 7, and 10 R stations status post transbronchial needle aspiration of the subcarinal lymph node confirming malignant cells. [facility] [place]Charges) Pulmonary/Thoracic Procedure 1: Pulmonary and Thoracic: 39483 Bronchoscopy, w/EBUS add on Procedure 2: Pulmonary and Thoracic: 75686 Bronchoscopy, w/EBUS 1 or 2 mediastinal Sedation/Anesthesia Procedure 3: Sedation/Anesthesia: 24512 Mod Sedation by the same physician;Init15 Min Child Age 5 & Up Procedure 4: Sedation/Anesthesia: 67608 Mod Sedation by the same physician; Ea [id number] Minutes Total Sedation Time (minutes): 30
--- NOTE | 2023-02-06 10:49 | Pulmonology Progress Note ---
Date of Service February 06, 2023 Assessment & Plan (1) Right lower lobe lung mass: (2) Abnormal chest CT: (3) COPD (chronic obstructive pulmonary disease): Plan Impression: 77-year-old female with extensive tobacco history now with bulky mediastinal adenopathy and enlarging right lower lobe mass concerning for malignancy. Bronchoscopy with biopsy this morning with advanced non-small cell lung cancer. Recommendations: 1. Advanced non-small cell lung cancer: Await final pathology. Recommend hematology oncology consultation and potential radiation oncology consultation. Patient will require MRI of the brain with contrast to evaluate for intracranial metastases. Outpatient PET scan will also be required. 2. COPD: Stable currently. No evidence of infection on the bronchoscopy today and I think antibiotics can be safely discontinued 3. Chest discomfort: Management per primary service. Unclear if there might be bony metastases present. Management per primary service. Patient can be dismissed from the hospital from a respiratory standpoint once her pain is adequately addressed. She can follow-up with Dr. Bryant in the outpatient setting but will need oncology evaluation. Patient is unclear whether she would want chemotherapy and/or radiation therapy moving forward. Palliative care consultation may also be appropriate Pulmonary will sign off at this point in time. Feel free to contact us with additional questions or concerns Admission and Anticipated Discharge Date Admission Date: February 05, 2023 Subjective Patient seen and examined in the bronchoscopy suite prior to the procedure. She reports she is doing well. No changes overnight. No significant hemoptysis. She is complaining of some mild back pain. Review of Systems Review of Systems: All systems reviewed & are unremarkable except as noted in Subjective Physical Exam Constitutional: WD/WN, vitals as above ENMT: Mallampati Class: III Neck: trachea midline, no thyromegaly Respiratory: normal respiratory effort, lungs clear to auscultation Cardiovascular: RRR, no murmur, no edema Gastrointestinal (Abdomen): normal bowel sounds, soft, nontender, no hepatosplenomegaly Musculoskeletal: Extremities: extremities normal to inspection Skin: no rashes, warm and dry Lymphatic: no cervical lymphadenopathy Results & Data Results & Data Vital Signs (Past 12 Hours) Vital Signs Temp Pulse Pulse Pulse Resp BP Pulse Ox 02/06/23 10:35 101 H 14 130/65 100 02/06/23 05:57 101 H 02/06/23 10:30 100 H 16 115/85 7 L 02/06/23 10:25 100 H 16 116/59 L 7 L 02/06/23 10:20 100 H 16 118/60 7 L 02/06/23 10:05 106 H 16 123/76 7 L 02/06/23 10:15 103 H 16 101/51 L 7 L 02/06/23 10:10 104 H 16 126/77 7 L 02/06/23 10:00 107 H 16 157/82 H 7 L 02/06/23 09:40 102 H 16 159/88 H 100 02/06/23 07:00 37.1 C 96 H 18 151/83 H 92 02/06/23 03:07 37.1 C 95 H 18 131/77 91 02/05/23 23:41 78 02/05/23 23:10 37.2 C 79 18 136/74 91 02/05/23 22:47 O2 Del Method O2 Flow Rate 02/06/23 10:35 Oxymask 4 02/06/23 05:57 02/06/23 10:30 Oxymask 02/06/23 10:25 Oxymask 02/06/23 10:20 Oxymask 02/06/23 10:05 Oxymask 02/06/23 10:15 Oxymask 02/06/23 10:10 Oxymask 02/06/23 10:00 Oxymask 02/06/23 09:40 Nebulizer 15 02/06/23 07:00 Room Air 02/06/23 03:07 Room Air 02/05/23 23:41 02/05/23 23:10 Room Air 02/05/23 22:47 Room Air Laboratory Results 02/06/23 05:59 02/06/23 05:59 Diagnostic Findings No new imaging PG Care Time/CCT Total # of Minutes Spent Total Time Spent with Patient: Total time spent is greater than 50% in coordination of care (as documented) at patient's floor/unit and/or counseling patient: Coding Level of Care Code 11985 SUB INP/OBS CARE 2/35MIN Diagnoses Right lower lobe lung mass R91.[address] R93.89 COPD (chronic obstructive pulmonary disease) J44.9
[2023-02-06] MEDS: METOPROLOL TARTRATE 25 MG TAB PO SCH (12:09)
[2023-02-06 12:11] VITALS: RESP 18; TEMP 97.5
--- NOTE | 2023-02-06 15:23 | Cardiology Progress Note ---
Date of Service February 06, 2023 Assessment & Plan (1) Retrosternal chest pain: Plan: Patient underwent bronchoscopy this morning with endobronchial ultrasound and transbronchial needle aspiration of lymph nodes. Per pulmonary medicine note, final pathology is pending with findings suggestive of advanced non-small cell lung carcinoma. Erythrocyte sedimentation rate and CRP levels are not suggestive of an inflammatory pericarditis. This raises concerns that the small circumferential pericardial effusion is a malignant pericardial effusion. Would recommend a repeat echocardiogram at a 4-week interval. Tentative plan is for a hematology oncology consultation and radiation oncology consultation as outpatient. Further cardiac testing felt to be indicated at present. (2) Right lower lobe lung mass: Admission and Anticipated Discharge Date Admission Date: February 05, 2023 Subjective Patient seen in cardiology follow-up. Denies any chest discomfort last night or thus far today. Telemetry reveals sinus rhythm in the 70s to 90s. Physical Exam Physical Exam: Temp Pulse Resp BP Pulse Ox O2 Del Method O2 Flow Rate 36.4 C L 92 H 18 168/74 H 87 L Nasal Cannula 2 02/06/23 12:10 02/06/23 15:13 02/06/23 15:13 02/06/23 12:10 02/06/23 15:13 02/06/23 12:10 02/06/23 15:13 Constitutional: + thin Respiratory: Auscultation: + bronchial breath sounds (Coarse breath sounds throughout the right lung); no rales and no wheezes Cardiovascular: Rate/Rhythm: regular rhythm Heart Sounds: + murmur (1/6 systolic murmur) Extremities: no edema Gastrointestinal (Abdomen): normal bowel sounds, soft, nontender, no hepatosplenomegaly Neurologic: PERRL, EOMI, accommodation nl, no face palsy, no dysarthria Results & Data Laboratory Results Cardiac Enzymes 02/05/23 02/05/23 Range/Units 17:36 23:01 Troponin I High Sens 41.1 H 42.9 H (0-14) pg/ml CBC 02/06/23 Range/Units 05:59 WBC 12.63 H (4.8-10.8) K/ul RBC 4.23 (4.20-5.40) M/uL Hgb 13.0 (12.0-16.0) g/dl Hct 37.2 (37.0-47.0) % Plt Count 311 (130-400) K/uL Comprehensive Metabolic Panel 02/06/23 Range/Units 05:59 Sodium 133 L (136-145) mmol/L Potassium 3.9 (3.5-5.1) mmol/L Chloride 99 (98-107) mmol/L Carbon Dioxide 26 (21-32) mmol/L BUN 15 (6-23) mg/dl Creatinine 0.83 (0.6-1.2) mg/dl Glucose 99 (70-99(Fasting)) mg/dl Calcium 8.7 (8.6-10.3) mg/dl Intake and Output 02/06/23 02/06/23 02/06/23 06:59 14:59 22:59 Intake Total 150 / 410 100 / 100 Output Total 400 / 400 Balance -250 / 10 100 / 100 Intake: IV 100 / 100 Doxycycline Hyclate 100 mg In 100 / 100 Dextrose 5% Mini-B 100 ml @ 50 mls/hr IV Q12H [facility] Rx#:[id number] Oral 150 / 250 Output: Urine 400 / 400 Other: # Unmeasured Voids 1 Weight 49.668 kg Weight Measurement Method Built in [facility]
[2023-02-06 15:37] VITALS: BP 162/81; O2SAT 92
[2023-02-06 16:37] VITALS: PULSE 98
--- NOTE | 2023-02-06 17:36 | Discharge Summary ---
Date of Service February 06, 2023 Admission HPI Per Admitting Provider This is a 77yo M with a PMH of longstanding tobacco use, COPD, tachycardia and other medical problems listed below who presents from home with lower chest pain. Has been having dull, intermittent pain in lower aspect of chest over the last week. Pain woke her up last night which prompted visit to ED. Pain does not seem to be related to exertion or deep inspirations. Denies any discomfort during evaluation. Endorses chronic cough and no change or increased SOB lately. States she is compliant with inhalers. No F,C, appetite changes or hemoptysis. + Worsening fatigue. Endorses intermittent visual changes, R>L eye and dull headaches over the past month that she has seen PCP about. Underwent brain MRI w/wo contrast through [facility] on 01/29/23 that revealed no acute intracranial abnormality. No metastasis. Denies any nausea, vomiting, abdominal discomfort, dysuria, hematuria, diarrhea or constipation. Patient lives alone and ambulates independently. Has reduced cigarettes to 4 daily. History of multilobar pneumonia on the right side in June 2022 requiring admission and pulm follow up. CT chest from July 2022 with consolidative changes are still appreciated especially in the right upper lobe, there is a right lower lobe medial peripheral 3.1 Consolidative process(previously 3.[address]). [address] Bryant in August and discussed the fact that lung cancer could not be ruled out based on CT findings and that given significant smoking history, patient was still at very high risk for lung cancer. The plan was for a repeat CT and if still persistence of a consolidative process, navigational bronchosc opy to be pursued. Admission Exam Per Admitting Provider General Appearance:WD/WN, vitals as above, NAD, sitting up in bed, thin female, cooperative Head: normocephalic, atraumatic Eyes:normal inspection, PERRL, conjunctivae normal, anicteric sclerae ENT: external ear and nose normal, oropharynx normal Neck: normal visual inspection, trachea midline, no thyromegaly Respiratory:normal respiratory effort, diminished lung sounds, diffuse rhonchi and bibasilar rales. No accessory muscle use Cardiovascular: tachycardic rate, regluar rhythm, no BLE edema. Vessels: no JVD Chest:+ TTP retrosternal to xiphoid process Abdomen/GI: normal bowel sounds, soft, nontender, no hepatosplenomegaly Extremities/Musculoskeletal: no cyanosis or clubbing, extremities motor strength 5/5 Neurologic: PERRL, EOMI, accommodation nl, no face palsy, no dysarthria, CN's II-XI intact bilaterally and moves all extremities Psychiatric:A+Ox3, euthymic affect Skin: no rashes, normal color, warm/dry Principal Diagnosis Advanced non small cell lung cancer (suspected) with acute hypoxic respiratory failure Discharge Exam General: Frail elderly female, lying comfortably in bed, not in distress, on 2 L nasal cannula HEENT: EOMI, JUDAH, MMM Chest: Clear breath sounds bilaterally, no wheezes or crackles CVS: Regular rate and rhythm, normal heart sounds, no murmur Abdomen: Soft, non tender, not distended, normal bowel sounds Neuro: Awake, alert, oriented, conversing well, non focal Extremities: No cyanosis, clubbing or edema Discharge Data Allergies Allergy/AdvReac Type Severity Reaction Status Date / Time No Known Allergies Allergy Unverified 07/19/18 15:12 Consultations 02/05/23 13:18 ED Decision to Admit Stat 02/05/23 14:23 Consult Pulmonology Routine 02/05/23 14:52 ED Decision to Admit Stat 02/05/23 15:55 Consult Cardiology Routine Procedures Performed Operation Date: 02/06/23 10:00 Actual Procedures p Endobronchial Ultrasound (EBUS) - Jaiden Blakely MD Ordered Studies 02/05/23 08:56 CT angio chest PE protocol Stat US gallbladder Stat Laboratory Results WBC 12.63 K/ul (4.8-10.8) H 02/06/23 05:59 RBC 4.23 M/uL (4.20-5.40) 02/06/23 05:59 Hgb 13.0 g/dl (12.0-16.0) 02/06/23 05:59 Hct 37.2 % (37.0-47.0) 02/06/23 05:59 MCV 87.9 fL (80.0-100.0) 02/06/23 05:59 MCH 30.7 pg (25.0-34.0) 02/06/23 05:59 MCHC 34.9 g/dL (32.0-36.0) 02/06/23 05:59 RDW Std Deviation 40.8 fL (36.4-46.3) 02/06/23 05:59 RDW Coeff of Fernanda 12.6 % (11.5-14.5) 02/06/23 05:59 Plt Count 311 K/uL (130-400) 02/06/23 05:59 MPV 9.9 fL (9.4-12.4) 02/06/23 05:59 Immature Gran % (Auto) 0.4 % 02/05/23 08:48 Neut % (Auto) 71.6 % 02/05/23 08:48 Lymph % (Auto) 13.2 % 02/05/23 08:48 Menard % (Auto) 11.5 % 02/05/23 08:48 Eos % (Auto) 2.4 % 02/05/23 08:48 Baso % (Auto) 0.9 % 02/05/23 08:48 Neut # (Auto) 6.46 K/uL (1.40-6.50) 02/05/23 08:48 Lymph # (Auto) 1.19 K/uL (1.20-3.40) L 02/05/23 08:48 Menard # (Auto) 1.04 K/uL (0.11-0.59) H 02/05/23 08:48 Eos # (Auto) 0.22 K/uL (0.00-0.50) 02/05/23 08:48 Baso # (Auto) 0.08 K/uL (0.00-0.20) 02/05/23 08:48 Immature Gran # (Auto) 0.04 K/uL (0.01-0.20) 02/05/23 08:48 ESR 27 mm/hr (0-30) 02/05/23 08:48 D-Dimer 5840 ug/L FEU (0-500) H* 02/05/23 08:48 Sodium 133 mmol/L (136-145) L 02/06/23 05:59 Potassium 3.9 mmol/L (3.5-5.1) 02/06/23 05:59 Chloride 99 mmol/L (98-107) 02/06/23 05:59 Carbon Dioxide 26 mmol/L (21-32) 02/06/23 05:59 Anion Gap 8 (3-11) 02/06/23 05:59 BUN 15 mg/dl (6-23) 02/06/23 05:59 Creatinine 0.83 mg/dl (0.6-1.2) 02/06/23 05:59 Est Cr Clr Drug Dosing 42.8 ml/min 02/06/23 05:59 Est GFR ( Amer) 78.8 ml/min 02/06/23 05:59 Est GFR (Non-Af Amer) 68.0 ml/min 02/06/23 05:59 BUN/Creatinine Ratio 18.1 (10-20) 02/06/23 05:59 Glucose 99 mg/dl (70-99(Fasting)) 02/06/23 05:59 POC Glucose 118 mg/dl (70-99) H 02/06/23 12:04 Osmolality 281 mOsm/kg (280-300) 02/05/23 17:36 Calcium 8.7 mg/dl (8.6-10.3) 02/06/23 05:59 Total Bilirubin 0.4 mg/dl (0.2-1.0) 02/05/23 08:48 AST 15 U/L (13-39) 02/05/23 08:48 ALT 11 U/L (7-52) 02/05/23 08:48 Alkaline Phosphatase 106 U/L (34-104) H 02/05/23 08:48 Troponin I High Sens 42.9 pg/ml (0-14) H 02/05/23 23:01 C-Reactive Protein 1.17 mg/dl (0-0.5) H 02/05/23 08:48 Total Protein 6.8 gm/dl (6.0-8.3) 02/05/23 08:48 Albumin 3.9 gm/dl (3.4-5.0) 02/05/23 08:48 Globulin 2.9 gm/dl (2.5-4.0) 02/05/23 08:48 Albumin/Globulin Ratio 1.3 (0.9-2) 02/05/23 08:48 Lipase 7 U/L (11-82) L 02/05/23 08:48 Urine Osmolality 430 mOsm/kg (500-800) L 02/05/23 18:30 Ur Random Sodium 45 mmol/L 02/05/23 18:30 Impressions Chest X-Ray 02/05/23 08:42 XR chest 1V portable HISTORY: Chest pain, nonspecific COMPARISON: Chest 06/19/2022. FINDINGS: No pneumothorax. No pleural effusions. The heart is mildly enlarged. This remains unchanged. The left lung is clear. The right upper lobe airspace opacities have significantly improved in the interval. Small patchy densities remain and which may represent residual scarring. There is progressive right apical pleural thickening measuring up to 8 mm in thickness. Right hilar fullness is again noted. IMPRESSION: 1. The right upper lobe airspace opacities have significantly improved in the interval. Small patchy densities remain and which may represent residual scarring. 2. Right hilar fullness again noted. This will be better appreciated on the same day chest CTA. ACT 112: Negative or not required by law. Electronically signed by: Guru Paul M.D. 02/05/2023 9:45 AM Chest CTA 02/05/23 08:56 CT angio chest PE protocol CT DOSE: 318.76 mGy.cm HISTORY: 77 years-old Female with Chest Pain, eval for PE, hx of copd, pna. Acute chest pain with shortness of breath TECHNIQUE: Multiple CTA images of the chest were obtained after the intravenous administration of 1:15 ml Optiray. Coronal and sagittal MIPS were obtained from the axial data set and were submitted for review. All measurements were obtained according to NASCET criteria. A dose lowering technique was utilized adhering to the principles of ALARA. COMPARISON: Chest radiograph of same day, chest CT 08/01/2022, 06/17/2022. FINDINGS: CTA: Moderate cardiomegaly with small pericardial effusion. Atherosclerosis of the thoracic aorta without aneurysm. Dilation of the pulmonary arteries suggestive of pulmonary arterial hypertension. No pulmonary emboli identified. CT CHEST: Normal thyroid. Pathologic mediastinal and right hilar lymphadenopathy. There is a right infrahilar/subcarinal centrally necrotic mass versus adenopathy with subcarinal component measuring 4.8 x 3.3 cm on image 119 series 4. There is abutment and posterior displacement of the mid esophagus. Circumferential wall thickening of the mid to distal esophagus. Spiculated centrally cavitary irregular masslike consolidation in the subpleural right lower lobe on image 103 measures 4.6 x 2.8 cm, previously 3.8 x 2.8 cm when measured in a similar f ashion. This demonstrates a nodular component which tracks along several adjacent right lower lobe bronchi. Moderate emphysema with chronic bronchitis. There is a 7 mm solid nodule within the superior segment left lower lobe on image 143 which was not definitively seen on prior. 5 mm left upper lobe pulmonary nodule on image 183. Ill-defined 1.6 cm groundglass nodular density of the lingula on image 122 appears stable. 7 mm right upper lobe solid nodule or unchanged. Right apical pleural-parenchymal scarring is again noted along with an irregular partially cavitary 6.1 x 2.6 x 4.9 cm focus which has progressively decreased in size. Narrowing of the right lower lobe bronchus. Mild thickening of the left adrenal gland. Unremarkable soft tissues. No acute fracture or destructive bone lesion identified. Chronic thoracolumbar compression deformities. IMPRESSION: 1. Cavitary spiculated masslike area of consolidation within the subpleural right lower lobe measuring up to 4.6 cm is suggestive of primary bronchogenic malignancy. Follow-up with pulmonology is needed. 2. Chronic mediastinal and right hilar pathologic lymphadenopathy likely represents metastatic disease. 3. Pleural parenchymal scarring at the right lung apex with irregular apical consolidative opacity continues to decrease in size from the prior study. Continued follow-up is needed. 4. Pulmonary emphysema. 5. No pulmonary emboli identified. ACT 112: Negative or not required by law. The above report was generated using voice recognition software. It may contain grammatical, syntax or spelling errors. Electronically signed by: Jose A Lloyd M.D. 02/05/2023 11:46 AM Gallbladder Ultrasound 02/05/23 08:56 US gallbladder CLINICAL HISTORY: epigastric, RUQ pain TECHNIQUE: Multiple real-time sonographic images of the right upper quadrant were obtained. Comparison: None available at the time of this dictation. FINDINGS: The liver is diffusely echogenic in appearance with poor ultrasound penetration, with normal contour, which is consistent with fatty infiltration. No focal mass lesions are seen. No intrahepatic ductal dilatation is seen. No gallstones or sludge are identified within the gallbladder. The gallbladder wall is not thickened. There is no pericholecystic fluid present. A sonographic Grey's sign was not elicited by the dog or animal sitter. The common duct measures 0.7 cm in diameter at the level of the hepatic artery. The visualized portions of the pancreas appear normal. The right kidney shows normal echogenicity, cortical thickness and renal contour. The right kidney shows no evidence of hydronephrosis or mass. No ascites or free fluid is seen in Jha's pouch. IMPRESSION: 1. No acute abnormalities and in particular no evidence of acute cholecystitis. 2. Hepatic steatosis. ACT 112: Negative or not required by law. Electronically signed by: Musa Yoo M.D. 02/05/2023 12:12 PM Hospital Course (1) Retrosternal chest pain: (2) Right lower lobe lung mass: (3) Tobacco use disorder: (4) COPD (chronic obstructive pulmonary disease): (5) Hyponatremia: Plan This is a 77yo M with a PMH of longstanding tobacco use, COPD, tachycardia and other medical problems listed below who presents from home with lower chest pain and was found to have RLL lung mass concerning for malignancy. Right lower lobe mass, suspected advanced non-small cell lung cancer In setting of longstanding tobacco use H/o of multilobar pneumonia on the right side in June 2022 requiring admission and pulm follow up imaging CT chest from July 2022 with consolidative changes are still appreciated especially in the right upper lobe, there is a right lower lobe medial peripheral 3.1 Consolidative process(previously 3.5 cm) Follows with Dr. Bryant, due to repeat CT chest imaging due to high risk for lung ca but has been hesitant to pursue bronchoscopy in the past, opting for surveillance with imaging instead CTA chest yesterday with cavitary spiculated masslike area of consolidation within the subpleural right lower lobe measuring up to 4.6 cm is suggestive of primary bronchogenic malignancy Status post bronchoscopy with EBUS today which suggested non-small cell lung cancer, final pathology pending Of note, recently underwent brain MRI w/wo contrast as an [facility] outpatient 01/29/23 for headaches that revealed no acute intracranial abnormality. No metastasis Pulmonary recommendations noted. Discussed with patient at bedside as well as with her daughter over the phone regarding the cancer diagnosis and need for outpatient follow-up with oncology. Patient is currently undecided whether she would like to pursue treatment or not. Plan was for palliative care evaluation and overnight observation given her procedure today and her respiratory status, however patient was adamant to go home today. Two-step oxygen evaluation was done-she required 2 L of oxygen at rest and 4 L with activities. 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 Recommended to quit smoking, and especially when on oxygen to prevent fire. Recommended to follow-up with PCP with biopsy results with referral to oncology for further management of her malignancy. She currently denies any pain has not required any pain meds since admission. Avoiding narcotics as she denies any pain and given her respiratory status. No indication for antibiotics per pulmonology and I agree. No antibiotics were prescribed at discharge. Outpatient follow-up with Dr. Bryant and oncology Acute hypoxic respiratory failure due to lung cancer-plan as above Atypical chest pain Intermittent lower chest wall pain, worse over past week in setting of RLL mass as above, small pericardial effusion. Likely related to her malignancy with bulky lymphadenopathy EKG without acute ST changes but low QRS voltage noted 2D echo findings with small circumferential pericardial effusion, tamponade is absent Follow-up with cardiology with repeat echocardiogram in 4 weeks Tobacco use disorder 60 pack years, currently reduced to 1/4 ppd. Recommended quitting completely COPD No evidence of current exacerbation. Continue home inhalers, no indication for steroids. Hyponatremia, mild, suspected SIADH. Recommended fluid restriction at discharge and outpatient follow-up with PCP with repeat BMP in a week Total Time Total Time Spent Total Time Spent (In Minutes): 45 Discharge Plan Discharge Items Patient Disposition: Home - Self-Care Reason For Visit: CP, NEW R LUNG MASS Discharge Diagnosis: Advanced non small cell lung cancer (suspected) with acute hypoxic respiratory failure Activity: Per Instructions section Non-emergency contact: Primary Care Provider and Oncologist Call non-emergency contact if: you have any medication questions, your symptoms worsen, your pain is concerning for you and you have a fever Follow-up/Referrals: [facility] - 02/18/23 2:30 pm Ele Alford DO [Primary Care Provider] - (Date & Time 02/13/2023 11:10 AM Provider Ele Alford DO Department Family Medicine [facility] ) Diet: Regular Addtl Attending Provider Instructions: Please see the cancer doctor as soon as possible for your lung cancer. Your family doctor will make the referral for that. Follow up on the biopsy results for final confirmation. Please stop smoking Use oxygen (2 L at rest and 4 L with activities). Follow up with your lung doctor Dr Bryant in the office. Pending Studies at Discharge: Yes Studies:: Lung biopsy Stand-Alone Forms: My [facility], Smoking Cessation Medications and DC Order Prescriptions: Continued albuterol sulfate 90 mcg/actuation HFA aerosol inhaler 2 inh INH Q4H PRN (Reason: shortness of breath or wheezing) Qty: 8.5 3RF budesonide-formoterol 160-4.5 mcg/actuation HFA aerosol inhaler 2 puff INHALATION BID Qty: 10.2 4RF metoprolol tartrate 25 mg tablet 25 mg PO BID Discharge Orders: Discharge Order (Routine); Ordered 02/06/23 Ordered By: Carlos Ardon Admission Data Admit Date/Time: 02/05/23 14:22 Attending Provider: Carlos Ardon Admit Provider: Chauncey Graham Primary Care Provider: Ele Alford Other Providers: Chauncey Graham ; Jaiden Blakely ; Rosales Holman ; Christiane Cunningham ; Codie Stone Other Interventions: Discharge Summary Assessment (RN) Last Done: 02/06/23 15:31
--- NOTE | 2023-02-12 06:28 | Coding Query ---
PATHOLOGY To promote full compliance with coding requirements relating to patient care, physician participation is requested in all cases of roof truss detailer uncertainty. Please assist us with the question(s) below: Please review the Pathology report and please document any relevant diagnosis(es) below: (ebus/ Thoracic Lymph node bx) Diagnosis(es): Thank you CLAUDE Garcia [facility]
== END 2023-02-06 18:12 | disposition home or self-care (01) | DRG 166 ==
LOC: ED 08:08 → EDINP 14:22 → SUATTDRO 14:22 → 2S 14:22

== ENCOUNTER 2023-03-12 17:41 | Inpatient (IN) ==
[2023-03-12] MEDS ORDERED: ALBUT/IPRATROP 3MG/0.5MG NEB 3 ML VIAL NEB ONE (18:27)
[2023-03-12] MEDS ORDERED: SODIUM CHLORIDE 0.9% 1,000 ML IV ONE (18:27)
[2023-03-12] MEDS ORDERED: dexAMETHasone**PF** 10 MG/ML VIAL IV ONE (18:27)
[2023-03-12] MEDS ORDERED: CEFEPIME 2,000 MG/20 ML VIAL IV STA (18:28)
--- NOTE | 2023-03-12 18:35 | Emergency Department Note ---
Impression & Plan Multilobar lung infiltrate, Pleural effusion, Chronic respiratory failure with hypoxia, Exertional shortness of breath, Acute hyponatremia, Elevated troponin I level, COPD (chronic obstructive pulmonary disease) ED Provider Note NAME: EITAN FELIZ AGE: 77 SEX: F : 1945 ARRIVES VIA: Walk-In INFORMANT: Patient, the patient's son ED PROVIDER(S): Yaw Benavides DO CHIEF COMPLAINT: Difficulty breathing HPI: The patient is a 77-year-old female who presented to the emergency department for an evaluation of difficulty breathing. The patient started having difficulty breathing over the course of the last 24 hours but she has been having some degree of difficulty breathing over the last week. She was recently discharged from [facility] because of fluid around her heart. She had a procedure to manage this but the patient continued to have shortness of breath. She was recently on a course of antibiotics. She has a history of lung cancer as well as COPD. She states her breathing became much worse over the last few hours. She called 911 and presented to the emergency department by ambulance. The patient denies having any lower extremity swelling. She had no fever or hemoptysis. ROS: See above HPI for pertinent positives & negatives. A total of 10 systems reviewed and were otherwise negative. PAST MEDICAL HISTORY: See Below PAST SURGICAL HISTORY: See Below FAMILY HISTORY: See Below SOCIAL HISTORY: See Below HOME MEDICATIONS: See Below ALLERGIES: See Below VITALS: See Below PHYSICAL EXAMINATION: GENERAL: The patient is awake and alert. She is very anxious. EYES: The conjunctivae are clear. The pupils are round and reactive. EARS, NOSE, MOUTH AND THROAT: The nose is without any evidence of any deformity. NECK: The neck is nontender and supple. RESPIRATORY: Diminished breath sounds and wheezing were noted throughout. There is significant tachypnea as well as conversational dyspnea. CARDIOVASCULAR: Tachycardic and regular heart sounds were noted to auscultation. There is no definite murmur. GASTROINTESTINAL: The abdomen is soft. Abdomen is nontender. MUSCULOSKELETAL/EXTREMITIES: There is no evidence of gross deformity full range of motion is noted in the hips and shoulders. SKIN: There is no obvious evidence of any rash. There are no petechiae, pallor or cyanosis noted. NEUROLOGIC: Patient is awake alert and oriented x3 MEDICAL DECISION MAKING: The patient is a 77-year-old female who presented to the emergency department for an evaluation of difficulty breathing. The patient has a history of lung cancer as well as COPD. Her presentation today did appear to be more consistent with COPD exacerbation although she was found to have abnormal chest x-ray as well as elevated white blood cell count. For this reason she was treated with IV antibiotics. She was also treated with IV fluids as well as a bronchodilator nebulizer as well as IV steroids. She was reevaluated multiple times. On reevaluation she was somewhat improved. I [facility] have agreed to evaluate the patient in the emergency department for further management and disposition. I discussed the patient's findings with her family as well. They are well that she is very ill at this time. Triage Nursing notes reviewed. Prior medical records reviewed Vital Signs: reviewed and remarkable for tachycardia and hypoxia. Differential diagnosis: Reactive airway disease, pneumonia, pneumothorax, COPD, CHF, infections, cardiac ischemia, pulmonary embolism, musculoskeletal, gastrointestinal, as well as other pathologies. ER treatment provided: See below Diagnostics interpreted by me: ECG: EKG was obtained in the emergency department. My interpretation is sinus tachycardia 122 bpm. PVCs were noted. Nonspecific ST segment abnormalities were noted. This was compared to a tracing from January 28, 2023. There is an increase in rate otherwise no significant changes were noted. Cardiac Monitoring: An order was placed for continuous cardiac monitoring. The monitor shows a rate of 121 bpm with sinus tachycardia. Laboratory studies: As stated above and show below. Imaging studies: See below. Radiographic imaging was reviewed by myself Consultation(s): I discussed this case with Tiffanie who [facility] ED COURSE: Procedures: none Critical Care: I have personally spent greater than 45 minutes of critical care time in the direct management of this patient. This includes bedside care, interpretation of diagnostic studies, and testing, discussion with consultants, patient, and family members, and other required patient management activities. This 45 minutes is in excess of all separately billable procedures. Past Med/Surg History Medical History Arthritis Tobacco use disorder COPD (chronic obstructive pulmonary disease) Smoker Surgical History History of bronchoscopy History of partial hysterectomy Family History Mother Diabetes Heart disease Father Heart disease Brother Cancer Lung cancer Sister Cancer Bone Sister Cancer Breast Brother Cancer Esophageal cancer Kidney disease Social History Smoking Status: Current every day smoker Tobacco Type: Cigarettes Age Started Using Tobacco: 11; Cigarettes Per Day: 3; Second Hand Exposure: No; Do You Dip or Chew Tobacco: No; Hx Alcohol Use: No Hx Substance Use: No Preferred Language: Senegalese Communication Ability: Effective Zipper Repairer Required: No Beliefs That Will Affect Care: None Current Living Situation: Alone current occupational status: retired Feels Safe at Home: Yes Assistive Devices: Glasses and Oxygen - at Night Allergies Allergies Allergy/AdvReac Type Severity Reaction Status Date / Time No Known Allergies Allergy Unverified 02/19/23 09:23 Home Meds Home Medications Medication Instructions Recorded Confirmed metoprolol tartrate 25 mg tablet 25 mg PO BID 02/05/23 03/12/23 acetaminophen 500 mg tablet 1,000 mg PO BID PRN Pain 02/19/23 03/12/23 (Tylenol Extra Strength) oxycodone 5 mg tablet 5 mg PO Q4H PRN Pain (Scale Score 03/12/23 03/12/23 1-3) Previous Rx's Medication Instructions Recorded albuterol sulfate 90 mcg/actuation 2 inh inhalation Q4H PRN shortness 02/18/23 aerosol inhaler of breath or wheezing #8.5 grams budesonide-formoterol HFA 160 2 puff inhalation BID #10.2 grams 02/18/23 mcg-4.5 mcg/actuation aerosol inhaler tiotropium bromide 2.5 2 puff inhalation DAILY #4 grams 02/18/23 mcg/actuation mist for inhalation (Spiriva Respimat) Results & Data (ED) Vital Signs Vital Signs - 24 hr 03/12/23 18:03 03/12/23 18:18 03/12/23 18:28 Temperature 36.8 C Temperature Source Temporal Artery Scan Pulse Rate 123 H 121 H Pulse Rate [Bilateral] Respiratory Rate 18 Blood Pressure 155/71 H Blood Pressure [Right Arm] Blood Pressure Mean 99 Blood Pressure Mean [Right Arm] Pulse Oximetry 95 100 Oxygen Delivery Method Nasal Cannula Nasal Cannula Oxygen Flow Rate 3 4 Sepsis Recent Fever Within 48 Hours No Sepsis New/Unexplained Change in Mental Status No Sepsis Action Taken by Nursing No Action Required Oxygen Flow Rate - Titration Pulse Oximetry Post Tiitration 03/12/23 19:42 03/12/23 19:54 Temperature Temperature Source Pulse Rate Pulse Rate [Bilateral] 121 H Respiratory Rate 18 Blood Pressure Blood Pressure [Right Arm] 150/76 H Blood Pressure Mean Blood Pressure Mean [Right Arm] 100 Pulse Oximetry 97 100 Oxygen Delivery Method Nasal Cannula Nasal Cannula Oxygen Flow Rate 5 5 Sepsis Recent Fever Within 48 Hours Sepsis New/Unexplained Change in Mental Status Sepsis Action Taken by Nursing Oxygen Flow Rate - Titration 4 Pulse Oximetry Post Tiitration 96 Home Medications Current Medication List: was personally reviewed by me Laboratory Data Attestation: I reviewed the patient's lab results. 03/12/23 18:27 03/12/23 21:04 Lab Results 03/12/23 03/12/23 03/12/23 Range/Units 18:27 18:29 18:46 WBC 21.87 H (4.8-10.8) K/ul RBC 3.81 L (4.20-5.40) M/uL Hgb 11.6 L (12.0-16.0) g/dl Hct 33.9 L (37.0-47.0) % MCV 89.0 (80.0-100.0) fL MCH 30.4 (25.0-34.0) pg MCHC 34.2 (32.0-36.0) g/dL RDW Std Deviation 38.6 (36.4-46.3) fL RDW Coeff of Fernanda 11.9 (11.5-14.5) % Plt Count 332 (130-400) K/uL MPV 9.7 (9.4-12.4) fL Immature Gran % (Auto) 0.5 % Neut % (Auto) 84.4 % Lymph % (Auto) 4.3 % George % (Auto) 10.6 % Eos % (Auto) 0.0 % Baso % (Auto) 0.2 % Neut # (Auto) 18.44 H (1.40-6.50) K/uL Lymph # (Auto) 0.95 L (1.20-3.40) K/uL George # (Auto) 2.31 H (0.11-0.59) K/uL Eos # (Auto) 0.01 (0.00-0.50) K/uL Baso # (Auto) 0.05 (0.00-0.20) K/uL Immature Gran # (Auto) 0.11 (0.01-0.20) K/uL PT 11.0 (9.0-12.0) Seconds INR 1.0 (0.9-1.1) APTT 29.6 (21.0-31.0) Seconds PTT Ratio 1.0 VBG pH 7.42 H (7.36-7.41) VBG pCO2 49 (38-50) mmHg VBG pO2 32 mmHg VBG HCO3 32 mmol/L VBG O2 Saturation < 60.0 % VBG Base Excess 6.1 mEq/L Sodium 124 L (136-145) mmol/L Potassium 4.5 (3.5-5.1) mmol/L Chloride 87 L (98-107) mmol/L Carbon Dioxide 29 (21-32) mmol/L Anion Gap 8 (3-11) BUN 21 (6-23) mg/dl Creatinine 0.64 (0.6-1.2) mg/dl Est Cr Clr Drug Dosing Not Reportable Est GFR ( Amer) 99.8 ml/min Est GFR (Non-Af Amer) 86.1 ml/min BUN/Creatinine Ratio 32.8 H (10-20) Glucose 135 H (70-99(Fasting)) mg/dl Osmolality (280-300) mOsm/kg Lactate 1.1 (0.4-2.0) mmol/L Calcium 9.0 (8.6-10.3) mg/dl Magnesium 1.7 (1.7-2.4) mg/dl Total Bilirubin 0.6 (0.2-1.0) mg/dl Direct Bilirubin 0.1 (0-0.2) mg/dl AST 21 (13-39) U/L ALT 17 (7-52) U/L Alkaline Phosphatase 105 H (34-104) U/L Troponin I High Sens 59.7 H* (0-14) pg/ml Total Protein 6.8 (6.0-8.3) gm/dl Albumin 3.5 (3.4-5.0) gm/dl Procalcitonin 0.12 (0-0.5) ng/ml Adenovirus (PCR) Not Detected (NotDetected) B. pertussis DNA (PCR) Not Detected (NotDetected) B.parapertussis DNA PCR Not Detected (NotDetected) C. pneumoniae DNA (PCR) Not Detected (NotDetected) Coronavirus OC43 (PCR) Not Detected (NotDetected) Coronavirus HKU1 (PCR) Not Detected (NotDetected) Coronavirus 229E (PCR) Not Detected (NotDetected) SARS-CoV-2 (PCR) Not Detected (NotDetected) Coronavirus NL63 (PCR) Not Detected (NotDetected) Human Metapneumovir PCR Not Detected (NotDetected) Influenza Type A (PCR) Not Detected (NotDetected) Influenza Type B (PCR) Not Detected (NotDetected) M. pneumoniae (PCR) Not Detected (NotDetected) Parainfluenza 1 (PCR) Not Detected (NotDetected) Parainfluenza 2 (PCR) Not Detected (NotDetected) Parainfluenza 3 (PCR) Not Detected (NotDetected) Parainfluenza 4 (PCR) Not Detected (NotDetected) RSV (PCR) Not Detected (NotDetected) Entero/Rhino (PCR) Not Detected (NotDetected) 03/12/23 Range/Units 21:04 WBC (4.8-10.8) K/ul RBC (4.20-5.40) M/uL Hgb (12.0-16.0) g/dl Hct (37.0-47.0) % MCV (80.0-100.0) fL MCH (25.0-34.0) pg MCHC (32.0-36.0) g/dL RDW Std Deviation (36.4-46.3) fL RDW Coeff of Fernanda (11.5-14.5) % Plt Count (130-400) K/uL MPV (9.4-12.4) fL Immature Gran % (Auto) % Neut % (Auto) % Lymph % (Auto) % George % (Auto) % Eos % (Auto) % Baso % (Auto) % Neut # (Auto) (1.40-6.50) K/uL Lymph # (Auto) (1.20-3.40) K/uL George # (Auto) (0.11-0.59) K/uL Eos # (Auto) (0.00-0.50) K/uL Baso # (Auto) (0.00-0.20) K/uL Immature Gran # (Auto) (0.01-0.20) K/uL PT (9.0-12.0) Seconds INR (0.9-1.1) APTT (21.0-31.0) Seconds PTT Ratio VBG pH (7.36-7.41) VBG pCO2 (38-50) mmHg VBG pO2 mmHg VBG HCO3 mmol/L VBG O2 Saturation % VBG Base Excess mEq/L Sodium 124 L (136-145) mmol/L Potassium 4.4 (3.5-5.1) mmol/L Chloride 91 L (98-107) mmol/L Carbon Dioxide 28 (21-32) mmol/L Anion Gap 5 (3-11) BUN 22 (6-23) mg/dl Creatinine 0.68 (0.6-1.2) mg/dl Est Cr Clr Drug Dosing 52.3 Est GFR ( Amer) 97.8 ml/min Est GFR (Non-Af Amer) 84.4 ml/min BUN/Creatinine Ratio 32.4 H (10-20) Glucose 150 H (70-99(Fasting)) mg/dl Osmolality 269 L (280-300) mOsm/kg Lactate (0.4-2.0) mmol/L Calcium 8.4 L (8.6-10.3) mg/dl Magnesium (1.7-2.4) mg/dl Total Bilirubin (0.2-1.0) mg/dl Direct Bilirubin (0-0.2) mg/dl AST (13-39) U/L ALT (7-52) U/L Alkaline Phosphatase (34-104) U/L Troponin I High Sens (0-14) pg/ml Total Protein (6.0-8.3) gm/dl Albumin (3.4-5.0) gm/dl Procalcitonin (0-0.5) ng/ml Adenovirus (PCR) (NotDetected) B. pertussis DNA (PCR) (NotDetected) B.parapertussis DNA PCR (NotDetected) C. pneumoniae DNA (PCR) (NotDetected) Coronavirus OC43 (PCR) (NotDetected) Coronavirus HKU1 (PCR) (NotDetected) Coronavirus 229E (PCR) (NotDetected) SARS-CoV-2 (PCR) (NotDetected) Coronavirus NL63 (PCR) (NotDetected) Human Metapneumovir PCR (NotDetected) Influenza Type A (PCR) (NotDetected) Influenza Type B (PCR) (NotDetected) M. pneumoniae (PCR) (NotDetected) Parainfluenza 1 (PCR) (NotDetected) Parainfluenza 2 (PCR) (NotDetected) Parainfluenza 3 (PCR) (NotDetected) Parainfluenza 4 (PCR) (NotDetected) RSV (PCR) (NotDetected) Entero/Rhino (PCR) (NotDetected) Administered Medications Discontinued Medications Albuterol (Albut/Ipratrop 3mg/0.5mg Neb 3 Ml Vial) 12 ml NEB ONE ONE; Protocol Stop: 03/12/23 18:28 Last Admin: 03/12/23 19:56 Dose: 12 ml Documented By: TBS Dexamethasone Sodium Phosphate (DexamethasonePf 10 Mg/Ml Vial) 10 mg IV NOW ONE Stop: 03/12/23 18:28 Last Admin: 03/12/23 19:57 Dose: 10 mg Documented By: TBS Sodium Chloride (Nss) 1,000 mls @ 999 mls/hr IV .Q1H1M ONE Stop: 03/12/23 19:27 Last Admin: 03/12/23 19:57 Dose: 999 mls/hr Documented By: TBS Cefepime HCl (Maxipime) 2,000 mg in 20 mls @ 5 mls/min IV NOW STA; Protocol Stop: 03/12/23 18:31 Last Admin: 03/12/23 19:57 Dose: 5 mls/min Documented By: TBS Piperacillin Sod/Tazobactam (Sod 4.5 gm/ Dextrose) 100 mls @ 200 mls/hr IV NOW ONE; Protocol Stop: 03/12/23 21:14 Last Admin: 03/12/23 21:41 Dose: 200 mls/hr Documented By: LAUREN Lorazepam (Lorazepam 2 Mg/1 Ml Vial) 0.5 mg IV NOW STA Stop: 03/12/23 19:19 Last Admin: 03/12/23 19:57 Dose: 0.5 mg Documented By: LAUREN Imaging Data Attestation: I personally reviewed and interpreted this imaging study as follows: My Impression: 1 view chest x-ray was obtained in the emergency department. My interpretation is infiltrative process noted bilaterally right greater than left, no free air, final report below. Radiologist's Impression: Chest X-Ray 03/12/23 18:27 XR chest 1V portable CLINICAL HISTORY: Sepsis. Lung cancer. COMPARISON STUDY: Chest CT February 05, 2023. PET/CT February 25, 2023. FINDINGS: There is no pneumothorax. Small left and trace right pleural effusions have developed since PET/CT of February 25, 2023. The right lower lobe mass is better depicted on that exam. Cavitary right upper lobe opacity is noted. This includes a 2.7 cm nodular opacity which has mildly increased since chest radiograph of February 05, 2023. Enlargement of the cardiac silhouette is unchanged. There is no evidence for pulmonary edema. Patient is mildly rotated. There is emphysema. IMPRESSION: 1. Interval small left and trace right pleural effusion. 2. Redemonstration of the right lower lobe mass consistent with known lung malignancy. 3. Cavitary right apical opacity which favors pneumonia, as shown on prior exams. However, a 2.7 cm nodular opacity has increased and therefore an additional neoplasm cannot be excluded. This should be assessed on follow-up exams. ACT 112: Negative or not required by law. Electronically signed by: Alexander Murray M.D. 03/12/2023 7:00 PM Discharge Plan Visit Data Chief Complaint: Weakness Stated Complaint: WEAKNESS, TACHYCARDIC ED Provider: Yaw Benavides Discharge Problem: Multilobar lung infiltrate, Pleural effusion, Chronic respiratory failure with hypoxia, Exertional shortness of breath, Acute hyponatremia, Elevated troponin I level, COPD (chronic obstructive pulmonary disease) Patient Disposition: Being Evaluated by Hospitalist Forms Stand Alone Forms: My [facility] Prescriptions Prescriptions: No Action acetaminophen [Tylenol Extra Strength] 500 mg tablet 1,000 mg PO BID PRN (Reason: Pain) budesonide-formoterol 160-4.5 mcg/actuation HFA aerosol inhaler 2 puff INHALATION BID Qty: 10.2 4RF albuterol sulfate 90 mcg/actuation HFA aerosol inhaler 2 inh INH Q4H PRN (Reason: shortness of breath or wheezing) Qty: 8.5 3RF Spiriva Respimat 2.5 mcg/actuation mist 2 puff inhalation DAILY Qty: 4 3RF metoprolol tartrate 25 mg tablet 25 mg PO BID oxycodone 5 mg tablet 5 mg PO Q4H PRN (Reason: Pain (Scale Score 1-3)) Referrals Referrals: Ele Alford DO [Primary Care Provider] - Discharge Problem: COPD (chronic obstructive pulmonary disease) Qualifiers: COPD type: unspecified COPD Qualified Code(s): J44.9 - Chronic obstructive pulmonary disease, unspecified
[2023-03-12 18:51] LABS: Basophils # (auto) 0.05 K/uL (0.00-0.20); Basophils % (auto) 0.2 %; Eosinophils # (auto) 0.01 K/uL (0.00-0.50); Hematocrit (blood only) 33.9 % (37.0-47.0); Hemoglobin 11.6 g/dl (12.0-16.0); Immature Granulocytes # (auto) 0.11 K/uL (0.01-0.20); Immature Granulocytes % (auto) 0.5 %; Lymphocytes # (auto) 0.95 K/uL (1.20-3.40); Lymphocytes % (auto) 4.3 %; Mean Corpuscular Hemoglobin 30.4 pg (25.0-34.0); Mean Corpuscular Hgb Conc 34.2 g/dL (32.0-36.0); Mean Platelet Volume 9.7 fL (9.4-12.4); Monocytes # (auto) 2.31 K/uL (0.11-0.59); Monocytes % (auto) 10.6 %; Neutrophils # (auto) 18.44 K/uL (1.40-6.50); Neutrophils % (auto) 84.4 %; Platelet Count 332 K/uL (130-400); RDW Coefficient of Variation 11.9 % (11.5-14.5); RDW Standard Deviation 38.6 fL (36.4-46.3); Red Blood Count 3.81 M/uL (4.20-5.40); White Blood Count 21.87 K/ul (4.8-10.8)
[2023-03-12 18:54] LABS: Base Excess VBG 6.1 mEq/L; HCO3 VBG 32 mmol/L; Oxygen Saturation VBG < 60.0 %; PCO2 VBG 49 mmHg (38-50); PO2 VBG 32 mmHg; pH VBG 7.42 (7.36-7.41)
--- NOTE | 2023-03-12 19:02 | XRay Report ---
XR chest 1V portable CLINICAL HISTORY: Sepsis. Lung cancer. COMPARISON STUDY: Chest CT February 05, 2023. PET/CT February 25, 2023. FINDINGS: There is no pneumothorax. Small left and trace right pleural effusions have developed since PET/CT of February 25, 2023. The right lower lobe mass is better depicted on that exam. Cavitary righ t upper lobe opacity is noted. This includes a 2.7 cm nodular opacity which has mildly increased sinc e chest radiograph of February 05, 2023. Enlargement of the cardiac silhouette is unchanged. There i s no evidence for pulmonary edema. Patient is mildly rotated. There is emphysema. IMPRESSION: 1. Interval small left and trace right pleural effusion. 2. Redemonstration of the right lower lobe mass consistent with known lung malignancy. 3. Cavitary right apical opacity which favors pneumonia, as shown on prior exams. However, a 2.7 cm n odular opacity has increased and therefore an additional neoplasm cannot be excluded. This should be assessed on follow-up exams. ACT 112: Negative or not required by law. Electronically signed by: Alexander Murray M.D. 03/12/2023 7:00 PM
[2023-03-12 19:03] LABS: Alanine Aminotransferase 17 U/L (7-52); Albumin Level 3.5 gm/dl (3.4-5.0); Alkaline Phosphatase 105 U/L (34-104); Anion Gap 8 (3-11); Aspartate Aminotransferase 21 U/L (13-39); BUN Creatinine Ratio 32.8 (10-20); Bilirubin Direct 0.1 mg/dl (0-0.2); Bilirubin,Total 0.6 mg/dl (0.2-1.0); Blood Urea Nitrogen 21 mg/dl (6-23); Carbon Dioxide 29 mmol/L (21-32); Chloride 87 mmol/L (98-107); Est GFR (African American) 99.8 ml/min; Est GFR (Non-African American) 86.1 ml/min; Glucose 135 mg/dl (70-99(Fasting)); Magnesium 1.7 mg/dl (1.7-2.4); Potassium 4.5 mmol/L (3.5-5.1); Sodium 124 mmol/L (136-145); Total Protein 6.8 gm/dl (6.0-8.3)
[2023-03-12 19:14] LABS: Partial Thromboplastin Time 29.6 Seconds (21.0-31.0)
[2023-03-12 19:16] LABS: Troponin I High Sensitivity 59.7 pg/ml (0-14)
[2023-03-12] MEDS ORDERED: LORazepam 2 MG/1 ML VIAL IV STA (19:18)
[2023-03-12 19:35] LABS: Adenovirus PCR Not Detected (NotDetected); Bordetella parapertussis PCR Not Detected (NotDetected); Bordetella pertussis PCR Not Detected (NotDetected); Chlamydia pneumoniae PCR Not Detected (NotDetected); Coronavirus 229E PCR Not Detected (NotDetected); Coronavirus CoV-2 (COVID19)PCR Not Detected (NotDetected); Coronavirus HKU1 PCR Not Detected (NotDetected); Coronavirus NL63 PCR Not Detected (NotDetected); Coronavirus OC43PCR Not Detected (NotDetected); Human Metapneumovirus PCR Not Detected (NotDetected); Influenza A PCR Not Detected (NotDetected); Influenza B PCR Not Detected (NotDetected); Mycoplasma pneumoniae PCR Not Detected (NotDetected); Parainfluenza Virus 1 PCR Not Detected (NotDetected); Parainfluenza Virus 2 PCR Not Detected (NotDetected); Parainfluenza Virus 3 PCR Not Detected (NotDetected); Parainfluenza Virus 4 PCR Not Detected (NotDetected); Respiratory Syncytial VirusPCR Not Detected (NotDetected); Rhinovirus/Enterovirus PCR Not Detected (NotDetected)
[2023-03-12] MEDS ORDERED: ALUMINUM/MAGNESIUM SUSP 30 ML UDC PO PRN (20:12)
--- NOTE | 2023-03-12 20:24 | History & Physical Report ---
Date of Service March 12, 2023 Assessment & Plan (1) Acute on chronic hypoxic respiratory failure: (2) COPD exacerbation: (3) Adenocarcinoma of lung: (4) Hyponatremia: (5) Sepsis: (6) Pneumonia: Plan This is a 77 yr old F who has a significant past medical history of tobacco abuse, COPD, chronic respiratory failure with hypoxia and recently diagnosed right lung adenocarcinoma who presents to ED 2/2 to SOB. Of significance patient recently hospitalized at [facility] secondary to moderate pericardial effusion status post pericardiocentesis on 03/06/2023. Postop course was uncomplicated. Repeat CT showed resolution and very small pericardial effusion remaining. Since being discharged home she had been doing well except for increase in sputum production. Son at bedside reports it is pink. Also noted was increasing shortness of breath, oxygen requirement and overall generalized weakness. Known right lower lobe non-small cell lung CA following Dr. Bryant for pulmonology, Dr. Naqvi for oncology and Dr. Morrow for radiation oncology. Acute on chronic hypoxic respiratory failure COPD exacerbation Sepsis Possible RUL PNA Possible sepsis in setting of leukocytosis, tachycardia and tachypnea CXR: 1. Interval small left and trace right pleural effusion.2. Redemonstration of the right lower lobe mass consistent with known lung malignancy. 3. Cavitary right apical opacity which favors pneumonia, as shown on prior exams. However, a 2.7 cm nodular opacity has increased and therefore an additional neoplasm cannot be excluded. This should be assessed on follow-up exams. Consult Pulmonology In interim will treat empirically with broad spectrum antibiotic Zosyn and Doxy IV Solu-Medrol MRSA swab obtain CTA chest eval pericardial space as well as r/o CT PE pulmonary toilet with nebs, flutter valve and incentive spirometry Hyponatremia Likely multifactorial Poor intake over the past week as well as possible etiology of SIADH in setting of lung cancer bmp q4hr urine studies, serum osm obtained gentle nss @ 50ml/hr consider nephro consult if no improvement Pericardial effusion s/p pericardiocentesis 03/06/23 at [facility] obtain cT chest pt to have echocardiogram on thursday as OP will obtain while in house due to elevated troponin cycle trops, low threshold for cards consult if abnormal cytology was benign Tobacco abuse encourage cessation nicotine patch declined DVT ppx: SQ Lovenox DNR/DNI PCP: Dr. Alford Pt was seen and examined in collaboration with Dr. Connors, please see addendum History of Present Illness Chief Complaint: Shortness of breath and weakness x1 day. Primary Care Provider: Ele Alford DO This is a 77 yr old F who has a significant past medical history of tobacco abuse, COPD, chronic respiratory failure with hypoxia and recently diagnosed right lung adenocarcinoma who presents to ED 2/2 to SOB. SOB started today. Daughter in law at bedside who provides most of history. At baseline she is on 3.5L and her pulse ox today was in normal range when complaining of SOB. Her HR at the time was 127 at rest and DIL called PCP who recommended coming to ED for evaluation. She has known hx of right lung cancer. 1 week ago she was admitted at [facility] due to, " fluid around the heart." She had 1.5L removed and was hospitalized for 2 midnights. She was diagnosed with a moderate-sized pericardial effusion and underwent pericardiocentesis on 03/06/2023. Pericardial drain remained in place and was able to be removed without issue on postop #2. CT chest was completed after drain removal to serve as a baseline exam should symptoms return and or fluid reaccumulate. She also was noted to have dysphagia issues while hospitalized and speech therapy was offered however family declined. Ejection fraction prior to discharge was 55%. CT scan at discharge revealed interval decrease in size of small pericardial effusion with expected pneumopericardium. Also noted was a similar appearance of the right lower lobe consolidation compatible with known adenocarcinoma as well as a spiculated cavitary masslike infiltrate in the right upper lobe along with redemonstrated mediastinal adenopathy. She does have increased cough with pink sputum, increased work of breathing, wheezing, and blue toes. She has family that lives next door. At baseline she usually doesn't need a walker; however today she is extremely weak and required a walker today. No sick contacts. Family at bedside denies f/c/s, dizziness, lightheadedness,n/v/d. She does still smoke 3-4 cigarettes a day. There is no alcohol or recreational drug use. She follows with Dr. Naqvi and just recently established due to R lung cancer. In ED patient required 5 L of oxygen which is an increase from baseline. She was also noted to have wheezing, tachypnea and poor air movement. She received IV Solu-Medrol as well as an hour-long neb which did help symptoms although she became very anxious. She was then given an Ativan which did calm her down but made her slightly confused. [id number] and son are at bedside. Allergies Allergy/AdvReac Type Severity Reaction Status Date / Time No Known Allergies Allergy Unverified 02/19/23 09:23 Home Medications Medication Instructions Recorded Confirmed Type metoprolol tartrate 25 mg tablet 25 mg PO BID 02/05/23 03/12/23 History albuterol sulfate 90 mcg/actuation 2 inh inhalation Q4H PRN shortness 02/18/23 03/12/23 Rx aerosol inhaler of breath or wheezing #8.5 grams budesonide-formoterol HFA 160 2 puff inhalation BID #10.2 grams 02/18/23 03/12/23 Rx mcg-4.5 mcg/actuation aerosol inhaler tiotropium bromide 2.5 2 puff inhalation DAILY #4 grams 02/18/23 03/12/23 Rx mcg/actuation mist for inhalation (Spiriva Respimat) acetaminophen 500 mg tablet 1,000 mg PO BID PRN Pain 02/19/23 03/12/23 History (Tylenol Extra Strength) oxycodone 5 mg tablet 5 mg PO Q4H PRN Pain (Scale Score 03/12/23 03/12/23 History 1-3) Past Med/Surg History Medical History Arthritis Tobacco use disorder COPD (chronic obstructive pulmonary disease) Smoker Surgical History History of bronchoscopy History of partial hysterectomy Family History Mother Diabetes Heart disease Father Heart disease Brother Cancer Lung cancer Sister Cancer Bone Sister Cancer Breast Brother Cancer Esophageal cancer Kidney disease Social History Smoking Status: Current every day smoker Tobacco Type: Cigarettes Age Started Using Tobacco: 11; Cigarettes Per Day: 3; Second Hand Exposure: Yes; Do You Dip or Chew Tobacco: No; Hx Alcohol Use: No Hx Substance Use: No Preferred Language: Slovak Communication Ability: Effective Medical Diagnostic Radiographer Required: No Beliefs That Will Affect Care: None Current Living Situation: Alone current occupational status: retired Other Information That Helps Us Care for You: No Feels Safe at Home: Yes Safety Concerns: Feels Safe At This Time Assistive Devices: Denture - Upper, Denture - Lower and Glasses Review of Systems Review of Systems: hx mostly obtained from family due to cognitive status Physical Exam Physical Exam: please refer to Dr. Connors addendum for physical exam findings. Results & Data Results & Data Vital Signs (Past 12 Hours) Vital Signs Temp Pulse Pulse Resp BP BP Pulse Ox 03/12/23 19:54 100 03/12/23 19:42 121 H 18 150/76 H 97 03/12/23 18:28 100 03/12/23 18:18 121 H 03/12/23 18:03 36.8 C 123 H 18 155/71 H 95 O2 Del Method O2 Flow Rate 03/12/23 19:54 Nasal Cannula 5 03/12/23 19:42 Nasal Cannula 5 03/12/23 18:28 Nasal Cannula 4 03/12/23 18:18 03/12/23 18:03 Nasal Cannula 3 Diagnostic Findings Chest X-Ray 03/12/23 18:27 XR chest 1V portable CLINICAL HISTORY: Sepsis. Lung cancer. COMPARISON STUDY: Chest CT February 05, 2023. PET/CT February 25, 2023. FINDINGS: There is no pneumothorax. Small left and trace right pleural effusions have developed since PET/CT of February 25, 2023. The right lower lobe mass is better depicted on that exam. Cavitary right upper lobe opacity is noted. This includes a 2.7 cm nodular opacity which has mildly increased since chest radiograph of February 05, 2023. Enlargement of the cardiac silhouette is unchanged. There is no evidence for pulmonary edema. Patient is mildly rotated. There is emphysema. IMPRESSION: 1. Interval small left and trace right pleural effusion. 2. Redemonstration of the right lower lobe mass consistent with known lung malignancy. 3. Cavitary right apical opacity which favors pneumonia, as shown on prior exams. However, a 2.7 cm nodular opacity has increased and therefore an additional neoplasm cannot be excluded. This should be assessed on follow-up exams. ACT 112: Negative or not required by law. Electronically signed by: Alexander Murray M.D. 03/12/2023 7:00 PM Medications Administered Medication List Discontinued Medications Albuterol (Albut/Ipratrop 3mg/0.5mg Neb 3 Ml Vial) 12 ml NEB ONE ONE; Protocol Stop: 03/12/23 18:28 Last Admin: 03/12/23 19:56 Dose: 12 ml Documented By: LAUREN Dexamethasone Sodium Phosphate (DexamethasonePf 10 Mg/Ml Vial) 10 mg IV NOW ONE Stop: 03/12/23 18:28 Last Admin: 03/12/23 19:57 Dose: 10 mg Documented By: LAUREN Sodium Chloride (Nss) 1,000 mls @ 999 mls/hr IV .Q1H1M ONE Stop: 03/12/23 19:27 Last Admin: 03/12/23 19:57 Dose: 999 mls/hr Documented By: LAUREN Cefepime HCl (Maxipime) 2,000 mg in 20 mls @ 5 mls/min IV NOW STA; Protocol Stop: 03/12/23 18:31 Last Admin: 03/12/23 19:57 Dose: 5 mls/min Documented By: LAUREN Lorazepam (Lorazepam 2 Mg/1 Ml Vial) 0.5 mg IV NOW STA Stop: 03/12/23 19:19 Last Admin: 03/12/23 19:57 Dose: 0.5 mg Documented By: LAUREN Code Status & VTE Plan Code Status DNR/DNI Supervising Physician Co-Signing Physician Notes 77-year-old lady with PMH of COPD, ongoing tobacco use, chronic respiratory failure with hypoxia on 3.5 L oxygen at baseline, recent diagnosis of right lung adenocarcinoma yet to undergo follow-up and management evaluation with oncology as an outpatient. Patient follows Dr. Naqvi locally. [id number] at bedside, patient drowsy secondary to Ativan use for her anxiety in the ED. Per [id number]-[id number], patient was noted to be breathing heavy at home, wheezing, heart rate very high in 120s, saturation maintaining at 97% on 3.5 L oxygen. Per [id number] and son at bedside, patient had cough with pinkish sputum in the last several days, denies any febrile illness, reports her appetite has been severely decreased in the last week or so, had recent bowel movement 2 days ago. Admitting imaging and labs reviewed. She is being managed for the following: Sepsis POA/acute exacerbation of COPD/RUL pneumonia: We will start her on Doxy and Zosyn. Scheduled nebs and as needed nebs, pulmonology consult. IV Solu- Medrol. Telemetry monitoring. Labs in AM. Follow-up CTA chest. Recommend smoking cessation, still smokes 3 to 4 cigarettes a day. History of 60 packs/day. Troponin elevation: Likely demand ischemia secondary to acute illness. Trend troponin. Telemetry monitoring. Patient not able to comment on chest pain due to being drowsy secondary to Ativan use. EKG reviewed with sinus tachycardia. Hyponatremia: Admitting sodium level of 123, baseline sodium level around 128. 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 We will send urine sodium/urine osmolality/serum osmolality. BMP every 4 hours. Likely secondary to poor appetite in the last several days in the setting of SIADH. Gentle ivf 2/2 poor appetite. Encourage po intake. Low-sodium diet. High-protein diet. Will allow fluid intake at this time as patient appears clinically dehydrated. If worsening, consider nephrology consult. Recent diagnosis of lung cancer: Follows oncology, follow-up with oncology on discharge. Recent hospitalization for pericardiocentesis, plan for repeat echo on coming Thursday. On examination: GENERAL: drowsy. NAD, on 5L NC O2. Appears ill frail and weak. HEENT: No pallor, no icterus. Pupils equal, round and reactive to light. Oral mucosa moist. NECK: No JVD, no neck masses. HEART: S1 and S2 heard. Regular rate and rhythm. No murmur, no gallop. RESPIRATORY SYSTEM: Normal AP diameter. No accessory muscle use. b/l rhonchi, b/l crackles. ABDOMEN: Soft, bowel sounds present, nontender, no distention. CENTRAL NERVOUS SYSTEM: No facial droop. Speech is clear. Obeys simple commands. Moves extremities. EXTREMITIES: No edema, no erythema seen. I have seen and examined the patient and have discussed the case with the provider above. I agree with the assessment and plan as stated. (3) Adenocarcinoma of lung Laterality: right Qualified Code(s): C34.91 - Malignant neoplasm of unspecified part of right bronchus or lung
[2023-03-12] MEDS ORDERED: PIPER/TAZO 4.5g in D5W MINI-B 100 ML IV ONE (20:45)
[2023-03-12] MEDS ORDERED: SODIUM CHLORIDE 0.9% 1,000 ML IV SCH (21:15)
[2023-03-12 21:32] LABS: BUN Creatinine Ratio 32.4 (10-20); Calcium 8.4 mg/dl (8.6-10.3); Creatinine Clr Calc Pharmacy 52.3 ml/min; Est GFR (African American) 97.8 ml/min; Est GFR (Non-African American) 84.4 ml/min; Potassium 4.4 mmol/L (3.5-5.1)
[2023-03-12] MEDS: IPRATROPIUM BROMIDE NEB SOLN 0.02% 2.5 ML VIAL INH SCH (21:42)
[2023-03-12] MEDS: LEVALBUTEROL 1.25 MG/3 ML NEB NEB SCH (21:42)
[2023-03-12] MEDS: DOXYCYCLINE HYCLATE 100 MG in DEXTROSE 5% MINI-B 100 ML IV SCH (21:58)
[2023-03-12] MEDS: ONDANSETRON INJ 2 MG/ML 2 ML VIAL IV PRN (22:02)
[2023-03-12] MEDS: ENOXAPARIN INJ 40 MG/0.4 ML SYR SQ SCH (22:08)
[2023-03-12] MEDS ORDERED: OPTIRAY 320 500ml IV ONE (22:46)
--- NOTE | 2023-03-13 00:11 | CT Scan Report ---
Exam(s): CTA CHEST IV Amt: 114 cc opti 320 EXAM: CT Angiography Chest With Intravenous Contrast CLINICAL HISTORY: Reason for exam: ro pe; cancer pt; recent pericardiocentesis.. TECHNIQUE: Axial computed tomographic angiography images of the chest with intravenous contrast. CTDI is 7.91 mGy and DLP is 265.26 mGy-cm. Automated exposure control was utilized for the study. A dose lowering technique was utilized adhering to the principles of ALARA. MIP reconstructed images were created and reviewed. COMPARISON: No relevant prior studies available. FINDINGS: Pulmonary arteries: Unremarkable. No acute pulmonary embolism. Aorta: Atherosclerotic changes of the aorta. No thoracic aortic aneurysm. Lungs: Airspace consolidation and the RIGHT upper lobe, with developing cavitary lesion, concerning for chronic consolidation/developing abscess versus cavitary lung neoplasms of the squamous cell carcinoma. Correlate for cancer history. Mass in the RIGHT lower lobe measuring 4.4 x 3.9 cm, concerning for neoplasm. Moderate centrilobular emphysema. Pleural space: Unremarkable. No significant effusion. No pneumothorax. Heart: Unremarkable. No cardiomegaly. No significant pericardial effusion. No evidence of RV dysfunction. Mediastinum: Large subcarinal lymph node mass measuring approximately 7.4 x 5.4 cm. Bones/joints: Degenerative changes of the spine. No acute fracture. No dislocation. Soft tissues: Unremarkable. Lymph nodes: See above. IMPRESSION: 1. No acute pulmonary embolism. 2. Airspace consolidation and the RIGHT upper lobe, with developing cavitary lesion, concerning for chronic consolidation/developing abscess versus cavitary lung neoplasms of the squamous cell carcinoma. Correlate for cancer history. 3. Mass in the RIGHT lower lobe measuring 4.4 x 3.9 cm, concerning for neoplasm. 4. Large subcarinal lymph node mass measuring approximately 7.4 x 5.4 cm. 5. Moderate centrilobular emphysema. Electronically signed by: Deangelo Patel MD 03/13/23 00:10 AM
[2023-03-13] MEDS: FLUTICASONE/VILANTEROL 100/25MCG 14 PUFFS/INHALER INH SCH ×2 (00:48→08:10)
[2023-03-13] MEDS: METOPROLOL TARTRATE 25 MG TAB PO SCH ×3 (00:48→22:01)
[2023-03-13] MEDS ORDERED: XOPENEX/ATROVENT 1.25mg/0.5MG NEB COMBO NEB SCH (01:00)
[2023-03-13 01:05] LABS: Calcium 8.2 mg/dl (8.6-10.3); Potassium 4.5 mmol/L (3.5-5.1)
[2023-03-13 01:10] LABS: BUN Creatinine Ratio 30.8 (10-20); Creatinine Clr Calc Pharmacy 54.7 ml/min; Est GFR (African American) 99.3 ml/min; Est GFR (Non-African American) 85.6 ml/min
[2023-03-13] MEDS: IPRATROPIUM BROMIDE NEB SOLN 0.02% 2.5 ML VIAL INH SCH ×4 (01:23→19:26)
[2023-03-13] MEDS: LEVALBUTEROL 1.25 MG/3 ML NEB NEB SCH ×4 (01:23→19:26)
[2023-03-13 01:37] LABS: Troponin I High Sensitivity 37.6 pg/ml (0-14)
[2023-03-13] MEDS ORDERED: FUROSEMIDE INJ 20 MG/2 ML VIAL IV ONE (02:15)
[2023-03-13 04:04] LABS: Appearance Urine Clear (Clear); Bacteria Urine Automated Negative (Negative); Bilirubin Urine Negative (Negative); Blood Urine Negative (Negative); Color Urine Yellow; Epithelial Cell Urine Auto >30 /lpf (0-5); Glucose Urine UA Negative (Negative); Ketones Urine Trace (Negative); Leukocyte Esterase Urine Negative (Negative); Nitrite Urine Negative (Negative); Specific Gravity Urine > 1.045 (1.000-1.030); Urobilinogen Urine Negative (Negative); pH Urine 7.5 (4.5-7.5)
[2023-03-13 04:15] LABS: Protein Urine 1+ (Negative)
[2023-03-13] MEDS: PIPERACILLIN/TAZOBACTAM 4.5 GM in DEXTROSE 5% MINI-B 100 ML IV SCH ×3 (06:13→21:19)
[2023-03-13] MEDS: methylPREDNISolone 40 MG in SYRINGE 0 ML IV SCH ×3 (06:13→21:19)
[2023-03-13 06:17] LABS: Hematocrit (blood only) 31.6 % (37.0-47.0); Hemoglobin 11.2 g/dl (12.0-16.0); Mean Corpuscular Hemoglobin 31.1 pg (25.0-34.0); Mean Corpuscular Hgb Conc 35.4 g/dL (32.0-36.0); Mean Corpuscular Volume 87.8 fL (80.0-100.0); Mean Platelet Volume 9.5 fL (9.4-12.4); Platelet Count 336 K/uL (130-400); RDW Standard Deviation 38.8 fL (36.4-46.3); White Blood Count 14.86 K/ul (4.8-10.8)
[2023-03-13 06:29] LABS: BUN Creatinine Ratio 27.1 (10-20); Calcium 8.8 mg/dl (8.6-10.3); Creatinine Clr Calc Pharmacy 50.8 ml/min; Est GFR (African American) 96.9 ml/min; Est GFR (Non-African American) 83.6 ml/min; Magnesium 1.7 mg/dl (1.7-2.4); Phosphorus 4.3 mg/dl (2.5-4.9); Potassium 4.2 mmol/L (3.5-5.1)
[2023-03-13 06:42] LABS: Troponin I High Sensitivity 32.6 pg/ml (0-14)
[2023-03-13] MEDS: UMECLIDINIUM BROMIDE 62.5MCG/BLISTER 7 PUFFS/INHALER INH SCH (08:10)
[2023-03-13] MEDS: DOXYCYCLINE HYCLATE 100 MG in DEXTROSE 5% MINI-B 100 ML IV SCH ×2 (08:18→21:11)
--- NOTE | 2023-03-13 09:10 | Hospitalist Progress Note ---
Date of Service March 13, 2023 Assessment & Plan (1) Acute on chronic hypoxic respiratory failure: (2) COPD exacerbation: (3) Adenocarcinoma of lung: (4) Hyponatremia: (5) Sepsis: (6) Pneumonia: Plan This is a 77 yr old F who has a significant past medical history of tobacco abuse, COPD, chronic respiratory failure with hypoxia and recently diagnosed right lung adenocarcinoma who presents to ED 2/2 to SOB. Of significance patient recently hospitalized at [facility] secondary to moderate pericardial effusion status post pericardiocentesis on 03/06/2023. Postop course was uncomplicated. Repeat CT showed resolution and very small pericardial effusion remaining. Since being discharged home she had been doing well except for increase in sputum production. Son at bedside reported it was pink. Also noted was increasing shortness of breath, oxygen requirement and overall generalized weakness. Known right lower lobe non-small cell lung CA following Dr. Bryant for pulmonology, Dr. Naqvi for oncology and Dr. Morrow for radiation oncology. Acute on chronic hypoxic respiratory failure COPD exacerbation Sepsis Possible RUL PNA Lung Mass Possible sepsis in setting of leukocytosis, tachycardia and tachypnea CXR: 1. Interval small left and trace right pleural effusion.2. Redemonstration of the right lower lobe mass consistent with known lung malignancy. 3. Cavitary right apical opacity which favors pneumonia, as shown on prior exams. However, a 2.7 cm nodular opacity has increased and therefore an additional neoplasm cannot be excluded. This should be assessed on follow-up exams. Consult Pulmonology- appreciate recs -continue abx, steroids -extrinsic component of mass/lymphadenopathy compressing bronchi, consider stenting in the future at tertiary care center after systemic chemo started -consider palliative care consult Continue Zosyn and Doxy, IV Solu-Medrol q12h MRSA swab negative CTA chest- noted lung masses, emphysema, no PE pulmonary toilet with nebs, flutter valve and incentive spirometry Lung cancer Known right lower lobe non-small cell lung CA following Dr. Bryant for pulmonology, Dr. Naqvi for oncology and Dr. Morrow for radiation oncology. 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 in setting of lung cancer Improved after gentle hydration Consider nephrology consult Pericardial effusion s/p pericardiocentesis 03/06/23 at [facility] s/p pericardiocentesis 03/06/23 at [facility] Echo 03/13- no noted pericardial effusion CTA chest- noted lung masses, emphysema, no PE Troponins have flattened cytology was benign Tobacco abuse encourage cessation nicotine patch declined Diet: low sodium, fluid restriction DVT ppx: SQ Lovenox DNR/DNI Dispo: consider palliative care consult for further recs Admission and Anticipated Discharge Date Admission Date: March 12, 2023 Subjective Pt was sleeping upon entering the room, awakened. Notes that she felt that her breathing was much better than when she originally came in. Otherwise denied acute concerns. Review of Systems Review of Systems: All systems reviewed & are unremarkable except as noted in Subjective Physical Exam Physical Exam: General: Alert, oriented. No acute distress Skin: No noted rashes or bruises Psych: Appropriate mood and affect Neuro: No gross deficits HEENT: NC/AT, PERRLA, EOMI, oropharynx moist. Chest: Nontender to palpation. CV: RRR, Normal s1, s2. No murmurs appreciated Resp: Breath sounds clear bilaterally, no increased effort of breathing. No crackles/rhonchi/rales. Abdomen: BS+. Soft, nontender, nondistended. No guarding. No organomegaly appreciated. Extremities: No edema in lower extremities bilaterally. Results & Data Results & Data Vital Signs (Past 12 Hours) Vital Signs Temp Pulse Pulse Pulse Resp BP Pulse Ox 03/13/23 08:27 36.8 C 97 H 18 108/62 93 03/13/23 07:29 89 18 98 03/13/23 05:58 101 H 03/13/23 03:19 37.0 C 86 19 106/57 L 97 03/13/23 01:24 66 18 96 03/12/23 23:21 37.2 C 116 H 22 137/73 100 03/12/23 23:00 115 H 03/12/23 23:00 03/12/23 22:11 03/12/23 22:04 120 H 18 130/66 98 03/12/23 21:42 112 H 18 124/71 100 O2 Del Method O2 Flow Rate 03/13/23 08:27 Nasal Cannula 2 03/13/23 07:29 Nasal Cannula 2 03/13/23 05:58 03/13/23 03:19 Nasal Cannula 3 03/13/23 01:24 Nasal Cannula 4 03/12/23 23:21 Nasal Cannula 3.5 03/12/23 23:00 03/12/23 23:00 Nasal Cannula 4 03/12/23 22:11 Nasal Cannula 5 03/12/23 22:04 Nasal Cannula 5 03/12/23 21:42 Nasal Cannula 5 (3) Adenocarcinoma of lung Laterality: right Qualified Code(s): C34.91 - Malignant neoplasm of unspecified part of right bronchus or lung
--- NOTE | 2023-03-13 09:40 | Pulmonary Consultation ---
Date of Consultation March 13, 2023 Assessment & Plan (1) Adenocarcinoma of lung: Laterality: right Qualified Code(s): C34.91 - Malignant neoplasm of unspecified part of right bronchus or lung (2) Exertional shortness of breath: (3) COPD exacerbation: (4) Acute on chronic hypoxic respiratory failure: (5) Pneumonia: Laterality: right Lung location: upper lobe of lung Pneumonia type: due to unspecified organism Qualified Code(s): J18.9 - Pneumonia, unspecified organism Plan IMPRESSION: 77-year-old female with a significant past medical history of adenocarcinoma of the RIGHT-sided lung and COPD who presents for possible COPD exacerbation and underlying pneumonia in the setting of recent diagnosis of lung cancer. RECOMMENDATIONS: 1. Adenocarcinoma of the lung - Patient with EBUS performed in late January with diagnostic findings consistent with adenocarcinoma of the RIGHT-sided lung. The patient has undergone evaluation by both medical and radiation oncology. She is scheduled to start chemotherapy next week. Would consult medical oncology for their opinion and the patient with acutely worsening respiratory symptoms with a known history of RIGHT-sided chest mass to assess the possible utility of initiating chemotherapy versus continuing with outpatient as scheduled. Certainly will defer that to their expertise. 2. COPD with exacerbation - Patient slightly bronchospastic on exam today. Would continue with intravenous steroids for now, but would back down to every 12 hours for today. Would hopefully transition to oral tomorrow if her symptoms improve. Agree with antibiotic coverage in the [facility] patient with concerns for RIGHT upper lobe infiltrative change as previously noted on outpatient PET scan. 3. Pneumonia - As previously assessed on PET/CT in the outpatient setting. Case had been reviewed at interdisciplinary conference and was agreed that this certainly could be representing resolving pneumonia process. That being said, we agree with complete course of antibiotics at this point. Could likely buchanan sition to p.o. antibiotics soon in the setting of negative procalcitonin and lingering imaging findings. Thank you for allowing us to participate the care of this patient. Supervising Physician Co-Signing Physician Notes Plan of care discussed with SHARI. Agree with comments as above. Discussed with patient's oncologist over the phone as well. I suspect there is a component of extrinsic airway compression including compression of the bronchus intermedius and the left mainstem bronchus from massive mediastinal adenopathy and lung tumor which is progressed compared to prior CT. Airway stenting can be considered in the future at a tertiary center after the patient has undergone systemic chemotherapy. Agree with empiric antibiotics and steroids. Strongly encourage palliative care consultation given the patient's advanced disease process. History of Present Illness Reason for Consultation: Lung CA, COPD Attending Physician: Lupe Angeles MD History of Present Illness Patient is a 77-year-old female with a history of tobacco abuse (33-fist-qlbs history, smoking half pack per day) she is established with Dr. Bryant in the outpatient setting. She was last seen back in August. She has a history of an abnormal CT scan and had pneumonia in June 2022. Follow-up CT scan demonstrated some interval improvement but persistent abnormalities. At that point time options were discussed with the patient to include bronchoscopy versus serial radiographic surveillance. The patient was not enthusiastic about invasive approaches at that point time and was recommended that a follow-up CT scan be performed in 3 months and if the abnormalities persisted, tissue diagnosis would be obtained. Patient was unclear at that point time whether she would want therapy if she were diagnosed with malignancy. Patient underwent EBUS during admission in late January which demonstrated findings positive for adenocarcinoma. She has since seen radiation oncology as well as medical oncology. She developed symptoms of difficulty with breathing which prompted her visit to the emergency department. The patient was admitted with presumed COPD exacerbation in the setting of underlying lung CA. Patient continues to complain of dyspnea with exertion. She offers occasional episodes of chest tightness. She denies any headaches, dizziness, lightheadedness, fevers, chills, or worsening weight loss. She does report a poor appetite. Allergies Allergy/AdvReac Type Severity Reaction Status Date / Time No Known Allergies Allergy Unverified 02/19/23 09:23 Home Medications Medication Instructions Recorded Confirmed Type metoprolol tartrate 25 mg tablet 25 mg PO BID 02/05/23 03/12/23 History albuterol sulfate 90 mcg/actuation 2 inh inhalation Q4H PRN shortness 02/18/23 03/12/23 Rx aerosol inhaler of breath or wheezing #8.5 grams budesonide-formoterol HFA 160 2 puff inhalation BID #10.2 grams 02/18/23 03/12/23 Rx mcg-4.5 mcg/actuation aerosol inhaler tiotropium bromide 2.5 2 puff inhalation DAILY #4 grams 02/18/23 03/12/23 Rx mcg/actuation mist for inhalation (Spiriva Respimat) acetaminophen 500 mg tablet 1,000 mg PO BID PRN Pain 02/19/23 03/12/23 History (Tylenol Extra Strength) oxycodone 5 mg tablet 5 mg PO Q4H PRN Pain (Scale Score 03/12/23 03/12/23 History 1-3) Patient History Medical History Arthritis Tobacco use disorder COPD (chronic obstructive pulmonary disease) Smoker Surgical History History of bronchoscopy History of partial hysterectomy Family History Mother Diabetes Heart disease Father Heart disease Brother Cancer Lung cancer Sister Cancer Bone Sister Cancer Breast Brother Cancer Esophageal cancer Kidney disease Social History Smoking Status: Current every day smoker Tobacco Type: Cigarettes Age Started Using Tobacco: 11; Cigarettes Per Day: 3; Second Hand Exposure: Yes; Do You Dip or Chew Tobacco: No; Hx Alcohol Use: No Hx Substance Use: No Preferred Language: Tamazight Communication Ability: Effective Soil Technologist Required: No Beliefs That Will Affect Care: None Current Living Situation: Alone current occupational status: retired Other Information That Helps Us Care for You: No Feels Safe at Home: Yes Safety Concerns: Feels Safe At This Time Assistive Devices: Denture - Upper, Denture - Lower and Glasses Review of Systems Review of Systems: A complete 10 point review of systems was reviewed with the patient with pertinent positives and negatives as per history of present illness. All else were negative. Physical Exam Physical Exam: VITAL SIGNS - Vital signs and nursing notes were reviewed. GENERAL - 77-year-old female cachectic appearing her stated age who is in no acute distress. Communicates well with provider and answers questions appropriately. SKIN - Without rashes or lesions. NOSE - Midline and without cyanosis. MOUTH/OROPHARYNX - Without perioral cyanosis. NECK - Neck with FROM. LUNGS - Auscultation reveals coarse breath sounds at the RIGHT sided lung with slight wheezes appreciated. CARDIAC - RRR with S1/S2. No murmur, rubs, or gallops appreciated. EXTREMITIES - Nail clubbing not present. No peripheral cyanosis. No pretibial edema present. +3/5 radial palpated throughout. PSYCH - A&Ox3 and cooperates fully with examiner. Pt is very pleasant and interacts well with examiner. Results & Data Results & Data Vital Signs (Past 12 Hours) Vital Signs Temp Pulse Pulse Pulse Resp BP Pulse Ox 03/13/23 08:27 36.8 C 97 H 18 108/62 93 03/13/23 07:29 89 18 98 03/13/23 05:58 101 H 03/13/23 03:19 37.0 C 86 19 106/57 L 97 03/13/23 01:24 66 18 96 03/12/23 23:21 37.2 C 116 H 22 137/73 100 03/12/23 23:00 115 H 03/12/23 23:00 03/12/23 22:11 03/12/23 22:04 120 H 18 130/66 98 03/12/23 21:42 112 H 18 124/71 100 O2 Del Method O2 Flow Rate 03/13/23 08:27 Nasal Cannula 2 03/13/23 07:29 Nasal Cannula 2 03/13/23 05:58 03/13/23 03:19 Nasal Cannula 3 03/13/23 01:24 Nasal Cannula 4 03/12/23 23:21 Nasal Cannula 3.5 03/12/23 23:00 03/12/23 23:00 Nasal Cannula 4 03/12/23 22:11 Nasal Cannula 5 03/12/23 22:04 Nasal Cannula 5 03/12/23 21:42 Nasal Cannula 5 PG Care Time/CCT Total # of Minutes Spent Total Time Spent with Patient: Total time spent is greater than 50% in coordination of care (as documented) at patient's floor/unit and/or counseling patient: Coding Level of Care Code 10546 INT INP/OBS CARE 3/75MIN Diagnoses Adenocarcinoma of right lung C34.91 Laterality: right Exertional shortness of breath R06.02 COPD exacerbation J44.1 Acute on chronic hypoxic respiratory failure J96.21 Pneumonia of right upper lobe due to infectious organism J18.9 Laterality: right Lung location: upper lobe of lung Pneumonia type: due to unspecified organism
--- NOTE | 2023-03-13 12:18 | Electrocardiogram Report ---
Test Reason : Blood Pressure : / mmHG Vent. Rate : 122 BPM Atrial Rate : 122 BPM P-R Int : 118 ms QRS Dur : 074 ms QT Int : 304 ms P-R-T Axes : 066 077 063 degrees QTc Int : 433 ms Sinus tachycardia with Premature atrial complexes with Aberrant conduction vs PVC Poor R wave progression, consider anterior NM vs. lead placement vs. LVH Abnormal ECG When compared with ECG of 05-FEB-2023 08:23, Aberrant conduction is now Present Confirmed by Ramírez Deleon ([id number]) on 03/13/2023 12:18:17 PM Referred By: REFERRED SELF Confirmed By:Deandre Deleon
--- NOTE | 2023-03-13 15:28 | Oncology Consultation ---
Date of Consultation March 13, 2023 Assessment & Plan (1) Acute on chronic hypoxic respiratory failure: (2) COPD exacerbation: (3) Adenocarcinoma of lung: Plan -Agree with treatment for possible pneumonia and COPD exacerbation. Pulm evaluation appreciated -If she is clinically stable early next week with no symptoms of active infection and remains inpatient will consider starting treatment at that time. -Consider Echocardiogram to r/o reaccumulation of pericardial effusion for which she is s/p pericardiocentesis. Thanks for this consult. Please feel free to call if you have any questions History of Present Illness Reason for Consultation: Lung cancer Attending Physician: Lupe Angeles MD History of Present Illness 77 year old female recently diagnosed with atleast stage III Lung cancer awaiting initiation of chemoRT with carboplatin/paclitaxel. She presented to ER with worsening respiratory symptoms possibly due to COPD exacerbation vs Pneumonia vs disease progression. CTA Chest obtained on admission revealed airspace consolidation and the RIGHT upper lobe, with developing cavitary lesion, concerning for chronic consolidation/developing abscess versus cavitary lung neoplasms of the squamous cell carcinoma, Mass in the RIGHT lower lobe measuring 4.4 x 3.9 cm, concerning for neoplasm, Large subcarinal lymph node mass measuring approximately 7.4 x 5.4 cm. She was started on broad spectrum antibiotics and steroids. Allergies Allergy/AdvReac Type Severity Reaction Status Date / Time No Known Allergies Allergy Unverified 02/19/23 09:23 Home Medications Medication Instructions Recorded Confirmed Type metoprolol tartrate 25 mg tablet 25 mg PO BID 02/05/23 03/12/23 History albuterol sulfate 90 mcg/actuation 2 inh inhalation Q4H PRN shortness 02/18/23 03/12/23 Rx aerosol inhaler of breath or wheezing #8.5 grams budesonide-formoterol HFA 160 2 puff inhalation BID #10.2 grams 02/18/23 03/12/23 Rx mcg-4.5 mcg/actuation aerosol inhaler tiotropium bromide 2.5 2 puff inhalation DAILY #4 grams 02/18/23 03/12/23 Rx mcg/actuation mist for inhalation (Spiriva Respimat) acetaminophen 500 mg tablet 1,000 mg PO BID PRN Pain 02/19/23 03/12/23 History (Tylenol Extra Strength) oxycodone 5 mg tablet 5 mg PO Q4H PRN Pain (Scale Score 03/12/23 03/12/23 History 1-3) Patient History Medical History Arthritis Tobacco use disorder COPD (chronic obstructive pulmonary disease) Smoker Surgical History History of bronchoscopy History of partial hysterectomy Family History Mother Diabetes Heart disease Father Heart disease Brother Cancer Lung cancer Sister Cancer Bone Sister Cancer Breast Brother Cancer Esophageal cancer Kidney disease Social History Smoking Status: Current every day smoker Tobacco Type: Cigarettes Age Started Using Tobacco: 11; Cigarettes Per Day: 3; Second Hand Exposure: Yes; Do You Dip or Chew Tobacco: No; Hx Alcohol Use: No Hx Substance Use: No Preferred Language: Scottish Communication Ability: Effective Fabrication And Layout Craftsman Required: No Beliefs That Will Affect Care: None Current Living Situation: Alone current occupational status: retired Other Information That Helps Us Care for You: No Feels Safe at Home: Yes Safety Concerns: Feels Safe At This Time Assistive Devices: Oxygen - Continuous Results & Data Vital Signs (Past 12 Hours) Vital Signs Temp Pulse Pulse Resp BP Pulse Ox O2 Del Method 03/13/23 14:08 98 H 03/13/23 13:30 90 16 97 Nasal Cannula 03/13/23 11:55 36.8 C 90 18 103/55 L 93 Nasal Cannula 03/13/23 10:28 Nasal Cannula 03/13/23 08:27 36.8 C 97 H 18 108/62 93 Nasal Cannula 03/13/23 07:29 89 18 98 Nasal Cannula 03/13/23 05:58 101 H O2 Flow Rate 03/13/23 14:08 03/13/23 13:30 2 03/13/23 11:55 2 03/13/23 10:28 3.5 03/13/23 08:27 2 03/13/23 07:29 2 03/13/23 05:58 (3) Adenocarcinoma of lung Laterality: right Qualified Code(s): C34.91 - Malignant neoplasm of unspecified part of right bronchus or lung
[2023-03-13] MEDS: ENOXAPARIN INJ 40 MG/0.4 ML SYR SQ SCH (22:01)
[2023-03-13] MEDS: oxyCODONE HCL IR 5 MG TAB (IMMEDIATE RELEASE) PO PRN (22:04)
[2023-03-14] MEDS: LEVALBUTEROL 1.25 MG/3 ML NEB NEB SCH ×4 (00:56→19:40)
[2023-03-14] MEDS: IPRATROPIUM BROMIDE NEB SOLN 0.02% 2.5 ML VIAL INH SCH ×4 (00:56→20:10)
[2023-03-14 04:43] LABS: Hematocrit (blood only) 28.2 % (37.0-47.0); Hemoglobin 9.8 g/dl (12.0-16.0); Mean Corpuscular Hemoglobin 30.7 pg (25.0-34.0); Mean Corpuscular Hgb Conc 34.8 g/dL (32.0-36.0); Mean Corpuscular Volume 88.4 fL (80.0-100.0); Mean Platelet Volume 9.5 fL (9.4-12.4); Platelet Count 365 K/uL (130-400); RDW Coefficient of Variation 11.7 % (11.5-14.5); RDW Standard Deviation 37.7 fL (36.4-46.3); Red Blood Count 3.19 M/uL (4.20-5.40); White Blood Count 13.44 K/ul (4.8-10.8)
[2023-03-14] MEDS: PIPERACILLIN/TAZOBACTAM 4.5 GM in DEXTROSE 5% MINI-B 100 ML IV SCH ×3 (05:03→22:06)
[2023-03-14] MEDS: methylPREDNISolone 40 MG in SYRINGE 0 ML IV SCH (05:04)
[2023-03-14 05:09] LABS: Basophils # (auto) 0.01 K/uL (0.00-0.20); Basophils % (auto) 0.1 %; Immature Granulocytes # (auto) 0.06 K/uL (0.01-0.20); Immature Granulocytes % (auto) 0.4 %; Lymphocytes # (auto) 0.36 K/uL (1.20-3.40); Lymphocytes % (auto) 2.7 %; Monocytes # (auto) 0.41 K/uL (0.11-0.59); Monocytes % (auto) 3.1 %; Neutrophils % (auto) 93.7 %; RBC Morphology Unremarkable
[2023-03-14 05:17] LABS: BUN Creatinine Ratio 29.6 (10-20); Bilirubin,Total 0.3 mg/dl (0.2-1.0); Calcium 8.3 mg/dl (8.6-10.3); Creatinine Clr Calc Pharmacy 43.9 ml/min; Est GFR (African American) 81.2 ml/min; Est GFR (Non-African American) 70.1 ml/min; Globulin 2.9 gm/dl (2.5-4.0); Magnesium 1.7 mg/dl (1.7-2.4); Phosphorus 2.8 mg/dl (2.5-4.9); Total Protein 5.9 gm/dl (6.0-8.3)
[2023-03-14] MEDS ORDERED: Nursing to Pharmacy Communication SCH (06:00)
[2023-03-14] MEDS: FLUTICASONE/VILANTEROL 100/25MCG 14 PUFFS/INHALER INH SCH (08:16)
[2023-03-14] MEDS: METOPROLOL TARTRATE 25 MG TAB PO SCH ×2 (08:17→20:35)
[2023-03-14] MEDS: UMECLIDINIUM BROMIDE 62.5MCG/BLISTER 7 PUFFS/INHALER INH SCH (08:17)
--- NOTE | 2023-03-14 09:07 | Hospitalist Progress Note ---
Date of Service March 14, 2023 Assessment & Plan (1) Acute on chronic hypoxic respiratory failure: (2) COPD exacerbation: (3) Adenocarcinoma of lung: (4) Hyponatremia: (5) Sepsis: (6) Pneumonia: Plan This is a 77 yr old F who has a significant past medical history of tobacco abuse, COPD, chronic respiratory failure with hypoxia and recently diagnosed right lung adenocarcinoma who presents to ED 2/2 to SOB. Of significance patient recently hospitalized at [facility] secondary to moderate pericardial effusion status post pericardiocentesis on 03/06/2023. Postop course was uncomplicated. Repeat CT showed resolution and very small pericardial effusion remaining. Since being discharged home she had been doing well except for increase in sputum production. Son at bedside reported it was pink. Also noted was increasing shortness of breath, oxygen requirement and overall generalized weakness. Known right lower lobe non-small cell lung CA following Dr. Bryant for pulmonology, Dr. Naqvi for oncology and Dr. Morrow for radiation oncology. Acute on chronic hypoxic respiratory failure COPD exacerbation Sepsis Possible RUL PNA Lung Mass Possible sepsis in setting of leukocytosis, tachycardia and tachypnea CXR: 1. Interval small left and trace right pleural effusion.2. Redemonstration of the right lower lobe mass consistent with known lung malignancy. 3. Cavitary right apical opacity which favors pneumonia, as shown on prior exams. However, a 2.7 cm nodular opacity has increased and therefore an additional neoplasm cannot be excluded. This should be assessed on follow-up exams. Consult Pulmonology- appreciate recs -continue abx, steroids -extrinsic component of mass/lymphadenopathy compressing bronchi, consider stenting in the future at tertiary care center after systemic chemo started -consider palliative care consult Continue Zosyn and Doxy, IV Solu-Medrol q12h switched to po prednisone MRSA swab negative CTA chest- noted lung masses, emphysema, no PE pulmonary toilet with nebs, flutter valve and incentive spirometry Lung cancer Known right lower lobe non-small cell lung CA following Dr. Bryant for pulmonology, Dr. Naqvi for oncology and Dr. Morrow for radiation oncology. Heme/onc consult- appreciate recs -treat pneumonia, COPD exacerbation -if still hospitalized next week with no signs of active infection, will consider starting chemo treatment at that time Palliative consult placed Hyponatremia Likely multifactorial Poor intake over the past week as well as possible etiology of SIADH in setting of lung cancer Improved after gentle hydration Consider nephrology consult Pericardial effusion s/p pericardiocentesis 03/06/23 at [facility] s/p pericardiocentesis 03/06/23 at [facility] Echo 03/13- no noted pericardial effusion CTA chest- noted lung masses, emphysema, no PE Troponins have flattened cytology was benign Tobacco abuse encourage cessation nicotine patch declined Diet: low sodium, fluid restriction DVT ppx: SQ Lovenox DNR/DNI Dispo: PT/OT ordered, palliative care consulted. Admission and Anticipated Discharge Date Admission Date: March 12, 2023 Subjective Pt seen multiple times. In AM, discussion of her symptoms and pulmonary recommendations. Agreeable to Palliative care consult. Later, pt seen with family at bedside. Findings discussed again. Family asking for increased oxygenation at 3L. Review of Systems Review of Systems: All systems reviewed & are unremarkable except as noted in Subjective Physical Exam Physical Exam: General: Alert, oriented. No acute distress Skin: No noted rashes or bruises Psych: Appropriate mood and affect Neuro: No gross deficits HEENT: NC/AT, PERRLA, EOMI, oropharynx moist. Chest: Nontender to palpation. CV: RRR, Normal s1, s2. No murmurs appreciated Resp: Breath sounds clear bilaterally, no increased effort of breathing. No crackles/rhonchi/rales. Abdomen: BS+. Soft, nontender, nondistended. No guarding. No organomegaly appreciated. Extremities: No edema in lower extremities bilaterally. Results & Data Results & Data Vital Signs (Past 12 Hours) Vital Signs Temp Pulse Pulse Resp BP Pulse Ox O2 Del Method 03/14/23 07:49 36.6 C 101 H 18 146/77 H 98 Nasal Cannula 03/14/23 07:19 17 93 Nasal Cannula 03/14/23 03:47 36.6 C 92 H 20 108/65 97 Nasal Cannula 03/14/23 00:57 104 H 18 94 Nasal Cannula 03/13/23 22:54 36.8 C 109 H 18 114/63 93 Room Air 03/13/23 22:48 110 H O2 Flow Rate 03/14/23 07:49 2 03/14/23 07:19 2 03/14/23 03:47 2 03/14/23 00:57 2 03/13/23 22:54 03/13/23 22:48 (3) Adenocarcinoma of lung Laterality: right Qualified Code(s): C34.91 - Malignant neoplasm of unspecifi ed part of right bronchus or lung (6) Pneumonia Laterality: right Lung location: upper lobe of lung Pneumonia type: due to unspecified organism Qualified Code(s): J18.9 - Pneumonia, unspecified organism
[2023-03-14] MEDS: DOXYCYCLINE HYCLATE 100 MG in DEXTROSE 5% MINI-B 100 ML IV SCH ×2 (09:42→20:34)
--- NOTE | 2023-03-14 15:06 | Pulmonology Progress Note ---
Date of Service March 14, 2023 Assessment & Plan (1) Adenocarcinoma of lung: Laterality: right Qualified Code(s): C34.91 - Malignant neoplasm of unspecified part of right bronchus or lung (2) Exertional shortness of breath: (3) COPD exacerbation: (4) Acute on chronic hypoxic respiratory failure: (5) Pneumonia: Laterality: right Lung location: upper lobe of lung Pneumonia type: due to unspecified organism Qualified Code(s): J18.9 - Pneumonia, unspecified organism (6) Cavitary lesion of lung: Plan IMPRESSION: 77-year-old female with a significant past medical history of adenocarcinoma of the RIGHT-sided lung and COPD who presents for possible COPD exacerbation and underlying pneumonia in the setting of recent diagnosis of lung cancer. RECOMMENDATIONS: 1. Adenocarcinoma of the lung - Patient with EBUS performed in late January w ith diagnostic findings consistent with adenocarcinoma of the RIGHT-sided lung. The patient has undergone evaluation by both medical and radiation oncology. Likely to start chemotherapy as an inpatient this Thursday as long as no signs of worsening infection. Patient has appearance of a failure to thrive picture and her advanced malignancy. Recommend palliative consultation as well. 2. COPD with exacerbation -transition to oral prednisone, 30 mg for 5 days. Continue antibiotics. 3. Pneumonia -patient with evidence of possible postobstructive pneumonia component in the superior segment of the right lower lobe with central cavitation and also cavitation noted in the right upper lobe. Unclear whether this is progression of malignancy versus combination of pneumonia and malignancy. Agree with Zosyn. 4. Airway compression. There is mild to moderate extrinsic compression of the bronchus intermedius and left mainstem bronchus from tumor burden. This is likely contributing to her symptoms and possibly postobstructive pneumonia. Patient to undergo chemotherapy next week. Thank you for allowing us to participate the care of this patient. Patient and daughter extensively updated at bedside. They are appreciative of the conversation. Admission and Anticipated Discharge Date Admission Date: March 12, 2023 Subjective Patient seen and examined. Daughter at bedside. Patient appears chronically frail. Her appetite is poor. She has been largely bedbound. She is currently oxygen. Endorses occasional chest discomfort. No fevers, chills or night sweats. Does endorse a cough without hemoptysis. Review of Systems Review of Systems: All systems reviewed & are unremarkable except as noted in HPI & below Results & Data Results & Data Vital Signs (Past 12 Hours) Vital Signs Temp Pulse Pulse Resp BP Pulse Ox O2 Del Method 03/14/23 12:58 88 16 96 Nasal Cannula 03/14/23 11:53 36.9 C 99 H 18 127/67 97 Nasal Cannula 03/14/23 11:00 96 H 03/14/23 07:49 36.6 C 101 H 18 146/77 H 98 Nasal Cannula 03/14/23 07:19 17 93 Nasal Cannula 03/14/23 03:47 36.6 C 92 H 20 108/65 97 Nasal Cannula O2 Flow Rate 03/14/23 12:58 2 03/14/23 11:53 2 03/14/23 11:00 03/14/23 07:49 2 03/14/23 07:19 2 03/14/23 03:47 2 PG Care Time/CCT Total # of Minutes Spent Total Time Spent with Patient: Total time spent is greater than 50% in coordination of care (as documented) at patient's floor/unit and/or counseling patient: Coding Level of Care Code 20542 SUB INP/OBS CARE 3/50MIN Diagnoses Adenocarcinoma of right lung C34.91 Laterality: right Exertional shortness of breath R06.02 COPD exacerbation J44.1 Acute on chronic hypoxic respiratory failure J96.21 Pneumonia of right upper lobe due to infectious organism J18.9 Laterality: right Lung location: upper lobe of lung Pneumonia type: due to unspecified organism Cavitary lesion of lung J98.4
[2023-03-14] MEDS: LEVALBUTEROL HCL 0.63 MG/3 ML NEB NEB PRN ×2 (17:09→20:10)
[2023-03-14] MEDS ORDERED: methylPREDNISolone 40 MG in SYRINGE 0 ML IV SCH (18:00)
[2023-03-14] MEDS: IBUPROFEN 200 MG TAB PO PRN (18:21)
[2023-03-14] MEDS: ENOXAPARIN INJ 40 MG/0.4 ML SYR SQ SCH (20:34)
[2023-03-14] MEDS: traZODone HCL 50 MG TAB PO PRN (20:40)
[2023-03-14] MEDS: oxyCODONE HCL IR 5 MG TAB (IMMEDIATE RELEASE) PO PRN (20:45)
[2023-03-15] MEDS: LEVALBUTEROL 1.25 MG/3 ML NEB NEB SCH ×4 (01:25→20:04)
[2023-03-15] MEDS: IPRATROPIUM BROMIDE NEB SOLN 0.02% 2.5 ML VIAL INH SCH ×4 (01:25→20:04)
[2023-03-15] MEDS: PIPERACILLIN/TAZOBACTAM 4.5 GM in DEXTROSE 5% MINI-B 100 ML IV SCH ×3 (05:41→21:26)
[2023-03-15 06:31] LABS: Albumin Globulin Ratio 1.1 (0.9-2); BUN Creatinine Ratio 34.9 (10-20); Basophils # (auto) 0.02 K/uL (0.00-0.20); Basophils % (auto) 0.1 %; Bilirubin,Total 0.4 mg/dl (0.2-1.0); Calcium 8.5 mg/dl (8.6-10.3); Creatinine Clr Calc Pharmacy 53.2 ml/min; Est GFR (African American) 100.3 ml/min; Est GFR (Non-African American) 86.5 ml/min; Globulin 2.7 gm/dl (2.5-4.0); Hematocrit (blood only) 29.2 % (37.0-47.0); Immature Granulocytes # (auto) 0.06 K/uL (0.01-0.20); Immature Granulocytes % (auto) 0.4 %; Lymphocytes % (auto) 6.5 %; Magnesium 1.8 mg/dl (1.7-2.4); Mean Corpuscular Hemoglobin 30.4 pg (25.0-34.0); Mean Corpuscular Hgb Conc 34.2 g/dL (32.0-36.0); Mean Corpuscular Volume 88.8 fL (80.0-100.0); Mean Platelet Volume 9.3 fL (9.4-12.4); Monocytes % (auto) 10.2 %; Neutrophils # (auto) 11.39 K/uL (1.40-6.50); Neutrophils % (auto) 82.8 %; Phosphorus 2.5 mg/dl (2.5-4.9); Platelet Count 404 K/uL (130-400); RDW Coefficient of Variation 11.7 % (11.5-14.5); RDW Standard Deviation 37.6 fL (36.4-46.3); Red Blood Count 3.29 M/uL (4.20-5.40); Total Protein 5.7 gm/dl (6.0-8.3); White Blood Count 13.77 K/ul (4.8-10.8)
[2023-03-15] MEDS: LEVALBUTEROL HCL 0.63 MG/3 ML NEB NEB PRN (07:26)
[2023-03-15] MEDS: UMECLIDINIUM BROMIDE 62.5MCG/BLISTER 7 PUFFS/INHALER INH SCH (08:18)
[2023-03-15] MEDS: FLUTICASONE/VILANTEROL 100/25MCG 14 PUFFS/INHALER INH SCH (08:18)
[2023-03-15] MEDS: METOPROLOL TARTRATE 25 MG TAB PO SCH ×2 (08:19→20:25)
[2023-03-15] MEDS: predniSONE 10 MG TABLET PO SCH (08:20)
[2023-03-15] MEDS: oxyCODONE HCL IR 5 MG TAB (IMMEDIATE RELEASE) PO PRN ×2 (09:52→20:23)
[2023-03-15] MEDS: DOXYCYCLINE HYCLATE 100 MG in DEXTROSE 5% MINI-B 100 ML IV SCH ×2 (11:18→20:25)
[2023-03-15] MEDS ORDERED: LORazepam 0.5 MG TAB PO STA (11:46)
--- NOTE | 2023-03-15 12:07 | Hospitalist Progress Note ---
Date of Service March 15, 2023 Assessment & Plan (1) Acute on chronic hypoxic respiratory failure: (2) COPD exacerbation: (3) Adenocarcinoma of lung: (4) Hyponatremia: (5) Sepsis: (6) Pneumonia: Plan This is a 77 yr old F who has a significant past medical history of tobacco abuse, COPD, chronic respiratory failure with hypoxia and recently diagnosed right lung adenocarcinoma who presents to ED 2/2 to SOB. Of significance patient recently hospitalized at [facility] secondary to moderate pericardial effusion status post pericardiocentesis on 03/06/2023. Postop course was uncomplicated. Repeat CT showed resolution and very small pericardial effusion remaining. Since being discharged home she had been doing well except for increase in sputum production. Son at bedside reported it was pink. Also noted was increasing shortness of breath, oxygen requirement and overall generalized weakness. Known right lower lobe non-small cell lung CA following Dr. Bryant for pulmonology, Dr. Naqvi for oncology and Dr. Morrow for radiation oncology. Acute on chronic hypoxic respiratory failure COPD exacerbation Sepsis Possible RUL PNA Lung Mass Possible sepsis in setting of leukocytosis, tachycardia and tachypnea CXR: 1. Interval small left and trace right pleural effusion.2. Redemonstration of the right lower lobe mass consistent with known lung malignancy. 3. Cavitary right apical opacity which favors pneumonia, as shown on prior exams. However, a 2.7 cm nodular opacity has increased and therefore an additional neoplasm cannot be excluded. This should be assessed on follow-up exams. Consult Pulmonology- appreciate recs -continue abx, steroids -extrinsic component of mass/lymphadenopathy compressing bronchi, consider stenting in the future at tertiary care center after systemic chemo started -consider palliative care consult Continue Zosyn and Doxy, IV Solu-Medrol q12h switched to po prednisone MRSA swab negative CTA chest- noted lung masses, emphysema, no PE pulmonary toilet with nebs, flutter valve and incentive spirometry Lung cancer Known right lower lobe non-small cell lung CA following Dr. Bryant for pulmonology, Dr. Naqvi for oncology and Dr. Morrow for radiation oncology. Heme/onc consult- appreciate recs -treat pneumonia, COPD exacerbation -if still hospitalized next week with no signs of active infection, will consider starting chemo treatment at that time Palliative consult placed- appreciate recs Hyponatremia Likely multifactorial Poor intake over the past week as well as possible etiology of SIADH in setting of lung cancer Improved after gentle hydration and continues to improve, currently 131 Consider nephrology consult Anxiety Consider Ativan as needed Cautious use with concurrent narcotics One dose ordered on 03/15- per nursing pt stated that she did not need it at the time. Pericardial effusion s/p pericardiocentesis 03/06/23 at [facility] s/p pericardiocentesis 03/06/23 at [facility] Echo 03/13- no noted pericardial effusion CTA chest- noted lung masses, emphysema, no PE Troponins have flattened cytology was benign Tobacco abuse encourage cessation nicotine patch declined Diet: low sodium, fluid restriction DVT ppx: SQ Lovenox DNR/DNI Dispo: PT/OT ordered, palliative care consulted. Admission and Anticipated Discharge Date Admission Date: March 12, 2023 Subjective Pt seen in the AM with daughter at bedside. Notes that nothing has changed, feels like the tightness in her chest has gotten better. Has been passing gas. States that she sometimes gets anxious and would like medications occasionally to help with that. States that she had just received oxycodone to help her back pain. Review of Systems Review of Systems: All systems reviewed & are unremarkable except as noted in Subjective Physical Exam Physical Exam: General: Alert, oriented. No acute distress Skin: No noted rashes or bruises Psych: Appropriate mood and affect Neuro: No gross deficits HEENT: NC/AT, PERRLA, EOMI, oropharynx moist. Chest: Nontender to palpation. CV: RRR, Normal s1, s2. No murmurs appreciated Resp: Breath sounds clear bilaterally, no increased effort of breathing. No crackles/rhonchi/rales. Abdomen: BS+. Soft, nontender, nondistended. No guarding. No organomegaly appreciated. Extremities: No edema in lower extremities bilaterally. Results & Data Results & Data Vital Signs (Past 12 Hours) Vital Signs Temp Pulse Pulse Resp BP Pulse Ox O2 Del Method 03/15/23 12:01 86 18 99 Nasal Cannula 03/15/23 11:29 36.6 C 86 18 159/84 H 91 Nasal Cannula 03/15/23 10:54 90 03/15/23 07:57 36.5 C 101 H 18 146/79 H 94 Nasal Cannula 03/15/23 07:53 Nasal Cannula 03/15/23 07:27 93 H 18 95 Nasal Cannula 03/15/23 02:48 36.7 C 79 16 133/69 100 Nasal Cannula O2 Flow Rate 03/15/23 12:01 3 03/15/23 11:29 2 03/15/23 10:54 03/15/23 07:57 3 03/15/23 07:53 3 03/15/23 07:27 3.5 03/15/23 02:48 2 (3) Adenocarcinoma of lung Laterality: right Qualified Code(s): C34.91 - Malignant neoplasm of unspecified part of right bronchus or lung (6) Pneumonia Laterality: right Lung location: upper lobe of lung Pneumonia type: due to unspecified organism Qualified Code(s): J18.9 - Pneumonia, unspecified organism
[2023-03-15] MEDS: traZODone HCL 50 MG TAB PO PRN (20:23)
[2023-03-15] MEDS: ENOXAPARIN INJ 40 MG/0.4 ML SYR SQ SCH (20:24)
--- NOTE | 2023-03-15 22:32 | Electrocardiogram Report ---
Test Reason : Blood Pressure : / mmHG Vent. Rate : 085 BPM Atrial Rate : 085 BPM P-R Int : 138 ms QRS Dur : 078 ms QT Int : 340 ms P-R-T Axes : -18 -21 -26 degrees QTc Int : 404 ms Normal sinus rhythm Low voltage QRS Septal infarct (cited on or before 15-MAR-2023) Abnormal ECG When compared with ECG of 12-MAR-2023 19:50, Aberrant conduction is no longer Present Questionable change in QRS axis Inverted T waves have replaced nonspecific T wave abnormality in Inferior leads Confirmed by Case Wood ([id number]) on 03/15/2023 10:32:15 PM Referred By: REFERRED SELF Confirmed By:Case Wood
[2023-03-16] MEDS: LEVALBUTEROL 1.25 MG/3 ML NEB NEB SCH ×6 (00:09→23:54)
[2023-03-16] MEDS: IPRATROPIUM BROMIDE NEB SOLN 0.02% 2.5 ML VIAL INH SCH ×6 (00:09→23:54)
[2023-03-16] MEDS: PIPERACILLIN/TAZOBACTAM 4.5 GM in DEXTROSE 5% MINI-B 100 ML IV SCH ×4 (04:56→22:20)
[2023-03-16] MEDS: IBUPROFEN 200 MG TAB PO PRN ×2 (05:02→22:17)
[2023-03-16 06:43] LABS: Basophils # (auto) 0.01 K/uL (0.00-0.20); Basophils % (auto) 0.1 %; Eosinophils # (auto) 0.02 K/uL (0.00-0.50); Eosinophils % (auto) 0.2 %; Hemoglobin 11.3 g/dl (12.0-16.0); Immature Granulocytes # (auto) 0.06 K/uL (0.01-0.20); Immature Granulocytes % (auto) 0.6 %; Lymphocytes # (auto) 0.96 K/uL (1.20-3.40); Lymphocytes % (auto) 9.3 %; Mean Corpuscular Hemoglobin 30.7 pg (25.0-34.0); Mean Corpuscular Hgb Conc 34.2 g/dL (32.0-36.0); Mean Corpuscular Volume 89.7 fL (80.0-100.0); Mean Platelet Volume 9.1 fL (9.4-12.4); Monocytes # (auto) 1.62 K/uL (0.11-0.59); Monocytes % (auto) 15.8 %; Platelet Count 410 K/uL (130-400); RDW Coefficient of Variation 11.6 % (11.5-14.5); RDW Standard Deviation 37.7 fL (36.4-46.3); Red Blood Count 3.68 M/uL (4.20-5.40); White Blood Count 10.27 K/ul (4.8-10.8)
[2023-03-16 06:57] LABS: Albumin Globulin Ratio 1.1 (0.9-2); Albumin Level 3.1 gm/dl (3.4-5.0); Bilirubin,Total 0.5 mg/dl (0.2-1.0); Calcium 8.5 mg/dl (8.6-10.3); Creatinine Clr Calc Pharmacy 43.9 ml/min; Est GFR (African American) 89.1 ml/min; Est GFR (Non-African American) 76.9 ml/min; Globulin 2.7 gm/dl (2.5-4.0); Magnesium 1.7 mg/dl (1.7-2.4); Phosphorus 2.5 mg/dl (2.5-4.9); Total Protein 5.8 gm/dl (6.0-8.3)
[2023-03-16] MEDS: ONDANSETRON INJ 2 MG/ML 2 ML VIAL IV PRN (08:01)
[2023-03-16] MEDS: METOPROLOL TARTRATE 25 MG TAB PO SCH ×2 (08:26→22:19)
[2023-03-16] MEDS: predniSONE 10 MG TABLET PO SCH (08:27)
[2023-03-16] MEDS: FLUTICASONE/VILANTEROL 100/25MCG 14 PUFFS/INHALER INH SCH (08:29)
[2023-03-16] MEDS: UMECLIDINIUM BROMIDE 62.5MCG/BLISTER 7 PUFFS/INHALER INH SCH (08:29)
[2023-03-16] MEDS: DOXYCYCLINE HYCLATE 100 MG in DEXTROSE 5% MINI-B 100 ML IV SCH ×2 (09:11→20:12)
--- NOTE | 2023-03-16 12:26 | Palliative Care Consultation ---
Date of Consultation March 16, 2023 Assessment & Plan (1) Back pain: With adenocarcinoma of right lung. She had been taking combination ibuprofen/APAP at home which was effective. She does get relief with oxycodone but would prefer not to take that as it affects her mental status. She does have orders for both tylenol and ibuprofen, in addition to oxycodone. (2) Exertional shortness of breath: in setting of lung cancer and COPD She is on O2 at home She does not feel that SOB limits her ability to do what she wants to do. (3) Anxiety: She had lorazepam prn with no adverse effects. Her son tells me that she had been prescribed an "anxiety, weight gain pill" prior to admission but hadn't had a chance to start it yet. I suspect that this was mirtazapine. (4) Palliative care encounter: I spoke with Mrs. Villavicencio and her son at bedside. She tells me that getting cancer was her worst fear. She is dealing with her diagnosis one day at a time. Her independence is the most important thing to her and she is adamant that she does not want to go to a long term. She is anticipating starting cancer treatment and is agreeable to that. She is hopeful that the tumor burden can be reduced enough to improve her breathing and swallowing. She does know that there is a limit to what she would be willing to go through but does not know what that is at this time. She would not want to be dependent on others for care. She co nfirms that she is DNR/DNI and tells me that if her heart or breathing stops, she would want to have a peaceful . She is already established with home nursing care and would benefit from ongoing care after discharge. Discussed with high risk case manager. History of Present Illness Reason for Consultation: goals of care Requesting Physician: Dr. Angeles Attending Physician: Jewels Lancaster MD History of Present Illness 77 yo lady diagnosed with adenocarcinoma of RLL in November or December of this year. She has history of tobacco use and COPD. She had been hospitalized at [facility] last month with pericardial effusion which was sucessfully drained. She has been having increased shortness of breath and some difficulty swallowing. On amdmission, CT shows approximately 4cm RLL mass, large 7.4 x 5.4 cm subcarinal lymph node and developing cavitary lesion in RUL concerning for abscess versus neoplasm. She has met with Dr. Naqvi and is scheduled to start chemotherapy today per Mrs. Santana and her son. Her dyspnea has improved though she still gets short of breath with exertion. She also complains of pain in her right mid back. She has been taking oxycodone prn but doesn't like how it affects her thinking. She has been able to ambulate in the room with OT. She and her son tell me that she lives alone and has been relatively independent with ADLs prior to admission. Her family lives very nearby and has been helping with meals and care when needed. Allergies Allergy/AdvReac Type Severity Reaction Status Date / Time No Known Allergies Allergy Unverified 02/19/23 09: Home Medications Medication Instructions Recorded Confirmed Type metoprolol tartrate 25 mg tablet 25 mg PO BID 02/05/23 03/12/23 History albuterol sulfate 90 mcg/actuation 2 inh inhalation Q4H PRN shortness 02/18/23 03/12/23 Rx aerosol inhaler of breath or wheezing #8.5 grams budesonide-formoterol HFA 160 2 puff inhalation BID #10.2 grams 02/18/23 03/12/23 Rx mcg-4.5 mcg/actuation aerosol inhaler tiotropium bromide 2.5 2 puff inhalation DAILY #4 grams 02/18/23 03/12/23 Rx mcg/actuation mist for inhalation (Spiriva Respimat) acetaminophen 500 mg tablet 1,000 mg PO BID PRN Pain 02/19/23 03/12/23 History (Tylenol Extra Strength) oxycodone 5 mg tablet 5 mg PO Q4H PRN Pain (Scale Score 03/12/23 03/12/23 History 1-3) Patient History Medical History Cavitary lesion of lung Arthritis Tobacco use disorder COPD (chronic obstructive pulmonary disease) Smoker Surgical History History of bronchoscopy History of partial hysterectomy Family History Mother Diabetes Heart disease Father Heart disease Brother Cancer Lung cancer Sister Cancer Bone Sister Cancer Breast Brother Cancer Esophageal cancer Kidney disease Social History Smoking Status: Current every day smoker Tobacco Type: Cigarettes Age Started Using Tobacco: 11; Cigarettes Per Day: 3; Second Hand Exposure: Yes; Do You Dip or Chew Tobacco: No; Hx Alcohol Use: No Hx Substance Use: No Preferred Language: [place] Communication Ability: Effective Director Of Nursing Required: No Beliefs That Will Affect Care: None Current Living Situation: Alone current occupational status: retired Other Information That Helps Us Care for You: No Feels Safe at Home: Yes Safety Concerns: Feels Safe At This Time Assistive Devices: Oxygen - Continuous Review of Systems Review of Systems: ESAS Pain 1/3 Dyspnea 1/3 Nausea 0/3 Drowsiness 0/3 Physical Exam Constitutional: + thin and + frail appearing Respiratory: normal respiratory effort; no labored breathing Cardiovascular: Rate/Rhythm: regular rate and regular rhythm Musculoskeletal: Extremities: + muscle atrophy Neurologic: Speech / Cognition: normal cognition Results & Data Vital Signs (Past 12 Hours) Vital Signs Temp Pulse Resp BP Pulse Ox Pulse Ox O2 Del Method 03/16/23 11:58 98.1 F 84 19 127/63 97 Nasal Cannula 03/16/23 11:52 98 03/16/23 08:04 98.4 F 95 H 19 137/74 96 Nasal Cannula 03/16/23 08:00 Nasal Cannula 03/16/23 07:49 90 20 98 Nasal Cannula 03/16/23 03:54 88 18 99 Nasal Cannula 03/16/23 03:00 98.1 F 88 20 148/74 H 96 Nasal Cannula O2 Flow Rate O2 Flow Rate 03/16/23 11:58 3.5 03/16/23 11:52 3.5 03/16/23 08:04 3.0 03/16/23 08:00 3 03/16/23 07:49 3 03/16/23 03:54 3 03/16/23 03:00 3 PG Care Time/CCT Total # of Minutes Spent Total Time Spent: 60 Total Time Spent with Patient: Total time spent is greater than 50% in coordination of care (as documented) at patient's floor/unit and/or counseling patient: symptom management, goals of care, code status, family education and support, coordination of care Coding Level of Care Code 37063 INT INP/OBS CARE 2/55MIN Diagnoses Back pain M54.9 Exertional shortness of breath R06.02 Anxiety F41.9 Palliative care encounter Z51.5
--- NOTE | 2023-03-16 14:13 | Hematology/Oncology Prog Note ---
Date of Service March 16, 2023 Assessment & Plan (1) Adenocarcinoma of lung: (2) Acute on chronic hypoxic respiratory failure: Plan - Clinically stable. No symptoms to suggest active infection at this time. Plan to start concurrent chemoradiation treatment with weekly carbo platin/paclitaxel tomorrow. Informed consent obtained. Chemotherapy orders placed in chart. Admission and Anticipated Discharge Date Admission Date: March 12, 2023 Subjective States that she is feeling slightly better. Remains on 3 L/min supplemental O2. No fevers since admission. Results & Data Vital Signs (Past 12 Hours) Vital Signs Temp Pulse Pulse Resp BP Pulse Ox Pulse Ox 03/16/23 13:50 92 H 03/16/23 11:58 36.7 C 84 19 127/63 97 03/16/23 11:52 98 03/16/23 08:04 36.9 C 95 H 19 137/74 96 03/16/23 08:00 03/16/23 07:49 90 20 98 03/16/23 03:54 88 18 99 03/16/23 03:00 36.7 C 88 20 148/74 H 96 O2 Del Method O2 Flow Rate O2 Flow Rate 03/16/23 13:50 03/16/23 11:58 Nasal Cannula 3.5 03/16/23 11:52 3.5 03/16/23 08:04 Nasal Cannula 3.0 03/16/23 08:00 Nasal Cannula 3 03/16/23 07:49 Nasal Cannula 3 03/16/23 03:54 Nasal Cannula 3 03/16/23 03:00 Nasal Cannula 3 (1) Adenocarcinoma of lung Laterality: right Qualified Code(s): C34.91 - Malignant neoplasm of unspecified part of right bronchus or lung
--- NOTE | 2023-03-16 18:34 | Hospitalist Progress Note ---
Date of Service March 16, 2023 Assessment & Plan (1) Acute on chronic hypoxic respiratory failure: (2) COPD exacerbation: (3) Adenocarcinoma of lung: (4) Hyponatremia: (5) Sepsis: (6) Pneumonia: Plan This is a 77 yr old F who has a significant past medical history of tobacco abuse, COPD, chronic respiratory failure with hypoxia and recently diagnosed right lung adenocarcinoma who presents to ED 2/2 to SOB. Of significance patient recently hospitalized at [facility] secondary to moderate pericardial effusion status post pericardiocentesis on 03/06/2023. Postop course was uncomplicated. Repeat CT showed resolution and very small pericardial effusion remaining. Since being discharged home she had been doing well except for increase in sputum production. Son at bedside reported it was pink. Also noted was increasing shortness of breath, oxygen requirement and overall generalized weakness. Known right lower lobe non-small cell lung CA following Dr. Bryant for pulmonology, Dr. Naqvi for oncology and Dr. Morrow for radiation oncology. Acute on chronic hypoxic respiratory failure COPD exacerbation Sepsis Possible RUL PNA Lung Mass Possible sepsis in setting of leukocytosis, tachycardia and tachypnea CXR: 1. Interval small left and trace right pleural effusion.2. Redemonstration of the right lower lobe mass consistent with known lung malignancy. 3. Cavitary right apical opacity which favors pneumonia, as shown on prior exams. However, a 2.7 cm nodular opacity has increased and therefore an additional neoplasm cannot be excluded. This should be assessed on follow-up exams. Consult Pulmonology- appreciate recs -continue abx, steroids -extrinsic component of mass/lymphadenopathy compressing bronchi, consider stenting in the future at tertiary care center after systemic chemo started -consider palliative care consult Continue Zosyn and Doxy, IV Solu-Medrol q12h switched to po prednisone MRSA swab negative CTA chest- noted lung masses, emphysema, no PE pulmonary toilet with nebs, flutter valve and incentive spirometry Remains stable clinically with minimal shortness of breath at rest Lung cancer Known right lower lobe non-small cell lung CA following Dr. Bryant for pulmonology, Dr. Naqvi for oncology and Dr. Morrow for radiation oncology. Heme/onc consult- appreciate recs -treat pneumonia, COPD exacerbation -if still hospitalized next week with no signs of active infection, will consider starting chemo treatment at that time Palliative consult placed- appreciate recs 03/16/2023 The patient decided to have therapy for the lung cancer and she will have chemo and radiation plan for tomorrow 03/17/2023 Hyponatremia Likely multifactorial Poor intake over the past week as well as possible etiology of SIADH in setting of lung cancer Improved after gentle hydration and continues to improve, currently 131 Consider nephrology consult Sodium remains low at 129 and will monitor Anxiety Consider Ativan as needed Cautious use with concurrent narcotics One dose ordered on 03/15- per nursing pt stated that she did not need it at the time. Pericardial effusion s/p pericardiocentesis 03/06/23 at [facility] s/p pericardiocentesis 03/06/23 at [facility] Echo 03/13- no noted pericardial effusion CTA chest- noted lung masses, emphysema, no PE Troponins have flattened cytology was benign Denies any cardiac symptoms Tobacco abuse encourage cessation nicotine patch declined Diet: low sodium, fluid restriction DVT ppx: SQ Lovenox DNR/DNI Dispo: PT/OT ordered, palliative care consulted. Admission and Anticipated Discharge Date Admission Date: March 12, 2023 Subjective 03/16/2023 The patient was seen and examined in telemetry She has been stable but feels generally weak and lethargy No shortness of breath at rest Has been on 3 L to maintain saturation Review of Systems Review of Systems: All systems reviewed and are unremarkable except as noted below Physical Exam Physical Exam: Lying in bed with minimal shortness of breath at rest Constitutional: + ill appearing and + thin Eyes: PERRL, conjunctivae normal, anicteric sclerae ENMT: external ear and nose normal, oropharynx normal Neck: trachea midline, no thyromegaly Respiratory: no respiratory distress Auscultation: + diminished lung sounds and + crackles (Bilateral) Cardiovascular: Rate/Rhythm: regular rate and regular rhythm; not tachycardic Heart Sounds: normal S1 and normal S2; no murmur Extremities: no edema Gastrointestinal (Abdomen): Inspection/Auscultation: normal bowel sounds; abdomen not distended Percussion/Palpation: abdomen soft; abdomen nontender Musculoskeletal: No acute arthritis involving any of the joint Neurologic: normal touch/pain/proprioception and moves all extremities; no focal motor deficits Results & Data Results & Data Vital Signs (Past 12 Hours) Vital Signs Temp Pulse Pulse Resp BP Pulse Ox Pulse Ox 03/16/23 17:34 90 03/16/23 16:26 37.1 C 88 18 149/58 H 97 03/16/23 13:50 92 H 03/16/23 13:25 36.8 C 91 H 18 138/76 96 03/16/23 11:58 36.7 C 84 19 127/63 97 03/16/23 11:52 98 03/16/23 08:04 36.9 C 95 H 19 137/74 96 03/16/23 08:00 03/16/23 07:49 90 20 98 O2 Del Method O2 Flow Rate O2 Flow Rate 03/16/23 17:34 03/16/23 16:26 Nasal Cannula 3 03/16/23 13:50 03/16/23 13:25 Nasal Cannula 2 03/16/23 11:58 Nasal Cannula 3.5 03/16/23 11:52 3.5 03/16/23 08:04 Nasal Cannula 3.0 03/16/23 08:00 Nasal Cannula 3 03/16/23 07:49 Nasal Cannula 3 Laboratory Results Short CBC 03/16/23 Range/Units 05:21 WBC 10.27 (4.8-10.8) K/ul Hgb 11.3 L (12.0-16.0) g/dl Hct 33.0 L (37.0-47.0) % Plt Count 410 H (130-400) K/uL BMP 03/16/23 05:21 Sodium 129 L Potassium 4.0 Chloride 91 L Carbon Dioxide 33 H BUN 21 Creatinine 0.75 Glucose 93 Calcium 8.5 L Liver Function 03/16/23 Range/Units 05:21 Total Bilirubin 0.5 (0.2-1.0) mg/dl AST 19 (13-39) U/L ALT 28 (7-52) U/L Alkaline Phosphatase 82 (34-104) U/L Albumin 3.1 L (3.4-5.0) gm/dl Medications Administered Current Inpatient Medications Acetaminophen (Acetaminophen 325 Mg Tab) 650 mg PO Q4H PRN PRN Reason: Pain or Fever Stop: 04/11/23 20:11 Al Hydrox/Mg Hydrox/Simethicone (Aluminum/Magnesium Susp 30 Ml Udc) 15 ml PO Q4H PRN PRN Reason: Dyspepsia Stop: 12/02/23 20:11 Enoxaparin Sodium (Enoxaparin Inj 40 Mg/0.4 Ml Syr) 40 mg SQ Q24H [facility] Stop: 04/11/23 20:59 Last Admin: 03/15/23 20:24 Dose: 40 mg Fluticasone/Vilanterol (Fluticasone/Vilanterol 100/25mcg 14 Puffs/Inhaler) 1 puffs INH DAILY YU Stop: 04/11/23 23:44 Last Admin: 03/16/23 08:29 Dose: 1 puffs Doxycycline Hyclate 100 mg/ (Dextrose) 100 mls @ 50 mls/hr IV Q12H YU Stop: 03/19/23 20:59 Last Infusion: 03/16/23 11:11 Dose: Infused Piperacillin Sod/Tazobactam (Sod 4.5 gm/ Dextrose) 100 mls @ 25 mls/hr IV Q8H [facility]; Protocol Stop: 03/20/23 05:59 Last Admin: 03/16/23 14:33 Dose: 25 mls/hr Ibuprofen (Ibuprofen 200 Mg Tab) 400 mg PO QID PRN PRN Reason: As Needed for Fever or Pain Stop: 04/13/23 17:53 Last Admin: 03/16/23 05:02 Dose: 400 mg Ipratropium Combs (Ipratropium Combs Neb Soln 0.02% 2.5 Ml Vial) 0.5 mg INH Q6R [facility] Stop: 04/11/23 20:44 Last Admin: 03/16/23 13:27 Dose: Not Given Levalbuterol HCl (Levalbuterol 1.25 Mg/3 Ml Neb) 1.25 mg NEB Q6R YU Stop: 04/11/23 20:44 Last Admin: 03/16/23 13:27 Dose: Not Given Levalbuterol HCl (Levalbuterol Hcl 0.63 Mg/3 Ml Neb) 0.63 mg NEB Q6R PRN; Protocol PRN Reason: wheezing, sob Stop: 04/12/23 00:59 Last Admin: 03/15/23 07:26 Dose: 0.63 mg Metoprolol Tartrate (Metoprolol Tartrate 25 Mg Tab) 25 mg PO BID [facility] Stop: 04/11/23 23:20 Last Admin: 03/16/23 08:26 Dose: 25 mg Ondansetron HCl (Ondansetron Inj 2 Mg/Ml 2 Ml Vial) 4 mg IV Q6H PRN PRN Reason: Nausea Stop: 04/11/23 20:11 Last Admin: 03/16/23 08:01 Dose: 4 mg Oxycodone HCl (Oxycodone Hcl Ir 5 Mg Tab (Immediate Release)) 5 mg PO Q4H PRN PRN Reason: Pain (Scale Score 1-3) Stop: 03/26/23 23:20 Last Admin: 03/15/23 20:23 Dose: 5 mg Prednisone (Prednisone 10 Mg Tablet) 30 mg PO DAILY YU Stop: 04/14/23 08:59 Last Admin: 03/16/23 08:27 Dose: 30 mg Trazodone HCl (Trazodone Hcl 50 Mg Tab) 50 mg PO HS PRN PRN Reason: Insomnia Stop: 04/13/23 20:59 Last Admin: 03/15/23 20:23 Dose: 50 mg Umeclidinium Combs (Umeclidinium Combs 62.5mcg/Blister 7 Puffs/Inhaler) 1 puffs INH DAILY YU Stop: 04/12/23 08:59 Last Admin: 03/16/23 08:29 Dose: 1 puffs (3) Adenocarcinoma of lung Laterality: right Qualified Code(s): C34.91 - Malignant neoplasm of unspecified part of right bronchus or lung (6) Pneumonia Laterality: right Lung location: upper lobe of lung Pneumonia type: due to unspecified organism Qualified Code(s): J18.9 - Pneumonia, unspecified organism
[2023-03-16] MEDS: ENOXAPARIN INJ 40 MG/0.4 ML SYR SQ SCH (22:18)
[2023-03-16] MEDS: traZODone HCL 50 MG TAB PO PRN (22:18)
[2023-03-16] MEDS: ACETAMINOPHEN 325 MG TAB PO PRN (23:22)
[2023-03-17 05:14] LABS: Basophils # (auto) 0.01 K/uL (0.00-0.20); Basophils % (auto) 0.1 %; Eosinophils # (auto) 0.05 K/uL (0.00-0.50); Eosinophils % (auto) 0.6 %; Hemoglobin 10.3 g/dl (12.0-16.0); Immature Granulocytes # (auto) 0.07 K/uL (0.01-0.20); Immature Granulocytes % (auto) 0.8 %; Mean Corpuscular Hemoglobin 29.9 pg (25.0-34.0); Mean Corpuscular Hgb Conc 34.3 g/dL (32.0-36.0); Mean Corpuscular Volume 87.2 fL (80.0-100.0); Mean Platelet Volume 9.2 fL (9.4-12.4); Monocytes # (auto) 1.45 K/uL (0.11-0.59); Monocytes % (auto) 16.9 %; Neutrophils # (auto) 5.79 K/uL (1.40-6.50); Neutrophils % (auto) 67.6 %; Platelet Count 388 K/uL (130-400); RDW Coefficient of Variation 11.5 % (11.5-14.5); Red Blood Count 3.44 M/uL (4.20-5.40); White Blood Count 8.57 K/ul (4.8-10.8)
[2023-03-17 05:30] LABS: Albumin Globulin Ratio 1.2 (0.9-2); Albumin Level 2.9 gm/dl (3.4-5.0); Bilirubin,Total 0.4 mg/dl (0.2-1.0); Calcium 8.2 mg/dl (8.6-10.3); Creatinine Clr Calc Pharmacy 42.8 ml/min; Est GFR (African American) 86.3 ml/min; Est GFR (Non-African American) 74.5 ml/min; Globulin 2.5 gm/dl (2.5-4.0); Magnesium 1.7 mg/dl (1.7-2.4); Phosphorus 2.7 mg/dl (2.5-4.9); Total Protein 5.4 gm/dl (6.0-8.3)
[2023-03-17] MEDS: PIPERACILLIN/TAZOBACTAM 4.5 GM in DEXTROSE 5% MINI-B 100 ML IV SCH ×3 (05:42→21:16)
[2023-03-17] MEDS: IPRATROPIUM BROMIDE NEB SOLN 0.02% 2.5 ML VIAL INH SCH ×3 (07:29→20:16)
[2023-03-17] MEDS: LEVALBUTEROL 1.25 MG/3 ML NEB NEB SCH ×3 (07:29→20:16)
[2023-03-17] MEDS: UMECLIDINIUM BROMIDE 62.5MCG/BLISTER 7 PUFFS/INHALER INH SCH (09:38)
[2023-03-17] MEDS: predniSONE 10 MG TABLET PO SCH (09:39)
[2023-03-17] MEDS: FLUTICASONE/VILANTEROL 100/25MCG 14 PUFFS/INHALER INH SCH (09:39)
[2023-03-17] MEDS: METOPROLOL TARTRATE 25 MG TAB PO SCH ×2 (09:40→21:16)
[2023-03-17] MEDS: DOXYCYCLINE HYCLATE 100 MG in DEXTROSE 5% MINI-B 100 ML IV SCH ×2 (09:43→21:15)
[2023-03-17] MEDS ORDERED: FAMOTIDINE 20MG IV PUSH 20 MG/5 ML SYR IV ONE ×2 (11:30→13:30)
[2023-03-17] MEDS ORDERED: CETIRIZINE HCL 10 MG TABLET PO SCH (11:30)
[2023-03-17] MEDS ORDERED: DEXAMETHASONE IV SCH (11:30)
[2023-03-17] MEDS ORDERED: DEXTROSE 5% IV SCH (11:30)
[2023-03-17] MEDS ORDERED: PALONOSETRON IV SCH (11:30)
[2023-03-17] MEDS ORDERED: LORazepam 0.5 MG TAB PO PRN (12:41)
[2023-03-17] MEDS ORDERED: PALONOSETRON 0.25 MG, dexAMETHasone 12 MG in DEXTROSE 5% 50 ML IV ONE (13:30)
[2023-03-17] MEDS ORDERED: SODIUM CHLORIDE 0.9% IV ONE (14:00)
[2023-03-17] MEDS ORDERED: PACLITAXEL IV ONE (14:00)
[2023-03-17] MEDS ORDERED: SODIUM CHLORIDE 0.9% IV SCH (15:00)
[2023-03-17] MEDS ORDERED: CARBOPLATIN IV SCH (15:00)
--- NOTE | 2023-03-17 15:48 | Hospitalist Progress Note ---
Date of Service March 17, 2023 Assessment & Plan (1) Acute on chronic hypoxic respiratory failure: (2) COPD exacerbation: (3) Adenocarcinoma of lung: (4) Hyponatremia: (5) Sepsis: (6) Pneumonia: Plan This is a 77 yr old F who has a significant past medical history of tobacco abuse, COPD, chronic respiratory failure with hypoxia and recently diagnosed right lung adenocarcinoma who presents to ED 2/2 to SOB. Of significance patient recently hospitalized at [facility] secondary to moderate pericardial effusion status post pericardiocentesis on 03/06/2023. Postop course was uncomplicated. Repeat CT showed resolution and very small pericardial effusion remaining. Since being discharged home she had been doing well except for increase in sputum production. Son at bedside reported it was pink. Also noted was increasing shortness of breath, oxygen requirement and overall generalized weakness. Known right lower lobe non-small cell lung CA following Dr. Bryant for pulmonology, Dr. Naqvi for oncology and Dr. Morrow for radiation oncology. Acute on chronic hypoxic respiratory failure COPD exacerbation Sepsis Possible RUL PNA Lung Mass Possible sepsis in setting of leukocytosis, tachycardia and tachypnea CXR: 1. Interval small left and trace right pleural effusion.2. Redemonstration of the right lower lobe mass consistent with known lung malignancy. 3. Cavitary right apical opacity which favors pneumonia, as shown on prior exams. However, a 2.7 cm nodular opacity has increased and therefore an additional neoplasm cannot be excluded. This should be assessed on follow-up exams. Consult Pulmonology- appreciate recs -continue abx, steroids -extrinsic component of mass/lymphadenopathy compressing bronchi, consider stenting in the future at tertiary care center after systemic chemo started -consider palliative care consult Continue Zosyn and Doxy, IV Solu-Medrol q12h switched to po prednisone MRSA swab negative CTA chest- noted lung masses, emphysema, no PE pulmonary toilet with nebs, flutter valve and incentive spirometry Remains stable clinically with minimal shortness of breath at rest No acute distress at rest and has been requiring 3 L to maintain saturation Lung cancer Known right lower lobe non-small cell lung CA following Dr. Bryant for pulmonology, Dr. Naqvi for oncology and Dr. Morrow for radiation oncology. 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 Pericardial effusion s/p pericardiocentesis 03/06/23 at [facility] s/p pericardiocentesis 03/06/23 at [facility] Echo 03/13- no noted pericardial effusion CTA chest- noted lung masses, emphysema, no PE Troponins have flattened cytology was benign Denies any cardiac symptoms-remains stable Tobacco abuse encourage cessation nicotine patch declined Diet: low sodium, fluid restriction DVT ppx: SQ Lovenox DNR/DNI Dispo: PT/OT ordered, palliative care consulted. Admission and Anticipated Discharge Date Admission Date: March 12, 2023 Subjective 03/16/2023 The patient was seen and examined in telemetry She has been stable but feels generally weak and lethargy No shortness of breath at rest Has been on 3 L to maintain saturation 03/17/2023 The patient was seen and examined in telemetry unit She remains stable and awaiting chemotherapy Asking for her home medications of Ativan and mirtazapine Review of Systems Review of Systems: All systems reviewed and are unremarkable except as noted below Physical Exam Physical Exam: Lying in bed with minimal shortness of breath at rest Constitutional: + ill appearing and + thin Eyes: PERRL, conjunctivae normal, anicteric sclerae ENMT: external ear and nose normal, oropharynx normal Neck: trachea midline, no thyromegaly Respiratory: no respiratory distress Auscultation: + diminished lung sounds and + crackles (Bilateral) Cardiovascular: Rate/Rhythm: regular rate and regular rhythm; not tachycardic Heart Sounds: normal S1 and normal S2; no murmur Extremities: no edema Gastrointestinal (Abdomen): Inspection/Auscultation: normal bowel sounds; abdomen not distended Percussion/Palpation: abdomen soft; abdomen nontender Neurologic: normal touch/pain/proprioception and moves all extremities; no focal motor deficits Results & Data Results & Data Vital Signs (Past 12 Hours) Vital Signs Temp Pulse Resp BP Pulse Ox O2 Del Method O2 Flow Rate 03/17/23 12:10 36.9 C 75 19 128/77 98 Nasal Cannula 3.0 03/17/23 10:46 Nasal Cannula 3 03/17/23 08:30 36.7 C 92 H 20 139/71 96 Nasal Cannula 3.0 03/17/23 07:29 85 17 92 Nasal Cannula 3 Laboratory Results Short CBC 03/17/23 Range/Units 04:07 WBC 8.57 (4.8-10.8) K/ul Hgb 10.3 L (12.0-16.0) g/dl Hct 30.0 L (37.0-47.0) % Plt Count 388 (130-400) K/uL BMP 03/17/23 04:07 Sodium 128 L Potassium 4.0 Chloride 91 L Carbon Dioxide 34 H BUN 20 Creatinine 0.77 Glucose 88 Calcium 8.2 L Liver Function 03/17/23 Range/Units 04:07 Total Bilirubin 0.4 (0.2-1.0) mg/dl AST 14 (13-39) U/L ALT 24 (7-52) U/L Alkaline Phosphatase 72 (34-104) U/L Albumin 2.9 L (3.4-5.0) gm/dl Medications Administered Current Inpatient Medications Acetaminophen (Acetaminophen 325 Mg Tab) 650 mg PO Q4H PRN PRN Reason: Pain or Fever Stop: 04/11/23 20:11 Last Admin: 03/16/23 23:22 Dose: 650 mg Al Hydrox/Mg Hydrox/Simethicone (Aluminum/Magnesium Susp 30 Ml Udc) 15 ml PO Q4H PRN PRN Reason: Dyspepsia Stop: 04/11/23 20:11 Enoxaparin Sodium (Enoxaparin Inj 40 Mg/0.4 Ml Syr) 40 mg SQ Q24H YU Stop: 04/11/23 20:59 Last Admin: 03/16/23 22:18 Dose: 40 mg Fluticasone/Vilanterol (Fluticasone/Vilanterol 100/25mcg 14 Puffs/Inhaler) 1 puffs INH DAILY [facility] Stop: 04/11/23 23:44 Last Admin: 03/17/23 09:39 Dose: 1 puffs Doxycycline Hyclate 100 mg/ (Dextrose) 100 mls @ 50 mls/hr IV Q12H [facility] Stop: 03/19/23 20:59 Last Infusion: 03/17/23 11:51 Dose: Infused Piperacillin Sod/Tazobactam (Sod 4.5 gm/ Dextrose) 100 mls @ 25 mls/hr IV Q8H [facility]; Protocol Stop: 03/20/23 21:59 Last Admin: 03/17/23 14:57 Dose: 25 mls/hr Carboplatin 140 mg/ Sodium (Chloride) 264 mls @ 528 mls/hr IV TODAY@1500 [facility]; Protocol Stop: 03/17/23 18:00 Ibuprofen (Ibuprofen 200 Mg Tab) 400 mg PO QID PRN PRN Reason: As Needed for Fever or Pain Stop: 04/13/23 17:53 Last Admin: 03/16/23 22:17 Dose: 400 mg Ipratropium [place] (Ipratropium [place] Neb Soln 0.02% 2.5 Ml Vial) 0.5 mg INH Q6R [facility] Stop: 04/11/23 20:44 Last Admin: 03/17/23 12:51 Dose: Not Given Levalbuterol HCl (Levalbuterol 1.25 Mg/3 Ml Neb) 1.25 mg NEB Q6R YU Stop: 04/11/23 20:44 Last Admin: 03/17/23 12:51 Dose: Not Given Levalbuterol HCl (Levalbuterol Hcl 0.63 Mg/3 Ml Neb) 0.63 mg NEB Q6R PRN; Protocol PRN Reason: wheezing, sob Stop: 04/12/23 00:59 Last Admin: 03/15/23 07:26 Dose: 0.63 mg Lorazepam (Lorazepam 0.5 Mg Tab) 0.5 mg PO TID PRN PRN Reason: Anxiety Stop: 04/16/23 12:40 Metoprolol Tartrate (Metoprolol Tartrate 25 Mg Tab) 25 mg PO BID [facility] Stop: 04/11/23 23:20 Last Admin: 03/17/23 09:40 Dose: 25 mg Mirtazapine (Mirtazapine Tab 15 Mg Tab) 15 mg PO HS YU Stop: 04/16/23 20:59 Ondansetron HCl (Ondansetron Inj 2 Mg/Ml 2 Ml Vial) 4 mg IV Q6H PRN PRN Reason: Nausea Stop: 04/11/23 20:11 Last Admin: 03/16/23 08:01 Dose: 4 mg Oxycodone HCl (Oxycodone Hcl Ir 5 Mg Tab (Immediate Release)) 5 mg PO Q4H PRN PRN Reason: Pain (Scale Score 1-3) Stop: 03/26/23 23:20 Last Admin: 03/15/23 20:23 Dose: 5 mg Prednisone (Prednisone 10 Mg Tablet) 30 mg PO DAILY YU Stop: 04/14/23 08:59 Last Admin: 03/17/23 09:39 Dose: 30 mg Trazodone HCl (Trazodone Hcl 50 Mg Tab) 50 mg PO HS PRN PRN Reason: Insomnia Stop: 04/13/23 20:59 Last Admin: 03/16/23 22:18 Dose: 50 mg Umeclidinium [place] (Umeclidinium [place] 62.5mcg/Blister 7 Puffs/Inhaler) 1 puffs INH DAILY YU Stop: 04/12/23 08:59 Last Admin: 03/17/23 09:38 Dose: 1 puffs (3) Adenocarcinoma of lung Laterality: right Qualified Code(s): C34.91 - Malignant neoplasm of unspecified part of right bronchus or lung (6) Pneumonia Laterality: right Lung location: upper lobe of lung Pneumonia type: due to unspecified organism Qualified Code(s): J18.9 - Pneumonia, unspecified organism
[2023-03-17] MEDS: ENOXAPARIN INJ 40 MG/0.4 ML SYR SQ SCH (21:16)
[2023-03-17] MEDS: MIRTAZAPINE TAB 15 MG TAB PO SCH (21:17)
[2023-03-18] MEDS: IPRATROPIUM BROMIDE NEB SOLN 0.02% 2.5 ML VIAL INH SCH ×3 (02:09→14:42)
[2023-03-18] MEDS: LEVALBUTEROL 1.25 MG/3 ML NEB NEB SCH ×3 (02:09→14:42)
[2023-03-18] MEDS: PIPERACILLIN/TAZOBACTAM 4.5 GM in DEXTROSE 5% MINI-B 100 ML IV SCH ×3 (05:50→22:33)
[2023-03-18 06:42] LABS: Hematocrit (blood only) 33.7 % (37.0-47.0); Hemoglobin 11.7 g/dl (12.0-16.0); Immature Granulocytes # (auto) 0.04 K/uL (0.01-0.20); Immature Granulocytes % (auto) 0.5 %; Lymphocytes # (auto) 0.95 K/uL (1.20-3.40); Lymphocytes % (auto) 10.7 %; Mean Corpuscular Hemoglobin 29.9 pg (25.0-34.0); Mean Corpuscular Hgb Conc 34.7 g/dL (32.0-36.0); Mean Corpuscular Volume 86.2 fL (80.0-100.0); Mean Platelet Volume 9.2 fL (9.4-12.4); Monocytes # (auto) 0.39 K/uL (0.11-0.59); Monocytes % (auto) 4.4 %; Neutrophils # (auto) 7.47 K/uL (1.40-6.50); Neutrophils % (auto) 84.4 %; Platelet Count 405 K/uL (130-400); RDW Coefficient of Variation 11.7 % (11.5-14.5); RDW Standard Deviation 36.7 fL (36.4-46.3); Red Blood Count 3.91 M/uL (4.20-5.40); White Blood Count 8.85 K/ul (4.8-10.8)
[2023-03-18 07:22] LABS: Bilirubin,Total 0.4 mg/dl (0.2-1.0); Calcium 8.3 mg/dl (8.6-10.3); Magnesium 1.9 mg/dl (1.7-2.4); Potassium 4.1 mmol/L (3.5-5.1)
[2023-03-18 07:28] LABS: Albumin Globulin Ratio 1.2 (0.9-2); BUN Creatinine Ratio 26.1 (10-20); Creatinine Clr Calc Pharmacy 51.1 ml/min; Est GFR (African American) 97.3 ml/min; Globulin 2.6 gm/dl (2.5-4.0); Phosphorus 2.8 mg/dl (2.5-4.9); Total Protein 5.6 gm/dl (6.0-8.3)
[2023-03-18] MEDS: IBUPROFEN 200 MG TAB PO PRN ×2 (08:34→19:23)
[2023-03-18] MEDS: predniSONE 10 MG TABLET PO SCH (08:35)
[2023-03-18] MEDS: METOPROLOL TARTRATE 25 MG TAB PO SCH ×2 (08:36→20:32)
[2023-03-18] MEDS: UMECLIDINIUM BROMIDE 62.5MCG/BLISTER 7 PUFFS/INHALER INH SCH (08:37)
[2023-03-18] MEDS: FLUTICASONE/VILANTEROL 100/25MCG 14 PUFFS/INHALER INH SCH (08:37)
[2023-03-18] MEDS: DOXYCYCLINE HYCLATE 100 MG in DEXTROSE 5% MINI-B 100 ML IV SCH ×2 (11:53→20:28)
[2023-03-18] MEDS ORDERED: IPRATROPIUM BROMIDE NEB SOLN 0.02% 2.5 ML VIAL INH PRN (14:45)
[2023-03-18] MEDS ORDERED: LEVALBUTEROL 1.25 MG/3 ML NEB NEB PRN (14:46)
--- NOTE | 2023-03-18 15:58 | Hospitalist Progress Note ---
Date of Service March 18, 2023 Assessment & Plan (1) Acute on chronic hypoxic respiratory failure: (2) COPD exacerbation: (3) Adenocarcinoma of lung: (4) Hyponatremia: (5) Sepsis: (6) Pneumonia: Plan This is a 77 yr old F who has a significant past medical history of tobacco abuse, COPD, chronic respiratory failure with hypoxia and recently diagnosed right lung adenocarcinoma who presents to ED 2/2 to SOB. Of significance patient recently hospitalized at [facility] secondary to moderate pericardial effusion status post pericardiocentesis on 03/06/2023. Postop course was uncomplicated. Repeat CT showed resolution and very small pericardial effusion remaining. Since being discharged home she had been doing well except for increase in sputum production. Son at bedside reported it was pink. Also noted was increasing shortness of breath, oxygen requirement and overall generalized weakness. Known right lower lobe non-small cell lung CA following Dr. Bryant for pulmonology, Dr. Naqvi for oncology and Dr. Morrow for radiation oncology. Acute on chronic hypoxic respiratory failure COPD exacerbation Sepsis Possible RUL PNA Lung Mass Possible sepsis in setting of leukocytosis, tachycardia and tachypnea CXR: 1. Interval small left and trace right pleural effusion.2. Redemonstration of the right lower lobe mass consistent with known lung malignancy. 3. Cavitary right apical opacity which favors pneumonia, as shown on prior exams. However, a 2.7 cm nodular opacity has increased and therefore an additional neoplasm cannot be excluded. This should be assessed on follow-up exams. Consult Pulmonology- appreciate recs -continue abx, steroids -extrinsic component of mass/lymphadenopathy compressing bronchi, consider stenting in the future at tertiary care center after systemic chemo started -consider palliative care consult Continue Zosyn and Doxy, IV Solu-Medrol q12h switched to po prednisone MRSA swab negative CTA chest- noted lung masses, emphysema, no PE pulmonary toilet with nebs, flutter valve and incentive spirometry Remains stable clinically with minimal shortness of breath at rest No acute distress at rest and has been requiring 3 L to maintain saturation Remains stable but weak and lethargic and has been requiring 3 L to maintain saturation Lung cancer Known right lower lobe non-small cell lung CA following Dr. Bryant for pulmonology, Dr. Naqvi for oncology and Dr. Morrow for radiation oncology. Heme/onc consult- appreciate recs -treat pneumonia, COPD exacerbation -if still hospitalized next week with no signs of active infection, will consider starting chemo treatment at that time Palliative consult placed- appreciate recs 03/16/2023 The patient decided to have therapy for the lung cancer and she will have chemo and radiation plan for tomorrow 03/17/2023 She is going to get the chemotherapy and radiation treatment today Ongoing chemo and radiation and she wants to go home Will get PT OT evaluation prior to possible discharge tomorrow Hyponatremia Likely multifactorial Poor intake over the past week as well as 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 Pericardial effusion s/p pericardiocentesis 03/06/23 at [facility] s/p pericardiocentesis 03/06/23 at [facility] Echo 03/13- no noted pericardial effusion CTA chest- noted lung masses, emphysema, no PE Troponins have flattened cytology was benign Denies any cardiac symptoms-remains stable No cardiac symptoms Tobacco abuse encourage cessation nicotine patch declined Diet: low sodium, fluid restriction DVT ppx: SQ Lovenox DNR/DNI Dispo: PT/OT ordered, palliative care consulted. Admission and Anticipated Discharge Date Admission Date: March 12, 2023 Subjective 03/16/2023 The patient was seen and examined in telemetry She has been stable but feels generally weak and lethargy No shortness of breath at rest Has been on 3 L to maintain saturation 03/17/2023 The patient was seen and examined in telemetry unit She remains stable and awaiting chemotherapy Asking for her home medications of Ativan and mirtazapine 03/18/2023 The patient was seen and examined in telemetry unit She is a status post chemo and radiation for lung cancer Has been feeling better but remains generally weak and lethargic She wants to go home and we will get PT and OT evaluation Review of Systems Review of Systems: All systems reviewed and are unremarkable except as noted below Physical Exam Physical Exam: Lying in bed with minimal shortness of breath at rest Constitutional: + ill appearing and + thin Eyes: PERRL, conjunctivae normal, anicteric sclerae ENMT: external ear and nose normal, oropharynx normal Neck: trachea midline, no thyromegaly Respiratory: no respiratory distress Auscultation: + diminished lung sounds and + crackles (Bilateral) Cardiovascular: Rate/Rhythm: regular rate and regular rhythm; not tachycardic Heart Sounds: normal S1 and normal S2; no murmur Extremities: no edema Gastrointestinal (Abdomen): Inspection/Auscultation: normal bowel sounds; abdomen not distended Percussion/Palpation: abdomen soft; abdomen nontender Neurologic: normal touch/pain/proprioception and moves all extremities; no focal motor deficits Results & Data Results & Data Vital Signs (Past 12 Hours) Vital Signs Temp Pulse Pulse Resp BP Pulse Ox O2 Del Method 03/18/23 14:51 36.7 C 87 18 136/74 97 Nasal Cannula 03/18/23 11:54 36.5 C 83 18 151/77 H 97 Nasal Cannula 03/18/23 11:47 84 03/18/23 08:00 Nasal Cannula 03/18/23 07:45 37.2 C 88 16 141/73 H 100 Nasal Cannula 03/18/23 04:10 36.7 C 81 18 168/76 H 99 Nasal Cannula O2 Flow Rate 03/18/23 14:51 3 03/18/23 11:54 3.0 03/18/23 11:47 03/18/23 08:00 3 03/18/23 07:45 3 03/18/23 04:10 3 Diagnostic Findings Short CBC 03/18/23 Range/Units 06:18 WBC 8.85 (4.8-10.8) K/ul Hgb 11.7 L (12.0-16.0) g/dl Hct 33.7 L (37.0-47.0) % Plt Count 405 H (130-400) K/uL BMP 03/18/23 06:18 Sodium 130 L Potassium 4.1 Chloride 94 L Carbon Dioxide 31 BUN 18 Creatinine 0.69 Glucose 98 Calcium 8.3 L Liver Function 03/18/23 Range/Units 06:18 Total Bilirubin 0.4 (0.2-1.0) mg/dl AST 15 (13-39) U/L ALT 24 (7-52) U/L Alkaline Phosphatase 72 (34-104) U/L Albumin 3.0 L (3.4-5.0) gm/dl Medications Administered Current Inpatient Medications Acetaminophen (Acetaminophen 325 Mg Tab) 650 mg PO Q4H PRN PRN Reason: Pain or Fever Stop: 04/11/23 20:11 Last Admin: 03/16/23 23:22 Dose: 650 mg Al Hydrox/Mg Hydrox/Simethicone (Aluminum/Magnesium Susp 30 Ml Udc) 15 ml PO Q4H PRN PRN Reason: Dyspepsia Stop: 04/11/23 20:11 Enoxaparin Sodium (Enoxaparin Inj 40 Mg/0.4 Ml Syr) 40 mg SQ Q24H YU Stop: 04/11/23 20:59 Last Admin: 03/17/23 21:16 Dose: 40 mg Fluticasone/Vilanterol (Fluticasone/Vilanterol 100/25mcg 14 Puffs/Inhaler) 1 puffs INH DAILY [facility] Stop: 04/11/23 23:44 Last Admin: 03/18/23 08:37 Dose: 1 puffs Doxycycline Hyclate 100 mg/ (Dextrose) 100 mls @ 50 mls/hr IV Q12H [facility] Stop: 03/19/23 20:59 Last Infusion: 03/18/23 13:53 Dose: Infused Piperacillin Sod/Tazobactam (Sod 4.5 gm/ Dextrose) 100 mls @ 25 mls/hr IV Q8H [facility]; Protocol Stop: 03/20/23 21:59 Last Admin: 03/18/23 14:02 Dose: 25 mls/hr Ibuprofen (Ibuprofen 200 Mg Tab) 400 mg PO QID PRN PRN Reason: As Needed for Fever or Pain Stop: 04/13/23 17:53 Last Admin: 03/18/23 08:34 Dose: 400 mg Ipratropium [place] (Ipratropium [place] Neb Soln 0.02% 2.5 Ml Vial) 0.5 mg INH Q6R PRN PRN Reason: Shortness Of Breath Or Wheezing Stop: 04/11/23 20:44 Levalbuterol HCl (Levalbuterol 1.25 Mg/3 Ml Neb) 1.25 mg NEB Q6R PRN PRN Reason: Shortness Of Breath Or Wheezing Stop: 04/11/23 20:44 Lorazepam (Lorazepam 0.5 Mg Tab) 0.5 mg PO TID PRN PRN Reason: Anxiety Stop: 04/16/23 12:40 Metoprolol Tartrate (Metoprolol Tartrate 25 Mg Tab) 25 mg PO BID YU Stop: 04/11/23 23:20 Last Admin: 03/18/23 08:36 Dose: 25 mg Mirtazapine (Mirtazapine Tab 15 Mg Tab) 15 mg PO HS YU Stop: 04/16/23 20:59 Last Admin: 03/17/23 21:17 Dose: 15 mg Ondansetron HCl (Ondansetron Inj 2 Mg/Ml 2 Ml Vial) 4 mg IV Q6H PRN PRN Reason: Nausea Stop: 04/11/23 20:11 Last Admin: 03/16/23 08:01 Dose: 4 mg Oxycodone HCl (Oxycodone Hcl Ir 5 Mg Tab (Immediate Release)) 5 mg PO Q4H PRN PRN Reason: Pain (Scale Score 1-3) Stop: 03/26/23 23:20 Last Admin: 03/15/23 20:23 Dose: 5 mg Prednisone (Prednisone 10 Mg Tablet) 30 mg PO DAILY YU Stop: 04/14/23 08:59 Last Admin: 03/18/23 08:35 Dose: 30 mg Trazodone HCl (Trazodone Hcl 50 Mg Tab) 50 mg PO HS PRN PRN Reason: Insomnia Stop: 04/13/23 20:59 Last Admin: 03/16/23 22:18 Dose: 50 mg Umeclidinium [place] (Umeclidinium [place] 62.5mcg/Blister 7 Puffs/Inhaler) 1 puffs INH DAILY YU Stop: 04/12/23 08:59 Last Admin: 03/18/23 08:37 Dose: 1 puffs (3) Adenocarcinoma of lung Laterality: right Qualified Code(s): C34.91 - Malignant neoplasm of unspecified part of right bronchus or lung (6) Pneumonia Laterality: right Lung location: upper lobe of lung Pneumonia type: due to unspecified organism Qualified Code(s): J18.9 - Pneumonia, unspecified organism
[2023-03-18] MEDS: ONDANSETRON INJ 2 MG/ML 2 ML VIAL IV PRN (17:27)
[2023-03-18] MEDS: ACETAMINOPHEN 325 MG TAB PO PRN (20:30)
[2023-03-18] MEDS: traZODone HCL 50 MG TAB PO PRN (20:30)
[2023-03-18] MEDS: ENOXAPARIN INJ 40 MG/0.4 ML SYR SQ SCH (20:31)
[2023-03-18] MEDS: MIRTAZAPINE TAB 15 MG TAB PO SCH (20:32)
[2023-03-19 03:09] VITALS: RESP 18
[2023-03-19 05:02] LABS: Basophils # (auto) 0.01 K/uL (0.00-0.20); Basophils % (auto) 0.1 %; Eosinophils # (auto) 0.06 K/uL (0.00-0.50); Eosinophils % (auto) 0.5 %; Hematocrit (blood only) 34.9 % (37.0-47.0); Hemoglobin 11.6 g/dl (12.0-16.0); Immature Granulocytes # (auto) 0.05 K/uL (0.01-0.20); Immature Granulocytes % (auto) 0.4 %; Lymphocytes # (auto) 1.24 K/uL (1.20-3.40); Lymphocytes % (auto) 10.2 %; Mean Corpuscular Hemoglobin 29.7 pg (25.0-34.0); Mean Corpuscular Hgb Conc 33.2 g/dL (32.0-36.0); Mean Corpuscular Volume 89.3 fL (80.0-100.0); Mean Platelet Volume 9.3 fL (9.4-12.4); Monocytes # (auto) 0.93 K/uL (0.11-0.59); Monocytes % (auto) 7.7 %; Neutrophils # (auto) 9.84 K/uL (1.40-6.50); Neutrophils % (auto) 81.1 %; Platelet Count 392 K/uL (130-400); RDW Coefficient of Variation 11.7 % (11.5-14.5); RDW Standard Deviation 37.9 fL (36.4-46.3); Red Blood Count 3.91 M/uL (4.20-5.40); White Blood Count 12.13 K/ul (4.8-10.8)
[2023-03-19] MEDS: PIPERACILLIN/TAZOBACTAM 4.5 GM in DEXTROSE 5% MINI-B 100 ML IV SCH (05:16)
[2023-03-19 05:28] LABS: BUN Creatinine Ratio 28.4 (10-20); Calcium 8.8 mg/dl (8.6-10.3); Creatinine Clr Calc Pharmacy 42.6 ml/min; Est GFR (African American) 81.2 ml/min; Est GFR (Non-African American) 70.1 ml/min; Magnesium 1.8 mg/dl (1.7-2.4); Phosphorus 2.8 mg/dl (2.5-4.9); Potassium 4.2 mmol/L (3.5-5.1)
[2023-03-19] MEDS: ACETAMINOPHEN 325 MG TAB PO PRN (06:32)
[2023-03-19] MEDS: FLUTICASONE/VILANTEROL 100/25MCG 14 PUFFS/INHALER INH SCH (09:45)
[2023-03-19] MEDS: UMECLIDINIUM BROMIDE 62.5MCG/BLISTER 7 PUFFS/INHALER INH SCH (09:45)
--- OUTSIDE RECORDS SUMMARY | 2023-03-19 09:45 | External Medical Summary | Summary of Care ---
Author Name Unknown Organization [facility] Address [address] [place] [address] Phone [phone] Care Team Providers Care Party Supply Specialist Name Role Phone Ele Alford Primary Care Provider + [phone] Encounter Details Date Type Department Care Team (Late st Contact Info) Description 03/09/2023 Investment CounselorClinical Support Nurse Medicine [address] [address] Negin Huerta, RN [address] [place] [address] Medical home patient encounter*; Hospital discharge follow-up; Pericardial effusion; Adenocarcinoma of right lung (HCC); Cavitary lesion of lung; COPD, moderate (HCC); Asthma, allergic; Tobacco use disorder; Advanced care planning/counseling discussion Allergies Active Allergy Reactions Criticality Noted Date Comments No Known Drug Allergy 11/16/2000 documented as of this encounter (statuses as of 03/09/2023) Medications Medication Sig Dispensed Refills Start Date End Date Status polyethylene glycol 3350 (MIRALAX) 255 gram powderIndications: Chronic constipation Take 17 g by mouth daily. 1 Bottle 5 06/16/2018 Active Budesonide-Formote rol Fumarate 160-4.5 MCG/ACT Inhalation Aerosol (Symbicort)Indicat ions:COPD, severe (HCC) Inhale 2 Puffs by mouth in the morning and 2 Puffs before bedtime. 10.2 g 11 05/26/2022 Active Albuterol Sulfate HFA 108 (90 Base) MCG/ACT Inhalation Aerosol SolutionIndication s:COPD, moderate (HCC) Inhale 2 Puffs by mouth every 4 hours as needed for Shortness of Breath. 54 g 3 12/22/2022 Active Metoprolol Tartrate 25 MG Oral Tablet (Lopressor) Take 1 Tablet by mouth in the morning and 1 Tablet before bedtime. 180 Tablet 3 02/02/2023 Active Acetaminophen 500 MG Oral Tablet Take 3 Tablets by mouth 2 times a day as needed for Pain, Moderate. 0 Active LORazepam 0.5 MG Oral Tablet (Ativan) Take 1 Tablet by mouth every 8 hours as needed for Anxiety. 30 Tablet 0 02/13/2023 Active Additional Information Patient not taking.Reported on 03/06/2023 Ibuprofen 200 MG Oral Tablet (Motrin) 2 Tablets. 0 02/19/2023 Active Spiriva Respimat 2.5 MCG/ACT Inhalation Aerosol Solution INHALE 2 PUFFS BY MOUTH DAILY 0 02/18/2023 Active oxyCODONE HCl 5 MG Oral Tablet (Oxy IR) Take 1 Tablet by mouth every 4 hours as needed for Pain, Severe or Pain, Moderate. 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, severity to be determined 03/27/2004 COPD, moderate 03/27/2004 Overview: FEV1/FVC 56%;L [id number]%; 23% IMPROVEMENT IN BAM30-88 WITH BRONCHODILATOR GENERAL OSTEOARTHROSIS 12/27/2001 Asthma, allergic 12/27/2001 Tobacco use disorder 12/27/2001 documented as of this encounter (statuses as of 03/09/2023) Resolved Problems Problem Noted Date Diagnosed Date Resolved Date Dyslipidemia, goal LDL below 130 05/14/2017 01/02/2021 FH: breast cancer in first degree relative 02/13/2016 05/13/2017 Squamous cell carcinoma in s itu of skin of forearm 02/07/2015 07/11/2015 AK (actinic keratosis) 12/27/201405/13 Senile osteoporosis 02/06/2014 02/14/20 23 COPD, moderate 12/05/2013 12/05/2013 Asthma, severe persistent 02/04/2013 Osteoporosis 05/13/2011 02/06/2014 Asthma with severity to be determined 11/01/2009 02/04/2013 Overview: Per Asthma Taxonomy ICD-10 update of inactive term Family history of other card iovascular diseases 12/27/2001 05/13/2017 Overview: ICD-10 update of inactive term FAM HX-DIABETES MELLITUS 12/27/200107/2017 documented as of this encounter (statuses as of 03/09/2023) Immunizations No known immunizationsdocumented as of this encounter Social History Tobacco Use Types Packs/Day Years Used Date Smoking Tobacco: Every Day Cigarettes 0.3 57 Smokeless Tobacco: Never Comments:5 cigs a day Alcohol Use Standard Drinks/Week Comments No 0 (1 standard drink = 0.6 oz pur e alcohol) PHQ-2 Answer Date Recorded PHQ-2 Score 0 06/16/2018 Hunger Vital Sign Answer Date Recorded Worried About Running Out of Food in the Last Ye ar Never true 01/03/2020 Ran Out of Food in the Last Year Never true 01/03/2020 Sex and Gender Information Value Date Recorded Sex Assigned at Not on file Gender Identity Not on file Sexual Orientation Not on file Job Start Date Occupation Industry Not on file Not on file Not on file documented as of this encounter Functional Status Functional Status Response Date of Assess ment Are you deaf or do you have serious difficulty hearing? No 03/06/2023 Are you blind or do you have serious difficulty seeing, even when wearing glasses? No 03/06/2023 Do you have serious difficul ty walking or climbing stairs? (5 years old or older) No 03/06/2023 Do you have difficulty dress ing or bathing? (5 years old or older) No 03/06/2023 Because of a physical, menta l, or emotional condition, do you have difficulty doing errands alone such as visiting a doctor s office or shopping? (15 years old or older) Yes-her children help her 03/06/2023 Cognitive Status Response Date of Assessm ent Because of a physical, menta l, or emotional condition, do you have serious difficulty concentrating, remembering, or making decisions? (5 years old or older No 03/06/2023 documented as of this encounter Progress Notes * Negin Huerta RN - 03/09/2023 11:32 AM EDT Investment Counselor Progress Note: Date: 03/09/23 Assigned Patient Tier: 2 Connected with patient via telephone. Verified patient name/. Advised patient that call is beingrecorded for quality and training purposes. Assessment: Pt. noted the following: alert, oriented, pleasant. Not currently active with home health. Lives alone, in a ranch style home. Independent with ADL's, needs assist with some IADL's. Son, his , and daughter are supportive. Ambulates without device. Denies chest pain or edema. Denies headaches ordizziness, but does reports feeling "sort of weird", "lightheaded"? This morning. Feels it was due to anxiety. Was very short of breath, "with every little thing", prior to procedure. Reports breathing as "not a whole lot better" post procedure. Very little coughing, non productive when does occur.Continues to smoke, but has only had one cigarette since home from hospital. Pulse ox if 95%. Does not have an incision, but does have a puncture/drain/catheter site center chest. Denies drainage. Iscovered with a dry, sterile, dressing. Bowels have not moved since home from hospital, reports it probably been 5-6 days since she actually had a movement. Denies any abdominal distention, abdominal discomfort, rectal pressure, etc. Reports she hasn't eaten much of anything, so doesn't expect to have much in the way of BM's. Appetite is poor. Is drinking some Boost and some 'Breakfast Essential'.Daughter occasionally makes her protein shakes. Drinking as much fluid "as my body will allow me". Pain yesterday was bad, across her shoulders. Rated a "6 or more", at least. Managed with left over oxycodone. This morning it started up again, she took the oxycodone, and currently rates her pain asa 0. Taking the oxycodone AM and PM, and takes 3 extra strength Tylenol, at one time, once a day inbetween the oxycodone, to manage her pain. Slept okay last night. Up twice to void. Was able to go back to sleep. Slept in her bed most of the night. Sleeps on her side, with one pillow, and a pillowbetween her knees. About 5:30 AM, awakened and went out to the couch. Slept there for 2 hours, thenwent back to bed again, around 7:30 AM. Patient reports her weight is down around 103 lbs. That would be a 31 lbs loss in the past 6 months. Confirmed upcoming follow up appointments with hem/onc, PCP, and then cardiology. Plans to keep as scheduled. Declines post discharge IVR calls. Did you receive an alert for an annual wellness visit? No Is this call for a hospital, mcc or rehab facility discharge to home? Yes - patient was inpatient at [facility] from 03/06/23 to 03/08/23. Discharge dx: pericardial effusion, adenocarcinoma of right lung, cavitary lesion of lung, moderate COPD, allergic asthma, and tobacco use disorder. Operations/procedures: pericardiocentesis by Dr Ndiaye on 03/06/23. Medication Reconciliation: Medication Reconciliation completed: yes Review of Current goals: Discussed the following patient-centered CM goals with the patient during this discussion: -Prevention: Prevent admission/readmission -Status: At Risk - re-admitted to [facility] 03/06 to 03/08 for pericardial effusion. Had pericardiocentesis. Not taking her daily vitamin, states she has to take too many pills. (Only takes 2 others in themorning, along with 3 inhalers.) Continues to smoke, although has only had one cigarette since homeyesterday. Has follow up appointments in place for oncology and PCP and cardiology. Plans to keep as scheduled. PHILLIP referral placed. -Pain: Patient will have pain well managed -Status: On Track - had pain across shoulders yesterday - managed with oxycodone left over from previous. Was starting again this morning, did not let get out of control. Taking oxycodone early AM, and then evening. Taking 3 extra strength Tylenol, at one time, in between. Reports the Tylenol did nothing yesterday. Will discuss the oxycodone with PCP at appointment on Thursday, as will be out by then. -Advanced Directive (AD): Patient will complete Advanced Care Planning -Status: On Track - confirmed son and daughter, Sergey and Jennifer, are to be her decision makers in case she cannot speak for herself. They are to share the role equally. Willing to put in writing by completing the DMPA, if not the living will. CM to mail the AD booklet, along with the combined DMPOA/Living Will forms to patient. She will call with any questions. COPD Patient: YES Pulse Ox: 95%, Cough: NON PRODUCTIVE, Breathing: Breathing at Baseline. Better than pre-hospital, but still not great. CHF Patient: NO CM Plan: Reviewed 3 Red Flags with patient. Advised to call CM with any of the following: Red Flag 1: increased shortness of breath/cough, Red Flag 2: signs of complications/infection at wound site: increasedredness, swelling, drainage, foul odor, fever, etc, or Red Flag 3: increased lightheadedness or new/ uncontrolled pain and Referral to: [facility] for home visit, home safety assessment, bottles out med rec,vital signs with pulse ox, and weight if able, review proper use and cleaning of inhalers ask your COPD questions, please complete the CAT survey. Thank you. Remote Patient Monitoring: At this time, RPM not offered/considered for patient due to patient has her pulse oximeter. Not needed.. Plan for Future Contacts: Plan to follow up within 1 week to check progress on the following goals/needs - shortness of breath, cough, smoking? Pulse ox reading? Wound site status? Bowel movement? Pain? Rated? Managed with? Sleeping? Any more lightheaded spells? Did the doctor give you something for your anxiety? Eating? Drinking? Recent weight? Any other changes from your appointment with hem/onc?. Planned contacts from the following parties will occur this week: PCP office visit and Specialty Visit as additional contacts per workflow. Advancement/Closure Plan: Keep patient at current Tier with reassessment per workflow. Patient provided CM contact information and encouraged to call with any changes in condition. SNP Member? No PCP Notified of enrollment in CM/HM program: Yes, previously Is Provider in agreement with POC? Yes Negin Huerta RN Outpatient Case Management documented in this encounter Miscellaneous Notes * ACP (Advance Care Planning) - Negin Huerta RN - 03/09/2023 11:31 AM EDT Images from the original note were not included. Patient-centered Communication 03/09/2023 The patient/surrogate voluntarily agreed to participate in advance care planning discussion. Location: telephone Individual(s) present for conversation: Patient Decisions Additional Comments Synopsis SmartLink Most Recent Value Past ~10 years 03/09/2023 11:28 Additional Comments Additional Comments: Confirms she wants son and daughter, Kolby, to be her decision makers - equally. Willing to do DMPOA, at least. CM to mail AD booklet and combined DMPOA/Living Will forms to patient. She will call with any questions. 03/09/2023 Confirms she wants son and daughter, Kolby, to be her decision makers - equally. Willing to do DMPOA, at least. CM to mail AD booklet and combined DMPOA/Living Will forms to patient. She will call with any questions. Discerning What Matters Most to the Patient: Synopsis SmartLink Most Recent Value Past ~10 years 03/09/2023 11:26 Discerning What Matters Most to the Patient In their own words, patient's UNDERSTANDING of their illness is: "It took 77 years for it to give me this, 3-4 cigarettes per day aren't going to hurt anything." "I hate the thought of having to do chemotherapy." 02/09/2023 Their current SYMPTOMS include: Pain;Lack of appetite;Shortnes of breath;Anxiety 03/09/2023 Pain;Lack of appetite;Shortnes of breath;Anxiety Was PROGNOSIS discussed? No 03/09/2023 No The patient's PRIOR EXPERIENCES: Spouse 20 years ago from a heart attack. Age 57. 02/09/2023 Source: Content from Respecting Choices Program Aligning Care With What Matters Most: No data to display Rationale for Decisions Source: Content from Respecting Choices Program 0 minutes spent in direct [id number] discussion today, Negin Huerta, RN documented in this encounter Plan of Treatment Upcoming Encounters Date Type Department Care Team (Late st Contact Info) Description 03/13/2023 11:10 AM EDT Office Visit Family [address] [phone] Ele Alford, [address] [place] [address] 03/24/2023 10:00 AM EST Office Visit Cardiology, [facility] [address] [place] [address] Rosales Holman [address] [place] [address] 07/15/2023 2:30 PM EST Office Visit Family [address] [phone] Ele Al[address] [place] [address] Health Maintenance Due Date Last Done Comments DISCUSS TOBACCO CESSATION (REFER TO SMARTSET #7166) 1945 COVID-19 Vaccine (#1) 06/26/1946 Pneumococcal Vaccine: 65+ Years (1 - PCV) 12/25/1951 Alpha-1 Antitrypsin 12/25/1963 DTaP,Tdap,and Td Vaccines (1 - Tdap) 1964 Zoster Vaccines (1 of 2) 12/25/1995 DXA Scan 04/15/2014 04/15/2011 Depression Screening 06/16/2019 06/16/2018 Influenza Vaccine (FLU shot) (#1) 2023 O2 ASSESSMENT COMPLETED IN PAST YEAR FOR COPD 03/06/2024 03/06/2023 COLONOSCOPY-EVERY 5 YRS AGES 18-100 Discontinued 09/19/2013, 09/19/2013, 03/01/2013, Additional history exists GARDASIL-HPV IMMUNIZATION SERIES Aged Out No longer eligible based on patient's age to complete this topic Hepatitis B Aged Out No longer eligi ble based on patient's age to complete this topic MENINGOCOCCAL (MENACTRA/MENVEO) Aged Out No longer eligible based on patient's age to complete this topic documented as of this encounter Medical Devices Not on filedocumented as of this encounter Visit Diagnoses Diagnosis Medical home patient encounter- Primary Other specified examination Hospital discharge follow-up Other follow-up examination Pericardial effusion Unspecified disease of pericardium Adenocarcinoma of right lung (HCC) Cavitary lesion of lung Other diseases of lung, not elsewhere classified COPD, moderate (HCC) Chronic airway obstruction, not elsewhere classified Asthma, allergic Unspecified asthma Tobacco use disorder Advanced care planning/counseling discussion Other specified counseling documented in this encounter Advance Directives Latest Code Status on File Code Status Date Activated Date Inactivated Comments No Code 03/06/2023 2:51 PM 03/08/2023 7:28 PM Thi s order reflects the patients wishes and were consensually agreed upon. Question Answer Comments Discussion of Advance Directives occurred with: Patient Code Status History Code Status Date Activated Date Inactivated Comments No Code 03/06/2023 1:16 PM 03/06/2023 2:51 PM Thi s order reflects the patients wishes and were consensually agreed upon. Question Answer Comments Discussion of Advance Directives occurred with: Patient Healthcare Agents on File Name Relationship Healthcare Agent Relationshi p Communication Jennifer Bales Adult Child Health Care Repr esentative (appointed verbally by patient or by statute hierarchy) Sergey Santana Adult Child Health Care Repr esentative (appointed verbally by patient or by statute hierarchy) Care Teams Party Supply Specialist Relationship Specialty Start Date End Date Ele Alford DO [address] [place] [address] [place] [address] PCP - General Internal Medicine 01/07/23 documented as of this encounter
--- OUTSIDE RECORDS SUMMARY | 2023-03-19 09:45 | External Medical Summary | Summary of Care ---
Author Name Unknown Organization [facility] Address [address] [place] [place] [address] Phone [phone] Care Team Providers Care Hog Room Supervisor Name Role Phone Ele Alford DO Primary Care Provider + [phone] Reason for Visit * Reason Onset Date Comments Home Health 03/11/2023 Encounter Details Date Type Department Care Team (Late st Contact Info) Description 03/11/2023 Telephone Family Medicine [address] [phone] Ele Alford DO [address] [place] [address] [place] [id number] [place] [facility] Allergies Active Allergy Reactions Criticality Noted Date Comments No Known Drug Allergy 11/16/2000 documented as of this encounter (statuses as of 03/11/2023) Medications Medication Sig Dispensed Refills Start Date End Date Status polyethylene glycol 3350 (MIRALAX) 255 gram powderIndications:C hronic constipation Take 17 g by mouth daily. 1 Bottle 5 06/16/2018 Active Budesonide-Formoter ol Fumarate 160-4.5 MCG/ACT Inhalation Aerosol (Symbicort)Indicati ons:COPD, severe (HCC) Inhale 2 Puffs by mouth in the morning and 2 Puffs before bedtime. 10.2 g 11 05/26/2022 Active Albuterol Sulfate HFA 108 (90 Base) MCG/ACT Inhalation Aerosol SolutionIndications :COPD, moderate (HCC) Inhale 2 Puffs by mouth [...] Pain, Severe or Pain, Moderate. 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, severity to be determined 03/27/2004 COPD, moderate 03/27/2004 Overview: FEV1/FVC 56%;L YOS380%; 23% IMPROVEMENT IN CVX83-74 WITH BRONCHODILATOR GENERAL OSTEOARTHROSIS 12/27/2001 Asthma, allergic 12/27/2001 Tobacco use disorder 12/27/2001 documented as of this encounter (statuses as of 03/11/2023) Resolved Problems Problem Noted Date Diagnosed Date [...] as of this encounter (statuses as of 03/11/2023) Immunizations No known immunizationsdocumented as of this [...] No 03/06/2023 documented as of this encounter Miscellaneous Notes * Telephone Encounter - Ele Alford DO - 03/11/2023 3:53 PM EDT Noted. Thank you. * Telephone Encounter - Claudia Rosas RN - 03/11/2023 3:21 PM EDT FYI * Telephone Encounter - Robina Rowan OSA - 03/11/2023 2:59 PM EDT Hilario calling in from [facility]. Seen pt today 03.11.23, and admitted pt for Longterm. Pt is consistently using 3.5L of O2. O2 was 99% today. Pt told Hilario she will be starting chemo once a week, and daily radiation. She will be faxing over Plan of Care to be signed. Any questions please contact Hilario at [phone]. Thank you. documented in this encounter Plan of Treatment Upcoming Encounters Date Type Department Care Team (Late st Contact Info) Description 03/13/2023 11:10 AM EDT Office Visit Family [address] [place] [phone] Ele Alford DO [address] [place] [address] [place] [phone] 03/24/2023 10:00 AM EST Office Visit Cardiology, [facility] [address] [place] [address] Rosales Holman, [address] [place] [address] 07/15/2023 2:30 PM EST Office Visit Family Medicine [address] [place] [address] [address] [place] [address] Health Maintenance Due Date Last Done Comments DISCUSS TOBACCO CESSATION (REFER TO SMARTSET #0431) 1945 COVID-19 Vaccine (#1) 06/26/1946 Pneumococcal Vaccine: [...] Not on filedocumented as of this encounter Advance Directives Latest Code Status [...] Agents on File Name Relationship Healthcare Agent [facility] p Communication Jennifer Ceballosrock Adult Child Health Care Repr esentative (appointed verbally by patient or by statute hierarchy) Sergey Santana Adult Child Health Care Repr esentative (appointed verbally by patient or by statute hierarchy) Care Teams Hog Room Supervisor Relationship Specialty Start Date End Date Ele Alford DO [address] [place] [address] [place] [phone] PCP - General Internal Medicine 01/07/23 documented as of this encounter
--- OUTSIDE RECORDS SUMMARY | 2023-03-19 09:45 | External Medical Summary | Summary of Care ---
Author Name Unknown Organization [facility] Address [address] [place] [address] Phone [phone] Care Team Providers Care Natural Resource Specialist Name Role Phone Ele Alford DO Primary Care Provider + [phone] Reason for Visit * Reason Onset Date Comments case management 03/09/2023 Medication Problem 03/09/2023 Medication Pre-auth 03/09/2023 LORAZEPAM 0. 5 MG TABLET Encounter Details Date Type Department Care Team (Latest Contact Info) Description 03/09/2023 Court Reporter Telephone Family Medicine [address] [address] Negin Huerta, RN [address] [place] [address] case management; Medication Problem; Medic... 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, severity to be determined 03/27/2004 COPD, moderate 03/27/2004 Overview: FEV1/FVC 56%;L RVS553%; 23% IMPROVEMENT IN EAP01-52 WITH BRONCHODILATOR GENERAL OSTEOARTHROSIS 12/27/2001 Asthma, allergic 12/27/2001 Tobacco use disorder 12/27/2001 documented as of this encounter (statuses as of 03/12/2023) Resolved Problems Problem Noted Date Diagnosed Date [...] as of this encounter (statuses as of 03/12/2023) Immunizations No known immunizationsdocumented as of this [...] encounter Miscellaneous Notes * Telephone Encounter - Negin Huerta RN - 03/12/2023 2:28 PM EDT Please discharge the patient from [facility] ([facility]). Device(s)/IVR to be discontinued: post discharge IVR calls due to end of BAY period.. Thank you. * Telephone Encounter - Negin Huerta RN - 03/12/2023 2:27 PM EDT Disenrolled from post discharge IVR calls. * Telephone Encounter - Fern Marie moisture tester - 03/11/2023 1:51 PM EDT P advising that no prior auth needed at this time for LORAZEPAM 0.5 MG TABLET. The pharmacy has apaid claim. Aborting Request. EOC: [id number]. Thank you, Fern Marie [facility] Dimension Stone Quarry Supervisor Dye Worker [facility] ([facility])(formerly Telepharmacy) 03/11/2023,1:52 PM * Telephone Encounter - Lakshmi Rutledge LPN - 03/11/2023 9:48 AM EDT Completed through [facility] * Telephone Encounter - Negin Huerta RN - 03/09/2023 1:10 PM EDT I have never done a prior auth, the office nurses usually do them..... * Telephone Encounter - Ele Alford DO - 03/09/2023 12:32 PM EDT See other encounter. A prior auth needs done, since she is on oxycodone (for her cancer pain) and lorazepam (for the anxiety related to her cancer diagnosis). We need to do the prior auth. Can you help with it? * Telephone Encounter - Negin Huerta RN - 03/09/2023 11:41 AM EDT Patient needs something for her anxiety. Lorazepam 0.5 mg was ordered at discharge, but patient states the insurance wouldn't pay for it/cover it. Asking if there is something else you can order that the insurance will pay for? Please advise..... documented in this encounter Plan of Treatment Upcoming Encounters Date Type Department Care Team (Late st Contact Info) Description 03/13/2023 11:10 AM EDT Office Visit Family Medicine [address] [place] [address] Ele Alford DO [address] [place] [address] [place] [address] 03/16/2023 11:30 AM EST Cardiac Studies Cardiac Studies, [facility] [address] [place] [address] 03/24/2023 10:00 AM EST Office Visit Cardiology, [facility] [address] [place] [address] Rosales Holman, DO [address] [place] [address] 07/15/2023 2:30 PM EST Office Visit Family Medicine [address] [place] [address] [place] [address] Health Maintenance Due Date Last Done Comments DISCUSS TOBACCO CESSATION (REFER TO SMARTSET #4934) 1945 COVID-19 Vaccine (#1) 06/26/1946 Pneumococcal Vaccine: [...] Agents on File Name Relationship Healthcare Agent [facility] p Communication Jennifer Baels Adult Child Health Care Repr esentative (appointed verbally by patient or by statute hierarchy) Sergey Santana Adult Child Health Care Repr esentative (appointed verbally by patient or by statute hierarchy) Care Teams Natural Resource Specialist Relationship Specialty Start Date End Date Ele Alford DO [address] [place] [address] [place] [phone] PCP - General Internal Medicine 01/07/23 documented as of this encounter
--- OUTSIDE RECORDS SUMMARY | 2023-03-19 09:45 | External Medical Summary | Summary of Care ---
Author Name Unknown Organization [facility] Address [address] [facility] [place] [address] Phone [phone] Care Team Providers Care Traffic Control Supervisor Name Role Phone Ele Alford DO Primary Care Provider [phone] Reason for Visit * Reason Onset Date Comments Follow Up 03/10/2023 Encounter Details Date Type Department Care Team (Late st Contact Info) Description 03/10/2023 Telephone Cardiology, [facility] [address] [place] [address] Rosales Holman DO [address] [place] [address] Follow Up Allergies Active Allergy Reactions Criticality Noted Date [...] 03/27/2004 COPD, moderate 03/27/2004 Overview: FEV1/FVC 56%;L LCT087%; 23% IMPROVEMENT IN UKK89-66 WITH BRONCHODILATOR GENERAL OSTEOARTHROSIS 12/27/2001 Asthma, allergic [...] encounter Miscellaneous Notes * Telephone Encounter - Sade Walker OSA - 03/12/2023 10:19 AM EDT Echo scheduled for 03/16. * Telephone Encounter - Rosales Holman DO - 03/11/2023 9:09 AM EDT Cardiology nursing: Please fax records of patient's recent hospital stay at [facility] to Dr. Naqvi's office, [place] / [facility], at [facility]. Rosales Holman DO * Telephone Encounter - Rosales Holman DO - 03/10/2023 4:04 PM EDT Patient had undergone recent pericardiocentesis performed by Dr. Ken Ndiaye of CT surgery at [facility] on 03/06/2023. Patient is scheduled for follow-up with the undersigned on 03/24/2023. Please reschedule her echocardiogram that had been canceled since she was already hospitalized, to be performed in conjunction with her visit with me on 03/24. Rosales Holman DO documented in this encounter Plan of Treatment Upcoming Encounters Date Type Department Care Team (Late st Contact Info) Description 03/13/2023 11:10 AM EDT Office Visit Family Medicine [address] [place] [address] Ele Alford DO [address] [place] [address] [place] [address] 03/16/2023 11:30 AM EST Cardiac Studies Cardiac Studies, [facility] [address] [place] [address] 03/24/2023 10:00 AM EST Office Visit Cardiology, [facility] [address] [place] [address] Rosales Holman, [address] [place] [address] 07/15/2023 2:30 PM EST Office Visit Family Medicine [address] [address] Ele Alford, [address] [place] [address] Health Maintenance Due Date Last Done Comments DISCUSS TOBACCO CESSATION (REFER TO SMARTSET #9819) 1945 COVID-19 Vaccine (#1) 06/26/1946 Pneumococcal Vaccine: [...] patient or by statute hierarchy) Care Teams Traffic Control Supervisor Relationship Specialty Start Date End Date Ele Alford DO [address] [place] [address] [place] [address] PCP - General Internal Medicine 01/07/23 documented as of this encounter
--- OUTSIDE RECORDS SUMMARY | 2023-03-19 09:45 | External Medical Summary | Summary of Care ---
Author Name Unknown Organization [facility] Address [address] [place] [address] Phone [phone] Care Team Providers Care Grades 9 Thru 12 Visiting Teacher Name Role Phone Ele Alford Primary Care Provider + [phone] Encounter Details Date Type Department Care Team (Late st Contact Info) Description 03/09/2023 Health AideWeb Site Administrator Medicine [address] [address] Negin Huerta, RN [address] [place] [address] Medical home patient encounter*; Hospital [...] 03/27/2004 COPD, moderate 03/27/2004 Overview: FEV1/FVC 56%;L [id number]%; 23% IMPROVEMENT IN DWX40-26 WITH BRONCHODILATOR GENERAL OSTEOARTHROSIS 12/27/2001 Asthma, allergic [...] Huerta RN - 03/09/2023 11:32 AM EDT Health Aide Progress Note: Date: 03/09/23 Assigned Patient Tier: [...] No Is this call for a hospital, custodial or rehab facility discharge to home? Yes - patient was inpatient at [facility] from 03/06/23 to 03/08/23. Discharge dx: pericardial effusion, adenocarcinoma of right lung, cavitary lesion of lung, moderate COPD, allergic asthma, and tobacco use disorder. Operations/procedures: pericardiocentesis by Dr Ndiaye on 03/06/23. Medication Reconciliation: Medication Reconciliation completed: yes Review of Current goals: Discussed the following patient-centered CM goals with the patient during this discussion: -Prevention: Prevent admission/readmission -Status: At Risk - re-admitted to [facility] 03/06 to 03/08 for pericardial effusion. Had [...] or new/ uncontrolled pain and Referral to: [facility] for home visit, home safety assessment, [...] Choices Program 0 minutes spent in direct [id number] discussion today, Negin Huerta, RN documented in this encounter Plan of Treatment Upcoming Encounters Date Type Department Care Team (Late st Contact Info) Description 03/13/2023 11:10 AM EDT Office Visit Family [address] [address] Ele Alford, [address] [place] [address] 03/24/2023 10:00 AM EST Office Visit Cardiology, [facility] [address] [place] [address] Rosales Holman [address] [place] [address] 07/15/2023 2:30 PM EST Office Visit Family [address] [phone] [address] [place] [address] Health Maintenance Due Date Last Done Comments DISCUSS TOBACCO CESSATION (REFER TO SMARTSET #6513) 1945 COVID-19 Vaccine (#1) 06/26/1946 Pneumococcal Vaccine: [...] patient or by statute hierarchy) Care Teams Grades 9 Thru 12 Visiting Teacher Relationship Specialty Start Date End Date Ele Alford DO [address] [place] [address] [place] [address] PCP - General Internal Medicine 01/07/23 documented as of this encounter
--- OUTSIDE RECORDS SUMMARY | 2023-03-19 09:45 | External Medical Summary | Summary of Care ---
Author Name Unknown Organization [facility] Address [address] [place] [address] Phone [phone] Care Team Providers Care Art Framing Manager Name Role Phone Rocío Eleedwina Olguin Primary Care Provider [phone] Reason for Visit * Reason Onset Date Comments case management 03/09/2023 Medication Problem 03/09/2023 Encounter Details Date Type Department Care Team (Latest Contact Info) Description 03/09/2023 Marketing Information Coordinator Telephone Family Medicine [address] [address] Negin Huerta, RN [address] [place] [address] case management; Medication Problem Allergies Active Allergy Reactions Criticality Noted Date [...] 03/27/2004 COPD, moderate 03/27/2004 Overview: FEV1/FVC 56%;L WHJ122%; 23% IMPROVEMENT IN SZW21-08 WITH BRONCHODILATOR GENERAL OSTEOARTHROSIS 12/27/2001 Asthma, allergic [...] encounter Miscellaneous Notes * Telephone Encounter - Lakshmi Rutledge LPN [...] Description 03/13/2023 11:10 AM EDT Office Visit [address] [address] Ele Alford DO [facility] [place] [address] 03/24/2023 10:00 AM EST Office Visit Cardiology, [facility] [address] [place] [address] Rosales Holman, DO [address] [place] [address] 07/15/2023 2:30 PM EST Office Visit Family Medicine [address] [place] [phone] [place] [address] Health Maintenance Due Date Last Done Comments DISCUSS TOBACCO CESSATION (REFER TO SMARTSET #1254) 1945 COVID-19 Vaccine (#1) 06/26/1946 Pneumococcal Vaccine: [...] Agents on File Name [facility] Communication Jennifer Bales Adult Child Health Care Repr esentative (appointed verbally by patient or by statute hierarchy) Sergey Santana Adult Child Health Care Repr esentative (appointed verbally by patient or by statute hierarchy) Care Teams Art Framing Manager Relationship Specialty Start Date End Date Ele Alford DO [address] [place] [address] [place] [address] PCP - General Internal Medicine 01/07/23 documented as of this encounter
--- OUTSIDE RECORDS SUMMARY | 2023-03-19 09:45 | External Medical Summary | Summary of Care ---
Author Name Unknown Organization [facility] Address [address] [place] [address] Phone [phone] Care Team Providers Care Farmer Cash Grain Name Role Phone Ele Alford DO Primary Care Provider + [phone] Reason for Visit * Reason Onset Date Comments case management 03/09/2023 Medication Problem 03/09/2023 Medication Pre-auth 03/09/2023 LORAZEPAM 0. 5 MG TABLET Encounter Details Date Type Department Care Team (Latest Contact Info) Description 03/09/2023 Senior Php Developer Telephone Family Medicine [address] [address] Negin Huerta, RN [address] [place] [address] case management; Medication Problem; Medic... [...] 03/27/2004 COPD, moderate 03/27/2004 Overview: FEV1/FVC 56%;L WXA050%; 23% IMPROVEMENT IN JVY06-71 WITH BRONCHODILATOR GENERAL OSTEOARTHROSIS 12/27/2001 Asthma, allergic [...] encounter Miscellaneous Notes * Telephone Encounter - Fern Marie PHARM Tech - 03/11/2023 1:51 PM EDT P advising that no prior auth needed at this time for LORAZEPAM 0.5 MG TABLET. The pharmacy has apaid claim. Aborting Request. EOC: [id number]. Thank you, Fern Marie [facility] Conveyor Tender Sex Crimes Detective [facility] ([facility]PS)(formerly Telepharmacy) 03/11/2023,1:52 PM * Telephone Encounter - Lakshmi Rutledge LPN - 03/11/2023 9:48 AM EDT Completed through [facility] [employer] * Telephone Encounter - Negin Huerta RN [...] 11:10 AM EDT Office Visit Family Medicine [address] [address] [address] [place] [address] 03/24/2023 10:00 AM EST Office Visit Cardiology, [facility] [address] [place] [address] Rosales Holman [address] [place] [address] 07/15/2023 2:30 PM EST Office Visit Family [address] [place] [address] Ele Alford [address] [place] [address] Health Maintenance Due Date Last Done Comments DISCUSS TOBACCO CESSATION (REFER TO SMARTSET #0773) 1945 COVID-19 Vaccine (#1) 06/26/1946 Pneumococcal Vaccine: [...] patient or by statute hierarchy) Care Teams Farmer Cash Grain Relationship Specialty Start Date End Date Ele Alford DO [address] [place] [address] [place] [address] PCP - General Internal Medicine 01/07/23 documented as of this encounter
--- OUTSIDE RECORDS SUMMARY | 2023-03-19 09:45 | External Medical Summary | Summary of Care ---
Author Name Unknown Organization [facility] Address [address] [facility] [place] [address] Phone [phone] Care Team Providers Care Supervisor Residential Name Role Phone Ele Alford DO Primary Care Provider + [phone] Reason for Visit * Reason Onset Date Comments Medication Problem 03/09/2023 Lorazepam not covered by insurance. Encounter Details Date Type Department Care Team (Late st Contact Info) Description 03/09/2023 Telephone Family Medicine [address] [address] Ele Alford DO [address] [place], [place] [address] [address] Medication Problem (Lorazepam not covered ... Allergies Active Allergy Reactions Criticality Noted Date [...] PUFFS BY MOUTH DAILY 0 02/18/2023 Active Naloxone HCL FOR CAREGIVER 0.4 MG/ML IJ SOLN Inject 1 mL into outer thigh for suspected opioid overdose. Seek medical help immediately. 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 Please submit the prior auth. The oxycodone is a new medicine being utilized for cancer pain. The lorazepam is for anxiety related to her new cancer diagnosis. I can prescribe naloxone as well, due to concern for risk of overdose. * Telephone Encounter - Ele Alford DO - 03/09/2023 10:46 AM EDT Can they afford the out of pocket cost? It is not usually that expensive. I doubt there is an alternative medicine that will be cheaper/as effective. Do we need to do a prior auth? Also, I would recommend a referral to palliative medicine for symptom management - pain, anxiety, etc. Is she agreeable? * Telephone Encounter - Chula Aguilar LPN - 03/09/2023 9:27 AM EDT Patient's son, Sergey calling regarding the patients Lorazepam that was prescribed on 02/13. The insurance won't pay for the medication. He is asking if there is a different medication that can be prescribed. Patient is significantly stressed/anxious with her health conditions right now. Please advise. documented in this encounter Plan of Treatment Upcoming Encounters Date Type Department Care Team (Late st Contact Info) Description 03/13/2023 11:10 AM EDT Office Visit [address] [phone] Ele Alford [address] [place] [address] 03/24/2023 10:00 AM EST Office Visit Cardiology, [facility] [address] [place] [address] Rosales Holman DO [address] [place] [address] 07/15/2023 2:30 PM EST Office Visit [address] [address] Ele Alford [address] [place] [address] Health Maintenance Due Date Last Done Comments DISCUSS TOBACCO CESSATION (REFER TO SMARTSET #7501) 1945 COVID-19 Vaccine (#1) 06/26/1946 Pneumococcal Vaccine: [...] Name Relationship Healthcare Agent Relationshi p Communication Jenniefr Bales Adult Child Health Care Repr esentative (appointed verbally by patient or by statute hierarchy) Sergey Santana Adult Child Health Care Repr esentative (appointed verbally by patient or by statute hierarchy) Care Teams Supervisor Residential Relationship Specialty Start Date End Date Ele Alford DO [address] [place] [address] [place] [address] PCP - General Internal Medicine 01/07/23 documented as of this encounter
--- OUTSIDE RECORDS SUMMARY | 2023-03-19 09:45 | External Medical Summary | Summary of Care ---
Author Name Unknown Organization [facility] Address [address] [facility] [place] [address] Phone [phone] Care Team Providers Care Postal Carrier Name Role Phone Ele Alford DO Primary Care Provider + [phone] Reason for Visit * Reason Onset Date Comments Medication Problem 03/09/2023 Lorazepam not covered by insurance. Encounter Details Date Type Department Care Team (Late st Contact Info) Description 03/09/2023 Telephone Family Medicine [address] [address] Ele Alford DO [address] [place], [place] [address] [address] Medication Problem (Lorazepam not covered ... [...] suspected opioid overdose. Seek medical help immediately. [email or web address] 1 mL 3 03/09/2023 03/10/2023 Active documented [...] 03/27/2004 COPD, moderate 03/27/2004 Overview: FEV1/FVC 56%;L [id number]%; 23% IMPROVEMENT IN EBO49-62 WITH BRONCHODILATOR GENERAL OSTEOARTHROSIS 12/27/2001 Asthma, allergic [...] EDT Arlene (pharmacist) called and spoke with [facility] - it needs a prior auth because [...] Team (Late st Contact Info) Description 03/11/2023 11:00 AM EDT Cardiac Studies Cardiac Studies, [facility] [address] [place] [address] 03/13/2023 11:10 AM EDT Office Visit [address] [address] [address] [place] [address] 03/24/2023 10:00 AM EST Office Visit Cardiology, [facility] [place] [address] Rosales Holman, [address] [place] [address] 07/15/2023 2:30 PM EST Office Visit [address] [address] Ele Alford, [address] [place] [address] Health Maintenance Due Date Last Done Comments DISCUSS TOBACCO CESSATION (REFER TO SMARTSET #0394) 1945 COVID-19 Vaccine (#1) 06/26/1946 Pneumococcal Vaccine: [...] patient or by statute hierarchy) Care Teams Postal Carrier Relationship Specialty Start Date End Date Ele Alford DO [address] [place] [address] [place] [address] PCP - General Internal Medicine 01/07/23 documented as of this encounter
[2023-03-19] MEDS: predniSONE 10 MG TABLET PO SCH (09:46)
[2023-03-19] MEDS: METOPROLOL TARTRATE 25 MG TAB PO SCH (09:46)
--- OUTSIDE RECORDS SUMMARY | 2023-03-19 09:46 | External Medical Summary | Summary of Care ---
Author Name Unknown Organization [facility] Address [address] [place] [address] Phone [phone] Care Team Providers Care Airline Reservation Agent Name Role Phone Ele Alford DO Primary Care Provider + [phone] Reason for Referral * Evaluate & Treat - Unlimited Visits (Within 10 days (routine)) - Authorized Specialty Diagnoses / Procedures Referred By Contac t Referred To Contact HOME CARE / Home Care Diagnoses Adenocarcinoma of right lung (HCC) Pericardial effusion Ele Alford DO [address] [place] [address] [place] [id number] Referral ID Status Reason Start Date Expiration Date Visits Requested Visits Authorized [id number] Authorized Specialty Services Required 3 [phone] Question Answer Referral Priority Within 10 days (routine) Where should this appointment be scheduled? External Comments Documentation of [id number] Encounter Addendum Patient Name: Lynette Santana I certify that this patient is under my care and that I, or a nurse practitioner or physician's assistant director of admissions working with me, had a [id number] encounter that meets the physician wcti-wr-lmux encounter requirements with this patient on: 02/13/23 The encounter with the patient was in whole, or in part, for the following medical condition, which is the primary reason for home health care (List medical condition): Wound care I certify that, based on my findings, the following services are medically necessary home health services: Nursing To provide the following care/treatments: (All hospitalists not following the patient after discharge should complete this section): Monitoring of vital signs/pain/respiratory status s/p recent lung cancer diagnosis and pericardiocentesis. Primary Care Physician to follow home care plan of care after discharge: Ele Alford My clinical findings support the need for the above services because: recent hospitalization x 2, new lung cancer diagnosis, pericardial effusion Further, I certify that my clinical findings support that this patient is homebound (i.e. Absences from home require considerable and taxing effort and are for medical reasons or [employer] services or infrequently or of short duration when for other reason) because: Requires assistance to leave the home Physician Signature: Date of Signature: Physician Printed Name: Ele Alford DO Reason for Visit * Reason Onset Date Comments Advice 03/09/2023 Encounter Details Date Type Department Care Team (Late st Contact Info) Description 03/09/2023 Telephone Family Medicine [address] [phone] Ele Alford DO [address] [place] [address] [place] [address] Advice Allergies Active Allergy Reactions Criticality Noted Date [...] PUFFS BY MOUTH DAILY 0 02/18/2023 Active CENTRUM OR TABS 1 TABLET DAILY [...] 03/27/2004 COPD, moderate 03/27/2004 Overview: FEV1/FVC 56%;L IPV134%; 23% IMPROVEMENT IN [id number] WITH BRONCHODILATOR GENERAL OSTEOARTHROSIS 12/27/2001 Asthma, allergic [...] encounter Miscellaneous Notes * Telephone Encounter - Rubin Julien OSA - 03/09/2023 11:19 AM EDT I faxed the Home Health referral to [place] [phone] * Telephone Encounter - Ele Alford DO - 03/09/2023 10:43 AM EDT Home health referral placed. Please fax to [place]. * Telephone Encounter - Chula Aguilar LPN - 03/09/2023 9:09 AM EDT Spoke with patients son, Sergey. Patient was in [place] over the weekend (03/06-03/08). Patient had a echocardiogram done on 03/04, on 03/06 Dr Ndiaye advised [facility]. She had over a liter of fluid removed from around her heart. Creation pericardial window procedure done. Sergey is monitoring the dressing where the chest tube was. Keeping clean and dry. Patient was having pain across her shoulders and upper back last evening, she did take the Oxycodone 5mg with relief. They were giving her this in [facility] and she tolerated it. She still has 8 pills leftfrom her previous script and is going to take this as needed. Patient scheduled with PCP on 03/13 for HD follow up. Patient see's Dr. Cooper ([facility]) on 03/11. Sergey is requesting a referral to Home Health. He would like the referral to go to [facility] please. * Telephone Encounter - Eleanor Herrera OSA - 03/09/2023 9:08 AM EDT Reason for patient's call: wants to speak to nurse about questions of home health Caller was transferred to [facility] at the nurse line. documented in this encounter Plan of Treatment Upcoming Encounters Date Type Department Care Team (Late st Contact Info) Description 03/11/2023 11:00 AM EDT Cardiac Studies Cardiac Studies, [facility] [address] [place] [address] 03/13/2023 11:10 AM EDT Office Visit Family Medicine [address] [phone] Ele Alford [address] [place] [id number] 03/24/2023 10:00 AM EST Office Visit Cardiology, [facility] [address] [place] [address] [place], [address] [facility] [place] [address] 07/15/2023 2:30 PM EST Office Visit Family Medicine [address] [phone] [address] [place] [address] Scheduled Referrals Name Type Priority Associated Diagnoses Orde r Schedule HOME HEALTH REFERRAL OP Referral Within 10 days (routine) Adenocarcinoma of right lung (HCC) Pericardial effusion Ordered: 03/09/2023 Health Maintenance Due Date Last Done Comments DISCUSS TOBACCO CESSATION (REFER TO SMARTSET #[id number]) 1945 COVID-19 Vaccine (#1) 06/26/1946 Pneumococcal Vaccine: [...] as of this encounter Visit Diagnoses Diagnosis Adenocarcinoma of right lung (HCC)- Primary Pericardial effusion Unspecified disease of pericardium documented in this encounter Advance Directives Latest [...] patient or by statute hierarchy) Care Teams Airline Reservation Agent Relationship Specialty Start Date End Date Ele Alford DO [address] [place] [address] [place] [id number] PCP - General Internal Medicine 01/07/23 documented as of this encounter
--- OUTSIDE RECORDS SUMMARY | 2023-03-19 09:46 | External Medical Summary | Summary of Care ---
Author Name Unknown Organization [facility] Address [address] [place] [address] Phone [phone] Care Team Providers Care Venue Manager Name Role Phone Ele Alford Primary Care Provider [phone] Reason for Visit * Auth/Cert Specialty Diagnoses / Procedures Referred By Willy t Referred To Contact Diagnoses Pericardial effusion Pericardial effusion [I31.39] Procedures INCISION OF HEART SAC FOR DRAINAGE CREATION PERICARDIAL WINDOW Referral ID Status Reason Start Date Expiration Date Visits Re quested Visits Authorized [id number] Encounter Details Date Type Department Care Team (Latest Contact Info) Description 03/06/2023 1:04 PM EDT - 03/08/2023 3:28 PM EDT Hospital Encounter CICU, Cardiac Intensive Care Unit [facility] 7TH Floor [address] [place] [address] Axel Contreras MD [address] [place] [address] Discharge Disposition: Home - Self Care Allergies Active Allergy Reactions Criticality Noted Date Comments No Known Drug Allergy 11/16/2000 documented as of this encounter (statuses as of 03/09/2023) Medications Medication Sig Dispensed Refills Start Date End Date Status CENTRUM OR TABS 1 TABLET DAILY 30 0 03/27/2004 Active polyethylene glycol 3350 (MIRALAX) 255 gram powderIndications :Chronic constipation Take 17 g by mouth daily. 1 Bottle 5 06/16/2018 Active Budesonide-Formot billy Fumarate 160-4.5 MCG/ACT Inhalation Aerosol (Symbicort)Indica tions:COPD, severe (HCC) Inhale 2 Puffs by mouth in the morning and 2 Puffs before bedtime. 10.2 g 11 05/26/2022 Active Albuterol Sulfate HFA 108 (90 Base) MCG/ACT Inhalation Aerosol SolutionIndicatio ns:COPD, moderate (HCC) Inhale 2 Puffs by mouth [...] PUFFS BY MOUTH DAILY 0 02/18/2023 Active Amoxicillin-Pot Clavulanate 875-125 MG Oral Tablet (Augmentin) Take 1 Tablet by mouth in the morning and 1 Tablet before bedtime. Do all this for 10 days. 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, severity to be determined 03/27/2004 COPD, moderate 03/27/2004 Overview: FEV1/FVC 56%;L SDG451%; 23% IMPROVEMENT IN RQF26-24 WITH BRONCHODILATOR GENERAL OSTEOARTHROSIS 12/27/2001 Asthma, allergic [...] Day Cigarettes 0.3 57 Smokeless Tobacco: Never Tobacco Cessation:Ready to Q uit: No; Counseling Given: Not Answered Comments:5 cigs a day Alcohol Use Standard [...] on file documented as of this encounter Last Filed Vital Signs Vital Sign Reading Time Taken Comments Blood Pressure 107/51 03/08/2023 12:00 PM EDT Pulse 95 03/08/2023 12:00 PM EDT Temperature 36.1 C (97 F) 03/08/2023 12:00 PM EDT Respiratory Rate 21 03/08/2023 8:00 AM EDT Oxygen Saturation 93% 03/08/2023 12:00 PM EDT Inhaled Oxygen Concentration - - Weight 47 kg (103 lb 11.2 oz) 03/08/2023 4:00 AM EDT Height - - Body Mass Index 19.59 02/13/2023 11:11 AM EDT documented in this encounter Functional Status Functional Status Response [...] No 03/06/2023 documented as of this encounter Discharge Summaries * Jane Minor PA-C - 03/08/2023 11:25 AM EDT [address] [id number] Admission Date: 03/06/2023 Discharge Date: 03/08/2023 DISCHARGE DIAGNOSES: Active Hospital Problems Diagnosis *Principal Diagnosis - Pericardial effusion Adenocarcinoma of right lung (HCC) Cavitary lesion of lung COPD, moderate (HCC) Asthma, allergic Tobacco use disorder Resolved Hospital Problems No resolved problems to display. Other Significant Diagnoses: none CONDITION ON DISCHARGE: stable Cognition: normal DISPOSITION ON DISCHARGE: home FOLLOW-UP: Future Appointments Appt Date/Time Provider Department 03/11/2023 11:00 AM ECHO TECH3 [facility]/24/[facility] 10:00 AM Rosales Holman, Cardiology, [facility] 07/15/2023 2:30 PM Ele Alford DO Family Medicine [facility] Outpatient testing already scheduled: None Outpatient testing that needs to be arranged: None Inpatient test results pending: None MEDICATIONS ON DISCHARGE: MEDICATION UPDATES AT DISCHARGE CONTINUE taking these medications INSTRUCTIONS Acetaminophen 500 MG Tablet Commonly known as: Tylenol Take 3 Tablets by mouth 2 times a day as needed for Pain, Moderate. albuterol HFA 108 (90 BASE) MCG/ACT inhaler Inhale 2 Puffs by mouth every 4 hours as needed for Shortness of Breath. Budesonide-Formoterol 160-4.5 MCG/ACT inhaler Commonly known as: Symbicort Inhale 2 Puffs by mouth in the morning and 2 Puffs before bedtime. Ibuprofen 200 MG Tablet Commonly known as: Motrin 2 Tablets. Metoprolol Tartrate 25 MG Tablet Commonly known as: Lopressor Take 1 Tablet by mouth in the morning and 1 Tablet before bedtime. Polyethylene Glycol 3350 powder Commonly known as: MiraLax Take 17 g by mouth daily. Spiriva Respimat 2.5 MCG/ACT Generic drug: Tiotropium [place] Monohydrate INHALE 2 PUFFS BY MOUTH DAILY STOP taking these medications amoxicillin-clavulanate 875-125 MG per Tablet Commonly known as: Augmentin CONTINUE taking these medications but follow up with your Primary Care Physician (PCP). INSTRUCTIONS Centrum Tablet 1 TABLET DAILY LORAzepam 0.5 MG Tablet Commonly known as: Ativan Take 1 Tablet by mouth every 8 hours as needed for Anxiety. ALLERGIES: No known drug allergy INSTRUCTIONS: Activity: As tolerated Diet: normal diet Code status (this admission): No Code Discussion of adv directives occurred with - adult: Patient Indwelling devices: none ADMISSION HISTORY & PHYSICAL EXAM (focused): "HPI: Lynettetate Santana is a 77 year old femalem smoker with past medical history significant for recently diagnosed right lung adenocarcinoma, COPD, chronic respiratory failure with hypoxia, and active tobacco use who presents for evaluation of pericardial effusion. She was admitted approximately 1 month ago to [facility] for chest pain at which time she underwent lung biopsy that was positive for adenocarcinoma. She was also noted to have a small pericardial effusion. On repeat TTE Thursday03/04/23, she was noted to have increased pericardial effusion. During heradmission to [facility], she did not report having significant dyspnea, however, she now cannot even walkacross a room without resting due to severe dyspnea. She reports + dysphagia, SOB, now O2 dependant (3L) since a month ago. She had a PET scan 2 weeks ago. Of note, she has an appointment with an oncologist at [facility] on 03/11/23. PHYSICAL EXAM: General: beat up Heart Exam: regular rate and rhythm Lungs: scattered rhonchi - equal bilaterally Abdominal Exam: abdomen soft, non-tender, no abnormal masses, and no hepatosplenomegaly Extremities: warm and dry Incision: pericardiostomy incision C/D/I Neurological: alert Pulses: dorsalis pedis" HOSPITAL COURSE (focused): The patient was admitted for moderate-sized pericardial effusion with increasing dyspnea and underwent below noted procedure on 03/06/[address] Contreras. There were no major intra-operative issues. She was transferred immediately to the CICU in stable condition. Pericardial drain was removed without issue on POD #2. CT Chest was completed after drain removal to serve as baseline exam should symptoms return and/or the fluid reaccumulate. She remained on her baseline 3L NCO2 throughout her hospitalization. She had some issues with dysphagia and eating and speech consult was offered, however, patient and family declined since the dysphagia has been an ongoing issue since her cancer diagnosis.She progressed well and was able to ambulate around the unit. She was stable for discharge to home on POD #2 (03/08/23). EF = 55% Operations & Procedures: Pericardiocentesis Complications: none significant SIGNIFICANT RESULTS: Vital Signs (last recorded): Most Recent Systolic BP: 107 mmHg (03/08/23 1200) Most Recent Diastolic BP: 51 mmHg (03/08/23 1200) Pulse: 95 (03/08/23 1200) Resp: 21 (03/08/23 0800) Most Recent Temperature: 36.11 C (03/08/23 1200) Weight: 47 kg (103 lb 11.2 oz) (03/08/23 0400) SpO2: 93 % (03/08/23 1200) O2 flow rate: 3 L/MIN (03/08/23 1200) Labs: CHEMISTRY: BUN, Creatinine, GFR Estimated, Sodium, Potassium, Chloride, Carbon Dioxide, Glucose, Calcium (see below for most recent value): Lab Results Component Value Date/Time BUN 28 (H) 03/08/2023 05:17 AM BUN 22 (H) 12/26/2019 08:06 AM CREAT 0.9 03/08/2023 05:17 AM CREAT 0.9 12/26/2019 08:06 AM GFRESTIMATED >60.0 12/26/2019 08:06 AM NA 130 (L) 03/08/2023 05:17 AM NA 143 12/26/2019 08:06 AM POTASSIUM 4.6 03/08/2023 05:17 AM POTASSIUM 3.9 03/06/2023 02:48 PM POTASSIUM 4.4 12/26/2019 08:06 AM CL 89 (L) 03/08/2023 05:17 AM CL 103 12/26/2019 08:06 AM CO2 30 03/08/2023 05:17 AM CO2 29 12/26/2019 08:06 AM CA 9.0 03/08/2023 05:17 AM CA 9.4 12/26/2019 08:06 AM BLOOD COUNT: WBC, Hgb, Platelets (see below for most recent value): Lab Results Component Value Date/Time WBC 13.46 (H) 03/08/2023 05:17 AM WBC 8.41 06/16/2018 01:29 PM HGB 12.4 03/08/2023 05:17 AM HGB 15.1 06/16/2018 01:29 PM PLT 294 03/08/2023 05:17 AM PLT 222 06/16/2018 01:29 PM IMAGING: CT Chest 03/08/2023: IMPRESSION: 1. Interval decrease in size of a now small pericardial effusion with expected pneumopericardium. 2. Limited evaluation of known malignancy given lack of intravenous contrast. Similar appearance ofa posterior right lower lobe consolidation compatible with known adenocarcinoma. 3. Redemonstrated mediastinal lymphadenopathy. 4. Additional chronic findings, as above. CONSULTS ORDERED: None REFERRING PHYSICIAN: Ref: AXEL CONTRERAS[[id number]] [address] [facility] [place] [id number] (office) [phone] (fax) PRIMARY CARE PROVIDER: PCP: Ele Alford [address] / [place] [id number] (office) [phone] (fax) Note: To contact a physician responsible for this patients hospital care, please call [facility] [phone]. Jane Minor PA-C 03/08/2023 2:31 PM documented in this encounter Discharge Instructions * Discharge Instr - AVS* Jane Minor PA-C - 03/08/2023 11:23 AM EDT Discharge Date: 03/08/2023 You may call of the department of Cardiothoracic Surgery at [phone] during businesshours for any questions or test results. After hours emergencies: Call [phone] and have the Cardiothoracic Surgery service paged. The information below provides you with the instructions and the list of medications you need to betaking following discharge from the hospital. If you have any questions, please ask before leaving.Please carry this letter with you when you see your doctor in the clinic. If you have questions, you can reach us at the numbers above. Brief summary of your inpatient care: Your stereotype caster, Dr. Holman, found a moderate-sized pericardial effusion, so you were admitted and underwent pericardiocentesis with Dr. Contreras. You had no major post-procedural issues, and the drain was removed on POD #2. Your doctors during this hospitalization included: Your primary diagnosis at discharge was pericardial effusion s/p pericardiocentesis. Inpatient test results pending: None Operations & Procedures: 03/06/23 - Pericardiocentesis Complications: none significant Advance Directive Documented: Advance Directive Does the Patient have an Advance Directive? No Diet: Normal diet Activity: As tolerated Driving: Don't drive until you are off narcotics for one full week and can walk normally and firmlyapply the brake without pain. Date you may return to work or school: N/A See your primary care physician (Ele Alford DO) in 1 week Follow-up with: Dr. Holman as scheduled on 03/24/23. No follow-up appointment with Dr. Contreras will be scheduled at this time, however, the office may contact you to set up a telephone visit at a later date. Routine wound/surgical site care: Soap and water, open to air. If skin glue present, some will peeloff on its own- you may peel it off completely in 1 week. Continue to wash over it daily. Remove any Band-Aids or dressing and CHANGE daily if needed. Watch for signs of infections: including increased redness, swelling, drainage, opening of either your sternal incision or leg incision, fever or chills. If this occurs call the office number above immediately and a surgeon or PA will see you immediately. Other Special Instructions: Home: No special instructions needed. If you feel suicidal or homicidal, please call the crisis hotline at [phone] ([phone]). documented in this encounter H&P Notes * Helen Amezquita PA-C - 03/06/2023 12:46 PM EDT HISTORY AND PHYSICAL EXAMINATION - [facility] Name: Lynette Santana Date: 03/06/2023 Time: 9:27 AM REFERRING PHYSICIAN: Rosales Holman DO PCP: Ele Alford DO BACCARAT MANAGER: Rosales Holman DO HPI: Lynette Santana is a 77 year old femalem smoker with past medical history significant for recently diagnosed right lung adenocarcinoma, COPD, chronic respiratory failure with hypoxia, and activetobacco use who presents for evaluation of pericardial effusion. She was admitted approximately 1 month ago to [facility] for chest pain at which time she underwent lung biopsy that was positive for adenocarcinoma. She was also noted to have a small pericardial effusion. On repeat TTE Thursday03/04/23, she was noted to have increased pericardial effusion. During heradmission to [facility], she did not report having significant dyspnea, however, she now cannot even walkacross a room without resting due to severe dyspnea. She reports + dysphagia, SOB, now O2 dependant (3L) since a month ago. She had a PET scan 2 weeks ago. Of note, she has an appointment with an oncologist at [facility] on 03/11/23 Past Medical History: Diagnosis Date AK (actinic keratosis) 12/27/2014 Asthma, allergic Asthma, severe persistent 02/04/2013 COPD, moderate (HCC) 03/27/2004 Per COPD Protocol #24. 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 1 Bottle 5 Budesonide-Formoterol Fumarate 160-4.5 MCG/ACT Inhalation Aerosol (Symbicort) Inhale 2 Puffs by mouth in the morning and 2 Puffs before bedtime. 10.2 g 11 Albuterol Sulfate HFA 108 (90 Base) MCG/ACT Inhalation Aerosol Solution Inhale 2 Puffs by mouth every 4 hours as needed for Shortness of Breath. 54 g 3 Metoprolol Tartrate 25 MG Oral Tablet (Lopressor) Take 1 Tablet by mouth in the morning and 1 Tablet before bedtime. 180 Tablet 3 Acetaminophen 500 MG Oral Tablet Take 3 Tablets by mouth 2 times a day as needed for Pain, Moderate. LORazepam 0.5 MG Oral Tablet (Ativan) Take 1 Tablet by mouth every 8 hours as needed for Anxiety. 30 Tablet 0 Ibuprofen 200 MG Oral Tablet (Motrin) 2 Tablets. Spiriva Respimat 2.5 MCG/ACT Inhalation Aerosol Solution INHALE 2 PUFFS BY MOUTH DAILY CENTRUM OR TABS 1 TABLET DAILY (Patient not taking: Reported on 03/06/2023) 30 0 No current facility-administered medications for this visit. ALLERGIES: No known drug allergy PAST MEDICAL HISTORY: Past Medical History: Diagnosis Date AK (actinic keratosis) 12/27/2014 Asthma, allergic Asthma, severe persistent 02/04/2013 COPD, moderate (HCC) 03/27/2004 Per COPD Protocol #24. 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 02/07/2015 Tobacco use disorder 12/27/2001 PAST SURGICAL HISTORY: Past Surgical History: Procedure Laterality Date COLONOSCOPY, DIAGNOSTIC (RECTUM) 03/01/2013 COLONOSCOPY FLEXIBLE PROXIMAL DIAGNOSTIC performed by Michael Taveras DO at ENDOSCOPY [facility] COLONOSCOPY, DIAGNOSTIC (RECTUM) 09/19/2013 diverticulosis, repeat 5 yrs/COLONOSCOPY FLEXIBLE PROXIMAL DIAGNOSTIC performed by Michael Taveras DO at ENDOSCOPY [facility] [address] CT ABD/PELVIS W WO IV CONTRAST AND W ORAL CONT 07/19/[address] PANCREAS W WO IV AND W ORAL CONTRAST 04/19/12 Mild biliary ductal dilatation and pancreatic ductal dilatation with suggestion of pancreatic divisum. No obstruction is seen, and the findings are likely secondary to ampullary dysfunction. However,a small ampullary mass cannot be fully excluded. CXR 2 VIEWS AP/PA & LATERAL 03/28/12 Persistent nodularity overlying the left hemithoracic base which does not specifically correlate with the marked location of the left nipple. Assuming the patient's prior chest radiographic studies remain unavailable, a CT scan of the chest is recommended. DENTAL SURGERY PROCEDURE NEC EGD, W/ENDOSCOPIC US 05/12/2012 UPPER GI ENDOSCOPY ENDOSCOPIC ULTRASOUND performed by Michael Taveras DO at OR [facility]--biopsies from esophagus showed mild inflammation REPAIR OF BLADDER NECK 2010 TOTAL ABD HYSTERECTOMY W/WO REMOVAL OF TUBE(S) 2010 ovaries in - prolapse - [facility] US ENDOSCOPIC 05/12/12 mucosal abnormality upper 1/3 esophagus, mild antral gastritis and doudenitis 2nd portion, pancreatic duct and liver normal US HEAD AND NECK 04/22/12 Multiple thyroid nodules SOCIAL HISTORY: Drug Use: never Social History Tobacco Use Smoking status: Every Day Packs/day: 0.25 Years: 57.00 Additional pack years: 0.00 Total pack years: 14.25 Types: Cigarettes Smokeless tobacco: Never Tobacco comments: 5 cigs a day Substance Use Topics Alcohol use: No Drug use: No FAMILY HISTORY: Family History Problem Relation Age of Onset Heart Disorder Mother Diabetes Mother Heart Disorder Father Arthritis Father Diabetes Brother Heart Disorder Brother Cancer Brother lung Cancer Sister breast Breast Cancer Sister Cancer Sister bone Breast Cancer Aunt (Paternal) REVIEW OF SYSTEMS: Constitutional: reports weight loss, denies fever, denies shaking chills, lost 3 lbs since she is not able to eat Eyes: denies double vision , denies blurred vision Ear, nose and throat: reports trouble swallowing, denies trouble swallowing, denies epistaxis Dental: upper partial Cardiac: denies chest pain, denies palpitations Vascular: no claudication Respiratory: dyspnea on exertion (ESPINOZA) Gastrointestinal: denies dysphagia, denies nausea, denies vomiting Genitourinary: denies dysuria, denies nocturia, denies hematuria Musculoskeletal: denies joint pain, denies joint deformities, denies chronic muscle pain Psychiatric: denies depression, denies anxiety Skin: denies rash, denies non-healing ulcers, denies jaundice Neurologic: denies trouble speaking, denies amaurosis fugax, denies syncope Endocrine: denies constant thirst, denies constant hunger, denies constant urinating Hematologic / Lymphatic: denies blood clotting problems, denies anemia, denies bruising Immunologic: denies exposure to hepatitis, denies exposure to TB CARDIOTHORACIC COMPLETE PHYSICAL EXAM: Most Recent Vital Signs: BP 102/62 (BP Site: Left Arm, BP Position: Sitting) | Pulse 98 | Wt 47.9 kg (105 lb 9.6 oz) | SpO2 94% Comment: on 3 L | BMI 19.95 kg/m | BSA 1.44 m PHYSICAL EXAM: STUDIES: TTE 03/04/2023: Interpretation Summary Limited study was ordered to reassess pericardial effusion A moderate to large circumferential pericardial effusion is noted. Greatest amount is at the left lateral aspect measuring 1.2 cm. Overt tamponade is not present however some hemodynamic significance is suspected The left ventricular cavity size is normal. The LV wall thickness is mildly increased (concentric). The qualitative LV ejection fraction is 65-69% (normal). The left ventricular diastolic function is mildly abnormal (grade I). There is aortic valve sclerosis without stenosis. Moderate tricuspid regurgitation is present. Normal IVC size and collapsability with sniff indicates a normal right atrial pressure of 3 mmHg. Moderate pulmonary hypertension is present. The estimated pulmonary artery systolic pressure is 50-55mm Hg. PET CT 02/25/2023: 1. Marked FDG uptake within the 4.7 cm cavitary right lower lobe mass consistent with primary bronchogenic carcinoma. 2. FDG avid mediastinal and probable right hilar adenopathy consistent with darrin spread of disease. No extrathoracic metastatic disease. 3. Slight decrease in extent of a 6.3 cm cavitary right upper lobe opacity with moderate FDG uptake. This favors a resolving infectious process however an additional neoplasm cannot be completely excluded and this should be assessed on follow-up exams. 4. No change in a small to moderate pericardial effusion. 5. Emphysema. Society of Thoracic Surgeons' Risk Score: STS site N/A IMPRESSION: 77 yo female with recently diagnosed right lung adenocarcinoma presenting with moderateto large circumferential pericardial effusion PLAN: -Admit to cardiac surgery service -Will discuss percutaneous options with interventional cardiology, and if none available, plan for pericardial window Helen Amezquita PA-C 03/06/2023 12:17 PM Associated attestation - Axel Contreras MD - 03/06/2023 1:27 PM EDT I have reviewed the advanced practitioner documentation and agree. I saw and evaluated the patient on date of service referenced in note and have performed the following medically appropriate historyand/or exam: 03/06/2023. 77 yo woman with progressive severe dyspnea, unable to walk across room at this point. New diagnosis of lung cancer, at least stage III, on admission to [facility] in late January. FNA of level 7 lymph node was positive for NSCLC consistent with metastatic adenocarcinoma of pulmonary origin. She had a small pericardial effusion at the time. TTE done 03/[address] Holman, moderate to large pericardial effusion is present. PET/CT 02/25 reviewed with her, son, and daughter in law- bulky mediastinal adenopathy is present compressing the esophagus but not airway and two mass lesions in rightlung. Brain MRI negative for metastasis. On exam, she is leaning forward to breath, appears uncomfortable. Scattered wheeze but equal breathsounds, RRR. We discussed that she has at least locally advanced lung cancer, and the pericardial effusion may be metastatic. The dyspnea is most likely related and appears clinical at or close to tamponade. I recommend emergent drainage due to risk of significant decompensation. Plan would be to place a percutaneous drain if accessible, if not then surgical drainage with pericardial window. Risks discussed include bleeding, injury to nearby structures like lung or liver, infection, and even . We discussed that there is a risk of recurrence with both procedures. She expressed understanding and provided consent. She did eat 3 bites of muffin at 1100, but she is at much higher risk for severe decompensation if drainage is delayed and the risk of aspiration is lower than that risk. Discussed with anesthesia team. We also discussed code status- she does not want resuscitation if cardiac arrest occurs after she recovers from the procedure. documented in this encounter Nursing Notes * David Thomas RN - 03/08/2023 3:05 PM EDT I have conducted the discharge appointment with the patient (ph: na) and family (ph: na) on 03/08/2023 at 3:05 PM. This discussion occurred bedside. Meds to beds offered: yes. The following post care is planned: PCP follow up. I encouraged the patient and/or family to call the hospital with any questions or concerns about the hospital admission. * David Thomas RN - 03/06/2023 5:37 PM EDT Dual Licensed Skin Assessment completed by David Thomas RN and Clinton Post RN. The patient is/has a N/A Skin Breakdown (includes non blanchable erythema): No * Diana Ann RN - 03/06/2023 5:35 PM EDT VIRTUAL RN [facility]-[address] [id number] Name: Lynette Santana Location: [facility] H752/A Date: 03/06/2023 Time: 5:35 PM I completed the Admission Navigator. The patient was in the hospital. I was in a private office space at a [facility] location. After connecting through [employer], the patient was identified by name and date of and / or wristband checked. Patient (or authorized legal account retention representative) was then in formed that this was a Virtual Nurse visit and was being conducted confidentially over secure lines. I used a headset and other methods to ensure confidentiality for the patient. Patient acknowledgedconsent and understanding of privacy and security of the Virtual Nurse visit. I presented the opportunity for the patient or authorized legal account retention representative to ask any questions regarding the visit today. The patient or authorized legal account retention representative agreed to participate. documented in this encounter OR Notes * OR Surgeon - Axel Contreras MD - 03/06/2023 2:43 PM EDT CARDIAC [place] [address] Date: 03/06/2023 Pre Operative Diagnosis: Pericardial Effusion Post Operative Diagnosis: same Procedure: Tube pericardiostomy Surgeon: Axel Contreras M.D. Assistants: Champ Cruz MD attending, Arlette May PAC Anesthesia: Monitored intravenous sedation with 10 ml of local anesthesia (0.25% bupivicaine) infiltrated in the incisions. Findings: 450 ml of bloody pericardial fluid Drains: 14F pericardial drain EBL: 5 ml Fluids: Adequate Urine: Not monitored Specimen: pericardial fluid for cytology Complications: None Condition: Patient was aroused from sedation and taken to the recovery room in a stable condition. INDICATIONS AND PERTINENT HISTORY: Lynette Santana is a patient with a pericardial effusion with a history of lung cancer and new, increasing pericardial effusion. She . Risks, benefits, and alternatives to this procedure were discussed thoroughly with the patient and/or their legal account retention representative during the pre-operative informed consent process. PROCEDURE IN DETAIL: The patient was seen and examined as appropriate in the preoperative holding area and the planned site of surgery was properly marked. In the operating room a "Time Out" was performed to properly verify the patient's identity, the planned operative procedure, and the planned operative site(s). Appropriate antibiotic prophylaxis was administered within one hour prior to the surgery. Venous thromboprophylaxis was accomplished using bilateral compression stockings and bilateral venous compression devices. The positioning was supine with the arms tucked on a padded arm board. All pressure points were comfortably padded and doubly inspected by the nursing and anesthesia team. After the induction of MAC by the anesthesia staff, the chest wall was prepped and draped widely asa sterile field. Ultrasound was performed, and the safest access window to drain the pericardial effusion was subxiphoid. The access site and planned tunnel track were anesthetized with local injection of 0.25% bupivicaine. A 22G needle was used to aspirate pericardial fluid. Using the Seldinger technique, an 20G needle and a micropuncture wire was advanced into the pericardial space. Agitated saline was flushed and confirmed intrapericardial location of the needle with ultrasound. An 0.035 wire was advanced, the tract was dilated and the catheter advanced easily. Agitated saline again confirmed intrapericardial placement by ultrasound. It was connected to a drainage system and 450 ml bloody fluid drained. Ultrasound showed resolution of the effusion. A suture was used to secure the catheter and sterile dressings applied. The patient was then awakened from sedation and taken to the recovery room in a stable condition, having suffered no apparent untoward event. My Fitness Worker was necessary throughout the procedure(s) for wire management. I understand that section 1842 (b)(7)(D) of the Social Security Act generally prohibits Medicare physician fee schedule payment for the services of [id number] in teaching hospitals when qualified residents are available to furnish such services. I certify that the services for which akashia darwin is claimed were medically necessary, and that no qualified resident was available to perform theservices. I further understand that these services are subject to post-payment review by the Medicare carrier. Axel Contreras M.D. [address] [address] (o) [phone] (f) documented in this encounter Miscellaneous Notes * Care Plan - David Thomas RN - 03/08/2023 3:04 PM EDT Clinical Goal(s): SPO2 > 92% (03/08/23 0800) Possible barriers to meeting goal(s)/advancing plan of care: Adequate for discharge Stability of the patient: Moderately stable - low risk of patient condition declining or worsening Summary regarding today's goal(s): Met: Patient maintained SPO2 > 92% throughout shift. Recommendations: Patient discharged. * Progress Notes - Post-Op Global - Champ Cruz MD - 03/08/2023 6:06 AM EDT PROGRESS NOTE - CARDIAC SURGERY [facility]-[address] [address] Name: Lynette Santana Location: [address] Date: 03/08/2023 Time: 6:08 AM OPERATION: Tube pericardiostomy SURGEON: Axel Contreras MD POD#: 2 PATIENT ISSUES/EVENTS: Subjectively feels that her breathing has improved. Small and bite size dietstarted with known hx of dysphagia. Refused speech eval. PHYSICAL EXAM: General: deconditioned Heart Exam: regular rate and rhythm Lungs: scattered rhonchi - equal bilaterally Abdominal Exam: abdomen soft, non-tender, no abnormal masses, and no hepatosplenomegaly Extremities: warm and dry Incision: pericardiostomy incision C/D/I Neurological: alert Pulses: dorsalis pedis CURRENT CORE CARDIAC MEDICATIONS: Beta Anand: yes ASA: no, explain -- no CAD Statin: no, explain -- no CAD and or hyperlipidemia FRANCISCA-Inhibitor / ARB: no, explain -- normal LVEF POSTOPERATIVE COMPLICATIONS: none ADDITIONAL PROCEDURES: none ASSESSMENT/PLAN: Cardiovascular -Rhythm NSR -WINE MANAGER lopressor 25 re-started -ASA and statin not indicated -arterial line removed 03/07 -pericardial drain put out 10 mL overnight. Will remove today. -telemetry alarming for ST elevations 02/09. EKG obtained - read acute AZ (diffuse ST elevations likely related to effusion), CKMBs trended (2.5, 2.9, and 2.5) Pre op: -was admitted to [facility] for chest pain and underwent lung biopsy that was positive for adenocarcinoma. She was also noted to have a small pericardial effusion. TTE 03/04 revealed increased pericardial effusion. She later followed up with Dr. Contreras via telemedicine. -pre-op EF 55% -WINE MANAGER lopressor 25 Pulmonary -currently on 3L NC -morning chest x ray pending -Pulm toilet -WINE MANAGER inhalers resumed -hx of active tobacco use, uses 3.5L of O2 at home -also hx of right lung adenocarcinoma, COPD, asthma, chronic respiratory failure with hypoxia GI- -Small and bite size diet started with known hx of dysphagia. Boost added. Patient refused speech evaluation -Bowel regimen -GI prophylaxis Endocrine- -no history of diabetes or thyroid disorders - -pre-op renal function w/n/l -voiding -was given 40 IV lasix 03/07 due to high K. Hold further diuresis for now Hematology -heparin for DVT prophylaxis -Hemoglobin and Platelets stable Infectious disease -WBC 18.81 Afebrile -did not have urine culture or staph PCR prior to admission -recently was treated with Augmentin for suspected sinus infection ( 01/24) Neuro- -intact -prn ativan for anxiety -patient is a no code Plan Remains in NSR overnight. WINE MANAGER lopressor 25 resumed Tube pericardiostomy drain put out 10mL overnight. Will remove today CKMBs obtained yesterday for ST elevations on EKG and were w/n/l On 3L NC (uses 3.5L at home). WINE MANAGER inhalers resumed Holding further diureses Plan is home Thursday Chastity Kaufman PA-C ATTENDING STAFF I have seen and examined the patient on 03/08/2023. Patient feeling better this morning. Pain and shortness of breath improving. Pericardial drain output decreased and thin/serous. - Remove pericardial drain - CT chest to assess pericardial space - Possible discharge home today Champ Cruz MD * Progress Notes - Post-Op Global - Champ Cruz MD - 03/07/2023 5:10 AM EDT PROGRESS NOTE - CARDIAC SURGERY [facility] [address] Name: Lynette Santana Location: [facility] H752/A Date: 03/07/2023 Time: 5:14 AM OPERATION: Tube pericardiostomy SURGEON: Axel Contreras MD POD#: 1 PATIENT ISSUES/EVENTS: stable interval. Patient is a no code. PHYSICAL EXAM: General: beat up Heart Exam: regular rate and rhythm Lungs: scattered rhonchi - equal bilaterally Abdominal Exam: abdomen soft, non-tender, no abnormal masses, and no hepatosplenomegaly Extremities: warm and dry Incision: pericardiostomy incision C/D/I Neurological: alert Pulses: dorsalis pedis CURRENT CORE CARDIAC MEDICATIONS: Beta Anand: yes ASA: no, explain -- no CAD Statin: no, explain -- no CAD and or hyperlipidemia FRANCISCA-Inhibitor / ARB: no, explain -- normal LVEF POSTOPERATIVE COMPLICATIONS: none ADDITIONAL PROCEDURES: none ASSESSMENT/PLAN: Cardiovascular -Rhythm NSR -WINE MANAGER lopressor 25 re-started -ASA and statin not indicated -remove arterial line tomorrow after morning labs -pericardial drain put out 650mL in OR and around 100 mL overnight -telemetry alarming for ST elevations overnight. EKG obtained - reading acute AZ (likely related toeffusion), however will order CKMBs and trend Pre op: -was admitted to [facility] for chest pain and underwent lung biopsy that was positive for adenocarcinoma. She was also noted to have a small pericardial effusion. TTE 03/04 revealed increased pericardial effusion. She later followed up with Dr. Contreras via telemedicine. -pre-op EF 55% -WINE MANAGER lopressor Pulmonary -currently on NC -CXR- reviewed -Pulm toilet -hx of active tobacco use, uses 3.5L of O2 at home -also hx of right lung adenocarcinoma, COPD, asthma, chronic respiratory failure with hypoxia -WINE MANAGER inhalers resumed GI- -Advancing regular diet -Bowel regimen -GI prophylaxis Endocrine- -no history of diabetes or thyroid disorders - -pre-op renal function w/n/l -voiding -? [facility] Hematology -heparin for DVT prophylaxis -Hemoglobin and Platelets stable Infectious disease -WBC 9.95 Afebrile -did not have urine culture or staph PCR prior to admission -recently was treated with Augmentin for suspected sinus infection ( 01/24) Neuro- -intact -prn ativan for anxiety Plan In NSR overnight. WINE MANAGER lopressor 25 resumed Tube pericardiostomy drain put out around 100mL overnight Telemetry alarming for ST elevations overnight. EKG obtained - reading acute AZ (likely related to effusion), however will order CKMBs and trend On NC (uses 3.5L at home). WINE MANAGER inhalers resumed ? Kale Kaufman PA-C ATTENDING STAFF I have seen and examined the patient on 03/07/2023. POD#1 s/p pericardial drain placement. Pain somewhat better controlled, however patient feeling short of breath again this morning. Also having some dysphagia, which is chronic for her. Drain output 95 mL overnight. Keep pericardial drain 1 more day Soft diet with supplements Champ Cruz MD * Ancillary Progress Note - Lucy Perez, DIE FINISHER - 03/06/2023 6:04 PM EDT PATIENT DRIVEN PROTOCOL - Respiratory Care Services [facility] [phone] Name: Lynette Santana Location: [facility] H752/A Date: 03/06/2023 Time: 6:04 PM Patient Driven Protocol Summary: Initial evaluation performed. This Treatment Plan and medications will be reviewed by the Primary Care Team for any contraindications. Respiratory Care Treatment Plan Aerosol Therapy Treatment:: Inhaler(s) QDAY with Breo Ellipta (Fluticasone furoate 200 mcg and Vilanterol 25 mcg inhalation powder) / 1 inhalation . to reduce work of breathing and improve pulmonary gas exchange and suppress bronchial inflammation and edema by the use of systemic steroid sparing therapy. Additional Aerosolized Treatments: Inhaler(s) QDAY with Incruse Ellipta (Umeclidinium 62.5 mcg inhalation powder) / 1 inhalation. to reduce work of breathing and improve pulmonary gas exchange. Additional Aerosolized Treatments: Inhaler(s) PRN with Albuterol Sulfate: 2 puffs. to reduce work of breathing and improve pulmonary gas exchange. . Pulmonary Volume Expansion Therapy: Incentive Spirometry Q12H to prevent or treat alveolar consolidation and atelectasis. . Secretion Management Treatment: Flutter TherapyTID to enhance mobilization of secretions. . The patient will be re-evaluated: No re-evaluation needed. Indications for treatment met. The Triage Level is: (Assessment Score = 11-15) Level 3. Triage Level Definitions: Level 1 Severe Respiratory/Airway Compromise Level 2 Moderate Respiratory/Airway Compromise or high risk for pulmonary complications Level 3 Mild Respiratory/Airway Compromise or moderate risk for pulmonary complications Level 4 Episodic Respiratory/Airway Compromise or low risk for pulmonary complications Level 5 No Respiratory/Airway Compromise Triage 1 Triage 2 Triage 3 Triage 4 Triage 5 greater than 20 16 - 20 11 - 15 6 - 10 0 - 5 Medical Record Assessment Clinical Findings Pulmonary Status: 3 - Pulm Impairment (acute or chronic) w/o exacerbation, or 1 - 2 rib fractures Surgical Status: 3 - Thoracic or Upper Abdominal Chest X-Ray: 1 - CXR Pending Assessment Score: 7 Patient Assessment Clinical Findings Respiratory Pattern: 1 - RR 21 - 25; Patient gets short of breath when hurrying on level ground or walking up a slight hill. Breath Sounds: 2 - Diminished bilaterally Cough Effectiveness: 0 - Strong non-productive Sputum Production: 0 - No sputum production Level of Activity: 1 - Ambulatory with assist O2 needed to keep SpO2 greater than or equal to 92%: 1 - Oxygen 1-3 LPM or FiO2 less than 35% Assessment Score: 5 Total Assessment Score: 12 Breath Sounds: Inspiratory and expiratory diminished and coarse bilaterally.. Cough and Sputum: An effective cough produced no sputum... CXR: in process. Vital Signs: Resp: 23 (03/06/23 1700) Pulse: 112 (03/06/23 1700) Temp: 36.3 C (97.3 F) (03/06/23 1600) BP: 125/78 (03/06/23 1326) SpO2: 95 % (03/06/23 1700) PFT: Minimal Predicted IC: 0.711 L. Inspiratory capacity: 0.750. Patient unable to perform Inspiratory Capacity. Reason: . Primary Service: Cardiac Surgery. Admitting Diagnosis: Pericardial effusion [I31.39] Pulmonary Diagnosis: LUNG Cancer .. Lung Cancer , COPD, Current daily smoker Prescriptions/Home Medications/Durable Medical Equipment: Per pt -Spiriva, Symbicort, PRN AlbuterolO2 -3.5 L Continuously. Recommended New home medications/durable medical equipment/outpatient pulmonary/sleep referral . documented in this encounter Plan of Treatment Upcoming Encounters Date Type Department Care Team (Late st Contact Info) Description 03/11/2023 11:00 AM EDT Cardiac Studies Cardiac Studies, [facility] [address] [facility] [place] [address] 03/24/2023 10:00 AM EST Office Visit Cardiology, [facility] [address] [facility] [place] [address] Rosales Holman, [address] [place] [address] 07/15/2023 2:30 PM EST Office Visit Family Medicine [address] [place] [id number] [place] [place] [address] Pending Results Name Type Priority Associated Diagnoses Date /Time CYTOLOGY Pathology Routine Pericardial effusion 03/06/2023 2:34 PM EDT Scheduled Orders Name Type Priority Associated Diagnoses Orde r Schedule CYTOLOGY Pathology Routine Pericardial effusion Release Upon Ordering for 1 Occurrences starting 03/06/2023, 1 completed Health Maintenance Due Date Last Done Comments DISCUSS TOBACCO CESSATION (REFER TO SMARTSET #[id number]) 1945 COVID-19 Vaccine (#1) 06/26/1946 Pneumococcal Vaccine: [...] Not on filedocumented as of this encounter Procedures Procedure Name Priority Date/Time Associated Diagnosis Comments CT CHEST WO CONTRAST Routine 03/08/2023 1:51 PM EDT XR CHEST 1 VIEW Routine 03/08/2023 6:09 AM EDT DIFFERENTIAL, AUTOMATED STAT 03/08/2023 5:17 AM EDT BASIC METABOLIC PANEL STAT 03/08/2023 5:17 AM EDT CBC STAT 03/08/2023 5:17 AM EDT CBC STAT 03/08/2023 5:17 AM EDT DIFFERENTIAL, AUTOMATED STAT 03/07/2023 4:41 AM EDT CK-MB Routine 03/07/2023 4:41 AM EDT BASIC METABOLIC PANEL STAT 03/07/2023 4:41 AM EDT CBC STAT 03/07/2023 4:41 AM EDT CBC STAT 03/07/2023 4:41 AM EDT CK-MB STAT 03/06/2023 11:40 PM EDT XR CHEST 1 VIEW STAT 03/06/2023 9:21 PM EDT WHOLE BLOOD PROFILE, ARTERIAL STAT 03/06/2023 3:52 PM EDT BLOOD GAS WITH CHEMISTRY, POINT OF CARE MARIALUISA 03/06/2023 2:48 PM EDT BLOOD GAS WITH CHEMISTRY, POINT OF CARE MARIALUISA 03/06/2023 2:41 PM EDT CK-MB Add-on 03/06/2023 1:25 PM EDT HEPATIC FUNCTION PANEL STAT 03/06/2023 1:25 PM EDT BASIC METABOLIC PANEL STAT 03/06/2023 1:25 PM EDT ABO/RH STAT 03/06/2023 1:25 PM EDT TYPE AND SCREEN STAT 03/06/2023 1:25 PM EDT PT INR STAT 03/06/2023 1:25 PM EDT CBC STAT 03/06/2023 1:25 PM EDT GLUCOSE METER, POINT OF CARE MARIALUISA 03/06/2023 1:22 PM EDT PREPARE PACKED RED BLOOD CELLS STAT 03/06/2023 1:10 PM EDT documented in this encounter Results * CT CHEST WO CONTRAST (03/08/2023 1:51 PM EDT) Anatomical Region Laterality Modality Chest, Body, Cardio Computed Peewee ography 03/08/2023 2:29 PM EDT Impressions 03/08/2023 4:28 PM EDT IMPRESSION: 1. Interval decrease in size of a now small pericardial effusion with expected pneumopericardium. 2. Limited evaluation of known malignancy given lack of intravenous contrast. Similar appearance of a posterior right lower lobe consolidation compatible with known adenocarcinoma. Similar appearance of spiculated cavitary masslike infiltrate in the right upper lobe. 3. Redemonstrated mediastinal lymphadenopathy. 4. Additional chronic findings, as above. I have personally reviewed this examination and agree with the resident/fellow physician's interpretation. Narrative 03/08/2023 4:28 PM EDT EXAM EXAM: CT CHEST WO CONTRAST DATE and TIME: 03/08/2023 1:51 pm HISTORY CLINICAL INFORMATION: Follow-up pericardial effusion s/p pericardiocentesis. TECHNIQUE CT of the chest was performed without intravenous contrast. COMPARISON PET-CT dated 02/25/2023. CT chest dated 06/17/2022. FINDINGS Limited evaluation given lack of intravenous contrast. LUNGS/AIRWAYS: Similar appearance of a masslike consolidation in the posterior right lower lobe. An adjacent spiculated nodule is also seen measuring 0.7 x 0.6 cm. Similar appearance of a cavitary masslike infiltrate in the right upper lobe. Severe emphysema. PLEURA: Small left-sided pleural effusion. No pneumothorax. CARDIOVASCULAR: Mild cardiomegaly. Mild atherosclerotic changes of the coronary arteries. Interval decrease in size of a pericardial effusion, now small in size with scattered foci of expected pneumopericardium. There are aortic root and mitral annular calcifications. LYMPH NODES: Evaluation of the chest for adenopathy, particularly the alex, is limited without the benefit of IV contrast. Large subcarinal mass measuring approximately 5.4 x 5.3 cm. Multiple, additional enlarged mediastinal lymph nodes are again seen, with a account retention representative pretracheal lymph node measuring 2.4 x 2.7 cm. THYROID: Within normal limits. ESOPHAGUS: Decompressed limiting evaluation. UPPER ABDOMEN: Atherosclerotic calcifications of the partially imaged abdominal aorta. CHEST WALL: With normal limits. BONES: Diffuse bony demineralization. No acute or destructive osseous abnormality. Degenerative changes of the visualized spine. Similar severe compression deformities of T8, T12, L1, and L2 vertebral bodies. Procedure Note Go, Stefano Sosa MD - 03/08/2023 EXAM EXAM: CT CHEST WO CONTRAST DATE and TIME: 03/08/2023 1:51 pm HISTORY CLINICAL INFORMATION: Follow-up pericardial effusion s/ppericardiocentesis. TECHNIQUE CT of the chest was performed without intravenous contrast. COMPARISON PET-CT dated 02/25/2023. CT chest dated 06/17/2022. FINDINGS Limited evaluation given lack of intravenous contrast. LUNGS/AIRWAYS: Similar appearance of a masslike consolidation in theposterior right lower lobe. An adjacent spiculated nodule is also seenmeasuring 0.7 x 0.6 cm. Similar appearance of a cavitary masslikeinfiltrate in the right upper lobe. Severe emphysema. PLEURA: Small left-sided pleural effusion. No pneumothorax. CARDIOVASCULAR: Mild cardiomegaly. Mild atherosclerotic changes of thecoronary arteries. Interval decrease in size of a pericardial effusion,now small in size with scattered foci of expected pneumopericardium.There are aortic root and mitral annular calcifications. LYMPH NODES: Evaluation of the chest for adenopathy, particularly thehila, is limited without the benefit of IV contrast. Large subcarinalmass measuring approximately 5.4 x 5.3 cm. Multiple, additional enlargedmediastinal lymph nodes are again seen, with a account retention representative pretracheallymph node measuring 2.4 x 2.7 cm. THYROID: Within normal limits. ESOPHAGUS: Decompressed limiting evaluation. UPPER ABDOMEN: Atherosclerotic calcifications of the partially imagedabdominal aorta. CHEST WALL: With normal limits. BONES: Diffuse bony demineralization. No acute or destructive osseousabnormality. Degenerative changes of the visualized spine. Similar severecompression deformities of T8, T12, L1, and L2 vertebral bodies. IMPRESSION IMPRESSION: 1. Interval decrease in size of a now small pericardial effusion withexpected pneumopericardium. 2. Limited evaluation of known malignancy given lack of intravenouscontrast. Similar appearance of a posterior right lower lobeconsolidation compatible with known adenocarcinoma. Similar appearance ofspiculated cavitary masslike infiltrate in the right upper lobe. 3. Redemonstrated mediastinal lymphadenopathy. 4. Additional chronic findings, as above. I have personally reviewed this examination and agree with the resident/fellow physician's interpretation. Jane Minor PA-C RAD CT * XR CHEST 1 VIEW (03/08/2023 6:09 AM EDT) Anatomical Region Laterality Modality Chest Computed Radiogr aphy 03/08/2023 9:32 AM EDT Impressions 03/08/2023 9:29 AM EDT IMPRESSION Interval development of a small left pleural effusion. Narrative 03/08/2023 9:29 AM EDT EXAM XR CHEST 1 VIEW- 03/08/2023 6:09 am HISTORY s/p pericardiocentsis COMPARISON Portable chest from 03/06/2023 TECHNIQUE A single portable presumably upright AP view of the chest was obtained at 0535 hours. FINDINGS Catheters: None Tubes: Again identified is the pericardiocentesis strain. Foreign bodies: No radiopaque foreign bodies are identified. The chest wall and cardiomediastinal structures are stable in appearance. There is a small left pleural effusion. There is right apical pleural thickening. No pneumothorax is identified on this examination. Again identified are masslike infiltrates in the right upper lobe and medial right lower lobe. Procedure Note Go, Stefano Sosa MD - 03/08/2023 EXAM XR CHEST 1 VIEW- 03/08/2023 6:09 am HISTORY s/p pericardiocentsis COMPARISON Portable chest from 03/06/2023 TECHNIQUE A single portable presumably upright AP view of the chest was obtained [id number] hours. FINDINGS Catheters: None Tubes: Again identified is the pericardiocentesis strain. Foreign bodies: No radiopaque foreign bodies are identified. The chest wall and cardiomediastinal structures are stable in appearance.There is a small left pleural effusion. There is right apical pleuralthickening. No pneumothorax is identified on this examination. Againidentified are masslike infiltrates in the right upper lobe and medialright lower lobe. IMPRESSION IMPRESSION Interval development of a small left pleural effusion. Chastity Kaufman PA-C RADIOLOGY ([facility]) * (ABNORMAL) DIFFERENTIAL, AUTOMATED (03/08/2023 5:17 AM EDT) WBC 13.46(H) 4.00 - 10.80 K/uL 03/08/2023 5:45 AM EDT LABORATORY [facility] Neutrophils % 77.0(H) 40.0 - 75.0 % 03/08/2023 5:45 AM EDT LAB[facility]ORY [facility] Lymphocytes % 10.3(L) 18.0 - 42.0 % 03/08/2023 5:45 AM EDT LAB[facility] Monocytes % 11.1(H) 1.0 - 11.0 % 03/08/2023 5:45 AM EDT LAB[facility] Eosinophils % 0.7 0.0 - 6.0 % 03/08/2023 5:45 AM EDT LAB[facility] Basophils % 0.5 0.0 - 2.0 % 03/08/2023 5:45 AM EDT LAB[facility]ORY [facility] Immature Granulocytes % 0.4 0.0 - 2.0 % 03/08/2023 5:45 AM EDT LAB[facility]ORY [facility] Absolute Neutrophils 10.36(H) 1.80 - 7.70 K/uL 03/08/2023 5:45 AM EDT LAB[facility]ATORY [facility] Absolute Lymphocytes 1.39 1.00 - 4.80 K/ul 03/08/2023 5:45 AM EDT LAB[facility]ATORY [facility] Absolute Monocytes 1.50(H) 0.00 - 1.10 K/uL 03/08/2023 5:45 AM EDT LAB[facility]ATORY [facility] Absolute Eosinophils 0.09 0.00 - 0.70 K/uL 03/08/2023 5:45 AM EDT LAB[facility] Absolute Basophils 0.07 0.00 - 0.20 K/uL 03/08/2023 5:45 AM EDT LAB[facility]ATORY [facility] Absolute Immature Granulocytes 0.05 0.00 - 0.20 K/uL 03/08/2023 5:45 AM EDT [facility] Blood Venous blood specimen / Unknown Venipuncture / Unknown 03/08/2023 5:17 AM EDT 03/08/2023 5:32 AM EDT Arlette May PA-C LAB BLOOD ORDERAB LES [facility] [address] [place] [address] * (ABNORMAL) CBC (03/08/2023 5:17 AM EDT) WBC 13.46(H) 4.00 - 10.80 K/uL 03/08/2023 5:45 AM EDT LAB[facility]ORY [facility] RBC 4.03 3.85 - 5.15 M/uL 03/08/2023 5:45 AM EDT LAB[facility] HGB 12.4 12.0 - 15.3 g/dL 03/08/2023 5:45 AM EDT LAB[facility]ORY [facility] HCT 37.6 36.0 - 45.2 % 03/08/2023 5:45 AM EDT LAB[facility]ATORY [facility] MCV 93.3 81.5 - 97.5 fL 03/08/2023 5:45 AM EDT LAB[facility]ATORY [facility] MCH 30.8 27.0 - 34.0 pg 03/08/2023 5:45 AM EDT LAB[facility]ATORY [facility] MCHC 33.0 32.0 - 36.0 g/dL 03/08/2023 5:45 AM EDT LAB[facility]ATORY [facility] RDW 12.2 11.5 - 15.5 % 03/08/2023 5:45 AM EDT LABORATORY [facility] PLT 294 140 - 400 K/uL 03/08/2023 5:45 AM EDT LAB[facility] MPV 10.0 6.6 - 11.1 fL 03/08/2023 5:45 AM EDT LAB[facility]ATORY [facility] nRBCs 0 <=0 /100 WBCs 03/08/2023 5:45 AM EDT LAB[facility]ATORY [facility] Blood Venous blood specimen / Unknown Venipuncture / Unknown 03/08/2023 5:17 AM EDT 03/08/2023 5:32 AM EDT Arlette May PA-C LAB BLOOD ORDERAB LES Performing Organization Address City/State/[facility] Co de Phone Number LABORATORY [facility] [address] [place] [address] * (ABNORMAL) BASIC METABOLIC PANEL (03/08/2023 5:17 AM EDT) BUN 28(H) 6 - 20 mg/dL 03/08/2023 6:01 AM EDT LAB[facility]ATORY [facility] Creatinine 0.9 0.5 - 1.0 mg/dL 03/08/2023 6:01 AM EDT LABORATORY [facility] Estimated Glomerular Filtration Rate 66 >=60 mL/min 03/08/2023 6:01 AM EDT LAB[facility]ATORY [facility] Comment:eGFR is calculated b ased on the CKD-EPI 2020 equation Sodium 130(L) 135 - 146 mmol/L 03/08/2023 6:01 AM EDT LAB[facility]ATORY [facility] Potassium 4.6 3.5 - 5.1 mmol/L 03/08/2023 6:01 AM EDT LABORATORY [facility] Chloride 89(L) 98 - 107 mmol/L 03/08/2023 6:01 AM EDT LAB[facility]ATORY [facility] CO2 30 22 - 32 mmol/L 03/08/2023 6:01 AM EDT LAB[facility]ATORY [facility] Anion Gap 11 7 - 15 mmol/L 03/08/2023 6:01 AM EDT LAB[facility]ATORY [facility] Glucose 124(H) 70 - 120 mg/dL 03/08/2023 6:01 AM EDT LAB[facility]ATORY [facility] Calcium 9.0 8.4 - 10.2 mg/dL 03/08/2023 6:01 AM EDT LAB[facility]ATORY [facility] Blood Venous blood specimen / Unknown Venipuncture / Unknown 03/08/2023 5:17 AM EDT 03/08/2023 5:32 AM EDT Arlette May PA-C LAB BLOOD ORDERAB LES LABORATORY [facility] [address] [place] [address] * (ABNORMAL) DIFFERENTIAL, AUTOMATED (03/07/2023 4:41 AM EDT) WBC 18.81(H) 4.00 - 10.80 K/uL 03/07/2023 5:12 AM EDT LABORATORY [facility] Neutrophils % 82.5(H) 40.0 - 75.0 % 03/07/2023 5:12 AM EDT LABORATORY [facility] Lymphocytes % 7.3(L) 18.0 - 42.0 % 03/07/2023 5:12 AM EDT LABORATORY [facility] Monocytes % 8.8 1.0 - 11.0 % 03/07/2023 5:12 AM EDT LABORATORY [facility] Eosinophils % 0.2 0.0 - 6.0 % 03/07/2023 5:12 AM EDT LABORATORY [facility] Basophils % 0.4 0.0 - 2.0 % 03/07/2023 5:12 AM EDT LABORATORY [facility] Immature Granulocytes % 0.8 0.0 - 2.0 % 03/07/2023 5:12 AM EDT LABORATORY [facility] Absolute Neutrophils 15.53(H) 1.80 - 7.70 K/uL 03/07/2023 5:12 AM EDT LABORATORY [facility] Absolute Lymphocytes 1.37 1.00 - 4.80 K/ul 03/07/2023 5:12 AM EDT LABORATORY [facility] Absolute Monocytes 1.66(H) 0.00 - 1.10 K/uL 03/07/2023 5:12 AM EDT LABORATORY [facility] Absolute Eosinophils 0.03 0.00 - 0.70 K/uL 03/07/2023 5:12 AM EDT LABORATORY [facility] Absolute Basophils 0.07 0.00 - 0.20 K/uL 03/07/2023 5:12 AM EDT LABORATORY [facility] Absolute Immature Granulocytes 0.15 0.00 - 0.20 K/uL 03/07/2023 5:12 AM EDT LAB[facility]ATORY [facility] Blood Venous blood specimen / Unknown Venipuncture / Unknown 03/07/2023 4:41 AM EDT 03/07/2023 4:57 AM EDT Arlette May PA-C LAB BLOOD ORDERAB LES [facility] [address] [place] [address] * (ABNORMAL) CBC (03/07/2023 4:41 AM EDT) WBC 18.81(H) 4.00 - 10.80 K/uL 03/07/2023 5:12 AM EDT LABORATORY [facility] RBC 4.04 3.85 - 5.15 M/uL 03/07/2023 5:12 AM EDT LAB[facility]ATORY [facility] HGB 12.4 12.0 - 15.3 g/dL 03/07/2023 5:12 AM EDT LABORATORY [facility] HCT 38.3 36.0 - 45.2 % 03/07/2023 5:12 AM EDT LABORATORY [facility] MCV 94.8 81.5 - 97.5 fL 03/07/2023 5:12 AM EDT LABORATORY [facility] MCH 30.7 27.0 - 34.0 pg 03/07/2023 5:12 AM EDT LABORATORY [facility] MCHC 32.4 32.0 - 36.0 g/dL 03/07/2023 5:12 AM EDT LABORATORY [facility] RDW 12.1 11.5 - 15.5 % 03/07/2023 5:12 AM EDT LABORATORY C PLT 271 140 - 400 K/uL 03/07/2023 5:12 AM EDT LABORATORY [facility] MPV 10.0 6.6 - 11.1 fL 03/07/2023 5:12 AM EDT LABORATORY C nRBCs 0 <=0 /100 WBCs 03/07/2023 5:12 AM EDT LABORATORY [facility] Blood Venous blood specimen / Unknown Venipuncture / Unknown 03/07/2023 4:41 AM EDT 03/07/2023 4:57 AM EDT Arlette May PA-C LAB BLOOD ORDERAB LES LABORATORY [facility] [address] [place] [address] * (ABNORMAL) BASIC METABOLIC PANEL (03/07/2023 4:41 AM EDT) BUN 24(H) 6 - 20 mg/dL 03/07/2023 5:28 AM EDT LABORATORY [facility] Creatinine 0.8 0.5 - 1.0 mg/dL 03/07/2023 5:28 AM EDT LABORATORY [facility] Estimated Glomerular Filtration Rate 77 >=60 mL/min 03/07/2023 5:28 AM EDT LABORATORY [facility] Comment:eGFR is calculated b ased on the CKD-EPI 2020 equation Sodium 128(L) 135 - 146 mmol/L 03/07/2023 5:28 AM EDT LABORATORY [facility] Potassium 5.1 3.5 - 5.1 mmol/L 03/07/2023 5:28 AM EDT LABORATORY [facility] Chloride 91(L) 98 - 107 mmol/L 03/07/2023 5:28 AM EDT LABORATORY [facility] CO2 28 22 - 32 mmol/L 03/07/2023 5:28 AM EDT LABORATORY [facility] Anion Gap 9 7 - 15 mmol/L 03/07/2023 5:28 AM EDT LABORATORY [facility] Glucose 145(H) 70 - 120 mg/dL 03/07/2023 5:28 AM EDT LABORATORY [facility] Calcium 8.7 8.4 - 10.2 mg/dL 03/07/2023 5:28 AM EDT LAB[facility]ATORY [facility] Blood Venous blood specimen / Unknown Venipuncture / Unknown 03/07/2023 4:41 AM EDT 03/07/2023 4:57 AM EDT Arlette May PA-C LAB BLOOD ORDERAB LES Performing Organization Address City/[facility]/ZIP Co de Phone Number LABORATORY [facility] [address] [place] [address] * CK-MB (03/07/2023 4:41 AM EDT) CK-MB 2.5 0.0 - 4.3 ng/mL 03/07/2023 5:28 AM EDT LABORATORY [facility] Blood Venous blood specimen / Unknown Venipuncture / Unknown 03/07/2023 4:41 AM EDT 03/07/2023 4:57 AM EDT Chastity Kaufman PA-C LAB BLOOD ORDERABLES Performing Organization Address [facility]/ZIP Co de Phone Number LABORATORY [facility] [address] [place] [address] * CK-MB (03/06/2023 11:40 PM EDT) CK-MB 2.9 0.0 - 4.3 ng/mL 03/07/2023 12:13 AM EDT LABORATORY [facility] Blood Venous blood specimen / Unknown Venipuncture / Unknown 03/06/2023 11:40 PM EDT 03/06/2023 11:44 PM EDT Chastity Kaufman PA-C LAB BLOOD ORDERABLES LABORATORY [facility] [address] [place] [address] * XR CHEST 1 VIEW (03/06/2023 9:21 PM EDT) Anatomical Region Laterality Modality Chest Computed Radiogr aphy 03/07/2023 7:58 AM EDT Impressions 03/07/2023 3:27 PM EDT IMPRESSION 1. A pericardial drain projects over the inferior heart. There is no pneumothorax noted on this semi-upright examination. 2. Redemonstrated masses in the right upper and lower lobes. I have personally reviewed this examination and agree with the resident/fellow physician's interpretation. Narrative 03/07/2023 3:27 PM EDT EXAM XR CHEST 1 VIEW - 03/06/2023 9:21 pm HISTORY s/p pericardial drain placement TECHNIQUE AP view of the chest. COMPARISON PET-CT 02/25/2023. FINDINGS SUPPORT TUBES, LINES, DEVICES, SURGICAL MATERIAL: A pericardial drain projects over the inferior heart. LUNGS, PLEURA: Severe emphysema. Masses are again seen in the right upper and lower lobes. Left basilar atelectasis/scarring. No focal consolidation. No pneumothorax or pleural effusion. CARDIOVASCULAR, MEDIASTINUM: Normal heart size. SKELETON, OTHER: Degenerative osseous changes. Procedure Note Go, Stefano Sosa MD - 03/07/2023 EXAM XR CHEST 1 VIEW - 03/06/2023 9:21 pm HISTORY s/p pericardial drain placement TECHNIQUE AP view of the chest. COMPARISON PET-CT 02/25/2023. FINDINGS SUPPORT TUBES, LINES, DEVICES, SURGICAL MATERIAL: A pericardial drainprojects over the inferior heart. LUNGS, PLEURA: Severe emphysema. Masses are again seen in the right upperand lower lobes. Left basilar atelectasis/scarring. No focalconsolidation. No pneumothorax or pleural effusion. CARDIOVASCULAR, MEDIASTINUM: Normal heart size. SKELETON, OTHER: Degenerative osseous changes. IMPRESSION IMPRESSION 1. A pericardial drain projects over the inferior heart. There is nopneumothorax noted on this semi-upright examination. 2. Redemonstrated masses in the right upper and lower lobes. I have personally reviewed this examination and agree with the resident/fellow physician's interpretation. Arlette May PA-C RADIOLOGY (RAD GE NERAL) * (ABNORMAL) WHOLE BLOOD PROFILE, ARTERIAL (03/06/2023 3:52 PM EDT) Temperature 37.0 C 03/06/2023 4:02 PM EDT LABORATORY [facility] pH, Arterial 7.370 7.350 - 7.450 units 03/06/2023 4:02 PM EDT LABORATORY [facility] pCO2, Arterial 50.5(H) 35.0 - 45.0 mmHg 03/06/2023 4:02 PM EDT LABORATORY [facility] pO2, Arterial 67.2(L) 75.0 - 100.0 mmHg 03/06/2023 4:02 PM EDT LABORATORY [facility] Base Excess, Arterial 3.0(H) -2.0 - 2.0 mmol/L 03/06/2023 4:02 PM EDT LABORATORY [facility] Hemoglobin, Whole Blood 11.6(L) 12.0 - 15.3 g/dL 03/06/2023 4:02 PM EDT LABORATORY [facility] Hematocrit, Whole Blood 35.7(L) 36.0 - 45.2 % 03/06/2023 4:02 PM EDT LABORATORY [facility] Comment: The Hematocrit reference interval is based on adult population. This method is intended for trending and screening purposes only. A "Complete Blood Count" is more accurate and should be ordered if clinically indicated. Oxyhemoglobin, Arterial 90.6(L) 94.0 - 99.0 % total Hgb 03/06/2023 4:02 PM EDT LABORATORY [facility] Carboxyhemoglob in, Whole Blood 1.7(H) <=1.5 % total Hgb 03/06/2023 4:02 PM EDT LABORATORY [facility] Comment:Smokers: 0-9.0 % Methemoglobin, Whole Blood 0.7 <=1.5 % total Hgb 03/06/2023 4:02 PM EDT LABORATORY [facility] Reduced Hemoglobin, Arterial 7.0(H) 0.0 - 5.0 % total Hgb 03/06/2023 4:02 PM EDT LABORATORY [facility] O2 Content, Arterial 14.8(L) 15.0 - 24.0 %vol 03/06/2023 4:02 PM EDT LABORATORY [facility] Potassium, Whole Blood 3.9 3.5 - 5.1 mmol/L 03/06/2023 4:02 PM EDT LABORATORY [facility] Sodium, Whole Blood 131(L) 135 - 146 mmol/L 03/06/2023 4:02 PM EDT LABORATORY [facility] Chloride, Whole Blood 96(L) 98 - 107 mmol/L 03/06/2023 4:02 PM EDT LAB[facility]ATORY [facility] Calcium, Ionized, Whole Blood 1.13 1.13 - 1.32 mmol/L 03/06/2023 4:02 PM EDT LABORATORY C Anion Gap, Whole Blood 6.0(L) 7.0 - 15.0 mmol/L 03/06/2023 4:02 PM EDT LABORATORY C Glucose, Whole Blood 123(H) 70 - 120 mg/dL 03/06/2023 4:02 PM EDT LABORATORY C FiO2 Not Provided % 03/06/2023 4:02 PM EDT LABORATORY [facility] O2 Flow, Arterial Not Provided L/min 03/06/2023 4:02 PM EDT LABORATORY [facility] Bicarbonate, Whole Blood 28.5 23.0 - 31.0 mmol/L 03/06/2023 4:02 PM EDT LABORATORY [facility] Blood Arterial blood specimen / Unknown Arterial Puncture / Unknown 03/06/2023 3:52 PM EDT 03/06/2023 3:55 PM EDT Jose Haynes PA-C LAB BLOOD ORDER EKNDRA LABORATORY [facility] [address] [place] [address] * (ABNORMAL) BLOOD GAS WITH CHEMISTRY, POINT OF CARE (03/06/2023 2:48 PM EDT) Draw Site Arterial Draw 03/06/2023 3:17 PM EDT [facility] pH i-STAT 7.362 7.350 - 7.450 03/06/2023 3:17 PM EDT [facility] pCO2 i-STAT 51.2(H) 35.0 - 45.0 mm Hg 03/06/2023 3:17 PM EDT [facility] pO2 i-STAT 73(L) 75 - 100 mm Hg 03/06/2023 3:17 PM EDT [facility] Base Excess i-STAT 3(H) -2 - 2 mmol/L 03/06/2023 3:17 PM EDT [facility] Bicarbonate i-STAT 29.1 23.0 - 31.0 mmol/L 03/06/2023 3:17 PM EDT [facility] O2 Saturation i-STAT 94.0 94.0 - 98.0 % 03/06/2023 3:17 PM EDT [facility] Glucose i-STAT 90 70 - 120 mg/dL 03/06/2023 3:17 PM EDT [facility] Potassium i-STAT 3.9 3.5 - 5.1 mmol/L 03/06/2023 3:17 PM EDT [facility] Sodium i-STAT 132(L) 135 - 146 mmol/L 03/06/2023 3:17 PM EDT [facility] Calcium Ionized i-STAT 1.09(L) 1.13 - 1.32 mmol/L 03/06/2023 3:17 PM EDT [facility] Hemoglobin i-STAT 10.2(L) 12.0 - 15.3 g/dL 03/06/2023 3:17 PM EDT [facility] Hematocrit i-STAT 30(L) 36 - 45 % 03/06/2023 3:17 PM EDT [facility] FiO2 30 % 03/06/2023 3:17 PM EDT [facility] Arterial Draw 03/06/2023 2:4 8 PM EDT 03/06/2023 3:17 PM EDT Axel Contreras MD LAB POINT OF CARE T EST DOCKED DEVICE UNSOLICITED RESULTS [facility] [address] [place] [address] * (ABNORMAL) BLOOD GAS WITH CHEMISTRY, POINT OF CARE (03/06/2023 2:41 PM EDT) Draw Site Venous 03/06/2023 3:17 PM EDT [facility] pH i-STAT 7.367 7.350 - 7.450 03/06/2023 3:17 PM EDT [facility] pCO2 i-STAT 56.9(HH) 35.0 - 45.0 mm Hg 03/06/2023 3:17 PM EDT [facility] pO2 i-STAT 35(LL) 75 - 100 mm Hg 03/06/2023 3:17 PM EDT [facility] Base Excess i-STAT 7(H) -2 - 2 mmol/L 03/06/2023 3:17 PM EDT [facility] Bicarbonate i-STAT 32.6(H) 23.0 - 31.0 mmol/L 03/06/2023 3:17 PM EDT [facility] O2 Saturation i-STAT 64.0(L) 94.0 - 98.0 % 03/06/2023 3:17 PM EDT [facility] Glucose i-STAT 108 70 - 120 mg/dL 03/06/2023 3:17 PM EDT [facility] Potassium i-STAT 4.5 3.5 - 5.1 mmol/L 03/06/2023 3:17 PM EDT [facility] Sodium i-STAT 130(L) 135 - 146 mmol/L 03/06/2023 3:17 PM EDT [facility] Calcium Ionized i-STAT 1.20 1.13 - 1.32 mmol/L 03/06/2023 3:17 PM EDT [facility] Hemoglobin i-STAT 6.5(LL) 12.0 - 15.3 g/dL 03/06/2023 3:17 PM EDT [facility] Hematocrit i-STAT 19(LL) 36 - 45 % 03/06/2023 3:17 PM EDT [facility] FiO2 40 % 03/06/2023 3:17 PM EDT [facility] Venous 03/06/2023 2:41 PM EDT 03/06/2023 3:17 PM EDT Axel Contreras MD LAB POINT OF CARE T EST DOCKED DEVICE UNSOLICITED RESULTS [facility] [address] [place] [address] * CK-MB (03/06/2023 1:25 PM EDT) CK-MB 2.5 0.0 - 4.3 ng/mL 03/06/2023 11:48 PM EDT LABORATORY [facility] Blood Venous blood specimen / Unknown Venipuncture / Unknown 03/06/2023 1:25 PM EDT 03/06/2023 1:36 PM EDT Chastity Kaufman PA-C LAB BLOOD ORDERABLES LABORATORY [facility] [address] [place] [address] * ABO/RH (03/06/2023 1:25 PM EDT) ABO O 03/06/2023 3:00 PM EDT LABORATORY [facility] BLOOD BANK Rh Positive 03/06/2023 3:00 PM EDT LABORATORY [facility] BLOOD BANK Blood Venous blood specimen / Unknown Venipuncture / Unknown 03/06/2023 1:25 PM EDT 03/06/2023 1:38 PM EDT Helen Amezquita PA-C LAB BLOOD BANK MEGA T ORDERABLES LABORATORY [facility] BLOOD BANK [address] [place] [address] * PT INR (03/06/2023 1:25 PM EDT) Prothrombin Time 12.9 11.6 - 15.2 seconds 03/06/2023 2:05 PM EDT LABORATORY [facility] INR 1.0 0.8 - 1.2 03/06/2023 2:05 PM EDT LABORATORY [facility] Blood Venous blood specimen / Unknown Venipuncture / Unknown 03/06/2023 1:25 PM EDT 03/06/2023 1:37 PM EDT Narrative LABORATORY [facility] - 03/06/2023 2:05 PM EDT Warfarin Therapy INR: 2.0-3.0 conventional anticoagulation INR: 2.5-3.5 high intensity anticoagulation Helen Amezquita PA-C LAB BLOOD ORDERABL ES Performing Organization Address [facility] Co de Phone Number LABORATORY [facility] [address] [place] [address] * HEPATIC FUNCTION PANEL (03/06/2023 1:25 PM EDT) Albumin 4.0 3.8 - 5.0 g/dL 03/06/2023 2:39 PM EDT LABORATORY [facility] AST 18 10 - 35 U/L 03/06/2023 2:39 PM EDT LABORATORY [facility] Alkaline Phosphatase 102 35 - 130 U/L 03/06/2023 2:39 PM EDT LABORATORY [facility] ALT 22 10 - 35 U/L 03/06/2023 2:39 PM EDT LABORATORY [facility] Bilirubin, Total 0.2 <=1.2 mg/dL 03/06/2023 2:39 PM EDT LABORATORY [facility] Bilirubin, Direct <0.2 0.0 - 0.3 mg/dL 03/06/2023 2:39 PM EDT LAB[facility]ATORY [facility] Protein 6.5 6.0 - 8.3 g/dL 03/06/2023 2:39 PM EDT LABORATORY C Blood Venous blood specimen / Unknown Venipuncture / Unknown 03/06/2023 1:25 PM EDT 03/06/2023 1:36 PM EDT Helen Amezquita PA-C LAB BLOOD ORDERABL ES Performing Organization Address [facility] Co de Phone Number LABORATORY [facility] [address] [place] [address] * (ABNORMAL) BASIC METABOLIC PANEL (03/06/2023 1:25 PM EDT) BUN 24(H) 6 - 20 mg/dL 03/06/2023 2:39 PM EDT LABORATORY [facility] Creatinine 0.8 0.5 - 1.0 mg/dL 03/06/2023 2:39 PM EDT LABORATORY [facility] Estimated Glomerular Filtration Rate 81 >=60 mL/min 03/06/2023 2:39 PM EDT LABORATORY [facility] Comment:eGFR is calculated b ased on the CKD-EPI 2020 equation Sodium 131(L) 135 - 146 mmol/L 03/06/2023 2:39 PM EDT LABORATORY [facility] Potassium 4.5 3.5 - 5.1 mmol/L 03/06/2023 2:39 PM EDT LABORATORY [facility] Chloride 91(L) 98 - 107 mmol/L 03/06/2023 2:39 PM EDT LABORATORY [facility] CO2 28 22 - 32 mmol/L 03/06/2023 2:39 PM EDT LABORATORY [facility] Anion Gap 12 7 - 15 mmol/L 03/06/2023 2:39 PM EDT LAB[facility]ATORY [facility] Glucose 150(H) 70 - 120 mg/dL 03/06/2023 2:39 PM EDT LAB[facility]ATORY [facility] Calcium 9.4 8.4 - 10.2 mg/dL 03/06/2023 2:39 PM EDT LAB[facility]ORY [facility] Blood Venous blood specimen / Unknown Venipuncture / Unknown 03/06/2023 1:25 PM EDT 03/06/2023 1:36 PM EDT Helen Amezquita PA-C LAB BLOOD ORDERABL ES LABORATORY [facility] [address] [place] [address] * CBC (03/06/2023 1:25 PM EDT) WBC 9.95 4.00 - 10.80 K/uL 03/06/2023 1:58 PM EDT LAB[facility]ATORY [facility] RBC 4.41 3.85 - 5.15 M/uL 03/06/2023 1:58 PM EDT LABORATORY [facility] HGB 13.6 12.0 - 15.3 g/dL 03/06/2023 1:58 PM EDT LAB[facility]ATORY [facility] HCT 41.5 36.0 - 45.2 % 03/06/2023 1:58 PM EDT LAB[facility]ATORY [facility] MCV 94.1 81.5 - 97.5 fL 03/06/2023 1:58 PM EDT LAB[facility]ATORY [facility] MCH 30.8 27.0 - 34.0 pg 03/06/2023 1:58 PM EDT LABORATORY [facility] MCHC 32.8 32.0 - 36.0 g/dL 03/06/2023 1:58 PM EDT LABORATORY [facility] RDW 12.1 11.5 - 15.5 % 03/06/2023 1:58 PM EDT LABORATORY [facility] PLT 278 140 - 400 K/uL 03/06/2023 1:58 PM EDT LABORATORY [facility] MPV 10.0 6.6 - 11.1 fL 03/06/2023 1:58 PM EDT LABORATORY [facility] nRBCs 0 <=0 /100 WBCs 03/06/2023 1:58 PM EDT LABORATORY [facility] Blood Venous blood specimen / Unknown Venipuncture / Unknown 03/06/2023 1:25 PM EDT 03/06/2023 1:37 PM EDT Helen Amezquita PA-C LAB BLOOD ORDERABL ES Performing Organization Address City/[facility]/ZIP Co de Phone Number LABORATORY [facility] [address] [place] [address] * TYPE AND SCREEN (03/06/2023 1:25 PM EDT) ABO O 03/06/2023 2:31 PM EDT LABORATORY [facility] BLOOD BANK Rh Positive 03/06/2023 2:31 PM EDT LABORATORY [facility] BLOOD BANK Red Blood Cell Antibody Screen Negative 03/06/2023 2:31 PM EDT LABORATORY [facility] BLOOD BANK Specimen Expiration Date 03/09/2023 23:59 03/06/2023 2:31 PM EDT LABORATORY [facility] BLOOD BANK Blood Venous blood specimen / Unknown Venipuncture / Unknown 03/06/2023 1:25 PM EDT 03/06/2023 1:38 PM EDT Helen Amezquita PA-C LAB BLOOD BANK MEGA T ORDERABLES Performing Organization Address City/[facility]/ZIP Co de Phone Number LABORATORY [facility] BLOOD BANK [address] [place] [address] * (ABNORMAL) GLUCOSE METER, POINT OF CARE (03/06/2023 1:22 PM EDT) Glucose Meter 136(H) 70 - 120 mg/dL 03/06/2023 1:26 PM EDT [facility] [employer] Blood Whole blood specimen / Unknown 03/06/2023 1:22 PM EDT 03/06/2023 1:26 PM EDT Axel Contreras MD LAB POINT OF CARE T EST DOCKED DEVICE UNSOLICITED RESULTS [facility] [address] [place] [address] * PREPARE PACKED RED BLOOD CELLS (03/06/2023 1:10 PM EDT) Unit Product Code [id number] LAB[facility]ATORY [facility] BLOOD BANK Unit Number [id number] LABO RATORY [facility] BLOOD [facility]ANK Unit ABO O [facility] BLOOD [facility]ANK Unit Rh POS LAB[facility] BLOOD B[facility] Unit Crossmatch Compatible LAB[facility]ATORY [facility] BLOOD BANK Unit Status XM LABORATO RY [facility] BLOOD BANK Unit Blood Type OPOS LAB[facility]ATORY [facility] BLOOD BANK Unit Expiration [id number] LAB[facility]AT[facility] BLOOD BANK Unit Barcode 5100 LABORAT ORY [facility] BLOOD BANK 03/06/2023 1:10 PM EDT Juan Curtis CRNA BLD BANK PRODUCT ORD ERABLES Performing Organization Address City/[facility]/ZIP Co de Phone Number LABORATORY [facility] BLOOD BANK [address] [place] [address] documented in this encounter Visit Diagnoses Diagnosis Pericardial effusion- Primary Unspecified disease of pericardium Pericardial effusion Unspecified disease of pericardium COPD, moderate (HCC) Chronic airway obstruction, not elsewhere classified Cavitary lesion of lung Other diseases of lung, not elsewhere classified Asthma, allergic Unspecified asthma Adenocarcinoma of right lung (HCC) Tobacco use disorder documented in this encounter Administered Medications Inactive Administered Medications - up to 3 most recent administrations Medication Order MAR Action Action Date Dose Rate Site Acetaminophen (Tylenol) tab 975 mg 975 mg, Oral, BID PRN Pain, Moderate, Starting on 03/06/23 at 1451, Until 03/08/23 at 1928 Given 03/08/2023 5:44 AM EDT 975 mg albuterol (VENTOLIN HFA/PROVENTIL HFA) inhaler 2 Puff, Inhalation, Q4H PRN Dyspnea, Starting on Thu03/06/23 at 1452, Until Thu03/08/23 at 1928, Shake can for 10 seconds before each puff SEND INHALER WITH PATIENT! WASTE INFO ( IF NOT SENT HOME WITH PATIENT) : Return unused medication to pharmacy in zip lock bag for disposal into black container labeled SP. Given 03/08/2023 9:26 AM EDT 2 Puffs Given 03/08/2023 5:16 AM EDT 2 Puffs Given 03/07/2023 9:06 PM EDT 2 Puffs amoxicillin-clavulanate (Augmentin) tab 875 mg 875 mg, Oral, BID (.AM/PM), First dose on Thu03/06/23 at 2100, Last dose on Thu03/11/23 at 0900, For 5 days Given 03/06/2023 8:01 PM EDT 875 mg Famotidine (Pepcid) tab 10 mg 10 mg, Oral, Q12H, First dose on 03/07/23 at 0900, Until Discontinued Given 03/08/2023 9:05 AM EDT 10 mg Given 03/07/2023 9:10 PM EDT 10 mg Given 03/07/2023 8:22 AM EDT 10 mg fluticasone furoate-vilanterol (BREO ellipta) 200-25 MCG/ACT inhaler 1 Puff 1 Puff, Inhalation, Daily(AM), First dose (after last modification) on [place] 03/08/23 at 0900, Until Discontinued, NURSING TO FOLLOW PATIENT WITH MDI/DPI ADMINISTRATION Given 03/08/2023 8:40 AM EDT 1 Puff fluticasone furoate-vilanterol (BREO ellipta) 200-25 MCG/ACT inhaler 2 Puff 2 Puff, Inhalation, Daily(AM), First dose on 03/07/23 at 0900, Until Discontinued, NURSING TO FOLLOW PATIENT WITH MDI/DPI ADMINISTRATION Given 03/07/2023 8:25 AM EDT 2 Puffs Furosemide (Lasix) inj 40 mg 40 mg, IV Push, ONCE, On 03/07/23 at 0630, For 1 dose Given By 03/07/2023 6:18 AM EDT 40 mg hEParin inj 5,000 Units 5,000 Units, Subcutaneous, Q8H, First dose on Thu03/07/23 at 0600, Until Discontinued, Post-op Given 03/08/2023 2:00 PM EDT 5,000 Units Abdomen Right Upper Given 03/08/2023 5:18 AM EDT 5,000 Units A bdomen Left Upper Given 03/07/2023 9:10 PM EDT 5,000 Units A bdomen Right Upper HYDROmorphone (Dilaudid) inj 0.5 mg 0.5 mg, IV Push, ONCE, On Thu03/06/23 at 1745, For 1 dose Given 03/06/2023 5:31 PM EDT 0.5 mg Metoprolol Tartrate (Lopressor) tab 25 mg 25 mg, Oral, BID (.AM/PM), First dose on Thu03/06/23 at 2100, Until Discontinued, Hold for HR less than 60 or SBP below 100 and notify service if dose is held Given 03/08/2023 9:05 AM EDT 25 mg Given 03/07/2023 9:10 PM EDT 25 mg Given 03/07/2023 8:22 AM EDT 25 mg ondansetron (Zofran) inj 4 mg 4 mg, IV Push, Q6H PRN Nausea, Vomiting, Starting on Thu03/06/23 at 2318, Until 03/08/23 at 1928 Given By 03/06/2023 11:31 PM EDT 4 mg oxyCODONE (Oxy IR) tab 5 mg 5 mg, Oral, Q4H PRN Pain, Severe, Starting on Thu03/06/23 at 1454, Until 03/08/23 at 1928 Given 03/07/2023 2:35 PM EDT 5 mg Given 03/07/2023 6:17 AM EDT 5 mg Given 03/06/2023 8:01 PM EDT 5 mg Polyethylene Glycol 3350 (Miralax) oral powder 17 g 17 g (1 Packet), Oral, Daily(AM), First dose on 03/07/23 at 1100, Until Discontinued, Mix in 8 oz of water, juice, soda, coffee, or tea. Given 03/08/2023 9: 05 AM EDT 17 g Given 03/07/2023 11:48 AM EDT 17 g sodium chloride 0.9 % flush peripheral yudy 3 mL 3 mL, IV Push, QSHIFT, First dose on Thu03/06/23 at 1600, Until Discontinued, Do not flush if lock, PICC, or central line not in place; IV infusing or unable to flush., Post-op Given 03/08/2023 8 :00 AM EDT 3 mL Given 03/08/2023 12:00 AM EDT 3 mL Given 03/07/2023 4:00 PM EDT 3 mL umeclidinium [place] (INCRUSE ellipta) 62.5 MCG/ACT inhaler 1 Puff 1 Puff, Inhalation, RESPDAILY, First dose on Thu03/07/23 at 1000, Until Discontinued, NURSING TO FOLLOW PATIENT WITH MDI/DPI ADMINISTRATION Given 03/08/2023 8:40 AM EDT 1 Puff Given 03/07/2023 10:06 AM EDT 1 Puff documented in this encounter Active and Recently Administered Medications Times are shown in EDT. Scheduled Medication Order 03/06/2023 03/07/2023 03/08/2023 amoxicillin-clavulanate (Augmentin) tab 875 mg (CANCELED) 875 mg, Oral, BID (.AM/PM), First dose on Thu03/06/23 at 2100, Last dose on Thu03/11/23 at 0900, For 5 days 2000 (Given - Provider: Papa Santamaria LPN) Famotidine (Pepcid) tab 10 mg 10 mg, Oral, Q12H, First dose on 03/07/23 at 0900, Until Discontinued 821 (Given - Provider: David Thomas RN)2109 (Given - Provider: Vero Nixon RN) 904 (Given - Provider: David Thomas RN) fluticasone furoate-vilanterol (BREO ellipta) 200-25 MCG/ACT inhaler 1 Puff 1 Puff, Inhalation, Daily(AM), First dose (after last modification) on Thu03/08/23 at 0900, Until Discontinued, NURSING TO FOLLOW PATIENT WITH MDI/DPI ADMINISTRATION 08 (Given - Provider: David Thomas, RN) fluticasone furoate-vilanterol (BREO ellipta) 200-25 MCG/ACT inhaler 2 Puff (CANCELED) 2 Puff, Inhalation, Daily(AM), First dose on Thu03/07/23 at 0900, Until Discontinued, NURSING TO FOLLOW PATIENT WITH MDI/DPI ADMINISTRATION 0825 (Given - Provider: David Thomas, RN) Furosemide (Lasix) inj 40 mg (COMPLETED) 40 mg, IV Push, ONCE, On Thu03/07/23 at 0630, For 1 dose 0618 (Given By - Provider: Papa Santamaria LPN - Comment: Gaetano Reilly RN) hEParin inj 5,000 Units 5,000 Units, Subcutaneous, Q8H, First dose on Thu03/07/23 at 0600, Until Discontinued, Post-op 0441 (Given - Provider: Papa Santamaria LPN)1435 (Given - Provider: David Thomas RN)211 (Given - Provider: Vero Nixon RN) 0518 (Given - Provider: Vero Nixon, NANCY)1400 (Given - Provider: David Thomas RN) HYDROmorphone (Dilaudid) inj 0.5 mg (COMPLETED) 0.5 mg, IV Push, ONCE, On Thu03/06/23 at 1745, For 1 dose 1731 (Given - Provider: David Thomas RN) Metoprolol Tartrate (Lopressor) tab 25 mg 25 mg, Oral, BID (.AM/PM), First dose on Thu03/06/23 at 2100, Until Discontinued, Hold for HR less than 60 or SBP below 100 and notify service if dose is held 2000 (Given - Provider: Papa Santamaria LPN) 08 (Given - Provider: David Thomas, NANCY)2109 (Given - Provider: Vero Nixon, NANCY) 0905 (Given - Provider: David Thomas, NANCY) Polyethylene Glycol 3350 (Miralax) oral powder 17 g 17 g (1 Packet), Oral, Daily(AM), First dose on Thu03/07/23 at 1100, Until Discontinued, Mix in 8 oz of water, juice, soda, coffee, or tea. 1148 (Given - Provider: David Thomas RN) 0905 (Given - Provider: David Thomas, RN) sodium chloride 0.9 % flush peripheral yudy 3 mL 3 mL, IV Push, QSHIFT, First dose on Thu03/06/23 at 1600, Until Discontinued, Do not flush if lock, PICC, or central line not in place; IV infusing or unable to flush., Post-op 1600 (Given - Provider: David Thomas RN) 0000 (Given - Provider: Papa Santamaria LPN)0800 (Given - Provider: David Thomas, RN)1600 (Given - Provider: David Thomas RN) 0000 (Given - Provider: Vero Nixon, NANCY)0800 (Given - Provider: David Thomas RN) umeclidinium [place] (INCRUSE ellipta) 62.5 MCG/ACT inhaler 1 Puff 1 Puff, Inhalation, RESPDAILY, First dose on 03/07/23 at 1000, Until Discontinued, NURSING TO FOLLOW PATIENT WITH MDI/DPI ADMINISTRATION 1006 (Given - Provider: Lucy Perez, DIE FINISHER) 0840 (Given - Provider: David Thomas, NANCY) PRN Medication Order 03/06/2023 03/07/2023 03/08/2023 Acetaminophen (Tylenol) tab 975 mg 975 mg, Oral, BID PRN Pain, Moderate, Starting on Thu03/06/23 at 1451, Until 03/08/23 at 1928 0544 (Given - Provider: Vero Nixon RN) albuterol (VENTOLIN HFA/PROVENTIL HFA) inhaler 2 Puff, Inhalation, Q4H PRN Dyspnea, Starting on Thu03/06/23 at 1452, Until 03/08/23 at 1928, Shake can for 10 seconds before each puff SEND INHALER WITH PATIENT! WASTE INFO ( IF NOT SENT HOME WITH PATIENT) : Return unused medication to pharmacy in zip lock bag for disposal into black container labeled SP. 0617 (Given - Provider: Papa Santamaria LPN)2106 (Given - Provider: Vero Nixon RN) 0516 (Given - Provider: Vero Nixon RN)0926 (Given - Provider: David Thomas RN) bupivacaine HCl (Sensorcaine) 0.25 % (PF) inj (CANCELED) ONCE PRN INTRA PROCEDURE, Starting on Thu03/06/23 at 1436, Until Thu03/06/23 at 1457, Intra-Op 1436 (Given - Provider: Axel Contreras MD - Comment: surgical site) LORAzepam (Ativan) tab 0.5 mg 0.5 mg, Oral, Q8H PRN Anxiety, Starting on Thu03/06/23 at 1452, Until 03/08/23 at 1928 ondansetron (Zofran) inj 4 mg 4 mg, IV Push, Q6H PRN Nausea, Vomiting, Starting on Thu03/06/23 at 2318, Until Thu03/08/23 at 1928 2331 (Given By - Provider: Papa Santamaria LPN - Comment: maddi CRUZ) oxyCODONE (Oxy IR) tab 5 mg 5 mg, Oral, Q4H PRN Pain, Severe, Starting on Thu03/06/23 at 1454, Until 03/08/23 at 1928 1525 (Given - Provider: David Thomas RN)2001 (Given - Provider: Papa Santamaria LPN) 0617 (Given - Provider: Papa Santamaria LPN)1435 (Given - Provider: David Thomas RN) sodium chloride IR 0.9 % irrigation (CANCELED) ONCE PRN INTRA PROCEDURE, Starting on Thu03/06/23 at 1436, Until Thu03/06/23 at 1457, Intra-Op 1436 (Given - Provider: Axel Contreras MD - Comment: prn intra op) documented in this encounter Advance Directives Latest [...] patient or by statute hierarchy) Care Teams Venue Manager Relationship Specialty Start Date End Date Ele Alford DO [address] [place] [address] [place] [address] PCP - General Internal Medicine 01/07/23 documented as of this encounter
--- OUTSIDE RECORDS SUMMARY | 2023-03-19 09:46 | External Medical Summary | Summary of Care ---
Author Name Unknown Organization [facility] Address [address] [place] [address] Phone [phone] Care Team Providers Care Clinical Manager Home Care Name Role Phone Ele Alford DO Primary Care Provider + [phone] Reason for Referral * Evaluate & Treat - Unlimited Visits (Within 10 days (routine)) - Authorized Specialty Diagnoses / Procedures Referred By Contac t Referred To Contact HOME CARE / Home Care Diagnoses Adenocarcinoma of right lung (HCC) Pericardial effusion Ele Alford DO [address] [place] [address] [place] [id number] Referral ID Status Reason Start Date Expiration Date Visits Requested Visits Authorized [id number] Authorized Specialty Services Required 3 [phone] Question Answer Referral Priority Within 10 days (routine) Where should this appointment be scheduled? External Comments Documentation of Pehg-kz-Xexz Encounter Addendum Patient Name: Lynette Santana I certify that this patient is under my care and that I, or a nurse practitioner or physician's supply chain assistant working with me, had a [id number] encounter that meets the physician lnbo-iy-wqui encounter requirements with this patient on: 02/13/23 [...] effort and are for medical reasons or islam services or infrequently or of short duration when for other reason) because: Requires assistance to leave the home Physician Signature: Date of Signature: Physician Printed Name: Ele Alford DO Reason for Visit * Reason Onset Date Comments Advice 03/09/2023 Encounter Details Date Type Department Care Team (Late st Contact Info) Description 03/09/2023 Telephone Family Medicine [address] [phone] Ele Alford DO [address] [place] [address] [place] [address] Advice Allergies Active Allergy Reactions Criticality [...] 03/27/2004 COPD, moderate 03/27/2004 Overview: FEV1/FVC 56%;L DPC030%; 23% IMPROVEMENT IN DMG29-04 WITH BRONCHODILATOR GENERAL OSTEOARTHROSIS 12/27/2001 Asthma, allergic [...] encounter Miscellaneous Notes * Telephone Encounter - Suha Nguyen LPN - 03/09/2023 12:09 PM EDT Sade from [facility] calling after receiving referral. They will be picking pt up for services. Start of care planned for Sunday 03/11. * Telephone Encounter - Rubin Julien OSA - 03/09/2023 11:19 AM EDT I faxed the Home Health referral to [facility] [phone] * Telephone Encounter - Ele Alford DO - 03/09/2023 10:43 AM EDT Home health referral placed. [facility]. * Telephone Encounter - Chula Aguilar LPN - 03/09/2023 9:09 AM EDT Spoke with patients son, Sergey. [place] [facility] [place]-03/08). Patient had a echocardiogram done on 03/04, on 03/06 Dr Ndiaye advised [facility] She had over a liter of fluid removed from around her heart. Creation pericardial window procedure done. Sergey is monitoring the dressing where the chest tube was. Keeping clean and dry. Patient was having pain across her shoulders and upper back last evening, she did take the Oxycodone 5mg with relief. They were giving her this in [facility] and she tolerated it. She still has 8 pills leftfrom her previous script and is going to take this as needed. Patient scheduled with PCP on 03/13 for HD follow up. Patient see's Dr. Cooper ([facility]) on 03/11. Sergey is requesting a referral to Home Health. He would like the referral to go to [facility]. * Telephone Encounter - Eleanor Herrera OSA - 03/09/2023 9:08 AM EDT Reason for patient's call: wants to speak to nurse about questions of home health Caller was transferred to [place] at the nurse line. documented in this encounter Plan of Treatment Upcoming Encounters Date Type Department Care Team (Late st Contact Info) Description 03/11/2023 11:00 AM EDT Cardiac Studies [facility] Studies, [facility] [address] [place] [address] 03/13/2023 11:10 AM EDT Office Visit Family Medicine [address] [phone] Ele Alford, [address] [place] [address] 03/24/2023 10:00 AM EST Office Visit Cardiology, [facility] [address] [place] [address] Rosales Holman, [address] [place] [address] 07/15/2023 2:30 PM EST Office Visit Family Medicine [address] [phone] Ele Alford [address] [place] [address] Scheduled Referrals Name Type Priority Associated Diagnoses Orde r Schedule HOME HEALTH REFERRAL OP Referral Within 10 days (routine) Adenocarcinoma of right lung (HCC) Pericardial effusion Ordered: 03/09/2023 Health Maintenance Due Date Last Done Comments DISCUSS TOBACCO CESSATION (REFER TO SMARTSET #[id number]) 1945 COVID-19 Vaccine (#1) 06/26/1946 Pneumococcal Vaccine: [...] Agents on File Name Relationship Healthcare Agent [facility] p Communication Jennifer Bales [facility] Repr esentative (appointed verbally by patient or by statute hierarchy) Sergey Santana Adult Child Health Care Repr esentative (appointed verbally by patient or by statute hierarchy) Care Teams Clinical Manager Home Care Relationship Specialty Start Date End Date Ele Alford DO [address] [place] [address] [place] [id number] PCP - General Internal Medicine 01/07/23 documented as of this encounter
[2023-03-19] MEDS: DOXYCYCLINE HYCLATE 100 MG in DEXTROSE 5% MINI-B 100 ML IV SCH (09:47)
--- OUTSIDE RECORDS SUMMARY | 2023-03-19 09:47 | External Medical Summary ---
Author Name Unknown Address Unknown Organization [id number]:LABORATORY [facility] - [address] [facility] [place] [address] Laboratory Report Ordering Provider Test Date Status ROYAL NOBLE 03/07/2023 04:41:00 Final Observation Date Value Abnormality Reference (Units ) Status SYNC LEUKOCYTES IN BLOOD BY AUTOMATED COUNT 03/07/2023 04:41:00 18.81 Above high normal 4.00-10.80 (K/uL) Final Segs 03/07/2023 04:41:00 82.5 Above high normal 40.0-75.0 (%) Final Lymphs % 03/07/2023 04:41:00 7.3 Below low normal 18.0-42.0 (%) Final Monos 03/07/2023 04:41:00 8.8 1.0-11.0 (%) Final Eosinophils 03/07/2023 04:41:00 0.2 0.0-6.0 (%) Final Basos 03/07/2023 04:41:00 0.4 0.0-2.0 (%) Final Immature Granulocyte, Percent 03/07/2023 04:41:00 0.8 0.0-2.0 (%) Final Absolute Segs 03/07/2023 04:41:00 15.53 Above high normal 1.80-7.70 (K/uL) Final Lymphs, absolute 03/07/2023 04:41:00 1.37 1.00-4.80 (K/ul) Final Monos, Abs 03/07/2023 04:41:00 1.66 Above high normal 0.00-1.10 (K/uL) Final Eos, Abs 03/07/2023 04:41:00 0.03 0.00-0.70 (K/uL) Final Basos, Abs 03/07/2023 04:41:00 0.07 0.00-0.20 (K/uL) Final Immature Granulocytes, Number 03/07/2023 04:41:00 0.15 0.00-0.20 (K/uL) Final Performing Location LABORATORY [facility] - [facility] [address] [facility] [address]
--- OUTSIDE RECORDS SUMMARY | 2023-03-19 09:47 | External Medical Summary ---
Author Name Unknown Address Unknown Organization [id number]:LABORATORY [facility] - [address] [facility] [place] [address] Laboratory Report Ordering Provider Test Date Status REGINA SIERRA 03/06/2023 15:52:25 Final Observation Date Value Abnormality Reference (Units ) Status Body temperature 03/06/2023 15:52:25 37.0 (C) Final pH of Arterial blood 03/06/2023 15:52:25 7.370 7.350-7.450 (units) Final Carbon dioxide [Partial pressure] in Arterial blood 03/06/2023 15:52:25 50.5 Above high normal 35.0-45.0 (mmHg) Final Oxygen [Partial pressure] in Arterial blood 03/06/2023 15:52:25 67.2 Below low normal 75.0-100.0 (mmHg) Final Base excess, Arterial 03/06/2023 15:52:25 3.0 Above high normal -2.0-2.0 (mmol/L) Final Hemoglobin [Mass/volume] in Blood by Oximetry 03/06/2023 15:52:25 11.6 Below low normal 12.0-15.3 (g/dL) Final HCT, calc. 03/06/2023 15:52:25 35.7 Below low normal 36.0-45.2 (%) Final The Hematocrit reference int erval is based on adult population.
This method is intended for trending and screening purposes only.
A "Complete Blood Count" is more accurate and should be ordered if clinically indicated. Oxyhemoglobin, Arterial (FO2HB) 03/06/2023 15:52:25 90.6 Below low normal 94.0-99.0 (% total Hgb) Final Carboxyhemoglobin 03/06/2023 15:52:25 1.7 Above high normal <=1.5 (% total Hgb) Final Smokers: 0-9.0 % Methemoglobin 03/06/2023 15:52:25 0.7 <=1.5 (% total Hgb) Final Deoxyhemoglobin/Hemog lobin.total in Arterial blood 03/06/2023 15:52:25 7.0 Above high normal 0.0-5.0 (% total Hgb) Final Oxygen content in Arterial blood 03/06/2023 15:52:25 14.8 Below low normal 15.0-24.0 (%vol) Final Potassium, Whole Blood 03/06/2023 15:52:25 3.9 3.5-5.1 (mmol/L) Final Sodium, Whole Blood 03/06/2023 15:52:25 131 Below low normal 135-146 (mmol/L) Final Chloride, Whole Blood 03/06/2023 15:52:25 96 Below low normal 98-107 (mmol/L) Final Calcium.ionized [Moles/volume] in Blood by Ion-selective membrane electrode (ISE) 03/06/2023 15:52:25 1.13 1.13-1.32 (mmol/L) Final Anion gap, Whole Blood 03/06/2023 15:52:25 6.0 Below low normal 7.0-15.0 (mmol/L) Final Glucose, whole blood 03/06/2023 15:52:25 123 Above high normal 70-120 (mg/dL) Final Oxygen/Total gas setting [Volume Fraction] Ventilator 03/06/2023 15:52:25 Not Provided (%) Final O2 FLOW, ARTERIAL - [facility] 03/06/2023 15:52:25 Not Provided (L/min) Final Bicarbonate, Venous, POC (i-STAT) 03/06/2023 15:52:25 28.5 23.0-31.0 (mmol/L) Final Performing Location LABORATORY [facility] - [facility] [address] [facility] [address]
--- OUTSIDE RECORDS SUMMARY | 2023-03-19 09:47 | External Medical Summary ---
Author Name Unknown Address Unknown Organization [id number]:[facility] [place] [facility] [address] [facility] [address] [place] [address] Laboratory Report Ordering Provider Test Date Status ROYAL NOBLE 03/07/2023 04:41:00 Final Observation Date Value Abnormality Reference (Units ) Status BUN 03/07/2023 04:41:00 24 Above high normal 6-20 (mg/dL) Final Creatinine 03/07/2023 04:41:00 0.8 0.5-1.0 (mg/dL) Final Glomerular filtration rate/1.73 sq M.predicted [Volume Rate/Area] in Serum, Plasma or Blood by Creatinine-based formula (CKD-EPI) 03/07/2023 04:41:00 77 >=60 (mL/min) Final eGFR is calculated based on the CKD-EPI 2020 equation SODIUM 03/07/2023 04:41:00 128 Below low normal 135 -146 (mmol/L) Final Potassium 03/07/2023 04:41:00 5.1 3.5-5.1 (m mol/L) Final Cl 03/07/2023 04:41:00 91 Below low normal 98- 107 (mmol/L) Final CO2 03/07/2023 04:41:00 28 22-32 (mmo l/L) Final Anion gap 03/07/2023 04:41:00 9 7-15 (mmol /L) Final Glucose 03/07/2023 04:41:00 145 Above high normal 70 -120 (mg/dL) Final Calcium 03/07/2023 04:41:00 8.7 8.4-10.2 ( mg/dL) Final Performing Location [facility] [place] [address] [place] [address]
--- OUTSIDE RECORDS SUMMARY | 2023-03-19 09:47 | External Medical Summary ---
Author Name Unknown Address Unknown Organization K01:[facility]ORY [facility] - [facility][note 3] [address] [facility] [address] [place] [address] Laboratory Report Ordering Provider Test Date Status ROYAL NOBLE 03/08/2023 05:17:00 Final Observation Date Value Abnormality Reference (Units ) Status BUN 03/08/2023 05:17:00 28 Above high normal 6-20 (mg/dL) Final Creatinine 03/08/2023 05:17:00 0.9 0.5-1.0 (mg/dL) Final Glomerular filtration rate/1.73 sq M.predicted [Volume Rate/Area] in Serum, Plasma or Blood by Creatinine-based formula (CKD-EPI) 03/08/2023 05:17:00 66 >=60 (mL/min) Final eGFR is calculated based on the CKD-EPI 2020 equation SODIUM 03/08/2023 05:17:00 130 Below low normal 135 -146 (mmol/L) Final Potassium 03/08/2023 05:17:00 4.6 3.5-5.1 (m mol/L) Final Cl 03/08/2023 05:17:00 89 Below low normal 98- 107 (mmol/L) Final CO2 03/08/2023 05:17:00 30 22-32 (mmo l/L) Final Anion gap 03/08/2023 05:17:00 11 7-15 (mmol /L) Final Glucose 03/08/2023 05:17:00 124 Above high normal 70 -120 (mg/dL) Final Calcium 03/08/2023 05:17:00 9.0 8.4-10.2 ( mg/dL) Final Performing Location LABORATORY [facility] - [address] [place] [address]
--- OUTSIDE RECORDS SUMMARY | 2023-03-19 09:47 | External Medical Summary | Summary of Care ---
Author Name Unknown Organization [facility] Address [address] [place] [address] Phone [phone] Care Team Providers Care Ground Operations Superintendent Name Role Phone Alford, Eleedwina Olguin Primary Care Provider [phone] Encounter Details Date Type Department Care Team (Late st Contact Info) Description 02/25/2023 Orders Only Cardiothoracic Surg [facility] [place] [address] [place] [address] Ken Ndiaye MD [address] [place], [place] [id number] Allergies Active Allergy Reactions Criticality Noted Date Comments No Known Drug Allergy 11/16/2000 documented as of this encounter (statuses as of 03/06/2023) Medications Medication Sig Dispensed Refills Start Date End Date Status CENTRUM OR TABS 1 TABLET DAILY 30 0 03/27/2004 Active polyethylene glycol 3350 (MIRALAX) 255 gram powderIndications:Ch ronic constipation Take 17 g by mouth daily. 1 Bottle 5 06/16/2018 Active Budesonide-Formotero l Fumarate 160-4.5 MCG/ACT Inhalation Aerosol (Symbicort)Indicatio ns:COPD, severe (HCC) Inhale 2 Puffs by mouth in the morning and 2 Puffs before bedtime. 10.2 g 11 05/26/2022 Active Albuterol Sulfate HFA 108 (90 Base) MCG/ACT Inhalation Aerosol SolutionIndications: COPD, moderate (HCC) Inhale 2 Puffs by mouth [...] for Anxiety. 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, moderate 03/27/2004 Overview: FEV1/FVC 56%;L PFT376%; 23% IMPROVEMENT IN EFE25-97 WITH BRONCHODILATOR GENERAL OSTEOARTHROSIS 12/27/2001 Tobacco use disorder 12/27/2001 documented as of this encounter (statuses as of 03/06/2023) Resolved Problems Problem Noted Date Diagnosed Date [...] Asthma Taxonomy ICD-10 update of inactive term COPD, severity to be determined 03/27/2004 05/08/2011 Asthma, allergic 12/27/2001 11/01/2009 Family history of other card iovascular diseases 12/27/2001 05/13/2017 Overview: ICD-10 update of inactive term FAM HX-DIABETES MELLITUS 12/27/200107/2017 documented as of this encounter (statuses as of 03/06/2023) Immunizations No known immunizationsdocumented as of this [...] on file documented as of this encounter Plan of Treatment Upcoming Encounters Date Type Department Care Team (Late st Contact Info) Description 03/11/2023 11:00 AM EDT Cardiac Studies Cardiac Studies, [facility] [address] [place] [address] 03/24/2023 10:00 AM EST Office Visit Cardiology, [facility] [address] [place] [address] Rosales Holman, [address] [facility] [place] [address] 07/15/2023 2:30 PM EST Office Visit Family Medicine [address] [place] [phone] Ele Alford [address] [place] [address] Health Maintenance Due Date Last Done Comments [...] ASSESSMENT COMPLETED IN PAST YEAR FOR COPD 02/17/2024 02/16/2023 COLONOSCOPY-EVERY 5 YRS AGES 18-100 Discontinued 09/19/2013, [...] Procedure Name Priority Date/Time Associated Diagnosis Comments RADIOLOGY EXAM - PET (IMAGES ONLY, NO REPORT) Routine 02/25/2023 3:45 PM EDT documented in this encounter Results * RADIOLOGY EXAM - PET (IMAGES ONLY, NO REPORT) (02/25/2023 3:45 PM EDT) 02/25/2023 3:42 PM EDT Narrative Scheduling, Silent - 03/06/2023 12:13 PM EDT This is an imaging study not interpreted or resulted by a [facility] or [facility] contracted radiologist. Ken Ndiaye MD RAD NUCLEAR MED documented in this encounter Advance Directives Healthcare Agents on File Name Relationship Healthcare Agent Relationshi p Communication Jennifer C[place]rock Adult Child Health Care Repr esentative (appointed verbally by patient or by statute hierarchy) Sergey Santana Adult Child Health Care Repr esentative (appointed verbally by patient or by statute hierarchy) Care Teams Ground Operations Superintendent Relationship Specialty Start Date End Date Ele Alford DO [address] [place] [address] [place] [phone] PCP - General Internal Medicine 01/07/23 documented as of this encounter
--- OUTSIDE RECORDS SUMMARY | 2023-03-19 09:47 | External Medical Summary ---
Author Name Unknown Address Unknown Organization : Laboratory Report Ordering Provider Test Date Status DIANE ERYNA 03/06/2023 14:48:08 Final Observation Date Value Abnormality Reference (Units) Status Blood draw [PhenX] 03/06/2023 14:48:08 Arterial Draw Final pH, POC (i-STAT) 03/06/2023 14:48:08 7.362 7.350-7.450 Final PCO2 POC (i-STAT) 03/06/2023 14:48:08 51.2 Above high normal 35.0-45.0 (mm Hg) Final PO2 POC (i-STAT) 03/06/2023 14:48:08 73 Below low normal 75-100 (mm Hg) Final Base excess standard in Arterial blood by calculation 03/06/2023 14:48:08 3 Above high normal -2-2 (mmol/L) Final Bicarbonate, Venous, POC (i-STAT) 03/06/2023 14:48:08 29.1 23.0-31.0 (mmol/L) Final O2 Sat, calculated POC (i-STAT) 03/06/2023 14:48:08 94.0 94.0-98.0 (%) Final Glucose, whole blood 03/06/2023 14:48:08 90 70-120 (mg/dL) Final Potassium, Whole Blood 03/06/2023 14:48:08 3.9 3.5-5.1 (mmol/L) Final Sodium, Whole Blood 03/06/2023 14:48:08 132 Below low normal 135-146 (mmol/L) Final Calcium, Ionized, Whole Blood 03/06/2023 14:48:08 1.09 Below low normal 1.13-1.32 (mmol/L) Final Hemoglobin POC (i-STAT) 03/06/2023 14:48:08 10.2 Below low normal 12.0-15.3 (g/dL) Final HCT 03/06/2023 14:48:08 30 Below low normal 36-45 (%) Final Oxygen/Total gas setting [Volume Fraction] Ventilator 03/06/2023 14:48:08 30 (%) Final Performing Location
--- OUTSIDE RECORDS SUMMARY | 2023-03-19 09:47 | External Medical Summary ---
Author Name Unknown Address Unknown Organization K01:LABORATORY C - [address] [place] [address] Laboratory Report Ordering Provider Test Date Status KEVIN ACKERMAN 03/07/2023 04:41:00 Final Observation Date Value Abnormality Reference (Units ) Status CK-MB 03/07/2023 04:41:00 2.5 0.0-4.3 (n g/mL) Final Performing Location [facility] - [address] [place] [address]
--- OUTSIDE RECORDS SUMMARY | 2023-03-19 09:47 | External Medical Summary ---
Author Name Unknown Address Unknown Organization [id number]:LABORATORY [facility] - [facility] [address] [facility] [address] [facility] [address] Laboratory Report Ordering Provider Test Date Status ROYAL NOBLE 03/08/2023 05:17:00 Final Observation Date Value Abnormality Reference (Units ) Status WBC, Total 03/08/2023 05:17:00 13.46 Above high normal 4.00-10.80 (K/uL) Final RBC 03/08/2023 05:17:00 4.03 3.85-5.15 (M/uL) Final Hemoglobin 03/08/2023 05:17:00 12.4 12.0-15.3 (g/dL) Final HCT 03/08/2023 05:17:00 37.6 36.0-45.2 (%) Final MCV 03/08/2023 05:17:00 93.3 81.5-97.5 (fL) Final MCH 03/08/2023 05:17:00 30.8 27.0-34.0 (pg) Final MCHC 03/08/2023 05:17:00 33.0 32.0-36.0 (g/dL) Final RDW 03/08/2023 05:17:00 12.2 11.5-15.5 (%) Final Platelets 03/08/2023 05:17:00 294 140-400 (K/uL) Final MPV 03/08/2023 05:17:00 10.0 6.6-11.1 (fL) Final Nucleated erythrocytes/100 leukocytes [Ratio] in Blood by Automated count 03/08/2023 05:17:00 0 <=0 (/100 WBCs) Final Performing Location LABORATORY [facility] - [address] [facility] [address]
--- OUTSIDE RECORDS SUMMARY | 2023-03-19 09:47 | External Medical Summary ---
Author Name Unknown Address Unknown Organization [id number]:[facility]ORY [facility] - [address] [facility] [place] [address] Laboratory Report Ordering Provider Test Date Status ROYAL NOBLE 03/08/2023 05:17:00 Final Observation Date Value Abnormality Reference (Units ) Status SYNC LEUKOCYTES IN BLOOD BY AUTOMATED COUNT 03/08/2023 05:17:00 13.46 Above high normal 4.00-10.80 (K/uL) Final Segs 03/08/2023 05:17:00 77.0 Above high normal 40.0-75.0 (%) Final Lymphs % 03/08/2023 05:17:00 10.3 Below low normal 18.0-42.0 (%) Final Monos 03/08/2023 05:17:00 11.1 Above high normal 1.0-11.0 (%) Final Eosinophils 03/08/2023 05:17:00 0.7 0.0-6.0 (%) Final Basos 03/08/2023 05:17:00 0.5 0.0-2.0 (%) Final Immature Granulocyte, Percent 03/08/2023 05:17:00 0.4 0.0-2.0 (%) Final Absolute Segs 03/08/2023 05:17:00 10.36 Above high normal 1.80-7.70 (K/uL) Final Lymphs, absolute 03/08/2023 05:17:00 1.39 1.00-4.80 (K/ul) Final Monos, Abs 03/08/2023 05:17:00 1.50 Above high normal 0.00-1.10 (K/uL) Final Eos, Abs 03/08/2023 05:17:00 0.09 0.00-0.70 (K/uL) Final Basos, Abs 03/08/2023 05:17:00 0.07 0.00-0.20 (K/uL) Final Immature Granulocytes, Number 03/08/2023 05:17:00 0.05 0.00-0.20 (K/uL) Final Performing Location LAB[facility]ORY [facility] - [facility] [address] [facility] [address]
--- OUTSIDE RECORDS SUMMARY | 2023-03-19 09:47 | External Medical Summary | Summary of Care ---
Author Name Unknown Organization [facility] Address [address] [place] [address] Phone [phone] Care Team Providers Care Classroom Coordinator Name Role Phone Ele Alford Primary Care Provider Encounter Details Date Type Department Care Team (Latest Contact Info) Description 02/25/2023 3:45 PM EDT - 02/25/2023 11:59 PM EDT Hospital Encounter Radiology Film File [address] [place] [address] Discharge Disposition: Home - Self Care Allergies Active Allergy Reactions Criticality Noted Date Comments No Known Drug Allergy 11/16/2000 documented as of this encounter (statuses as of 03/07/2023) Medications Medication Sig Dispensed Refills Start Date End Date Status CENTRUM OR TABS 1 TABLET DAILY 30 0 03/27/2004 Suspended polyethylene glycol 3350 (MIRALAX) 255 gram powderIndications: Chronic constipation Take 17 g by mouth daily. 1 Bottle 5 06/16/2018 Suspended Additional Information Budesonide-Formote rol Fumarate 160-4.5 MCG/ACT Inhalation Aerosol (Symbicort)Indicat ions:COPD, severe (HCC) Inhale 2 Puffs by mouth in the morning and 2 Puffs before bedtime. 10.2 g 11 05/26/2022 Suspended Additional Information Albuterol Sulfate HFA 108 (90 Base) MCG/ACT Inhalation Aerosol SolutionIndication s:COPD, moderate (HCC) Inhale 2 Puffs by mouth every 4 hours as needed for Shortness of Breath. 54 g 3 12/22/2022 Suspended Additional Information Metoprolol Tartrate 25 MG Oral Tablet (Lopressor) Take 1 Tablet by mouth in the morning and 1 Tablet before bedtime. 180 Tablet 3 02/02/2023 Suspended Additional Information Acetaminophen 500 MG Oral Tablet Take 3 Tablets by mouth 2 times a day as needed for Pain, Moderate. 0 Suspended LORazepam 0.5 MG Oral Tablet (Ativan) Take 1 Tablet by mouth every 8 hours as needed for Anxiety. 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, severity to be determined 03/27/2004 COPD, moderate 03/27/2004 Overview: FEV1/FVC 56%;L [id number]%; 23% IMPROVEMENT IN [id number] WITH BRONCHODILATOR GENERAL OSTEOARTHROSIS 12/27/2001 Asthma, allergic 12/27/2001 Tobacco use disorder 12/27/2001 documented as of this encounter (statuses as of 03/07/2023) Resolved Problems Problem Noted Date Diagnosed Date [...] as of this encounter (statuses as of 03/07/2023) Immunizations No known immunizationsdocumented as of this [...] 11:00 AM EDT Cardiac Studies Cardiac Studies, [facility] [address] [facility] [place] [address] 03/24/2023 10:00 AM EST Office Visit Cardiology, [facility] [address] [facility] [place] [address] Rosales Holman, [address] [facility] [place] [address] 07/15/2023 2:30 PM EST Office Visit Family Medicine [address] [place] [phone] Ele Alford [address] [place] [address] Health Maintenance Due Date Last Done Comments [...] interpreted or resulted by a [facility] or [facility] contracted radiologist. Ken Ndiaye MD RAD NUCLEAR MED documented in this encounter Advance Directives Latest Code Status on File Code Status Date Activated Date Inactivated Comments No Code 03/06/2023 2:51 PM This orde r reflects the patients wishes and were consensually [...] patient or by statute hierarchy) Care Teams Classroom Coordinator Relationship Specialty Start Date End Date Ele Alford DO [address] [place] [address] [place] [address] PCP - General Internal Medicine 01/07/23 documented as of this encounter
--- OUTSIDE RECORDS SUMMARY | 2023-03-19 09:47 | External Medical Summary ---
Author Name Unknown Address Unknown Organization K01:LABORATORY [facility] - [facility] [address] [facility] [address] [facility] [address] Laboratory Report Ordering Provider Test Date Status ROYAL NOBLE 03/07/2023 04:41:00 Final Observation Date Value Abnormality Reference (Units ) Status WBC, Total 03/07/2023 04:41:00 18.81 Above high normal 4.00-10.80 (K/uL) Final RBC 03/07/2023 04:41:00 4.04 3.85-5.15 (M/uL) Final Hemoglobin 03/07/2023 04:41:00 12.4 12.0-15.3 (g/dL) Final HCT 03/07/2023 04:41:00 38.3 36.0-45.2 (%) Final MCV 03/07/2023 04:41:00 94.8 81.5-97.5 (fL) Final MCH 03/07/2023 04:41:00 30.7 27.0-34.0 (pg) Final MCHC 03/07/2023 04:41:00 32.4 32.0-36.0 (g/dL) Final RDW 03/07/2023 04:41:00 12.1 11.5-15.5 (%) Final Platelets 03/07/2023 04:41:00 271 140-400 (K/uL) Final MPV 03/07/2023 04:41:00 10.0 6.6-11.1 (fL) Final Nucleated erythrocytes/100 leukocytes [Ratio] in Blood by Automated count 03/07/2023 04:41:00 0 <=0 (/100 WBCs) Final Performing Location LABORATORY [facility] - [address] [facility] [address] [facility] [address]
--- OUTSIDE RECORDS SUMMARY | 2023-03-19 09:47 | External Medical Summary ---
Author Name Unknown Address Unknown Organization : Laboratory Report Ordering Provider Test Date Status DIANE REYNA 03/06/2023 14:41:07 Final Observation Date Value Abnormality Reference (Units ) Status Blood draw [PhenX] 03/06/2023 14:41:07 Venous Final pH, POC (i-STAT) 03/06/2023 14:41:07 7.367 7.350-7.450 Final PCO2 POC (i-STAT) 03/06/2023 14:41:07 56.9 Above upper panic limits 35.0-45.0 (mm Hg) Final PO2 POC (i-STAT) 03/06/2023 14:41:07 35 Below lower panic limits 75-100 (mm Hg) Final Base excess standard in Arterial blood by calculation 03/06/2023 14:41:07 7 Above high normal -2-2 (mmol/L) Final Bicarbonate, Venous, POC (i-STAT) 03/06/2023 14:41:07 32.6 Above high normal 23.0-31.0 (mmol/L) Final O2 Sat, calculated POC (i-STAT) 03/06/2023 14:41:07 64.0 Below low normal 94.0-98.0 (%) Final Glucose, whole blood 03/06/2023 14:41:07 108 70-120 (mg/dL) Final Potassium, Whole Blood 03/06/2023 14:41:07 4.5 3.5-5.1 (mmol/L) Final Sodium, Whole Blood 03/06/2023 14:41:07 130 Below low normal 135-146 (mmol/L) Final Calcium, Ionized, Whole Blood 03/06/2023 14:41:07 1.20 1.13-1.32 (mmol/L) Final Hemoglobin POC (i-STAT) 03/06/2023 14:41:07 6.5 Below lower panic limits 12.0-15.3 (g/dL) Final HCT 03/06/2023 14:41:07 19 Below lower panic limits 36-45 (%) Final Oxygen/Total gas setting [Volume Fraction] Ventilator 03/06/2023 14:41:07 40 (%) Final Performing Location
--- OUTSIDE RECORDS SUMMARY | 2023-03-19 09:47 | External Medical Summary | Summary of Care ---
Author Name Unknown Organization [facility] Address [address] [place] [address] Phone [phone] Care Team Providers Care Spray Drier Operator Helper Name Role Phone Rocío Eleedwina Olguin Primary Care Provider [phone] Reason for Visit * Reason Comments NEW PATIENT Encounter Details Date Type Department Care Team (Late st Contact Info) Description 03/06/2023 12:00 PM EDT Office Visit Cardiothoracic Surg [facility] [address] [place], [place] [phone] Ken Ndiaye MD [address] [place], [place] [phone] Pericardial effusion* Allergies Active Allergy Reactions Criticality Noted Date [...] Oral Tablet (Motrin) 2 Tablets. 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, severity to be determined 03/27/2004 COPD, moderate 03/27/2004 Overview: FEV1/FVC 56%;L [id number]%; 23% IMPROVEMENT IN [id number] WITH BRONCHODILATOR GENERAL OSTEOARTHROSIS 12/27/2001 Asthma, allergic [...] Sign Reading Time Taken Comments Blood Pressure 102/62 03/06/2023 11:54 AM EDT Pulse 98 03/06/2023 11:54 AM EDT Temperature - - Respiratory Rate - - Oxygen Saturation 94% 03/06/2023 11:54 AM EDT on 3 L Inhaled Oxygen Concentration - - Weight 47.9 kg (105 lb 9.6 oz) 03/06/2023 11:54 AM EDT Height - - Body Mass Index 19.95 02/13/2023 11:11 AM EDT documented in this encounter Progress Notes * Ken Ndiaye MD - 03/06/2023 1:28 PM EDT ATTENDING STAFF I have seen and examined the patient. 77 yo woman with progressive severe dyspnea, unable to walk across room at this point. New diagnosis of lung cancer, at least stage III, on admission to [facility] in late January. FNA of level 7 [...] occurs after she recovers from the procedure. Ken Ndiaye M.D. Associate, [place] [address] Office [phone] * Jane Minor PA-C - 03/06/2023 12:00 PM EDT HISTORY AND PHYSICAL EXAMINATION - [facility] Name: Lynette Santana Date: 03/06/2023 Time: 9:27 AM REFERRING PHYSICIAN: Rosales Holman DO PCP: Ele Alford DO SUPERVISOR CIGAR MAKING HAND: Rosales Holman DO HPI: Lynette Santana is a 77 year old femalem smoker with past medical history significant for recently diagnosed right lung adenocarcinoma, COPD, chronic respiratory failure with hypoxia, and activetobacco use who presents for evaluation of pericardial effusion. She was admitted approximately 1 month ago to [facility] for chest pain at which time she underwent lung biopsy that was positive for adenocarcinoma. She was also noted to have a small pericardial effusion. On repeat TTE Thursday03/04/23, she was noted to have increased pericardial effusion. During heradmission to [facility], she did not report having significant dyspnea, however, she now cannot even walkacross a room without resting due to severe dyspnea. She reports + dysphagia, SOB, now O2 dependant (3L) since a month ago. She had a PET scan 2 weeks ago. Of note, she has an appointment with an oncologist at [facility] on 03/11/23 Past Medical History: Diagnosis Date [...] performed by Michael Taveras DO at ENDOSCOPY [facility] COLONOSCOPY, DIAGNOSTIC (RECTUM) 09/19/2013 diverticulosis, repeat 5 yrs/COLONOSCOPY FLEXIBLE PROXIMAL DIAGNOSTIC performed by Michael Taveras DO at ENDOSCOPY [facility] ABD/PELVIS W WO IV CONTRAST AND [...] performed by Michael Taveras DO at OR [facility]--biopsies from esophagus showed mild inflammation REPAIR OF BLADDER NECK 2010 TOTAL ABD HYSTERECTOMY W/WO REMOVAL OF TUBE(S) 2010 ovaries in - prolapse - [place] [facility] US ENDOSCOPIC 05/12/12 mucosal abnormality upper [...] kg/m | BSA 1.44 m PHYSICAL EXAM: General: sitting forward in order to breath Chest: normal shape and normal respiratory effort Cardiac Exam: regular rate & rhythm no murmurs gallops or rubs - normal S1, normal S2 Pulses: The following pulses are normal: carotids, femorals, abdominal aorta, and posterior tibials Abdomen: abdomen soft, non-tender, no abnormal masses, and no hepatosplenomegaly Extremities: no edema and no cyanosis Neuro: grossly normal exam STUDIES: TTE 03/04/2023: Interpretation Summary Limited study [...] window Helen Amezquita PA-C 03/06/2023 12:17 PM documented in this encounter Nursing Notes * Shonda Godoy LPN - 03/06/2023 12:05 PM EDT Patient was instructed to not get up on the exam table/exam chair until directed and assisted by their provider; patient is to remain seated in the chair/ wheelchair/ exam table/ exam chair for fall prevention and safety reasons. Patient is aware to have assistance to step down off exam table/exam chair with personnel. Patient voiced full comprehension of instructions. Shonda Godoy LPN [facility] 03/06/2023 12:05 PM documented in this encounter Plan of Treatment Upcoming Encounters Date Type Department Care Team (Late st Contact Info) Description 03/11/2023 11:00 AM EDT Cardiac Studies Card[facility] Studies, [facility] [place] [address] 03/24/2023 10:00 AM EST Office Visit Cardiology, [facility] [address] [facility] [place] [address] Rosales Holman, [address] [place] [address] 07/15/2023 2:30 PM EST Office Visit Family Medicine [address] [place] [phone] Ele Alford[address] [place] [address] Scheduled Procedures Name Priority Associated Diagnoses Date/Ti me CREATION PERICARDIAL WINDOW Pericardial effusion 03/06/2023 12:48 PM EDT Health Maintenance Due Date Last Done Comments DISCUSS TOBACCO CESSATION (REFER TO SMARTSET #5303) 1945 COVID-19 Vaccine (#1) 06/26/1946 Pneumococcal Vaccine: 65+ Years (1 - PCV) 12/25/1951 Alpha-1 Antitrypsin 12/25/1963 DTaP,Tdap,and Td Vaccines (1 - Tdap) 1964 Zoster Vaccines (1 of 2) 12/25/1995 DXA Scan 04/15/2014 04/15/2011 Depression Screening 06/16/2019 06/16/2018 Influenza Vaccine (FLU shot) (#1) 2023 O2 ASSESSMENT COMPLETED IN PAST YEAR FOR COPD 02/17/2024 03/06/2023 COLONOSCOPY-EVERY 5 YRS AGES 18-100 Discontinued [...] as of this encounter Visit Diagnoses Diagnosis Pericardial effusion- Primary Unspecified disease of pericardium documented in this encounter Advance Directives Latest Code Status on File Code Status Date Activated Date Inactivated Comments No Code 03/06/2023 1:16 PM This orde r reflects the patients [...] patient or by statute hierarchy) Care Teams Spray Drier Operator Helper Relationship Specialty Start Date End Date Ele Alford DO [address] [place] [address] [place] [address] PCP - General Internal Medicine 01/07/23 documented as of this encounter"
--- OUTSIDE RECORDS SUMMARY | 2023-03-19 09:47 | External Medical Summary ---
Author Name Unknown Address Unknown Organization K01:LABORATORY C - [address] [place] [address] Laboratory Report Ordering Provider Test Date Status KEVIN ACKERMAN 03/06/2023 23:40:59 Final Observation Date Value Abnormality Reference (Units ) Status CK-MB 03/06/2023 23:40:59 2.9 0.0-4.3 (n g/mL) Final Performing Location [facility] - [address] [place] [address]
--- OUTSIDE RECORDS SUMMARY | 2023-03-19 09:48 | External Medical Summary ---
Author Name Unknown Address Unknown Organization K01:LABORATORY [facility] - [facility] [address] [facility] [address] [place] [address] Laboratory Report Ordering Provider Test Date Status TAYLOR NAYAK 03/06/2023 13:25:43 Final Observation Date Value Abnormality Reference (Units ) Status BUN 03/06/2023 13:25:43 24 Above high normal 6-20 (mg/dL) Final Creatinine 03/06/2023 13:25:43 0.8 0.5-1.0 (mg/dL) Final Glomerular filtration rate/1.73 sq M.predicted [Volume Rate/Area] in Serum, Plasma or Blood by Creatinine-based formula (CKD-EPI) 03/06/2023 13:25:43 81 >=60 (mL/min) Final eGFR is calculated based on the CKD-EPI 2020 equation SODIUM 03/06/2023 13:25:43 131 Below low normal 135 -146 (mmol/L) Final Potassium 03/06/2023 13:25:43 4.5 3.5-5.1 (m mol/L) Final Cl 03/06/2023 13:25:43 91 Below low normal 98- 107 (mmol/L) Final CO2 03/06/2023 13:25:43 28 22-32 (mmo l/L) Final Anion gap 03/06/2023 13:25:43 12 7-15 (mmol /L) Final Glucose 03/06/2023 13:25:43 150 Above high normal 70 -120 (mg/dL) Final Calcium 03/06/2023 13:25:43 9.4 8.4-10.2 ( mg/dL) Final Performing Location LABORATORY [facility] - [address] [place] [address]
--- OUTSIDE RECORDS SUMMARY | 2023-03-19 09:48 | External Medical Summary ---
Author Name Unknown Address Unknown Organization K01:LABORATORY [facility] - [facility] [address] [facility] [address] [facility] [address] Laboratory Report Ordering Provider Test Date Status TAYLOR NAYAK 03/06/2023 13:25:43 Final Observation Date Value Abnormality Reference (Units ) Status WBC, Total 03/06/2023 13:25:43 9.95 4.00-10.80 (K/uL) Final RBC 03/06/2023 13:25:43 4.41 3.85-5.15 (M/uL) Final Hemoglobin 03/06/2023 13:25:43 13.6 12.0-15.3 (g/dL) Final HCT 03/06/2023 13:25:43 41.5 36.0-45.2 (%) Final MCV 03/06/2023 13:25:43 94.1 81.5-97.5 (fL) Final MCH 03/06/2023 13:25:43 30.8 27.0-34.0 (pg) Final MCHC 03/06/2023 13:25:43 32.8 32.0-36.0 (g/dL) Final RDW 03/06/2023 13:25:43 12.1 11.5-15.5 (%) Final Platelets 03/06/2023 13:25:43 278 140-400 (K/uL) Final MPV 03/06/2023 13:25:43 10.0 6.6-11.1 (fL) Final Nucleated erythrocytes/100 leukocytes [Ratio] in Blood by Automated count 03/06/2023 13:25:43 0 <=0 (/100 WBCs) Final Performing Location LABORATORY [facility] - [facility] [address] [facility] [address]
--- OUTSIDE RECORDS SUMMARY | 2023-03-19 09:48 | External Medical Summary ---
Author Name Unknown Address Unknown Organization K01:LABORATORY [facility] - [address] [place] [address] Laboratory Report Ordering Provider Test Date Status TAYLOR NAYAK 03/06/2023 13:25:43 Final Observation Date Value Abnormality Reference (Units ) Status Albumin 03/06/2023 13:25:43 4.0 3.8-5.0 (g/dL) Final AST (Aspartate aminotransferase) 03/06/2023 13:25:43 18 10-35 (U/L) Final Alk Phos 03/06/2023 13:25:43 102 35-130 (U/L) Final ALT (Alanine aminotransferase) 03/06/2023 13:25:43 22 10-35 (U/L) Final Bilirubin, Total 03/06/2023 13:25:43 0.2 <=1.2 (mg/dL) Final Bilirubin, Direct 03/06/2023 13:25:43 <0.2 0.0-0.3 (mg/dL) Final Protein 03/06/2023 13:25:43 6.5 6.0-8.3 (g/dL) Final Performing Location LABORATORY [facility] - [address] [place] [address]
--- OUTSIDE RECORDS SUMMARY | 2023-03-19 09:48 | External Medical Summary ---
Author Name Unknown Address Unknown Organization K01:LABORATORY [facility] - [address] [place] [address] Laboratory Report Ordering Provider Test Date Status NAELTAYLOR 03/06/2023 13:25:43 Final Observation Date Value Abnormality Reference (Units ) Status ABO 03/06/2023 13:25:43 O Final RH 03/06/2023 13:25:43 Positive Final RED BLOOD CELL ANTIBODY SCREEN 03/06/2023 13:25:43 Negative Final SPECIMEN EXPIRATION DATE 03/06/2023 13:25:43 03/09/2023 23:59 Final Performing Location LABORATORY [facility] - [address] [place] [address]
--- OUTSIDE RECORDS SUMMARY | 2023-03-19 09:48 | External Medical Summary ---
Author Name Unknown Address Unknown Organization K01:LABORATORY [facility] [place] [address] [place] [address] Laboratory Report Ordering Provider Test Date Status NAELTAYLOR 03/06/2023 13:25:43 Final Warfarin Therapy
INR: 2 .0-3.0 conventional anticoagulation
INR: 2.5- 3.5 high intensity anticoagulation Observation Date Value Abnormality Reference (Units ) Status PT 03/06/2023 13:25:43 12.9 11.6-15.2 (seconds) Final INR 03/06/2023 13:25:43 1.0 0.8-1.2 Final Performing Location LABORATORY [facility] [place] [address] [place] [address]
--- OUTSIDE RECORDS SUMMARY | 2023-03-19 09:48 | External Medical Summary ---
Author Name Unknown Address Unknown Organization : Laboratory Report Ordering Provider Test Date Status DIANE REYNA 03/06/2023 13:22:06 Final Observation Date Value Abnormality Reference (Units ) Status Glucose Point of Care 03/06/2023 13:22:06 136 Above high normal 70-120 (mg/dL) Final Performing Location
--- OUTSIDE RECORDS SUMMARY | 2023-03-19 09:48 | External Medical Summary ---
Author Name Unknown Address Unknown Organization K01:[facility] [place] [facility] - [address] [place] [id number] Laboratory Report Ordering Provider Test Date Status NAELTAYLOR 03/06/2023 13:25:43 Final Observation Date Value Abnormality Reference (Units ) Status ABO 03/06/2023 13:25:43 O Final RH 03/06/2023 13:25:43 Positive Final Performing Location [facility] [place] - [address] [place] [address]
--- OUTSIDE RECORDS SUMMARY | 2023-03-19 09:48 | External Medical Summary ---
Author Name Unknown Address Unknown Organization K01:LAB[facility]ATORY [facility] - [address] [place] [id number] Laboratory Report Ordering Provider Test Date Status KEVIN ACKERMAN 03/06/2023 13:25:43 Final Observation Date Value Abnormality Reference (Units ) Status CK-MB 03/06/2023 13:25:43 2.5 0.0-4.3 (n g/mL) Final Performing Location LAB[facility]ATORY [facility] - [address] [place] [address]
--- NOTE | 2023-03-19 11:56 | Hematology/Oncology Prog Note ---
Date of Service March 19, 2023 Assessment & Plan (1) Adenocarcinoma of lung: Plan She can be discharged home since she is clinically stable. Scheduled for week #2 of carboplatin/paclitaxel next week 03/24/2023 at 9;00am. Information on chemotherapy schedule given to patient. She will continue with radiation treatment as scheduled by radiation oncology Admission and Anticipated Discharge Date Admission Date: March 12, 2023 Subjective Received week #1 of carboplatin/paclitaxel and started radiation treatment on 03/17/2023. Plan is for discharge later today. Results & Data Vital Signs (Past 12 Hours) Vital Signs Temp Pulse Pulse Resp BP Pulse Ox O2 Del Method 03/19/23 09:18 37.1 C 88 18 123/75 98 Nasal Cannula 03/19/23 08:00 82 03/19/23 08:00 Nasal Cannula 03/19/23 03:07 36.5 C 82 18 130/76 99 Nasal Cannula O2 Flow Rate 03/19/23 09:18 3 03/19/23 08:00 03/19/23 08:00 3 03/19/23 03:07 3 (1) Adenocarcinoma of lung Laterality: right Qualified Code(s): C34.91 - Malignant neoplasm of unspecified part of right bronchus or lung
[2023-03-19 12:15] VITALS: BP 112/65; PULSE 81; TEMP 98.4; O2SAT 100
--- NOTE | 2023-03-19 14:21 | Hospitalist Progress Note ---
Date of Service March 19, 2023 Assessment & Plan (1) Acute on chronic hypoxic respiratory failure: (2) COPD exacerbation: (3) Adenocarcinoma of lung: (4) Hyponatremia: (5) Sepsis: (6) Pneumonia: Plan This is a 77 yr old F who has a significant past medical history of tobacco abuse, COPD, chronic respiratory failure with hypoxia and recently diagnosed right lung adenocarcinoma who presents to ED 2/2 to SOB. Of significance patient recently hospitalized at [facility] secondary to moderate pericardial effusion status post pericardiocentesis on 03/06/2023. Postop course was uncomplicated. Repeat CT showed resolution and very small pericardial effusion remaining. Since being discharged home she had been doing well except for increase in sputum production. Son at bedside reported it was pink. Also noted was increasing shortness of breath, oxygen requirement and overall generalized weakness. Known right lower lobe non-small cell lung CA following Dr. Bryant for pulmonology, Dr. Naqvi for oncology and Dr. Morrow for radiation oncology. Acute on chronic hypoxic respiratory failure COPD exacerbation Sepsis Possible RUL PNA Lung Mass Possible sepsis in setting of leukocytosis, tachycardia and tachypnea CXR: 1. Interval small left and trace right pleural effusion.2. Redemonstration of the right lower lobe mass consistent with known lung malignancy. 3. Cavitary right apical opacity which favors pneumonia, as shown on prior exams. However, a 2.7 cm nodular opacity has increased and therefore an additional neoplasm cannot be excluded. This should be assessed on follow-up exams. Consult Pulmonology- appreciate recs -continue abx, steroids -extrinsic component of mass/lymphadenopathy compressing bronchi, consider stenting in the future at tertiary care center after systemic chemo started -consider palliative care consult Continue Zosyn and Doxy, IV Solu-Medrol q12h switched to po prednisone MRSA swab negative CTA chest- noted lung masses, emphysema, no PE pulmonary toilet with nebs, flutter valve and incentive spirometry Remains stable clinically with minimal shortness of breath at rest No acute distress at rest and has been requiring 3 L to maintain saturation Remains stable but weak and lethargic and has been requiring 3 L to maintain saturation No acute respiratory distress at rest-oxygen flow is at her baseline She will be discharged home this afternoon Lung cancer Known right lower lobe non-small cell lung CA following Dr. Bryant for pulmonology, Dr. Naqvi for oncology and Dr. Morrow for radiation oncology. Heme/onc consult- appreciate recs -treat pneumonia, COPD exacerbation -if still hospitalized next week with no signs of active infection, will consider starting chemo treatment at that time Palliative consult placed- appreciate recs 03/16/2023 The patient decided to have therapy for the lung cancer and she will have chemo and radiation plan for tomorrow 03/17/2023 She is going to get the chemotherapy and radiation treatment today Ongoing chemo and radiation and she wants to go home Will get PT OT evaluation prior to possible discharge tomorrow She will continue to have chemo and radiation as advised Hyponatremia Likely multifactorial Poor intake over the past week as well as 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 Remains a little anxious but no other symptoms Pericardial effusion s/p pericardiocentesis 03/06/23 at [facility] s/p pericardiocentesis 03/06/23 at [facility] Echo 03/13- no noted pericardial effusion CTA chest- noted lung masses, emphysema, no PE Troponins have flattened cytology was benign Denies any cardiac symptoms-remains stable No cardiac symptoms Tobacco abuse encourage cessation nicotine patch declined Diet: low sodium, fluid restriction DVT ppx: SQ Lovenox DNR/DNI Dispo: PT/OT ordered, palliative care consulted. Discussed with the son and she will be discharged home this afternoon Admission and Anticipated Discharge Date Admission Date: March 12, 2023 Subjective 03/16/2023 The patient was seen and examined in telemetry She has been stable but feels generally weak and lethargy No shortness of breath at rest Has been on 3 L to maintain saturation 03/17/2023 The patient was seen and examined in telemetry unit She remains stable and awaiting chemotherapy Asking for her home medications of Ativan and mirtazapine 03/18/2023 The patient was seen and examined in telemetry unit She is a status post chemo and radiation for lung cancer Has been feeling better but remains generally weak and lethargic She wants to go home and we will get PT and OT evaluation 03/19/2023 The patient was seen and examined in telemetry unit She has been getting chemo and radiation for the lung cancer Remains generally weak but denies any other significant symptoms She has had physical therapy and she will be discharged home this afternoon Review of Systems Review of Systems: All systems reviewed and are unremarkable except as noted below Physical Exam Physical Exam: Lying in bed with minimal shortness of breath at rest Constitutional: + ill appearing and + thin Eyes: PERRL, conjunctivae normal, anicteric sclerae ENMT: external ear and nose normal, oropharynx normal Neck: trachea midline, no thyromegaly Respiratory: no respiratory distress Auscultation: + diminished lung sounds and + crackles (Bilateral) Cardiovascular: Rate/Rhythm: regular rate and regular rhythm; not tachycardic Heart Sounds: normal S1 and normal S2; no murmur Extremities: no edema Gastrointestinal (Abdomen): Inspection/Auscultation: normal bowel sounds; abdomen not distended Percussion/Palpation: abdomen soft; abdomen nontender Musculoskeletal: No acute arthritis involving any of the joint Neurologic: normal touch/pain/proprioception and moves all extremities; no focal motor deficits Lymphatic: no cervical or axillary lymphadenopathy Results & Data Results & Data Vital Signs (Past 12 Hours) Vital Signs Temp Pulse Pulse Resp BP Pulse Ox O2 Del Method 03/19/23 12:13 36.9 C 81 18 112/65 100 Nasal Cannula 03/19/23 09:18 37.1 C 88 18 123/75 98 Nasal Cannula 03/19/23 08:00 82 03/19/23 08:00 Nasal Cannula 03/19/23 03:07 36.5 C 82 18 130/76 99 Nasal Cannula O2 Flow Rate 03/19/23 12:13 3 03/19/23 09:18 3 03/19/23 08:00 03/19/23 08:00 3 03/19/23 03:07 3 Laboratory Results Short CBC 03/19/23 Range/Units 04:12 WBC 12.13 H (4.8-10.8) K/ul Hgb 11.6 L (12.0-16.0) g/dl Hct 34.9 L (37.0-47.0) % Plt Count 392 (130-400) K/uL BMP 03/19/23 04:12 Sodium 132 L Potassium 4.2 Chloride 94 L Carbon Dioxide 33 H BUN 23 Creatinine 0.81 Glucose 86 Calcium 8.8 Medications Administered Current Inpatient Medications Acetaminophen (Acetaminophen 325 Mg Tab) 650 mg PO Q4H PRN PRN Reason: Pain or Fever Stop: 04/11/23 20:11 Last Admin: 03/19/23 06:32 Dose: 650 mg Al Hydrox/Mg Hydrox/Simethicone (Aluminum/Magnesium Susp 30 Ml Udc) 15 ml PO Q4H PRN PRN Reason: Dyspepsia Stop: 04/11/23 20:11 Enoxaparin Sodium (Enoxaparin Inj 40 Mg/0.4 Ml Syr) 40 mg SQ Q24H YU Stop: 04/11/23 20:59 Last Admin: 03/18/23 20:31 Dose: 40 mg Fluticasone/Vilanterol (Fluticasone/Vilanterol 100/25mcg 14 Puffs/Inhaler) 1 puffs INH DAILY YU Stop: 04/11/23 23:44 Last Admin: 03/19/23 09:45 Dose: 1 puffs Doxycycline Hyclate 100 mg/ (Dextrose) 100 mls @ 50 mls/hr IV Q12H YU Stop: 03/19/23 20:59 Last Infusion: 03/19/23 12:14 Dose: Infused Piperacillin Sod/Tazobactam (Sod 4.5 gm/ Dextrose) 100 mls @ 25 mls/hr IV Q8H [facility]; Protocol Stop: 03/20/23 21:59 Last Infusion: 03/19/23 09:47 Dose: Infused Ibuprofen (Ibuprofen 200 Mg Tab) 400 mg PO QID PRN PRN Reason: As Needed for Fever or Pain Stop: 04/13/23 17:53 Last Admin: 03/18/23 19:23 Dose: 400 mg Ipratropium [place] (Ipratropium [place] Neb Soln 0.02% 2.5 Ml Vial) 0.5 mg INH Q6R PRN PRN Reason: Shortness Of Breath Or Wheezing Stop: 04/11/23 20:44 Levalbuterol HCl (Levalbuterol 1.25 Mg/3 Ml Neb) 1.25 mg NEB Q6R PRN PRN Reason: Shortness Of Breath Or Wheezing Stop: 04/11/23 20:44 Lorazepam (Lorazepam 0.5 Mg Tab) 0.5 mg PO TID PRN PRN Reason: Anxiety Stop: 04/16/23 12:40 Metoprolol Tartrate (Metoprolol Tartrate 25 Mg Tab) 25 mg PO BID YU Stop: 04/11/23 23:20 Last Admin: 03/19/23 09:46 Dose: 25 mg Mirtazapine (Mirtazapine Tab 15 Mg Tab) 15 mg PO HS YU Stop: 04/16/23 20:59 Last Admin: 03/18/23 20:32 Dose: 15 mg Ondansetron HCl (Ondansetron Inj 2 Mg/Ml 2 Ml Vial) 4 mg IV Q6H PRN PRN Reason: Nausea Stop: 04/11/23 20:11 Last Admin: 03/18/23 17:27 Dose: 4 mg Oxycodone HCl (Oxycodone Hcl Ir 5 Mg Tab (Immediate Release)) 5 mg PO Q4H PRN PRN Reason: Pain (Scale Score 1-3) Stop: 03/26/23 23:20 Last Admin: 03/15/23 20:23 Dose: 5 mg Prednisone (Prednisone 10 Mg Tablet) 30 mg PO DAILY YU Stop: 04/14/23 08:59 Last Admin: 03/19/23 09:46 Dose: 30 mg Trazodone HCl (Trazodone Hcl 50 Mg Tab) 50 mg PO HS PRN PRN Reason: Insomnia Stop: 04/13/23 20:59 Last Admin: 03/18/23 20:30 Dose: 50 mg Umeclidinium [place] (Umeclidinium [place] 62.5mcg/Blister 7 Puffs/Inhaler) 1 puffs INH DAILY YU Stop: 04/12/23 08:59 Last Admin: 03/19/23 09:45 Dose: 1 puffs (3) Adenocarcinoma of lung Laterality: right Qualified Code(s): C34.91 - Malignant neoplasm of unspecified part of right bronchus or lung (6) Pneumonia Laterality: right Lung location: upper lobe of lung Pneumonia type: due to unspecified organism Qualified Code(s): J18.9 - Pneumonia, unspecified organism
--- NOTE | 2023-03-19 17:36 | Discharge Summary ---
Date of Service March 19, 2023 Admission HPI Per Admitting Provider This is a 77 yr old F who has a significant past medical history of tobacco abuse, COPD, chronic respiratory failure with hypoxia and recently diagnosed right lung adenocarcinoma who presents to ED 2/ to SOB. SOB started today. Daughter in law at bedside who provides most of history. At baseline she is on 3.5L and her pulse ox today was in normal range when complaining of SOB. Her HR at the time was 127 at rest and DIL called PCP who recommended coming to ED for evaluation. She has known hx of right lung cancer. 1 week ago she was admitted at [facility] due to, " fluid around the heart." She had 1.5L removed and was hospitalized for 2 midnights. She was diagnosed with a moderate-sized pericardial effusion and underwent pericardiocentesis on 03/06/2023. Pericardial drain remained in place and was able to be removed without issue on postop #2. CT chest was completed after drain removal to serve as a baseline exam should symptoms return and or fluid reaccumulate. She also was noted to have dysphagia issues while hospitalized and speech therapy was offered however family declined. Ejection fraction prior to discharge was 55%. CT scan at discharge revealed interval decrease in size of small pericardial effusion with expected pneumopericardium. Also noted was a similar appearance of the right lower lobe consolidation compatible with known adenocarcinoma as well as a spiculated cavitary masslike infiltrate in the right upper lobe along with redemonstrated mediastinal adenopathy. She does have increased cough with pink sputum, increased work of breathing, wheezing, and blue toes. She has family that lives next door. At baseline she usually doesn't need a walker; however today she is extremely weak and required a walker today. No sick contacts. Family at bedside denies f/c/s, dizziness, lightheadedness,n/v/d. She does still smoke 3-4 cigarettes a day. There is no alcohol or recreational drug use. She follows with Dr. Naqvi and just recently established due to R lung cancer. In ED patient required 5 L of oxygen which is an increase from baseline. She was also noted to have wheezing, tachypnea and poor air movement. She received IV Solu-Medrol as well as an hour-long neb which did help symptoms although she became very anxious. She was then given an Ativan which did calm her down but made her slightly confused. [id number] and son are at bedside. Admission Exam Per Admitting Provider GENERAL: drowsy. NAD, on 5L NC O2. Appears ill frail and weak. HEENT: No pallor, no icterus. Pupils equal, round and reactive to light. Oral mucosa moist. NECK: No JVD, no neck masses. HEART: S1 and S2 heard. Regular rate and rhythm. No murmur, no gallop. RESPIRATORY SYSTEM: Normal AP diameter. No accessory muscle use. b/l rhonchi, b/l crackles. ABDOMEN: Soft, bowel sounds present, nontender, no distention. CENTRAL NERVOUS SYSTEM: No facial droop. Speech is clear. Obeys simple commands. Moves extremities. EXTREMITIES: No edema, no erythema seen. Principal Diagnosis Acute on chronic respiratory failure, non-small cell cancer of the lung, COPD, history of pericardial effusion status post pericardiocentesis on 03/06/2023 at [facility] Discharge Exam Lying in bed with minimal shortness of breath at rest Constitutional + ill appearing and + thin Eyes PERRL, conjunctivae normal, anicteric sclerae ENMT external ear and nose normal, oropharynx normal Neck trachea midline, no thyromegaly Respiratory no respiratory distress Auscultation: + diminished lung sounds and + crackles (Bilateral) Cardiovascular Rate/Rhythm: regular rate and regular rhythm; not tachycardic Heart Sounds: normal S1 and normal S2; no murmur Extremities: no edema Gastrointestinal (Abdomen) Inspection/Auscultation: normal bowel sounds; abdomen not distended Percussion/Palpation: abdomen soft; abdomen nontender Neurologic normal touch/pain/proprioception and moves all extremities; no focal motor deficits Lymphatic no cervical or axillary lymphadenopathy Discharge Data Allergies Allergy/AdvReac Type Severity Reaction Status Date / Time No Known Allergies Allergy Unverified 02/19/23 09:23 Consultations 03/12/23 20:06 ED Decision to Admit Stat 03/12/23 20:44 Consult Pulmonology Routine 03/13/23 09:39 Consult Oncology Routine 03/14/23 11:43 Consult Palliative Care Routine Ordered Studies 03/12/23 20:41 CT angio chest PE protocol Routine Hospital Course (1) Acute on chronic hypoxic respiratory failure: (2) COPD exacerbation: (3) Adenocarcinoma of lung: (4) Hyponatremia: (5) Sepsis: (6) Pneumonia: Plan This is a 77 yr old F who has a significant past medical history of tobacco abuse, COPD, chronic respiratory failure with hypoxia and recently diagnosed right lung adenocarcinoma who presents to ED 2/2 to SOB. Of significance patient recently hospitalized at [facility] secondary to moderate pericardial effusion status post pericardiocentesis on 03/06/2023. Postop course was uncomplicated. Repeat CT showed resolution and very small pericardial effusion remaining. Since being discharged home she had been doing well except for increase in sputum production. Son at bedside reported it was pink. Also noted was increasing shortness of breath, oxygen requirement and overall generalized weakness. Known right lower lobe non-small cell lung CA following Dr. Bryant for pulmonology, Dr. Naqvi for oncology and Dr. Morrow for radiation oncology. Acute on chronic hypoxic respiratory failure COPD exacerbation Sepsis Possible RUL PNA Lung Mass Possible sepsis in setting of leukocytosis, tachycardia and tachypnea CXR: 1. Interval small left and trace right pleural effusion.2. Redemonstration of the right lower lobe mass consistent with known lung malignancy. 3. Cavitary right apical opacity which favors pneumonia, as shown on prior exams. However, a 2.7 cm nodular opacity has increased and therefore an additional neoplasm cannot be excluded. This should be assessed on follow-up exams. Consult Pulmonology- appreciate recs -continue abx, steroids -extrinsic component of mass/lymphadenopathy compressing bronchi, consider stenting in the future at tertiary care center after systemic chemo started -consider palliative care consult Continue Zosyn and Doxy, IV Solu-Medrol q12h switched to po prednisone MRSA swab negative CTA chest- noted lung masses, emphysema, no PE pulmonary toilet with nebs, flutter valve and incentive spirometry Remains stable clinically with minimal shortness of breath at rest No acute distress at rest and has been requiring 3 L to maintain saturation Remains stable but weak and lethargic and has been requiring 3 L to maintain saturation No acute respiratory distress at rest-oxygen flow is at her baseline She will be discharged home this afternoon Lung cancer Known right lower lobe non-small cell lung CA following Dr. Bryant for pulmonology, Dr. Naqvi for oncology and Dr. Morrow for radiation oncology. Heme/onc consult- appreciate recs -treat pneumonia, COPD exacerbation -if still hospitalized next week with no signs of active infection, will consider starting chemo treatment at that time Palliative consult placed- appreciate recs 03/16/2023 The patient decided to have therapy for the lung cancer and she will have chemo and radiation plan for tomorrow 03/17/2023 She is going to get the chemotherapy and radiation treatment today Ongoing chemo and radiation and she wants to go home Will get PT OT evaluation prior to possible discharge tomorrow She will continue to have chemo and radiation as advised Hyponatremia Likely multifactorial Poor intake over the past week as well as 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 Remains a little anxious but no other symptoms Pericardial effusion s/p pericardiocentesis 03/06/23 at [facility] s/p pericardiocentesis 03/06/23 at [facility] Echo 03/13- no noted pericardial effusion CTA chest- noted lung masses, emphysema, no PE Troponins have flattened cytology was benign Denies any cardiac symptoms-remains stable No cardiac symptoms Tobacco abuse encourage cessation nicotine patch declined Diet: low sodium, fluid restriction DVT ppx: SQ Lovenox DNR/DNI Dispo: PT/OT ordered, palliative care consulted. Discussed with the son and she will be discharged home this afternoon Total Time Total Time Spent Total Time Spent (In Minutes): 35 minutes Discharge Plan Discharge Items Patient Disposition: Home - Home Health Services Reason For Visit: WORSENING SOB Discharge Diagnosis: Acute on chronic respiratory failure, non-small cell cancer of the lung, COPD, history of pericardial effusion status post pericardiocentesis on 03/06/2023 at [facility] Condition on Discharge: Fair Activity: Resume your previous activity Non-emergency contact: Primary Care Provider Call non-emergency contact if: you have any medication questions and your symptoms worsen Follow-up/Referrals: Ele Alford DO [Primary Care Provider] - (Date & Time 03/24/2023 2:20 PM Provider Flavio Herr MD Department Family Medicine [facility] ) Diet: Heart Healthy Fluids: 2000ml (8 cups) Addtl Attending Provider Instructions: Please take precautions to avoid falls Take your medications as advised Please keep follow-up appointments with your oncologist and healthcare providers Pending Studies at Discharge: No Stand-Alone Forms: My [facility], Smoking Cessation Medications and DC Order Prescriptions: New trazodone 50 mg Tablet 50 mg PO HS PRN (Reason: insomnia) Qty: 30 0RF mirtazapine 15 mg Tablet 15 mg PO HS Qty: 30 0RF doxycycline hyclate 100 mg capsule 100 mg PO BID 3 Days Qty: 6 0RF cefuroxime axetil 250 mg tablet 250 mg PO BID 3 Days Qty: 6 0RF Continued acetaminophen [Tylenol Extra Strength] 500 mg tablet 1,000 mg PO BID PRN (Reason: Pain) budesonide-formoterol 160-4.5 mcg/actuation HFA aerosol inhaler 2 puff INHALATION BID Qty: 10.2 4RF albuterol sulfate 90 mcg/actuation HFA aerosol inhaler 2 inh INH Q4H PRN (Reason: shortness of breath or wheezing) Qty: 8.5 3RF Spiriva Respimat 2.5 mcg/actuation mist 2 puff inhalation DAILY Qty: 4 3RF metoprolol tartrate 25 mg tablet 25 mg PO BID oxycodone 5 mg tablet 5 mg PO Q4H PRN (Reason: Pain (Scale Score 1-3)) Discharge Orders: Discharge Order (Routine); Ordered 03/19/23 Ordered By: Jewels Lancaster Admission Data Admit Date/Time: 03/12/23 20:12 Attending Provider: Jewels Lancaster Admit Provider: Juan Jose Connors Primary Care Provider: Ele Alford Other Providers: Juan Jose Connors; Jose M Tovar; Callum Major; Leon Raymundo; Jaiden Blakely; Rossy Bryant; Fern Sheldon; Eileen Morse; Venancio Mercado; Michael Edwards; Rachel Dinero; Toña Balse; Flavio Srivastava; Kirsten Cardoza; Chele Nolen; Michelle Muniz; Jose A Camacho; Omar Finch; Elan Jacobs; Yael Naqvi; [place],No Attending; David Burris [facility]; Christiane Cunningham; Codie Stone Other Interventions: Discharge Summary Assessment (RN) Last Done: 03/19/23 14:50
== END 2023-03-19 17:46 | disposition home health service (06) | DRG 871 ==
LOC: ED 17:41 → 4W 20:12 → SUATTDRO 20:12 → 4W 22:11
DX: F17.210 Nicotine dependence, cigarettes, uncomplicated; J44.1 Chronic obstructive pulmonary disease with (acute) exacerbation; Z83.3 Family history of diabetes mellitus; J18.9 Pneumonia, unspecified organism; E87.1 Hypo-osmolality and hyponatremia; J96.21 Acute and chronic respiratory failure with hypoxia; R79.89 Other specified abnormal findings of blood chemistry; J90 Pleural effusion, not elsewhere classified; C34.31 Malignant neoplasm of lower lobe, right bronchus or lung; I24.89 Other forms of acute ischemic heart disease; Z66 Do not resuscitate; Z80.1 Family history of malignant neoplasm of trachea, bronchus and lung; F41.9 Anxiety disorder, unspecified; A41.9 Sepsis, unspecified organism

== ENCOUNTER 2023-04-02 05:12 | Inpatient (IN) ==
--- OUTSIDE RECORDS SUMMARY | 2023-04-02 05:18 | External Medical Summary | Summary of Care ---
Author Name Unknown Organization [facility] Address [address] [place] [address] Phone [phone] Care Team Providers Care Cardiac Cath Lab Manager Name Role Phone Ele Alford DO Primary Care Provider [phone] Reason for Referral * Evaluate & Treat - Unlimited Visits (Within 10 days (routine)) - Authorized Specialty Diagnoses / Procedures Referred By Contac t Referred To Contact Cardiovascular Surgery / Cardiothoracic Surgery Diagnoses Adenocarcinoma of right lung (HCC) Malignant pericardial effusion Rosales Holman DO [address] [place] [address] Referral ID Status Reason Start Date Expiration Date Visits Requested Visits Authorized [id number] Authorized Specialty Services Required 3 999 999 Question Answer Referral Priority Within 10 days (routine) Where should this appointment be scheduled? [facility] Does your patient require surgical evaluation and/or treatment for known heart disease? Yes Comments Malignant pericardial effusion * Precert (Within 10 days (routine)) - Authorized Specialty Diagnoses / Procedures Referred By Contac t Referred To Contact Cardiac Studies Diagnoses Adenocarcinoma of right lung (HCC) Malignant pericardial effusion Procedures ECHO, TTE, LIMITED Rosales Holman DO [address] [place] [address] Referral ID Status Reason Start Date Expiration Date V isits Requested Visits Authorized [id number] Authorized Precert 03/11/2023 999 999 Encounter Details Date Type Department Care Team (Late st Contact Info) Description 03/04/2023 Telephone Cardiology, [facility] [address] [place] [address] Rosales Holman, [address] [place] [address] Allergies Active Allergy Reactions Criticality Noted Date Comments No Known Drug Allergy 11/16/2000 documented as of this encounter (statuses as of 03/27/2023) Medications Medication Sig Dispensed Refills Start Date [...] as of this encounter (statuses as of 03/27/2023) Active Problems Problem Noted Date Diagnosed Date Pericardial effusion 03/06/2023 Adenocarcinoma of right lung 02/13/2023 Cavitary lesion of lung 01/07/2023 Multifocal pneumonia 01/07/2023 Hx of nonmelanoma skin cancer 07/11/2015 Overview: squamous cell carcinoma (L forearm), 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, moderate 03/27/2004 Overview: FEV1/FVC 56%;L SYX282%; 23% IMPROVEMENT IN JRQ28-02 WITH BRONCHODILATOR GENERAL OSTEOARTHROSIS 12/27/2001 Asthma, allergic 12/27/2001 Tobacco use disorder 12/27/2001 documented as of this encounter (statuses as of 03/27/2023) Resolved Problems Problem Noted Date Diagnosed Date [...] term COPD, severity to be determined 03/27/2004 03/20/2023 Family history of other card iovascular diseases 12/27/2001 05/13/2017 Overview: ICD-10 update of inactive term FAM HX-DIABETES MELLITUS 12/27/200107/2017 documented as of this encounter (statuses as of 03/27/2023) Immunizations No known immunizationsdocumented as of this encounter Social History Tobacco Use Types Packs/Day Years Used Date Smoking Tobacco: Every Day Cigarettes 0.3 57 Smokeless Tobacco: Never Comments:5 cigs a day Alcohol Use Standard Drinks/Week Comments No 0 (1 standard drink = 0.6 oz pur e alcohol) PHQ-2 Answer Date Recorded PHQ-2 Score 0 06/16/2018 Hunger Vital Sign Answer Date Recorded Within the past 12 months, y ou worried that your food would run out before you got the money to buy more. Never true 03/26/20 23 Within the past 12 months, t he food you bought just didn't last and you didn't have money to get more. Never true 03/26/2023 Sex and Gender Information Value Date Recorded Sex Assigned at Not on file Gender Identity Not on file Sexual Orientation Not on file Job Start Date Occupation Industry Not on file Not on file Not on file documented as of this encounter Miscellaneous Notes * Telephone Encounter - Chastity Tijerina RN - 03/04/2023 3:46 PM EDT I spoke with Ms. Santana and her son, Sergey. I offered her an appointment tomorrow with Dr. Ndiaye or Dr. Cruz. Ms. Santana became upset and started crying. She voiced concern over getting to [facility]. She also states she does not understand what is going on and why the effusion cannot be drained in the clinic. I attempted to explain, but she was upset and not listening to me. She does report significant ESPINOZA. I discussed with Dr. Ndiaye who agreed to a telephone call with patient. I called Ms. Santana and Sergey back. They accepted a telephone appointment with Dr. Ndiaye tomorrow,03/05/2023, at 3:45 pm. I provided my call back number if they have any questions. Chastity Tijerina RN 03/04/2023 3:51 PM * Telephone Encounter - Rosales Holman DO - 03/04/2023 3:00 PM EDT Cardio nursing : please fax copy of echo report and my note from this encounter to [facility]. Please help schedule repeat limited echo next week. Please help arrange CT surgery evaluation . Rosales Holman DO * Telephone Encounter - Rosales Holman DO - 03/04/2023 2:48 PM EDT Patient had been seen in hospital consultation on 02/05/2023 for findings of a pericardial effusion.She had undergone bronchoscopy and lymph node biopsy with interval findings of metastatic non-smallcell lung carcinoma. Followed by Dr. Blakely and Dr Bryant of [facility]. Patient has been seen by radiation oncology at [facility], and per review of her [facility] chart she has had a PET scan and her case was reviewed in the multidisciplinary conference. She has an appointment to see Dr Yael Naqvi of [facility] on 03/11/23. Patient endorses a history of worsening shortness of breath. PET CT performed at [facility] on 02/25/23 summarized as follows: 1. Marked FDG uptake within the 4.7 [...] small to moderate pericardial effusion. 5. Emphysema. Repeat echocardiogram performed today 03/04/2023 at [facility] reveals a moderate to large circumferential pericardial effusion with no significant amount of fluid collection adjacent to the left lateral aspect of the left ventricle measuring 1.2 cm. Over tamponade not present however some degree of hemodynamic significance suspected. LVEF 65 to 69%, pulm artery systolic pressure estimate to be 50 to 55 mmHg. Compared to the previous echocardiogram performed on 02/05/2023, mL of pericardial fluid has increased. Spoke to patient , will update Dr Naqvi. Repeat echo next week. Refer to CT surgery at [facility] , anticipate need for consideration of pericardial window. Fluid dose not appear easily amenable to percutaneous approach. Rosales Holman DO documented in this encounter Plan of Treatment Upcoming Encounters Date Type Department Care Team (Late st Contact Info) Description 07/15/2023 2:30 PM EST Office Visit Family [facility] Ernesto Hurst [address] [place] [address] [place] [phone] Ele Alford DO [address] [place] [address] [place] [phone] Scheduled Orders Name Type Priority Associated Diagnoses Orde r Schedule ECHO, TTE, LIMITED Echocardiology Routine Adenocarcinoma of right lung (HCC) Malignant pericardial effusion Expected: 03/11/2023, Expires: 09/03/2023 Scheduled Referrals Name Type Priority Associated Diagnoses Orde r Schedule CARDIOVASCULAR SURGERY REFERRAL OP Referral Within 10 days (routine) Adenocarcinoma of right lung (HCC) Malignant pericardial effusion Ordered: 03/04/2023 Health Maintenance Due Date Last Done Comments [...] Diagnosis Adenocarcinoma of right lung (HCC)- Primary Malignant pericardial effusion Other malignant neoplasm without specification of site documented in this encounter Advance Directives Latest [...] patient or by statute hierarchy) Care Teams Cardiac Cath Lab Manager Relationship Specialty Start Date End Date Ele Alford DO [address] [place] [address] [place] [address] PCP - General Internal Medicine 01/07/23 documented as of this encounter
--- OUTSIDE RECORDS SUMMARY | 2023-04-02 05:18 | External Medical Summary | Summary of Care ---
Author Name Unknown Organization [facility] Address [address] [place] [facility] [place] [place] [address] Phone [phone] Care Team Providers Care Metal Numerical Control Programmer Name Role Phone Ele Alford DO Primary Care Provider Reason for Visit * Reason Onset Date Comments Advice 03/24/2023 Encounter Details Date Type Department Care Team (Late st Contact Info) Description 03/24/2023 Telephone Family Medicine [address] [phone] Ele Alford DO [address] [place], [place] [address] [address] Advice Allergies Active Allergy Reactions Criticality Noted [...] Pain, Severe or Pain, Moderate. 0 Active Cefuroxime Axetil 250 MG Oral Tablet (Ceftin) 0 03/19/2023 Active Doxycycline Hyclate 100 MG Oral Capsule 0 03/19/2023 Activ e traZODone HCl 50 MG Oral Tablet (Desyrel) 0 03/19/2023 Active Mirtazapine 15 MG Oral Tablet (Remeron) Take 1 Tablet by mouth in the morning. 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 (5 years old or older) No 03/06/2023 documented as of this encounter Miscellaneous Notes * Telephone Encounter - Lakshmi Rutledge LPN - 03/27/2023 2:40 PM EST Faxed to Jennifer. * Telephone Encounter - Ele Alford DO - 03/27/2023 1:42 PM EST Completed, please fax. * Telephone Encounter - Ana Maria Caldwell LPN - 03/27/2023 11:01 AM EST Jennifer calling in stating that she needs to have this form completed today. Please fax the form when completed to: [phone] * Telephone Encounter - Lakshmi Rutledge LPN - 03/25/2023 4:16 PM EST Yes I changed the form and put it in your basket to initial when you come back on Thursday. * Telephone Encounter - Ele Alford DO - 03/25/2023 4:09 PM EST Nursing - see below. Lakshmi - do you still have the form? I will not be able to initial any changes before Thursday. * Telephone Encounter - Hazel Marcelo LPN - 03/25/2023 3:33 PM EST Daughter, Jennifer is calling. FMLA form needs fixed. FMLA form Number 5 needs a date instead of TBD. It has to say March 192022. When changed on form needs initialed and dated when changed. On Number 14, needs specifics. Medication management, dressing, preparing food, bathing, and being available for nurse visits. Has to get her ready for radiation visits daily. Has to have help to getto the bathroom. Again, when changed on the form needs initialed and dated when changed. It has to be on the form even if she puts an asteric and rights it on the bottom of the form. Asking for the form to be faxed to her when it is done. Jennifer's fax is [phone] * Telephone Encounter - Laura Zuniga LPN - 03/24/2023 11:14 AM EST Pt's daughter Jennifer is returning phone call and aware that FMLA form is ready for slat pickler. * Telephone Encounter - Ele Alford DO - 03/24/2023 10:13 AM EST Please call and speak with Sergey. Typically, insurance will cover a concentrator for the home and tanks for when out of the house. Portable concentrators are usually pain for out of pocket. * Telephone Encounter - Kentrell Estrada OSA - 03/24/2023 9:24 AM EST Patients Son Sergey called in to requesting to speak with Dr. Em about a (POC)- Portable Oxygen Concentrator for his Mother. Patients Son Sergey, can be contacted at . [phone] * Telephone Encounter - Lakshmi Rutledge LPN - 03/24/2023 9:10 AM EST I tried to call pt's daughter Jennifer about her FMLA form. We changed it to provide care on a stock parts fabricator basis 24 hours/7 days per week bi weekly. For the "continuous absence" we kept the answer as "no" because that would be if she were taking all of her time at once, and I don't think she plans on doing that. I also added att he bottom patient needs 24/7 care during chemo and radiation as well as COPD. The form is complete. I will put it at the commercial front load operator for slat pickler. documented in this encounter Plan of Treatment Upcoming Encounters Date Type Department Care Team (Late st Contact Info) Description 07/15/2023 2:30 PM EST Office Visit Family Medicine [address] [place] [address] [place] [address] Health Maintenance Due Date Last Done Comments DISCUSS TOBACCO CESSATION (REFER TO SMARTSET #2706) 1945 COVID-19 Vaccine (#1) 06/26/1946 Pneumococcal Vaccine: [...] patient or by statute hierarchy) Care Teams Metal Numerical Control Programmer Relationship Specialty Start Date End Date Ele Alford DO [address] [place] [address] [place] [address] PCP - General Internal Medicine 01/07/23 documented as of this encounter
--- OUTSIDE RECORDS SUMMARY | 2023-04-02 05:19 | External Medical Summary | Summary of Care ---
Author Name Unknown Organization [facility] Address [address] [place] [address] Phone [phone] Care Team Providers Care Freight Car Inspector Name Role Phone AlfordCodyEleedwina Olguin Primary Care Provider [phone] Reason for Visit * Reason Onset Date Comments case management 03/20/2023 Encounter Details Date Type Department Care Team (Late st Contact Info) Description 03/20/2023 Fresh Work Wrapper Layer Telephone Family Practice [facility] [address] [facility] [place] [address] Tiffanie Howard, RN [address] [place] [address] case management Allergies Active Allergy Reactions Criticality Noted Date Comments No Known Drug Allergy 11/16/2000 documented as of this encounter (statuses as of 03/20/2023) Medications Medication Sig Dispensed Refills Start Date [...] as of this encounter (statuses as of 03/20/2023) Active Problems Problem Noted Date Diagnosed Date Pericardial effusion 03/06/2023 Adenocarcinoma of right lung 02/13/2023 Cavitary lesion of lung 01/07/2023 Multifocal pneumonia 01/07/2023 Hx of nonmelanoma skin cancer 07/11/2015 Overview: squamous cell carcinoma (L forearm), 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, moderate 03/27/2004 Overview: FEV1/FVC 56%;L TLV098%; 23% IMPROVEMENT IN OCK81-22 WITH BRONCHODILATOR GENERAL OSTEOARTHROSIS 12/27/2001 Asthma, allergic 12/27/2001 Tobacco use disorder 12/27/2001 documented as of this encounter (statuses as of 03/20/2023) Resolved Problems Problem Noted Date Diagnosed Date Resolved Date Dyslipidemia, goal LDL below 130 05/14/2017 01/02/2021 FH: breast cancer in first degree relative 02/13/2016 05/13/2017 Squamous cell carcinoma in s itu of skin of forearm 02/07/2015 07/11/2015 AK (actinic keratosis) 12/27/201405/13 Senile osteoporosis 02/06/2014 02/14/20 COPD, moderate 12/05/2013 12/05/2013 Asthma, severe persistent 02/04/2013 Osteoporosis 05/13/2011 02/06/2014 Asthma with severity to be determined 11/01/2009 02/04/2013 Overview: Per Asthma Taxonomy ICD-10 update of inactive term COPD, severity to be determined 03/27/2004 03/20/2023 Family history of other card iovascular diseases 12/27/2001 05/13/2017 Overview: ICD-10 update of inactive term FAM HX-DIABETES MELLITUS 12/27/200107/2017 documented as of this encounter (statuses as of 03/20/2023) Immunizations No known immunizationsdocumented as of this [...] encounter Miscellaneous Notes * Telephone Encounter - Tiffanie Howard RN - 03/20/2023 3:48 PM EST Fresh Work Wrapper Layer Progress Note: Date: 03/20/23 Assigned Patient Tier: 2 Connected with patient via phone. Verified patient name/. Advised patient that call is being recorded for quality and training purposes. Assessment: Pt. noted the following: she is "very tired" also spoke with daughter in law. Family is declining hosp d/c appointment at this time "unless we are getting a follow up Xray for the pneumonia" stating otherwise it is too difficult to add another appointment on top of daily radiation and weekly chemo appointments. Daughter in law states they were able to sweet pickle maker portable oxygentoday. Denies any other DME or needs for the patient at this time. They did sweet pickle maker new prescriptions for antibioitcs and mirtazapine and trazodone. She is getting rides to daily radiation by [facility]. If an Xray is ordered by PCP, they would like this to be done while she is at [facility] getting treatment. (See other telephone encounter from today, message sent to PCP regarding follow up imaging). Did you receive an alert for an annual wellness visit? No Is this call for a hospital, care home or rehab facility discharge to home? Yes [facility] d/c 03/19 for SOB Medication Reconciliation: Medication Reconciliation completed: yes Review of Current goals: Discussed the following patient-centered CM goals with the patient during this discussion: -RESPIRATORY: Patient will have respiratory equipment in place and adhere to use -Status: On Track picked up portable O2 today. . -RESPIRATORY: Patient/caregiver will monitor for exacerbation of respiratory condition and treat accordingly -Status: On Track . -TREATMENT: Prevent complications related to pneumonia -Status: At Risk Lung cancer- undergoing treatment at this time. COPD Patient: YES Breathing: Breathing at Baseline CHF Patient: NO CM Plan: Fresh Work Wrapper Layer will follow-up with PCP regarding follow up imaging. Remote Patient Monitoring: [facility] IVR Plan for Future Contacts: Plan to follow up within 1 week to check progress on the following goals/needs pulmonary status. Planned contacts from the following parties will occur this week: Specialty Visit as additional contacts per workflow. Advancement/Closure Plan: Keep patient at current Tier with reassessment per workflow. Patient provided CM contact information and encouraged to call with any changes in condition. SNP Member? No PCP Notified of enrollment in CM/HM program: No Is Provider in agreement with POC? Yes Tiffanie Howard RN Outpatient Case Management documented in this encounter Plan of Treatment Upcoming Encounters Date Type Department Care Team (Late st Contact Info) Description 07/15/2023 2:30 PM EST Office Visit Family Medicine [address] [address] [address] [place] [address] Health Maintenance Due Date Last Done Comments DISCUSS TOBACCO CESSATION (REFER TO SMARTSET #8731) 1945 COVID-19 Vaccine (#1) 06/26/1946 Pneumococcal Vaccine: [...] patient or by statute hierarchy) Care Teams Freight Car Inspector Relationship Specialty Start Date End Date Ele Alford DO [address] [place] [address] [place] [address] PCP - General Internal Medicine 01/07/23 documented as of this encounter
--- OUTSIDE RECORDS SUMMARY | 2023-04-02 05:19 | External Medical Summary | Summary of Care ---
Author Name Unknown Organization [facility] Address [address] [facility] [place] [address] Phone [phone] Care Team Providers Care Pharmacist Assistant Name Role Phone Ele Alford DO Primary Care Provider [phone] Reason for Visit * Reason Onset Date Comments Advice 03/16/2023 Time sensitive-F MLA forms Encounter Details Date Type Department Care Team (Late st Contact Info) Description 03/16/2023 Telephone Family Medicine [address] [address] Ele Alford DO [address] [place] [address] [place] [phone] Advice (Time sensitive-FMLA forms) Allergies Active Allergy Reactions Criticality Noted Date Comments No Known Drug Allergy 11/16/2000 documented as of this encounter (statuses as of 03/19/2023) Medications Medication Sig Dispensed Refills Start Date [...] as of this encounter (statuses as of 03/19/2023) Active Problems Problem Noted Date Diagnosed Date Pericardial effusion 03/06/2023 Adenocarcinoma of right lung 02/13/2023 Cavitary lesion of lung 01/07/2023 Multifocal pneumonia 01/07/2023 Hx of nonmelanoma skin cancer 07/11/2015 Overview: squamous cell carcinoma (L forearm), 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, severity to be determined 03/27/2004 COPD, moderate 03/27/2004 Overview: FEV1/FVC 56%;L [id number]%; 23% IMPROVEMENT IN RHV04-99 WITH BRONCHODILATOR GENERAL OSTEOARTHROSIS 12/27/2001 Asthma, allergic 12/27/2001 Tobacco use disorder 12/27/2001 documented as of this encounter (statuses as of 03/19/2023) Resolved Problems Problem Noted Date Diagnosed Date [...] as of this encounter (statuses as of 03/19/2023) Immunizations No known immunizationsdocumented as of this [...] Telephone Encounter - Lakshmi Rutledge LPN - 03/19/2023 10:45 AM EST I tried to call Jennifer, no answer left message for her that her forms are at the front desk representative for pickup. * Telephone Encounter - Rosmery Aguila OSA - 03/18/2023 11:03 AM EST Patient's daughter Jennifer (not sister) calling states she needs the FMLA forms completed MARIALUISA due tobeing out of sick leave at her job. Please contact Jennifer at [phone] when forms are ready to be picked up. * Telephone Encounter - Gwendolyn Turner OSA - 03/16/2023 12:20 PM EST Pt sister is calling in about FMLA paperwork that was dropped off this morning. She states that it has to be back dated for time that she has already missed. It needs to start for 02/18/23 due to chemo appointment and as well as 03/13/23 admission. She would like the provider know that her and the other sibling are going back and forth each week to take turns which will be sporadic and she is taking it without pay. Please advise [phone] documented in this encounter Plan of Treatment Upcoming Encounters Date Type Department Care Team (Late st Contact Info) Description 03/24/2023 10:00 AM EST Office Visit Cardiology, [facility] [address] [place] [address] Rosales Holman, DO [address] [place] [address] 07/15/2023 2:30 PM EST Office Visit Family Medicine [address] [place] [address] [place] [address] Health Maintenance Due Date Last Done Comments DISCUSS TOBACCO CESSATION (REFER TO SMARTSET #1585) 1945 COVID-19 Vaccine (#1) 06/26/1946 Pneumococcal Vaccine: [...] patient or by statute hierarchy) Care Teams Pharmacist Assistant Relationship Specialty Start Date End Date Ele Alford DO [address] [place] [address] [place] [address] PCP - General Internal Medicine 01/07/23 documented as of this encounter
[2023-04-02] MEDS ORDERED: ALBUT/IPRATROP 3MG/0.5MG NEB 3 ML VIAL NEB STA (05:24)
--- NOTE | 2023-04-02 05:29 | Emergency Department Note ---
Impression & Plan Acute dyspnea, Chronic respiratory failure with hypoxia, Pulmonary embolism, Lung cancer, Elevated troponin, Elevated brain natriuretic peptide (BNP) level ED Provider Note ED Provider Note NAME: EITAN FELIZ AGE:77 SEX: Female : 1945 ARRIVES VIA: private vehicle INFORMANT: Patient ED PROVIDER(s): Christiane Robles DO CHIEF COMPLAINT: Shortness of breath HPI: This is a 77-year-old female who presents to the ER due to concern for abrupt onset shortness of breath tonight. Patient went to bed around 10 and seemed in her usual state of health and family states awoke abruptly and stated that she was concerned she could not breathe. Patient does have a known history of lung cancer. Family also states she was admitted at [facility] about a month ago and had fluid drained off her lung and also had pneumonia. Patient does wear oxygen chronically at home at around 3 to 3-1/2 L, tonight she turned it up to 4 L/min. Patient does use albuterol and Symbicort at home. Patient did receive a chemotherapy treatment on Thursday. She did have an episode of vomiting earlier yesterday however family states that is normal the day after her chemotherapy. She denies fevers or chills. She is otherwise not had anything to eat yesterday. Patient states she has increased sputum and most of it appears tom although occasionally she does see blood. PAST MEDICAL HISTORY:See Below PAST SURGICAL HISTORY:See Below FAMILY HISTORY:See Below SOCIAL HISTORY:See Below HOME MEDICATIONS:See Below ALLERGIES:See Below VITALS:See Below PHYSICAL EXAMINATION: GENERAL: alert, unwell appearing, well nourished, mild distress, non-toxic EYE EXAM: normal conjunctiva, PERRL and EOM's grossly intact OROPHARYNX: no exudate, no erythema, lips, buccal mucosa, and tongue normal and mucous membranes are moist NECK: supple, no nuchal rigidity, no adenopathy, non-tender LUNGS: Clear to auscultation. Normal chest wall mechanics, no wheezes, bibasilar rales, tachypnea, increased WOB, conversational tachypnea HEART: no murmurs, S1 normal and S2 normal ABDOMEN: abdomen soft, non-tender, normo-active bowel sounds, no masses, no rebound or guarding. BACK: Back is symmetrical on inspection and there is no deformity, no midline tenderness, no CVA tenderness. SKIN: no rashes, petechiae, orbruising UPPER EXTREMITIES: upper extremities are grossly normal. FROM, nml pulses b/l. LOWER EXTREMITIES: No pitting edema. FROM, nml pulses b/l. NEURO EXAM: Normal sensorium, cranial nerves II-XII grossly intact, normal speech, no facial droop,nogross weakness of arms, no gross weakness of legs. Gross sensation intact. No ataxia. Vital Signs: reviewed and remarkable Differential Diagnosis: pneumonia, bronchitis, COPD/Asthma exacerbation, pneumothorax, pulmonary embolism, congestive heart failure, acute coronary syndrome, as well as others were considered MEDICAL DECISION MAKING: This is a 77-year-old female who presents emergency department due to concern for acute onset shortness of breath. Patient with COPD, known lung cancer receiving chemotherapy and on chronic home oxygen. She was afebrile vital signs stable on arrival though she was noted to be tachycardic with mildly increased work of breathing. Patient was given a DuoNeb while additional evaluation started. Labs drawn and sent, IV established, EKG and chest x-ray performed at bedside and interpreted by me, and patient monitored on telemetry. She was started on IV fluids due to concern for dehydration as she and family relates she had not had anything to eat or drink yesterday as she was nauseated following the chemo treatment the day before. Patient's heart rate did improve with IV fluid rehydration. She stated her breathing felt improved following DuoNeb treatment. Due to concern for known history, and risk of additional pathology, I did discuss with them additional imaging which they were in agreement with. Patient sent for CT angiography of the chest which did reveal additional pulmonary embolism. I discussed the need for additional treatment and evaluation. At this time after review of CT from her discharge a month ago in comparison with the CT today, I do not feel patient requires emergent transfer back to [facility]. No further pericardial effusion noted. Cavitary mass was previously seen. Weight obtained and patient given weight-based Lovenox dosing after discussion with [facility] hospitalist team. Heme-onc also notified as they are managing her oncologic treatment. All results discussed with patient and family who verbalized understanding and were in agreement with the plan. Consultation(s): 0855: Discussed with Dr. Lancaster, [facility] hospitalist team, for additional evaluation and mgmt. 0900: Notified Dr. Naqvi via tiger text. Agrees with plan for admission. ER Treatment Provided: See below Diagnostics Interpreted By Me: -ECG: Sinus tachycardia at 114, rightward axis, normal intervals, nonspecific ST/T wave changes -Cardiac Monitoring: An order was placed for continuous cardiac monitoring. The monitor shows a rate of 104 with sinus tachycardia rhythm. -Laboratory studies: As stated above and show below. -Imaging studies: X-ray Chest: A single view study of the chest was reviewed and was negative for cardiomegaly, effusion, pulmonary edema, or wide mediastinum. Mass noted RUL. Triage Nursing Note Reviewed Prior/Outside Records Reviewed -discharge summary from March 08, 2023 at [facility] in [place] reviewed Critical care: Critical care of 44 min performed to assess and manage high likelihood of life- threatening dyspnea, involving labs and imaging performed with assessment to evaluate dyspnea diagnosis with frequent reassessment. This time includes bedside time, treatment discussions with patient/family/consultants, documentation time and excludes procedure time. Past Med/Surg History Medical History Cavitary lesion of lung Arthritis Tobacco use disorder COPD (chronic obstructive pulmonary disease) Smoker Surgical History History of bronchoscopy History of partial hysterectomy Family History Mother Diabetes Heart disease Father Heart disease Brother Cancer Lung cancer Sister Cancer Bone Sister Cancer Breast Brother Cancer Esophageal cancer Kidney disease Social History Smoking Status: Current every day smoker Tobacco Type: Cigarettes Age Started Using Tobacco: 11; Cigarettes Per Day: 4-5; Second Hand Exposure: Yes; Do You Dip or Chew Tobacco: No; Tobacco Cessation Education Requested by Patient: No Hx Alcohol Use: No Hx Substance Use: No Preferred Language: Ghanaian Communication Ability: Effective Senior Nuclear Medicine Technologist Required: No Beliefs That Will Affect Care: None Current Living Situation: Alone Current Living Situation Comment: Son lives next door. current occupational status: retired Other Information That Helps Us Care for You: No Feels Safe at Home: Yes Assistive Devices: Oxygen - Continuous Allergies Allergies Allergy/AdvReac Type Severity Reaction Status Date / Time No Known Allergies Allergy Unverified 04/02/23 09:24 Home Meds Home Medications Medication Instructions Recorded Confirmed metoprolol tartrate 25 mg tablet 25 mg PO BID 02/05/23 04/02/23 acetaminophen 500 mg tablet 1,000 mg PO BID PRN Pain 02/19/23 04/02/23 (Tylenol Extra Strength) oxycodone 5 mg tablet 5 mg PO Q4H PRN Pain (Scale Score 03/12/23 04/02/23 1-3) ibuprofen 200 mg tablet (Advil) 200 mg PO Q6H PRN Pain 04/02/23 04/02/23 lorazepam 0.5 mg tablet 0.5 mg PO Q8H PRN Anxiety 04/02/23 04/02/23 sucralfate 1 gram tablet (Carafate) 2 g PO ACHS Radiation esophagitis 04/02/23 04/02/23 Previous Rx's Medication Instructions Recorded albuterol sulfate 90 mcg/actuation 2 inh inhalation Q4H PRN shortness 02/18/23 aerosol inhaler of breath or wheezing #8.5 grams budesonide-formoterol HFA 160 2 puff inhalation BID #10.2 grams 02/18/23 mcg-4.5 mcg/actuation aerosol inhaler mirtazapine 15 mg tablet 15 mg PO HS #30 tabs 03/19/23 trazodone 50 mg tablet 50 mg PO HS PRN insomnia #30 tabs 03/19/23 Results & Data (ED) Vital Signs Vital Signs - 24 hr 04/02/23 05:13 04/02/23 05:25 04/02/23 05:25 Temperature 35.8 C L Temperature Source Temporal Artery Scan Pulse Rate 120 H Pulse Rate [Apical] Respiratory Rate 20 Respiratory Effort / Characteristics Non-Labored Spontaneous Respiratory Depth Normal Respiratory Pattern Regular Blood Pressure 112/57 L Blood Pressure [Right Arm] Blood Pressure Mean 75 Blood Pressure Mean [Right Arm] Pulse Oximetry 96 Oxygen Delivery Method Nasal Cannula Nasal Cannula Nasal Cannula Oxygen Flow Rate 4 4 4 Sepsis Recent Fever Within 48 Hours No Sepsis New/Unexplained Change in Mental Status No Sepsis Action Taken by Nursing No Action Required 04/02/23 05:34 04/02/23 07:12 04/02/23 09:06 Temperature Temperature Source Pulse Rate 114 H Pulse Rate [Apical] 112 H 104 H Respiratory Rate 23 17 Respiratory Effort / Characteristics Spontaneous Spontaneous Respiratory Depth Normal Respiratory Pattern Regular Regular Blood Pressure Blood Pressure [Right Arm] 132/75 131/62 Blood Pressure Mean Blood Pressure Mean [Right Arm] 94 85 Pulse Oximetry 98 100 Oxygen Delivery Method Nasal Cannula Nasal Cannula Oxygen Flow Rate 4 4 Sepsis Recent Fever Within 48 Hours Sepsis New/Unexplained Change in Mental Status Sepsis Action Taken by Nursing Laboratory Data 04/02/23 06:00 04/02/23 06:00 Lab Results 04/02/23 Range/Units 06:00 WBC 5.80 (4.8-10.8) K/ul RBC 3.51 L (4.20-5.40) M/uL Hgb 10.5 L (12.0-16.0) g/dl Hct 32.1 L (37.0-47.0) % MCV 91.5 (80.0-100.0) fL MCH 29.9 (25.0-34.0) pg MCHC 32.7 (32.0-36.0) g/dL RDW Std Deviation 40.9 (36.4-46.3) fL RDW Coeff of Fernanda 12.5 (11.5-14.5) % Plt Count 178 (130-400) K/uL MPV 9.9 (9.4-12.4) fL Immature Gran % (Auto) 0.3 % Neut % (Auto) 89.4 % Lymph % (Auto) 1.6 % [place] % (Auto) 8.3 % Eos % (Auto) 0.2 % Baso % (Auto) 0.2 % Neut # (Auto) 5.19 (1.40-6.50) K/uL Lymph # (Auto) 0.09 L (1.20-3.40) K/uL [place] # (Auto) 0.48 (0.11-0.59) K/uL Eos # (Auto) 0.01 (0.00-0.50) K/uL Baso # (Auto) 0.01 (0.00-0.20) K/uL Immature Gran # (Auto) 0.02 (0.01-0.20) K/uL PT 11.4 (9.0-12.0) Seconds INR 1.0 (0.9-1.1) Sodium 134 L (136-145) mmol/L Potassium 3.9 (3.5-5.1) mmol/L Chloride 96 L (98-107) mmol/L Carbon Dioxide 33 H (21-32) mmol/L Anion Gap 5 (3-11) BUN 20 (6-23) mg/dl Creatinine 0.61 (0.6-1.2) mg/dl Est Cr Clr Drug Dosing Not Reportable Est GFR ( Amer) 101.3 ml/min Est GFR (Non-Af Amer) 87.4 ml/min BUN/Creatinine Ratio 32.8 H (10-20) Glucose 91 (70-99(Fasting)) mg/dl Calcium 8.5 L (8.6-10.3) mg/dl Magnesium 1.5 L (1.7-2.4) mg/dl Total Bilirubin 0.4 (0.2-1.0) mg/dl AST 18 (13-39) U/L ALT 14 (7-52) U/L Alkaline Phosphatase 75 (34-104) U/L Troponin I High Sens 62.5 H* (0-14) pg/ml B-Natriuretic Peptide 356 H (0-100) pg/ml Total Protein 5.7 L (6.0-8.3) gm/dl Albumin 3.1 L (3.4-5.0) gm/dl Globulin 2.6 (2.5-4.0) gm/dl Albumin/Globulin Ratio 1.2 (0.9-2) Administered Medications Albuterol (Albuterol 0.083% Nebu Soln 3 Ml Vial) 2.5 mg NEB Q6R PRN; Protocol PRN Reason: Shortness Of Breath Or Wheezing Stop: 05/02/23 10:14 Last Admin: 04/02/23 10:22 Dose: 2.5 mg Documented By: HEATHER Sodium Chloride (Nss) 1,000 mls @ 125 mls/hr IV .Q8H YU Stop: 05/02/23 06:44 Last Admin: 04/02/23 22:54 Dose: 125 mls/hr Documented By: Infusion: 04/02/23 22:43 Dose: Infused Documented By: Admin: 04/02/23 14:51 Dose: 125 mls/hr Documented By: Infusion: 04/02/23 14:48 Dose: Infused Documented By: Admin: 04/02/23 07:24 Dose: 125 mls/hr Documented By: HEATHER Lorazepam (Lorazepam 0.5 Mg Tab) 0.5 mg PO Q8H PRN PRN Reason: Anxiety Stop: 05/02/23 11:51 Last Admin: 04/02/23 14:51 Dose: 0.5 mg Documented By: KALPANA Metoprolol Tartrate (Metoprolol Tartrate 25 Mg Tab) 25 mg PO BID YU Stop: 05/02/23 20:59 Last Admin: 04/02/23 22:55 Dose: 25 mg Documented By: HAMZAH Mirtazapine (Mirtazapine Tab 15 Mg Tab) 15 mg PO HS YU Stop: 05/02/23 20:59 Last Admin: 04/02/23 22:55 Dose: 15 mg Documented By: HAMZAH Sucralfate (Sucralfate 1 Gm Tab) 2 gm PO ACHS [facility] Stop: 05/02/23 11:51 Last Admin: 04/02/23 20:45 Dose: Not Given Documented By: Admin: 04/02/23 16:48 Dose: Not Given Documented By: Admin: 04/02/23 12:30 Dose: 2 gm Documented By: KALPANA Discontinued Medications Albuterol (Albut/Ipratrop 3mg/0.5mg Neb 3 Ml Vial) 3 ml NEB NOW STA; Protocol Stop: 04/02/23 05:25 Last Admin: 04/02/23 05:42 Dose: 3 ml Documented By: JILLIAN Enoxaparin Sodium (Enoxaparin 1 Mg/Kg) 1 mg SQ NOW STA Stop: 04/02/23 09:06 Last Admin: 04/02/23 09:40 Dose: Not Given Documented By: HEATHER Enoxaparin Sodium (Enoxaparin Inj 60 Mg/0.6 Ml Syr) 50 mg SQ NOW STA Stop: 04/02/23 09:13 Last Admin: 04/02/23 09:39 Dose: 50 mg Documented By: HEATHER Magnesium Sulfate/Dextrose (Magnesium Sulfate / D5w) 1 gm in 100 mls @ 100 mls/hr IV NOW STA Stop: 04/02/23 07:36 Last Infusion: 04/02/23 08:57 Dose: Infused Documented By: Admin: 04/02/23 07:24 Dose: 100 mls/hr Documented By: HEATHER Ioversol (Optiray 320 125ml) 69 ml IV ONCE ONE Stop: 04/02/23 07:27 Last Admin: 04/02/23 07:26 Dose: 69 ml Documented By: ESTHER Imaging Data Radiologist's Impression: Chest X-Ray 04/02/23 05:25 XR chest 1V portable CLINICAL HISTORY: sob TECHNIQUE: Single frontal radiograph of the chest was obtained. Comparison: Comparison is made to chest radiograph 03/12/2023 FINDINGS: No lines and tubes are seen. Cardiomegaly is noted. Right perihilar and right upper lung densities are seen, the right upper lung density appears more conspicuous than in the prior exam. No evidence of pleural effusion or pneumothorax. IMPRESSION: Right upper lung density has increased in conspicuity from prior exam. Right perihilar density is again seen. ACT 112: Negative or not required by law. Electronically signed by: Musa Yoo M.D. 04/02/2023 8:39 AM Chest CTA 04/02/23 06:19 CT angio chest PE protocol CLINICAL HISTORY: PE, lung ca, hx pna TECHNIQUE: Multidetector row helical CT of the chest was performed with angiographic protocol. Coronal and sagittal reformations were obtained. Coronal and sagittal MIPS were obtained from the axial data set and were submitted for review. Automated dose lowering techniques and/or adjustment according to patient size were utilized for this exam. CT DOSE: 246.95 mGy.cm Comparison: Comparison is made to CTA chest 03/12/2023 FINDINGS: Lungs and pleura: Prominent emphysema is seen. Cavitary lesion in the right upper lobe is somewhat enlarged from the prior exam. Previously noted masslike lesion in the right lower lobe is flattened in morphology on today's exam. Heart and pericardium: Heart size is normal. No pericardial effusion. Vessels: There is a segmental and subsegmental pulmonary embolus in the right middle lobe. Moderate atherosclerotic disease is seen. Mediastinum and alex: Redemonstration of a large subcarinal lymph node measuring 48 x 54 mm. Chest wall and lower neck: Unremarkable. Abdomen: Unremarkable. Bones: Degenerative changes and multilevel compression deformities are again seen. IMPRESSION: 1. Small segmental and subsegmental pulmonary embolus in the right middle lobe. No right heart strain. 2. Redemonstration of thick-walled cavitary mass with air-fluid level in the right upper lobe, somewhat enlarged from prior exam. Right lower lobe lesion, previously appearing more solid and cavitary, is somewhat flattened and with greater cavitation. Findings are compatible with malignancy and/or abscess. Large subcarinal lymph node is again seen, concerning for malignancy. 3. Additional findings as above. ACT 112: Negative or not required by law. Electronically signed by: Musa Yoo M.D. 04/02/2023 8:35 AM Discharge Plan Visit Data Chief Complaint: Shortness of Breath/Dyspnea ED Provider: Christiane Robles Discharge Problem: Acute dyspnea, Chronic respiratory failure with hypoxia, Pulmonary embolism, Lung cancer, Elevated troponin, Elevated brain natriuretic peptide (BNP) level Patient Disposition: Admitted As Inpatient Discharge Instructions Interventions: ED Discharge Assessment Last Done: 04/02/23 11:48
[2023-04-02 06:12] LABS: Hematocrit (blood only) 32.1 % (37.0-47.0); Hemoglobin 10.5 g/dl (12.0-16.0); Mean Corpuscular Hemoglobin 29.9 pg (25.0-34.0); Mean Corpuscular Hgb Conc 32.7 g/dL (32.0-36.0); Mean Corpuscular Volume 91.5 fL (80.0-100.0); Mean Platelet Volume 9.9 fL (9.4-12.4); Platelet Count 178 K/uL (130-400); RDW Coefficient of Variation 12.5 % (11.5-14.5); RDW Standard Deviation 40.9 fL (36.4-46.3); Red Blood Count 3.51 M/uL (4.20-5.40)
[2023-04-02 06:29] LABS: Basophils # (auto) 0.01 K/uL (0.00-0.20); Basophils % (auto) 0.2 %; Eosinophils # (auto) 0.01 K/uL (0.00-0.50); Eosinophils % (auto) 0.2 %; Immature Granulocytes # (auto) 0.02 K/uL (0.01-0.20); Immature Granulocytes % (auto) 0.3 %; Lymphocytes # (auto) 0.09 K/uL (1.20-3.40); Lymphocytes % (auto) 1.6 %; Monocytes # (auto) 0.48 K/uL (0.11-0.59); Monocytes % (auto) 8.3 %; Neutrophils # (auto) 5.19 K/uL (1.40-6.50); Neutrophils % (auto) 89.4 %
[2023-04-02 06:35] LABS: Alanine Aminotransferase 14 U/L (7-52); Albumin Globulin Ratio 1.2 (0.9-2); Albumin Level 3.1 gm/dl (3.4-5.0); Alkaline Phosphatase 75 U/L (34-104); Anion Gap 5 (3-11); Aspartate Aminotransferase 18 U/L (13-39); BUN Creatinine Ratio 32.8 (10-20); Bilirubin,Total 0.4 mg/dl (0.2-1.0); Blood Urea Nitrogen 20 mg/dl (6-23); Calcium 8.5 mg/dl (8.6-10.3); Carbon Dioxide 33 mmol/L (21-32); Chloride 96 mmol/L (98-107); Est GFR (African American) 101.3 ml/min; Est GFR (Non-African American) 87.4 ml/min; Globulin 2.6 gm/dl (2.5-4.0); Glucose 91 mg/dl (70-99(Fasting)); Magnesium 1.5 mg/dl (1.7-2.4); Potassium 3.9 mmol/L (3.5-5.1); Sodium 134 mmol/L (136-145); Total Protein 5.7 gm/dl (6.0-8.3)
[2023-04-02] MEDS ORDERED: MAGNESIUM SULFATE / D5W 1 GM/100 ML BAG IV STA (06:37)
[2023-04-02 06:44] LABS: Troponin I High Sensitivity 62.5 pg/ml (0-14)
[2023-04-02 06:50] LABS: Prothrombin Time 11.4 Seconds (9.0-12.0)
[2023-04-02] MEDS: SODIUM CHLORIDE 0.9% 1,000 ML IV SCH ×3 (07:24→22:54)
[2023-04-02] MEDS ORDERED: OPTIRAY 320 125ml IV ONE (07:26)
--- NOTE | 2023-04-02 08:37 | CT Scan Report ---
CT angio chest PE protocol CLINICAL HISTORY: PE, lung ca, hx pna TECHNIQUE: Multidetector row helical CT of the chest was performed with angiographic protocol. Argueta l and sagittal reformations were obtained. Coronal and sagittal MIPS were obtained from the axial joo a set and were submitted for review. Automated dose lowering techniques and/or adjustment according to patient size were utilized for this exam. CT DOSE: 246.95 mGy.cm Comparison: Comparison is made to CTA chest 03/12/2023 FINDINGS: Lungs and pleura: Prominent emphysema is seen. Cavitary lesion in the right upper lobe is somewhat en larged from the prior exam. Previously noted masslike lesion in the right lower lobe is flattened in morphology on today's exam. Heart and pericardium: Heart size is normal. No pericardial effusion. Vessels: There is a segmental and subsegmental pulmonary embolus in the right middle lobe. Moderate a therosclerotic disease is seen. Mediastinum and alex: Redemonstration of a large subcarinal lymph node measuring 48 x 54 mm. Chest wall and lower neck: Unremarkable. Abdomen: Unremarkable. Bones: Degenerative changes and multilevel compression deformities are again seen. IMPRESSION: 1. Small segmental and subsegmental pulmonary embolus in the right middle lobe. No right heart strai n. 2. Redemonstration of thick-walled cavitary mass with air-fluid level in the right upper lobe, somew hat enlarged from prior exam. Right lower lobe lesion, previously appearing more solid and cavitary, is somewhat flattened and with greater cavitation. Findings are compatible with malignancy and/or abs cess. Large subcarinal lymph node is again seen, concerning for malignancy. 3. Additional findings as above. ACT 112: Negative or not required by law. Electronically signed by: Musa Yoo M.D. 04/02/2023 8:35 AM
--- NOTE | 2023-04-02 08:41 | XRay Report ---
XR chest 1V portable CLINICAL HISTORY: sob TECHNIQUE: Single frontal radiograph of the chest was obtained. Comparison: Comparison is made to chest radiograph 03/12/2023 FINDINGS: No lines and tubes are seen. Cardiomegaly is noted. Right perihilar and right upper lung densities ar e seen, the right upper lung density appears more conspicuous than in the prior exam. No evidence of pleural effusion or pneumothorax. IMPRESSION: Right upper lung density has increased in conspicuity from prior exam. Right perihilar density is aga in seen. ACT 112: Negative or not required by law. Electronically signed by: Musa Yoo M.D. 04/02/2023 8:39 AM
[2023-04-02] MEDS ORDERED: ENOXAPARIN 1 MG/KG SQ STA (09:05)
[2023-04-02] MEDS ORDERED: ENOXAPARIN INJ 60 MG/0.6 ML SYR SQ STA (09:12)
--- NOTE | 2023-04-02 09:47 | History & Physical Report ---
Date of Service April 02, 2023 Assessment & Plan (1) Pulmonary embolism: Plan: Acute shortness of breath since early this morning with history of adenocarcinoma of the lung diagnosed on 02/06/2023 and on chemo and radiation CTA showed a small segmental and subsegmental pulmonary embolism in the right middle lobe No right heart strain and no cardiomegaly She was started with subcu Lovenox-pros and cons where discussed with the POA Remains stable following nebulized treatment and oxygen administration Mild elevation of the troponin Subsequent test shows improvement Doubt any ACS (2) Acute dyspnea: Plan: As above (3) Acute on chronic hypoxic respiratory failure: Plan: Has been on 3 to 3.5 L of oxygen at home for chronic respiratory failure Presented with acute shortness of breath secondary to pulmonary embolism (4) Adenocarcinoma of lung: Plan: Diagnosed on 02/06/2023 and has been going through chemo and radiation Chemo is given every Thursday and has had third chemo last Thursday which was 03/30/2023, next chemo on 03/30/2023 Has been in radiation and received radiation on Thursday-next radiation is on 04/06/2023 The tumor has not been shrinking History of hyponatremia Current sodium level is at 134 Will monitor Chest x-ray result Right upper lung density has increased in conspicuity from prior exam. Right perihilar density is again seen. CTA result IMPRESSION: 1. Small segmental and subsegmental pulmonary embolus in the right middle lobe. No right heart strain. 2. Redemonstration of thick-walled cavitary mass with air-fluid level in the right upper lobe, somewhat enlarged from prior exam. Right lower lobe lesion, previously appearing more solid and cavitary, is somewhat flattened and with greater cavitation. Findings are compatible with malignancy and/or abscess. Large subcarinal lymph node is again seen, concerning for malignancy. 3. Additional findings as above. (5) COPD (chronic obstructive pulmonary disease): Plan: No acute exacerbation Prior history of smoking Will continue current medications for COPD (6) Pericardial effusion: Plan: History of medical effusion and is status post pericardiocentesis on 03/06/2023 at [facility] Repeat echo on 03/13-normal pericardial effusion CTA during that time did not show any pulmonary embolism CTA on 04/02/2023 is not showing any cardiomegaly or suspicion for tracheal effusion Plan DVT prophylaxis On Lovenox for pulmonary embolism CODE STATUS DNR/DNI Prognosis remains poor History of Present Illness Chief Complaint: Acute shortness of breath since early this morning Primary Care Provider: Ele Alford DO She is a 77-year-old female with significant past medical history of tobacco use disorder, COPD, chronic respiratory failure with hypoxia and recently diagnosed right lung adenocarcinoma who is undergoing chemo and radiation for the same apparently woke up from sleep at around 2 AM this morning with increasing shortness of breath. She did not have any chest pain, has had cough with phlegm but no hemoptysis, no abdominal pain nausea or vomiting this morning and no fever and or chills. Did not have any problem with bowel and or bladder. She had her third chemo on Thursday last and ongoing radiation on Thursday last. She felt a little better following first chemo but she has been weak and lethargic and less mobile at home. She also complained to have nausea with vomiting since Thursday afternoon following a sandwich and since then she has not been drinking or eating much and passing time most of the time in bed. She has next chemo scheduled on Thursday and radiation on Thursday. She was noted to have an acute right segmental and subsegmental pulmonary embolism involving the middle lobe. After discussion with the patient and the POA she was started with subcu Lovenox. The pros and cons of Lovenox were discussed in detail with the POA. Allergies Allergy/AdvReac Type Severity Reaction Status Date / Time No Known Allergies Allergy Unverified 04/02/23 09:24 Home Medications Medication Instructions Recorded Confirmed Type metoprolol tartrate 25 mg tablet 25 mg PO BID 02/05/23 04/02/23 History albuterol sulfate 90 mcg/actuation 2 inh inhalation Q4H PRN shortness 02/18/23 04/02/23 Rx aerosol inhaler of breath or wheezing #8.5 grams budesonide-formoterol HFA 160 2 puff inhalation BID #10.2 grams 02/18/23 04/02/23 Rx mcg-4.5 mcg/actuation aerosol inhaler acetaminophen 500 mg tablet 1,000 mg PO BID PRN Pain 02/19/23 04/02/23 History (Tylenol Extra Strength) oxycodone 5 mg tablet 5 mg PO Q4H PRN Pain (Scale Score 03/12/23 04/02/23 History 1-3) mirtazapine 15 mg tablet 15 mg PO HS #30 tabs 03/19/23 04/02/23 Rx trazodone 50 mg tablet 50 mg PO HS PRN insomnia #30 tabs 03/19/23 04/02/23 Rx ibuprofen 200 mg tablet (Advil) 200 mg PO Q6H PRN Pain 04/02/23 04/02/23 History lorazepam 0.5 mg tablet 0.5 mg PO Q8H PRN Anxiety 04/02/23 04/02/23 History sucralfate 1 gram tablet (Carafate) 2 g PO ACHS Radiation esophagitis 04/02/23 04/02/23 History Past Med/Surg History Medical History Cavitary lesion of lung Arthritis Tobacco use disorder COPD (chronic obstructive pulmonary disease) Smoker Surgical History History of bronchoscopy History of partial hysterectomy Family History Mother Diabetes Heart disease Father Heart disease Brother Cancer Lung cancer Sister Cancer Bone Sister Cancer Breast Brother Cancer Esophageal cancer Kidney disease Social History Smoking Status: Current every day smoker Tobacco Type: Cigarettes Age Started Using Tobacco: 11; Cigarettes Per Day: 4-5; Second Hand Exposure: Yes; Do You Dip or Chew Tobacco: No; Hx Alcohol Use: No Hx Substance Use: No Preferred Language: [place] Communication Ability: Effective Supervisor Engraving Required: No Beliefs That Will Affect Care: None Current Living Situation: Alone current occupational status: retired Feels Safe at Home: Yes Assistive Devices: Oxygen - Continuous Review of Systems Review of Systems: All systems reviewed & are unremarkable except as noted in HPI & below Physical Exam Physical Exam: Lying in bed comfortably and not having any acute distress or shortness of breath Constitutional: + ill appearing and + thin Eyes: PERRL, conjunctivae normal, anicteric sclerae ENMT: external ear and nose normal, oropharynx normal Neck: trachea midline, no thyromegaly Respiratory: + respiratory distress (Minimal at rest) Auscultation: + diminished lung sounds and + crackles (Coarse crackles both sides) Cardiovascular: Rate/Rhythm: regular rate, regular rhythm and + tachycardic Heart Sounds: normal S1 and normal S2; no murmur Extremities: no edema Gastrointestinal (Abdomen): Inspection/Auscultation: normal bowel sounds; abdomen not distended Percussion/Palpation: abdomen soft; abdomen nontender Musculoskeletal: No acute arthritis involving any joint Neurologic: normal touch/pain/proprioception and moves all extremities; no focal motor deficits Remains weak and lethargic Psychiatric: A+Ox3, euthymic affect Lymphatic: no cervical or axillary lymphadenopathy Results & Data Results & Data Vital Signs (Past 12 Hours) Vital Signs Temp Pulse Pulse Resp BP BP Pulse Ox 04/02/23 09:06 104 H 17 131/62 100 04/02/23 07:12 112 H 23 132/75 98 04/02/23 05:34 114 H 04/02/23 05:25 04/02/23 05:25 04/02/23 05:13 35.8 C L 120 H 20 112/57 L 96 O2 Del Method O2 Flow Rate 04/02/23 09:06 Nasal Cannula 4 04/02/23 07:12 Nasal Cannula 4 04/02/23 05:34 04/02/23 05:25 Nasal Cannula 4 04/02/23 05:25 Nasal Cannula 4 04/02/23 05:13 Nasal Cannula 4 Laboratory Results Short CBC 04/02/23 Range/Units 06:00 WBC 5.80 (4.8-10.8) K/ul Hgb 10.5 L (12.0-16.0) g/dl Hct 32.1 L (37.0-47.0) % Plt Count 178 (130-400) K/uL BMP 04/02/23 06:00 Sodium 134 L Potassium 3.9 Chloride 96 L Carbon Dioxide 33 H BUN 20 Creatinine 0.61 Glucose 91 Calcium 8.5 L Liver Function 04/02/23 Range/Units 06:00 Total Bilirubin 0.4 (0.2-1.0) mg/dl AST 18 (13-39) U/L ALT 14 (7-52) U/L Alkaline Phosphatase 75 (34-104) U/L Albumin 3.1 L (3.4-5.0) gm/dl Medications Administered Current Inpatient Medications Sodium Chloride (Nss) 1,000 mls @ 125 mls/hr IV .Q8H YU Stop: 05/02/23 06:44 Last Admin: 04/02/23 07:24 Dose: 125 mls/hr Code Status & VTE Plan VTE Prophylaxis Plan VTE Prophylaxis will be ordered: Yes (4) Adenocarcinoma of lung Laterality: right Qualified Code(s): C34.91 - Malignant neoplasm of unspecified part of right bronchus or lung (5) COPD (chronic obstructive pulmonary disease) COPD type: unspecified COPD Qualified Code(s): J44.9 - Chronic obstructive pulmonary disease, unspecified
[2023-04-02] MEDS: ALBUTEROL 0.083% NEBU SOLN 3 ML VIAL NEB PRN (10:22)
[2023-04-02] MEDS ORDERED: ACETAMINOPHEN 500 MG TAB PO PRN (11:52)
[2023-04-02] MEDS ORDERED: traZODone HCL 50 MG TAB PO PRN (11:52)
[2023-04-02] MEDS: SUCRALFATE 1 GM TAB PO SCH ×3 (12:30→20:45)
--- NOTE | 2023-04-02 13:01 | Electrocardiogram Report ---
Test Reason : Blood Pressure : / mmHG Vent. Rate : 114 BPM Atrial Rate : 114 BPM P-R Int : 150 ms QRS Dur : 068 ms QT Int : 318 ms P-R-T Axes : 073 103 076 degrees QTc Int : 438 ms Sinus tachycardia Rightward axis Anterior infarct (cited on or before 15-MAR-2023) Abnormal ECG When compared with ECG of 15-MAR-2023 08:57, Questionable change in QRS axis Non-specific change in ST segment in Inferior leads ST no longer elevated in Lateral leads T wave inversion no longer evident in Inferior leads Confirmed by Yaw Barriga ([id number]) on 04/02/2023 1:00:58 PM Referred By: REFERRED SELF Confirmed By:Yaw Barriga
[2023-04-02] MEDS: LORazepam 0.5 MG TAB PO PRN (14:51)
[2023-04-02] MEDS: METOPROLOL TARTRATE 25 MG TAB PO SCH (22:55)
[2023-04-02] MEDS: MIRTAZAPINE TAB 15 MG TAB PO SCH (22:55)
[2023-04-03] MEDS: LORazepam 0.5 MG TAB PO PRN (04:15)
[2023-04-03] MEDS: ALBUTEROL HFA 8 GM INHALER INH PRN (04:30)
[2023-04-03] MEDS: SODIUM CHLORIDE 0.9% 1,000 ML IV SCH ×2 (06:37→16:25)
[2023-04-03] MEDS: SUCRALFATE 1 GM TAB PO SCH ×4 (08:21→20:41)
[2023-04-03] MEDS: METOPROLOL TARTRATE 25 MG TAB PO SCH ×2 (08:21→20:39)
[2023-04-03] MEDS: FLUTICASONE/VILANTEROL 100/25MCG 14 PUFFS/INHALER INH SCH (08:22)
--- NOTE | 2023-04-03 17:17 | Hospitalist Progress Note ---
Date of Service April 03, 2023 Assessment & Plan (1) Pulmonary embolism: Plan: Acute shortness of breath since early this morning with history of adenocarcinoma of the lung diagnosed on 02/06/2023 and on chemo and radiation CTA showed a small segmental and subsegmental pulmonary embolism in the right middle lobe No right heart strain and no cardiomegaly She was started with subcu Lovenox-pros and cons where discussed with the POA Remains stable following nebulized treatment and oxygen administration Has been feeling better Denies any symptoms except profound weakness Has been requiring 4 L to maintain saturation She wants to go home tomorrow if possible Mild elevation of the troponin Subsequent test shows improvement Doubt any ACS (2) Acute dyspnea: Plan: As above No dyspnea at rest (3) Acute on chronic hypoxic respiratory failure: Plan: Has been on 3 to 3.5 L of oxygen at home for chronic respiratory failure Presented with acute shortness of breath secondary to pulmonary embolism Has been requiring little more than usual oxygen administration to maintain saturation (4) Adenocarcinoma of lung: Plan: Diagnosed on 02/06/2023 and has been going through chemo and radiation Chemo is given every Thursday and has had third chemo last Thursday which was 03/30/2023, next chemo on 03/30/2023 Has been in radiation and received radiation on Thursday-next radiation is on 04/06/2023 The tumor has not been shrinking Discussed with Dr. Naqvi and if she remains stable she can be discharged home on Lovenox History of hyponatremia Current sodium level is at 134 Will monitor Chest x-ray result Right upper lung density has increased in conspicuity from prior exam. Right perihilar density is again seen. CTA result IMPRESSION: 1. Small segmental and subsegmental pulmonary embolus in the right middle lobe. No right heart strain. 2. Redemonstration of thick-walled cavitary mass with air-fluid level in the right upper lobe, somewhat enlarged from prior exam. Right lower lobe lesion, previously appearing more solid and cavitary, is somewhat flattened and with greater cavitation. Findings are compatible with malignancy and/or abscess. Large subcarinal lymph node is again seen, concerning for malignancy. 3. Additional findings as above. (5) COPD (chronic obstructive pulmonary disease): Plan: No acute exacerbation Prior history of smoking Will continue current medications for COPD (6) Pericardial effusion: Plan: History of medical effusion and is status post pericardiocentesis on 03/06/2023 at [facility] Repeat echo on 03/13-normal pericardial effusion CTA during that time did not show any pulmonary embolism CTA on 04/02/2023 is not showing any cardiomegaly or suspicion for tracheal effusion Plan DVT prophylaxis On Lovenox for pulmonary embolism CODE STATUS DNR/DNI Prognosis remains poor Admission and Anticipated Discharge Date Admission Date: April 02, 2023 Subjective 04/03/2023 The patient was seen and examined in medical telemetry unit She has been very weak and lethargic but feels that the breathing is better She wants to go home tomorrow if possible Review of Systems Review of Systems: All systems reviewed and are unremarkable except as noted below Physical Exam Physical Exam: Lying in bed comfortably and not having any acute distress or shortness of breath Constitutional: + ill appearing and + thin Eyes: PERRL, conjunctivae normal, anicteric sclerae ENMT: external ear and nose normal, oropharynx normal Neck: trachea midline, no thyromegaly Respiratory: + respiratory distress (Minimal at rest) Auscultation: + diminished lung sounds and + crackles (Coarse crackles both sides) Cardiovascular: Rate/Rhythm: regular rate, regular rhythm and + tachycardic Heart Sounds: normal S1 and normal S2; no murmur Extremities: no edema Gastrointestinal (Abdomen): Inspection/Auscultation: normal bowel sounds; abdomen not distended Percussion/Palpation: abdomen soft; abdomen nontender Musculoskeletal: No acute arthritis involving any of the joint Neurologic: normal touch/pain/proprioception and moves all extremities; no focal motor deficits Psychiatric: A+Ox3, euthymic affect Lymphatic: no cervical or axillary lymphadenopathy Results & Data Results & Data Vital Signs (Past 12 Hours) Vital Signs Temp Pulse Pulse Resp BP Pulse Ox O2 Del Method 04/03/23 16:32 Nasal Cannula 04/03/23 15:34 37.3 C 110 H 15 123/71 96 Nasal Cannula 04/03/23 11:20 37.1 C 66 15 118/66 97 Nasal Cannula 04/03/23 08:00 109 H 04/03/23 07:44 36.8 C 66 16 115/54 L 100 Nasal Cannula O2 Flow Rate 04/03/23 16:32 4 04/03/23 15:34 4 04/03/23 11:20 4 04/03/23 08:00 04/03/23 07:44 4 Medications Administered Current Inpatient Medications Acetaminophen (Acetaminophen 500 Mg Tab) 1,000 mg PO BID PRN PRN Reason: Pain Stop: 05/02/23 11:51 Albuterol (Albuterol 0.083% Nebu Soln 3 Ml Vial) 2.5 mg NEB Q6R PRN; Protocol PRN Reason: Shortness Of Breath Or Wheezing Stop: 05/02/23 10:14 Last Admin: 04/02/23 10:22 Dose: 2.5 mg Albuterol (Albuterol Hfa 8 Gm Inhaler) 2 puffs INH Q4H PRN PRN Reason: shortness of breath or wheezing Stop: 05/02/23 11:51 Last Admin: 04/03/23 04:30 Dose: 2 puffs Fluticasone/Vilanterol (Fluticasone/Vilanterol 100/25mcg 14 Puffs/Inhaler) 1 puffs INH DAILY YU Stop: 05/03/23 08:59 Last Admin: 04/03/23 08:22 Dose: 1 puffs Sodium Chloride (Nss) 1,000 mls @ 125 mls/hr IV .Q8H YU Stop: 05/02/23 06:44 Last Admin: 04/03/23 16:25 Dose: 125 mls/hr Lorazepam (Lorazepam 0.5 Mg Tab) 0.5 mg PO Q8H PRN PRN Reason: Anxiety Stop: 05/02/23 11:51 Last Admin: 04/03/23 04:15 Dose: 0.5 mg Metoprolol Tartrate (Metoprolol Tartrate 25 Mg Tab) 25 mg PO BID YU Stop: 05/02/23 20:59 Last Admin: 04/03/23 08:21 Dose: 25 mg Mirtazapine (Mirtazapine Tab 15 Mg Tab) 15 mg PO HS YU Stop: 05/02/23 20:59 Last Admin: 04/02/23 22:55 Dose: 15 mg Oxycodone HCl (Oxycodone Hcl Ir 5 Mg Tab (Immediate Release)) 5 mg PO Q4H PRN PRN Reason: Pain (Scale Score 1-3) Stop: 04/16/23 11:51 Sucralfate (Sucralfate 1 Gm Tab) 2 gm PO ACHS YU Stop: 05/02/23 11:51 Last Admin: 04/03/23 16:25 Dose: Not Given Trazodone HCl (Trazodone Hcl 50 Mg Tab) 50 mg PO HS PRN PRN Reason: insomnia Stop: 05/02/23 11:51 (4) Adenocarcinoma of lung Laterality: right Qualified Code(s): C34.91 - Malignant neoplasm of unspecified part of right bronchus or lung (5) COPD (chronic obstructive pulmonary disease) COPD type: unspecified COPD Qualified Code(s): J44.9 - Chronic obstructive pulmonary disease, unspecified
[2023-04-03] MEDS: MIRTAZAPINE TAB 15 MG TAB PO SCH (20:39)
[2023-04-03] MEDS ORDERED: METOPROLOL TARTRATE 1 MG/ML VIAL IV STA (21:03)
[2023-04-04] MEDS: SODIUM CHLORIDE 0.9% 1,000 ML IV SCH ×3 (01:45→17:11)
--- NOTE | 2023-04-04 04:19 | CT Scan Report ---
Exam(s): CT HEAD Without Contrast EXAM: CT Head Without Intravenous Contrast CLINICAL HISTORY: Reason for exam: s/p fall and hit head. T=. TECHNIQUE: Axial computed tomography images of the head/brain without intravenous contrast. CTDI is 50.69 mGy and DLP is 1497.59 mGy-cm. Automated exposure control was utilized for the study. A dose lowering technique was utilized adhering to the principles of ALARA. COMPARISON: No relevant prior studies available. FINDINGS: No acute intracranial hemorrhage. No midline shift or mass effect. The territorial tom-white matter differentiation is maintained throughout. Age-related cerebral volume loss. Periventricular and subcortical white matter hypoattenuation, consistent with chronic microangiopathy. The visualized orbits appear grossly unremarkable. The calvarium is intact. The visualized paranasal sinuses and mastoid air cells are grossly clear. IMPRESSION: No acute intracranial hemorrhage, midline shift, or mass effect. Electronically signed by: Deangelo Patel MD 04/04/23 04:18 AM
[2023-04-04] MEDS ORDERED: Heparin IV Adult Wt-Based Standard *NO* INITIAL Bolus Protocol IV SCH (04:51)
[2023-04-04] MEDS ORDERED: HEPARIN SODIUM/DEXTROSE 25,000 UNITS/500 ML BAG IV SCH (05:15)
[2023-04-04 06:26] LABS: Hematocrit (blood only) 27.5 % (37.0-47.0); Hemoglobin 9.2 g/dl (12.0-16.0); Mean Corpuscular Hemoglobin 30.3 pg (25.0-34.0); Mean Corpuscular Hgb Conc 33.5 g/dL (32.0-36.0); Mean Corpuscular Volume 90.5 fL (80.0-100.0); Mean Platelet Volume 9.9 fL (9.4-12.4); Platelet Count 134 K/uL (130-400); RDW Coefficient of Variation 12.2 % (11.5-14.5); Red Blood Count 3.04 M/uL (4.20-5.40); White Blood Count 2.78 K/ul (4.8-10.8)
[2023-04-04 06:43] LABS: BUN Creatinine Ratio 32.6 (10-20); Calcium 7.8 mg/dl (8.6-10.3); Est GFR (African American) 113.7 ml/min; Est GFR (Non-African American) 98.1 ml/min; Magnesium 1.3 mg/dl (1.7-2.4); Phosphorus 2.3 mg/dl (2.5-4.9); Potassium 3.1 mmol/L (3.5-5.1)
[2023-04-04 07:10] LABS: Basophils # (auto) 0.01 K/uL (0.00-0.20); Basophils % (auto) 0.4 %; Eosinophils # (auto) 0.01 K/uL (0.00-0.50); Eosinophils % (auto) 0.4 %; Immature Granulocytes # (auto) 0.05 K/uL (0.01-0.20); Immature Granulocytes % (auto) 1.8 %; Lymphocytes # (auto) 0.09 K/uL (1.20-3.40); Lymphocytes % (auto) 3.2 %; Monocytes # (auto) 0.27 K/uL (0.11-0.59); Monocytes % (auto) 9.7 %; Neutrophils # (auto) 2.35 K/uL (1.40-6.50); Neutrophils % (auto) 84.5 %
[2023-04-04] MEDS: FLUTICASONE/VILANTEROL 100/25MCG 14 PUFFS/INHALER INH SCH (07:53)
[2023-04-04] MEDS: METOPROLOL TARTRATE 25 MG TAB PO SCH ×2 (07:53→21:44)
[2023-04-04] MEDS: SUCRALFATE 1 GM TAB PO SCH ×4 (07:53→21:44)
[2023-04-04] MEDS ORDERED: POTASSIUM CHLORIDE CRTAB 20 MEQ TABCR PO STA (07:56)
--- NOTE | 2023-04-04 08:06 | Electrocardiogram Report ---
Test Reason : Blood Pressure : / mmHG Vent. Rate : 122 BPM Atrial Rate : 122 BPM P-R Int : 136 ms QRS Dur : 080 ms QT Int : 290 ms P-R-T Axes : 076 091 073 degrees QTc Int : 413 ms Sinus tachycardia Rightward axis Pulmonary disease pattern Abnormal ECG When compared with ECG of 02-APR-2023 06:08, No significant change was found Confirmed by Brian Abrams ([id number]) on 04/04/2023 8:06:26 AM Referred By: REFERRED SELF Confirmed By:Brian Abrams
[2023-04-04] MEDS ORDERED: HEPARIN STOP ORDER ONE (08:15)
[2023-04-04 08:27] LABS: INR 1.1 (0.9-1.1); Prothrombin Time 12.1 Seconds (9.0-12.0)
[2023-04-04] MEDS: ENOXAPARIN INJ 60 MG/0.6 ML SYR SQ SCH ×2 (10:05→21:43)
[2023-04-04] MEDS: MAGNESIUM SULFATE / D5W 1 GM/100 ML BAG IV SCH ×2 (10:28→12:55)
[2023-04-04] MEDS: oxyCODONE HCL IR 5 MG TAB (IMMEDIATE RELEASE) PO PRN (10:35)
[2023-04-04] MEDS: ALBUTEROL 0.083% NEBU SOLN 3 ML VIAL NEB PRN ×2 (13:28→19:39)
--- NOTE | 2023-04-04 13:38 | Hospitalist Progress Note ---
Date of Service April 04, 2023 Assessment & Plan (1) Pulmonary embolism: Plan: Acute shortness of breath since early this morning with history of adenocarcinoma of the lung diagnosed on 02/06/2023 and on chemo and radiation CTA showed a small segmental and subsegmental pulmonary embolism in the right middle lobe No right heart strain and no cardiomegaly She was started with subcu Lovenox-pros and cons where discussed with the POA Remains stable following nebulized treatment and oxygen administration Has been feeling better Denies any symptoms except profound weakness Has been requiring 4 L to maintain saturation She wants to go home tomorrow if possible Noted to have missed about 24 hours of doses of Lovenox due to not being transferred from ER ordered Has had a fall and hit her head last night-fortunately no bleeding identified on CAT scan She was put back on Lovenox 50 mg subcu twice daily Discussed with the son in detail Likely discharge home on Thursday with home health nurse after radiation treatment Mild elevation of the troponin Subsequent test shows improvement Doubt any ACS (2) Acute dyspnea: Plan: As above No dyspnea at rest (3) Acute on chronic hypoxic respiratory failure: Plan: Has been on 3 to 3.5 L of oxygen at home for chronic respiratory failure Presented with acute shortness of breath secondary to pulmonary embolism Has been requiring little more than usual oxygen administration to maintain saturation (4) Adenocarcinoma of lung: Plan: Diagnosed on 02/06/2023 and has been going through chemo and radiation Chemo is given every Thursday and has had third chemo last Thursday which was 03/30/2023, next chemo on 03/30/2023 Has been in radiation and received radiation on Thursday-next radiation is on 04/06/2023 The tumor has not been shrinking Discussed with Dr. Naqvi and if she remains stable she can be discharged home on Lovenox Lovenox will be continued History of hyponatremia Current sodium level is at 134 Will monitor-sodium level is 136 potassium was supplemented Chest x-ray result Right upper lung density has increased in conspicuity from prior exam. Right perihilar density is again seen. CTA result IMPRESSION: 1. Small segmental and subsegmental pulmonary embolus in the right middle lobe. No right heart strain. 2. Redemonstration of thick-walled cavitary mass with air-fluid level in the right upper lobe, somewhat enlarged from prior exam. Right lower lobe lesion, previously appearing more solid and cavitary, is somewhat flattened and with greater cavitation. Findings are compatible with malignancy and/or abscess. Large subcarinal lymph node is again seen, concerning for malignancy. 3. Additional findings as above. (5) COPD (chronic obstructive pulmonary disease): Plan: No acute exacerbation Prior history of smoking Will continue current medications for COPD (6) Pericardial effusion: Plan: History of medical effusion and is status post pericardiocentesis on 03/06/2023 at [facility] Repeat echo on 03/13-normal pericardial effusion CTA during that time did not show any pulmonary embolism CTA on 04/02/2023 is not showing any cardiomegaly or suspicion for tracheal effusion Plan DVT prophylaxis On Lovenox for pulmonary embolism CODE STATUS DNR/DNI Prognosis remains poor Admission and Anticipated Discharge Date Admission Date: April 02, 2023 Subjective 04/03/2023 The patient was seen and examined in medical telemetry unit She has been very weak and lethargic but feels that the breathing is better She wants to go home tomorrow if possible 04/04/2023 The patient was seen and examined in medical telemetry unit She has had a fall last night and injured her head-CT scan of the head did not show any bleeding She has been stable this morning Remains very weak and lethargic and has been requiring 4 L at rest to maintain saturation Review of Systems Review of Systems: All systems reviewed and are unremarkable except as noted below Respiratory: Mild to moderate shortness of breath at rest Neurologic: Extremely weak and lethargic Physical Exam Physical Exam: Lying in bed comfortably and not having any acute distress or shortness of breath Constitutional: + ill appearing and + thin Eyes: PERRL, conjunctivae normal, anicteric sclerae ENMT: external ear and nose normal, oropharynx normal Neck: trachea midline, no thyromegaly Respiratory: + respiratory distress (Minimal at rest) Auscultation: + dimin ished lung sounds and + crackles (Coarse crackles both sides) Cardiovascular: Rate/Rhythm: regular rate, regular rhythm and + tachycardic Heart Sounds: normal S1 and normal S2; no murmur Extremities: no edema Gastrointestinal (Abdomen): Inspection/Auscultation: normal bowel sounds; abdomen not distended Percussion/Palpation: abdomen soft; abdomen nontender Musculoskeletal: No acute arthritis involving any joint Neurologic: normal touch/pain/proprioception and moves all extremities; no focal motor deficits Psychiatric: A+Ox3, euthymic affect Lymphatic: no cervical or axillary lymphadenopathy Results & Data Results & Data Vital Signs (Past 12 Hours) Vital Signs Temp Pulse Pulse Resp BP BP Pulse Ox 04/04/23 13:29 104 H 18 95 04/04/23 11:53 36.7 C 107 H 16 126/69 97 04/04/23 08:00 110 H 04/04/23 07:41 37.0 C 111 H 16 134/70 98 04/04/23 03:11 114 H 150/76 H 95 04/04/23 02:26 36.9 C 112 H 16 127/71 94 O2 Del Method O2 Flow Rate 04/04/23 13:29 Nasal Cannula 4 04/04/23 11:53 Nasal Cannula 4 04/04/23 08:00 04/04/23 07:41 Room Air 04/04/23 03:11 Nasal Cannula 5 04/04/23 02:26 Nasal Cannula 4 Laboratory Results Short CBC 04/04/23 Range/Units 06:00 WBC 2.78 L (4.8-10.8) K/ul Hgb 9.2 L (12.0-16.0) g/dl Hct 27.5 L (37.0-47.0) % Plt Count 134 (130-400) K/uL BMP 04/04/23 06:00 Sodium 136 Potassium 3.1 L D Chloride 101 Carbon Dioxide 28 BUN 14 Creatinine 0.43 L Glucose 109 H Calcium 7.8 L Medications Administered Current Inpatient Medications Acetaminophen (Acetaminophen 500 Mg Tab) 1,000 mg PO BID PRN PRN Reason: Pain Stop: 05/02/23 11:51 Albuterol (Albuterol 0.083% Nebu Soln 3 Ml Vial) 2.5 mg NEB Q6R PRN; Protocol PRN Reason: Shortness Of Breath Or Wheezing Stop: 05/02/23 10:14 Last Admin: 04/04/23 13:28 Dose: 2.5 mg Albuterol (Albuterol Hfa 8 Gm Inhaler) 2 puffs INH Q4H PRN PRN Reason: shortness of breath or wheezing Stop: 05/02/23 11:51 Last Admin: 04/03/23 04:30 Dose: 2 puffs Enoxaparin Sodium (Enoxaparin Inj 60 Mg/0.6 Ml Syr) 50 mg SQ Q12H YU Stop: 05/04/23 07:59 Last Admin: 04/04/23 10:05 Dose: 50 mg Fluticasone/Vilanterol (Fluticasone/Vilanterol 100/25mcg 14 Puffs/Inhaler) 1 puffs INH DAILY YU Stop: 05/03/23 08:59 Last Admin: 04/04/23 07:53 Dose: 1 puffs Sodium Chloride (Nss) 1,000 mls @ 125 mls/hr IV .Q8H YU Stop: 05/02/23 06:44 Last Admin: 04/04/23 10:05 Dose: 125 mls/hr Lorazepam (Lorazepam 0.5 Mg Tab) 0.5 mg PO Q8H PRN PRN Reason: Anxiety Stop: 05/02/23 11:51 Last Admin: 04/03/23 04:15 Dose: 0.5 mg Metoprolol Tartrate (Metoprolol Tartrate 25 Mg Tab) 25 mg PO BID YU Stop: 05/02/23 20:59 Last Admin: 04/04/23 07:53 Dose: 25 mg Mirtazapine (Mirtazapine Tab 15 Mg Tab) 15 mg PO HS YU Stop: 05/02/23 20:59 Last Admin: 04/03/23 20:39 Dose: 15 mg Oxycodone HCl (Oxycodone Hcl Ir 5 Mg Tab (Immediate Release)) 5 mg PO Q4H PRN PRN Reason: Pain (Scale Score 1-3) Stop: 04/16/23 11:51 Last Admin: 04/04/23 10:35 Dose: 5 mg Sucralfate (Sucralfate 1 Gm Tab) 2 gm PO ACHS YU Stop: 05/02/23 11:51 Last Admin: 04/04/23 07:53 Dose: 2 gm Trazodone HCl (Trazodone Hcl 50 Mg Tab) 50 mg PO HS PRN PRN Reason: insomnia Stop: 05/02/23 11:51 (4) Adenocarcinoma of lung Laterality: right Qualified Code(s): C34.91 - Malignant neoplasm of unspecified part of right bronchus or lung (5) COPD (chronic obstructive pulmonary disease) COPD type: unspecified COPD Qualified Code(s): J44.9 - Chronic obstructive pulmonary disease, unspecified
[2023-04-04] MEDS: MIRTAZAPINE TAB 15 MG TAB PO SCH (21:44)
[2023-04-04] MEDS: LORazepam 0.5 MG TAB PO PRN (21:45)
[2023-04-05] MEDS: SODIUM CHLORIDE 0.9% 1,000 ML IV SCH ×4 (01:47→20:59)
[2023-04-05] MEDS: ALBUTEROL HFA 8 GM INHALER INH PRN (04:45)
[2023-04-05] MEDS: LEVALBUTEROL 1.25 MG/3 ML NEB NEB SCH ×4 (08:09→19:54)
[2023-04-05] MEDS ORDERED: POTASSIUM PHOS 3 MMOL/1 ML INFUSION IV STA (08:10)
[2023-04-05] MEDS: FLUTICASONE/VILANTEROL 100/25MCG 14 PUFFS/INHALER INH SCH (08:22)
[2023-04-05] MEDS: METOPROLOL TARTRATE 25 MG TAB PO SCH ×2 (08:22→21:00)
[2023-04-05] MEDS: SUCRALFATE 1 GM TAB PO SCH ×4 (08:22→21:00)
[2023-04-05] MEDS: ENOXAPARIN INJ 60 MG/0.6 ML SYR SQ SCH ×2 (08:22→20:59)
[2023-04-05] MEDS: POTASSIUM CHLORIDE / WTR 10 MEQ/100 ML PLCT IV SCH ×2 (08:31→10:25)
[2023-04-05] MEDS ORDERED: POTASSIUM PHOSPHATE 21 MMOL in SODIUM CHLORIDE 0.9% 250 ML IV ONE (10:30)
[2023-04-05] MEDS ORDERED: POTASSIUM PHOSPHATE 21 MMOL in SODIUM CHLORIDE 0.9% 500 ML IV ONE (10:30)
[2023-04-05] MEDS: oxyCODONE HCL IR 5 MG TAB (IMMEDIATE RELEASE) PO PRN ×2 (13:00→23:15)
--- NOTE | 2023-04-05 15:26 | Hospitalist Progress Note ---
Date of Service April 05, 2023 Assessment & Plan (1) Pulmonary embolism: Plan: Acute shortness of breath since early this morning with history of adenocarcinoma of the lung diagnosed on 02/06/2023 and on chemo and radiation CTA showed a small segmental and subsegmental pulmonary embolism in the right middle lobe No right heart strain and no cardiomegaly She was started with subcu Lovenox-pros and cons where discussed with the POA Remains stable following nebulized treatment and oxygen administration Has been feeling better Denies any symptoms except profound weakness Has been requiring 4 L to maintain saturation She wants to go home tomorrow if possible Noted to have missed about 24 hours of doses of Lovenox due to not being transferred from ER ordered Has had a fall and hit her head last night-fortunately no bleeding identified on CAT scan She was put back on Lovenox 50 mg subcu twice daily Discussed with the son in detail Likely discharge home on Thursday with home health nurse after radiation treatment Remains stable without any respiratory distress at rest and has been requiring 4 L to maintain saturation Likely discharge tomorrow on subcu Lovenox Mild elevation of the troponin Subsequent test shows improvement Doubt any ACS (2) Acute dyspnea: Plan: As above No dyspnea at rest (3) Acute on chronic hypoxic respiratory failure: Plan: Has been on 3 to 3.5 L of oxygen at home for chronic respiratory failure Presented with acute shortness of breath secondary to pulmonary embolism Has been requiring little more than usual oxygen administration to maintain saturation (4) Adenocarcinoma of lung: Plan: Diagnosed on 02/06/2023 and has been going through chemo and radiation Chemo is given every Thursday and has had third chemo last Thursday which was 03/30/2023, next chemo on 03/30/2023 Has been in radiation and received radiation on Thursday-next radiation is on 04/06/2023 The tumor has not been shrinking Discussed with Dr. Naqvi and if she remains stable she can be discharged home on Lovenox Lovenox will be continued Scheduled to have radiation therapy tomorrow and chemotherapy on Thursday Will discuss with the radiation oncologist and oncologist tomorrow History of hyponatremia Current sodium level is at 134 Will monitor-sodium level is 136 potassium was supplemented Chest x-ray result Right upper lung density has increased in conspicuity from prior exam. Right perihilar density is again seen. CTA result IMPRESSION: 1. Small segmental and subsegmental pulmonary embolus in the right middle lobe. No right heart strain. 2. Redemonstration of thick-walled cavitary mass with air-fluid level in the right upper lobe, somewhat enlarged from prior exam. Right lower lobe lesion, previously appearing more solid and cavitary, is somewhat flattened and with greater cavitation. Findings are compatible with malignancy and/or abscess. Large subcarinal lymph node is again seen, concerning for malignancy. 3. Additional findings as above. (5) COPD (chronic obstructive pulmonary disease): Plan: No acute exacerbation Prior history of smoking Will continue current medications for COPD (6) Pericardial effusion: Plan: History of medical effusion and is status post pericardiocentesis on 03/06/2023 at [facility] Repeat echo on 03/13-normal pericardial effusion CTA during that time did not show any pulmonary embolism CTA on 04/02/2023 is not showing any cardiomegaly or suspicion for tracheal effusion Plan DVT prophylaxis On Lovenox for pulmonary embolism CODE STATUS DNR/DNI Prognosis remains poor Admission and Anticipated Discharge Date Admission Date: April 02, 2023 Subjective 04/03/2023 The patient was seen and examined in medical telemetry unit She has been very weak and lethargic but feels that the breathing is better She wants to go home tomorrow if possible 04/04/2023 The patient was seen and examined in medical telemetry unit She has had a fall last night and injured her head-CT scan of the head did not show any bleeding She has been stable this morning Remains very weak and lethargic and has been requiring 4 L at rest to maintain saturation 04/05/2023 Patient was seen and examined in medical telemetry unit She has been very weak and lethargic and minimally shortness of breath at rest Requiring 4 L to maintain saturation Denies any fever, nausea no vomiting or any abdominal distention. No chest pain or palpitation Review of Systems Review of Systems: All systems reviewed and are unremarkable except as noted below Respiratory: Mild to moderate shortness of breath at rest Neurologic: Extremely weak and lethargic Physical Exam Physical Exam: Lying in bed comfortably and not having any acute distress or shortness of breath Constitutional: + ill appearing and + thin Eyes: PERRL, conjunctivae normal, anicteric sclerae ENMT: external ear and nose normal, oropharynx normal Neck: trachea midline, no thyromegaly Respiratory: + respiratory distress (Minimal at rest) Auscultation: + diminished lung sounds and + crackles (Coarse crackles both sides) Cardiovascular: Rate/Rhythm: regular rate, regular rhythm and + tachycardic Heart Sounds: normal S1 and normal S2; no murmur Extremities: no edema Gastrointestinal (Abdomen): Inspection/Auscultation: normal bowel sounds; abdomen not distended Percussion/Palpation: abdomen soft; abdomen nontender Musculoskeletal: No acute arthritis involving any joint Neurologic: normal touch/pain/proprioception and moves all extremities; no focal motor deficits Psychiatric: A+Ox3, euthymic affect Lymphatic: no cervical or axillary lymphadenopathy Results & Data Results & Data Vital Signs (Past 12 Hours) Vital Signs Temp Pulse Pulse Resp BP Pulse Ox O2 Del Method 04/05/23 15:22 114 H 04/05/23 11:29 37.0 C 104 H 16 135/80 96 Nasal Cannula 04/05/23 10:57 108 H 20 91 Nasal Cannula 04/05/23 08:10 118 H 20 90 Nasal Cannula 04/05/23 08:01 36.9 C 113 H 16 122/73 92 Nasal Cannula 04/05/23 08:00 114 H 04/05/23 08:00 Nasal Cannula 04/05/23 04:45 119 H 19 94 Nasal Cannula O2 Flow Rate 04/05/23 15:22 04/05/23 11:29 4 04/05/23 10:57 4 04/05/23 08:10 4 04/05/23 08:01 4 04/05/23 08:00 04/05/23 08:00 04/05/23 04:45 4 Medications Administered Current Inpatient Medications Acetaminophen (Acetaminophen 500 Mg Tab) 1,000 mg PO BID PRN PRN Reason: Pain Stop: 05/02/23 11:51 Albuterol (Albuterol 0.083% Nebu Soln 3 Ml Vial) 2.5 mg NEB Q6R PRN; Protocol PRN Reason: Shortness Of Breath Or Wheezing Stop: 05/02/23 10:14 Last Admin: 04/04/23 19:39 Dose: 2.5 mg Albuterol (Albuterol Hfa 8 Gm Inhaler) 2 puffs INH Q4H PRN PRN Reason: shortness of breath or wheezing Stop: 05/02/23 11:51 Last Admin: 04/05/23 04:45 Dose: 2 puffs Enoxaparin Sodium (Enoxaparin Inj 60 Mg/0.6 Ml Syr) 50 mg SQ Q12H [facility] Stop: 05/04/23 07:59 Last Admin: 04/05/23 08:22 Dose: 50 mg Fluticasone/Vilanterol (Fluticasone/Vilanterol 100/25mcg 14 Puffs/Inhaler) 1 puffs INH DAILY [facility] Stop: 05/03/23 08:59 Last Admin: 04/05/23 08:22 Dose: 1 puffs Sodium Chloride (Nss) 1,000 mls @ 125 mls/hr IV .Q8H [facility] Stop: 05/02/23 06:44 Last Admin: 04/05/23 08:23 Dose: 125 mls/hr Potassium Phosphate 21 mmol/ (Sodium Chloride) 507 mls @ 88 mls/hr IV ONE ONE Stop: 04/05/23 16:15 Last Admin: 04/05/23 12:17 Dose: 88 mls/hr Levalbuterol HCl (Levalbuterol 1.25 Mg/3 Ml Neb) 1.25 mg NEB QIDR [facility]; Protocol Stop: 05/05/23 06:59 Last Admin: 04/05/23 10:57 Dose: 1.25 mg Lorazepam (Lorazepam 0.5 Mg Tab) 0.5 mg PO Q8H PRN PRN Reason: Anxiety Stop: 05/02/23 11:51 Last Admin: 04/04/23 21:45 Dose: 0.5 mg Metoprolol Tartrate (Metoprolol Tartrate 25 Mg Tab) 25 mg PO BID [facility] Stop: 05/02/23 20:59 Last Admin: 04/05/23 08:22 Dose: 25 mg Mirtazapine (Mirtazapine Tab 15 Mg Tab) 15 mg PO HS [facility] Stop: 05/02/23 20:59 Last Admin: 04/04/23 21:44 Dose: 15 mg Oxycodone HCl (Oxycodone Hcl Ir 5 Mg Tab (Immediate Release)) 5 mg PO Q4H PRN PRN Reason: Pain (Scale Score 1-3) Stop: 04/16/23 11:51 Last Admin: 04/05/23 13:00 Dose: 5 mg Sucralfate (Sucralfate 1 Gm Tab) 2 gm PO ACHS YU Stop: 05/02/23 11:51 Last Admin: 04/05/23 13:03 Dose: Not Given Trazodone HCl (Trazodone Hcl 50 Mg Tab) 50 mg PO HS PRN PRN Reason: insomnia Stop: 05/02/23 11:51 (4) Adenocarcinoma of lung Laterality: right Qualified Code(s): C34.91 - Malignant neoplasm of unspecified part of right bronchus or lung (5) COPD (chronic obstructive pulmonary disease) COPD type: unspecified COPD Qualified Code(s): J44.9 - Chronic obstructive pulmonary disease, unspecified
[2023-04-05] MEDS: MIRTAZAPINE TAB 15 MG TAB PO SCH (21:01)
[2023-04-05] MEDS: LORazepam 0.5 MG TAB PO PRN (23:15)
[2023-04-06] MEDS ORDERED: dilTIAZem HCl 5 MG/ML 5 ML VIAL IV STA ×2 (04:24→04:34)
[2023-04-06 05:03] LABS: Basophils # (auto) 0.02 K/uL (0.00-0.20); Basophils % (auto) 0.7 %; Eosinophils # (auto) 0.02 K/uL (0.00-0.50); Eosinophils % (auto) 0.7 %; Hematocrit (blood only) 26.9 % (37.0-47.0); Hemoglobin 8.8 g/dl (12.0-16.0); Immature Granulocytes # (auto) 0.03 K/uL (0.01-0.20); Lymphocytes # (auto) 0.18 K/uL (1.20-3.40); Lymphocytes % (auto) 6.1 %; Mean Corpuscular Hemoglobin 29.7 pg (25.0-34.0); Mean Corpuscular Hgb Conc 32.7 g/dL (32.0-36.0); Mean Corpuscular Volume 90.9 fL (80.0-100.0); Mean Platelet Volume 9.7 fL (9.4-12.4); Monocytes % (auto) 13.7 %; Neutrophils # (auto) 2.28 K/uL (1.40-6.50); Neutrophils % (auto) 77.8 %; Platelet Count 123 K/uL (130-400); RDW Coefficient of Variation 12.5 % (11.5-14.5); RDW Standard Deviation 40.4 fL (36.4-46.3); Red Blood Count 2.96 M/uL (4.20-5.40); White Blood Count 2.93 K/ul (4.8-10.8)
[2023-04-06] MEDS ORDERED: FUROSEMIDE INJ 20 MG/2 ML VIAL IV ONE (05:26)
[2023-04-06 05:38] LABS: BUN Creatinine Ratio 24.6 (10-20); Calcium 7.9 mg/dl (8.6-10.3); Creatinine Clr Calc Pharmacy 61.1 ml/min; Est GFR (African American) 101.3 ml/min; Est GFR (Non-African American) 87.4 ml/min; Potassium 4.1 mmol/L (3.5-5.1); Troponin I High Sensitivity 227.3 pg/ml (0-14)
--- NOTE | 2023-04-06 07:05 | XRay Report ---
XR chest 1V portable HISTORY: 77 years-old Female sob acute shortness of breath COMPARISON: 04/02/2023 TECHNIQUE: AP view of the chest FINDINGS: Cardiac silhouette is enlarged. Atherosclerosis of the thoracic aorta. Increased size of the pleural effusions, small on the right and [id number] on the left. Emphysema with chronic interstitial coarsening. 7 cm cavitary lesion of the right upper lobe again noted. Unchanged mediastinal contours with bibasilar consolidation, left greater than right. IMPRESSION: 1. Emphysema with 7 cm cavitary mass of the right upper lobe redemonstrated . 2. Small right and [id number] left pleural effusions have increased in size compared to 2022 study. 3. New left basilar airspace opacities may represent atelectasis versus pneumonia. 4. Pathologic lymphadenopathy is better visualized on the comparison CTA of the chest. ACT 112: Negative or not required by law. The above report was generated using voice recognition software. It may contain grammatical, syntax o r spelling errors. Electronically signed by: Jose A Lloyd M.D. 04/06/2023 7:02 AM
[2023-04-06] MEDS: LEVALBUTEROL 1.25 MG/3 ML NEB NEB SCH ×4 (07:51→19:27)
--- NOTE | 2023-04-06 08:36 | Cardiology Consultation ---
Date of Consultation April 06, 2023 Assessment & Plan (1) Atrial fibrillation with RVR: (2) Pulmonary embolism: (3) Adenocarcinoma of lung: Plan IMPRESSION: Medically complex 77 year old female with recently diagnosed adenocarcinoma of the lung- undergoing chemo and radiation. Found to have a new PE after developing worsening shortness of breath prompting this admission. During admission patient converted to PAF with RVR. Symptomatic with palpitations and worsening dyspnea. PLAN: PAF with RVR: Elevated [id number] score of 3 (age 2, female)--currently anticoagualted with subcu Lovenox. Heart rates as high as the 190s while in atrial fibrillation, patient currently maintaining sinus rhythm with an average heart rate in the 110s-- Continue metoprolol tartrate 25 mg BID. Add diltiazem 30 mg TID. Pericardial Effusion: S/p pericardiocentesis 02/2023-- resolved per subsequent echos and CT of the chest Pulmonary embolism: CT of the chest without evidence of right heart strain-- AC for PE per primary service, currently on SQ Lovenox. Case discussed with Dr. Virgen. I spent a total of 40 minutes on the date of service in preparation, delivery, and documentation of the care provided to this patient, excluding any time spent in the performance of separately billed services. Supervising Physician Co-Signing Physician Notes Patient seen examined the bedside. Lying on her left side. Cooperative however somewhat somnolent. Review of telemetry reveals sinus tachycardia and brief salvos of paroxysmal atrial fibrillation. Patient denies chest pain or palpitations. Multiple family members at bedside. PE: Gen: No acute distress, chronically ill, cachectic. Heart: Regular rhythm. Normal S1-S2. 1/6 systolic ejection murmur. Tachycardia. Lungs: Scattered rhonchi with inspiratory and expiratory wheezing. Extremities: No edema. A/P: Agree with above SUPERVISOR SUNGLASSES history, physical exam, assessment and plan. Recommend addition of low-dose nondihydropyridine calcium channel aleyda therapy, Cardizem 30 mg p.o. every 8 hours. Continue metoprolol 25 mg twice daily. I am hesitant to titrate metoprolol further given active wheeze and underlying pulmonary issues. Continue anticoagulation as per primary service. Continue telemetry monitoring. No need for repeat echocardiogram with most recent study demonstrating hyperdynamic LV function. No significant valvular disease. History of Present Illness Reason for Consultation: AFIB RVR Requesting Physician: [place] hospitalist Attending Physician: Jewels Lancaster MD History of Present Illness Medically complex 77-year-old female with past medical history of chronic hypoxic respiratory failure with hypoxia. Recently diagnosed with right lung adenocarcinoma and is currently undergoing chemo and radiation. Presented to [facility] emergency department due to progressive shortness of breath--found to have an acute subsegmental pulmonary emboli in the right middle lobe. No evidence of right heart strain. Started on subcu Lovenox injections. Patient has been tachycardic during admission with short episodes of PAF with RVR on 04/03 & 04/04. This morning, 04/06 around 0430 and 0830, patient converted to atrial fibrillation with RVR, Given 5 mg IV Lopressor with conversion back to NSR at 0849, rates as high as the 190s. Cardiology consulted for management. Upon entrance into the room patient resting in bed. Describes herself as feeling miserable. Was symptomatic with her atrial fibrillation this morning. Describes it as a resource in her chest with worsening shortness of breath. Right now she is comfortable but continues to have some dyspnea. No orthopnea or PND. No lower extremity edema. Denies lightheadedness or dizziness. No chest pain. Telemetry: SR/ST 100-110s. PAF noted with rates up into the 190s. Past medical history: Chronic hypoxic respiratory failure with hypoxia COPD with tobacco use Recently diagnosed right lung adenocarcinoma, 02/06/2023 status post chemo and radiation History of moderate sized pericardial effusion, status post pericardiocentesis 03/06/2023 at [facility] [place] Repeat CT of chest 03/08/2023 with small pericardial effusion Repeat echo 03/13/2023-- no evidence of pericardial effusion. Allergies Allergy/AdvReac Type Severity Reaction Status Date / Time No Known Allergies Allergy Unverified 04/02/23 09:24 Home Medications Medication Instructions Recorded Confirmed Type metoprolol tartrate 25 mg tablet 25 mg PO BID 02/05/23 04/02/23 History albuterol sulfate 90 mcg/actuation 2 inh inhalation Q4H PRN shortness 02/18/23 04/02/23 Rx aerosol inhaler of breath or wheezing #8.5 grams budesonide-formoterol HFA 160 2 puff inhalation BID #10.2 grams 02/18/23 04/02/23 Rx mcg-4.5 mcg/actuation aerosol inhaler acetaminophen 500 mg tablet 1,000 mg PO BID PRN Pain 02/19/23 04/02/23 History (Tylenol Extra Strength) oxycodone 5 mg tablet 5 mg PO Q4H PRN Pain (Scale Score 03/12/23 04/02/23 History 1-3) mirtazapine 15 mg tablet 15 mg PO HS #30 tabs 03/19/23 04/02/23 Rx trazodone 50 mg tablet 50 mg PO HS PRN insomnia #30 tabs 03/19/23 04/02/23 Rx ibuprofen 200 mg tablet (Advil) 200 mg PO Q6H PRN Pain 04/02/23 04/02/23 History lorazepam 0.5 mg tablet 0.5 mg PO Q8H PRN Anxiety 04/02/23 04/02/23 History sucralfate 1 gram tablet (Carafate) 2 g PO ACHS Radiation esophagitis 04/02/23 04/02/23 History Patient History Medical History Cavitary lesion of lung Arthritis Tobacco use disorder COPD (chronic obstructive pulmonary disease) Smoker Surgical History History of bronchoscopy History of partial hysterectomy Family History Mother Diabetes Heart disease Father Heart disease Brother Cancer Lung cancer Sister Cancer Bone Sister Cancer Breast Brother Cancer Esophageal cancer Kidney disease Social History Smoking Status: Current every day smoker Tobacco Type: Cigarettes Age Started Using Tobacco: 11; Cigarettes Per Day: 4-5; Second Hand Exposure: Yes; Do You Dip or Chew Tobacco: No; Tobacco Cessation Education Requested by Patient: No Hx Alcohol Use: No Hx Substance Use: No Preferred Language: Togolese Communication Ability: Effective Artificial Flower Maker Required: No Beliefs That Will Affect Care: None Current Living Situation: Alone Current Living Situation Comment: Son lives next door. current occupational status: retired Other Information That Helps Us Care for You: No Feels Safe at Home: Yes Assistive Devices: Oxygen - at Night Review of Systems Review of Systems: All systems reviewed & are unremarkable except as noted in HPI & below Physical Exam Constitutional: + ill appearing and + thin; no acute dis tress Neck: normal visual inspection and trachea midline Respiratory: normal respiratory effort and + cough Auscultation: + crackles, + rhonchi and + wheezes Cardiovascular: Rate/Rhythm: regular rhythm and + tachycardic Heart Sounds: normal S1, normal S2 and + murmur (+2/6 systolic murmur) Vessels: no JVD Extremities: no edema Gastrointestinal (Abdomen): normal bowel sounds, soft, nontender, no hepatosplenomegaly Skin: no rashes, warm and dry Results & Data Vital Signs (Past 12 Hours) Vital Signs Temp Pulse Pulse Pulse Resp BP BP 04/06/23 07:54 116 H 04/06/23 07:52 111 H 18 04/06/23 07:43 36.5 C 108 H 16 134/70 04/06/23 06:21 115 H 20 121/69 04/06/23 04:35 125 H 110/74 04/06/23 04:08 36.6 C 172 H 96/58 L 04/06/23 03:38 36.6 C 116 H 20 113/73 04/06/23 03:00 36.8 C 118 H 20 113/71 04/05/23 23:37 110 H 04/05/23 22:07 107 H 04/05/23 22:00 37.1 C 133 H 18 125/77 Pulse Ox O2 Del Method O2 Flow Rate 04/06/23 07:54 04/06/23 07:52 93 Nasal Cannula 3 04/06/23 07:43 97 Nasal Cannula 4 04/06/23 06:21 98 Nasal Cannula 4 04/06/23 04:35 98 Nasal Cannula 5 04/06/23 04:08 92 Nasal Cannula 5 04/06/23 03:38 95 Nasal Cannula 5 04/06/23 03:00 92 Nasal Cannula 4 04/05/23 23:37 04/05/23 22:07 04/05/23 22:00 93 Nasal Cannula 4 Laboratory Results Cardiac Enzymes 04/06/23 Range/Units 04:43 Troponin I High Sens 227.3 H* (0-14) pg/ml CBC 04/06/23 Range/Units 04:44 WBC 2.93 L (4.8-10.8) K/ul RBC 2.96 L (4.20-5.40) M/uL Hgb 8.8 L (12.0-16.0) g/dl Hct 26.9 L (37.0-47.0) % Plt Count 123 L (130-400) K/uL Neut # (Auto) 2.28 (1.40-6.50) K/uL Lymph # (Auto) 0.18 L (1.20-3.40) K/uL [place] # (Auto) 0.40 (0.11-0.59) K/uL Eos # (Auto) 0.02 (0.00-0.50) K/uL Baso # (Auto) 0.02 (0.00-0.20) K/uL Comprehensive Metabolic Panel 04/06/23 Range/Units 04:43 Sodium 138 (136-145) mmol/L Potassium 4.1 D (3.5-5.1) mmol/L Chloride 105 (98-107) mmol/L Carbon Dioxide 25 (21-32) mmol/L BUN 15 (6-23) mg/dl Creatinine 0.61 (0.6-1.2) mg/dl Glucose 128 H (70-99(Fasting)) mg/dl Calcium 7.9 L (8.6-10.3) mg/dl Intake and Output 04/05/23 04/06/23 04/06/23 22:59 06:59 14:59 Intake Total 2507 / 4492.417 960.417 / 4492.417 Balance 2507 / 4492.417 960.417 / 4492.417 Intake: IV 2507 / 4492.417 960.417 / 4492.417 Potassium Phosphate 21 mmol In 507 / 507 Sodium Chloride 0.9% 500 ml @ 88 mls/hr IV ONE ONE Rx#: [id number] Sodium Chloride 0.9% 1,000 ml @ 2000 / 3785.417 960.417 / 3785.417 125 mls/hr IV .Q8H [facility] Rx#: [id number] Other: Other Intake Source sips # Unmeasured Voids 1 1 (2) Pulmonary embolism Acute cor pulmonale presence: without acute cor pulmonale Chronicity: acute Pulmonary embolism type: unspecified Qualified Code(s): I26.99 - Other pulmonary embolism without acute cor pulmonale (3) Adenocarcinoma of lung Laterality: right Qualified Code(s): C34.91 - Malignant neoplasm of unspecified part of right bronchus or lung
[2023-04-06] MEDS: METOPROLOL TARTRATE 1 MG/ML VIAL IV PRN ×2 (08:45→22:21)
[2023-04-06] MEDS: FLUTICASONE/VILANTEROL 100/25MCG 14 PUFFS/INHALER INH SCH (08:51)
[2023-04-06] MEDS: SUCRALFATE 1 GM TAB PO SCH ×4 (08:51→22:29)
[2023-04-06] MEDS: ENOXAPARIN INJ 60 MG/0.6 ML SYR SQ SCH ×2 (08:51→22:30)
[2023-04-06] MEDS ORDERED: METOPROLOL TARTRATE 25 MG TAB PO SCH (13:00)
--- NOTE | 2023-04-06 16:12 | Hospitalist Progress Note ---
Date of Service April 06, 2023 Assessment & Plan (1) Pulmonary embolism: Plan: Acute shortness of breath since early this morning with history of adenocarcinoma of the lung diagnosed on 02/06/2023 and on chemo and radiation CTA showed a small segmental and subsegmental pulmonary embolism in the right middle lobe No right heart strain and no cardiomegaly She was started with subcu Lovenox-pros and cons where discussed with the POA Remains stable following nebulized treatment and oxygen administration Has been feeling better Denies any symptoms except profound weakness Has been requiring 4 L to maintain saturation She wants to go home tomorrow if possible Noted to have missed about 24 hours of doses of Lovenox due to not being transferred from ER ordered Has had a fall and hit her head last night-fortunately no bleeding identified on CAT scan She was put back on Lovenox 50 mg subcu twice daily Discussed with the son in detail Likely discharge home on Thursday with home health nurse after radiation treatment Remains stable without any respiratory distress at rest and has been requiring 4 L to maintain saturation Likely discharge tomorrow on subcu Lovenox Remains extremely weak and lethargic and has not been able to discharge today Mild elevation of the troponin Subsequent test shows improvement Doubt any ACS A-fib with RVR Appreciate cardiology input and recommendation Started with Cardizem 30 mg p.o. every 8 hours Continue metoprolol 25 mg twice daily Already on level Lovenox Discussed with the family members (2) Acute dyspnea: Plan: As above No dyspnea at rest (3) Acute on chronic hypoxic respiratory failure: Plan: Has been on 3 to 3.5 L of oxygen at home for chronic respiratory failure Presented with acute shortness of breath secondary to pulmonary embolism Has been requiring little more than usual oxygen administration to maintain saturation (4) Adenocarcinoma of lung: Plan: Diagnosed on 02/06/2023 and has been going through chemo and radiation Chemo is given every Thursday and has had third chemo last Thursday which was 03/30/2023, next chemo on 03/30/2023 Has been in radiation and received radiation on Thursday-next radiation is on 04/06/2023 The tumor has not been shrinking Discussed with Dr. Naqvi and if she remains stable she can be discharged home on Lovenox Lovenox will be continued Scheduled to have radiation therapy tomorrow and chemotherapy on Thursday Will discuss with the radiation oncologist and oncologist tomorrow Likely aspirate of the lung cancer and the patient remains very weak and lethargic to accept any further treatment of chemo and or radiation Will continue with current management and if the patient remains stable for a day or 2 we will plan discharge with hospice in the facility Discussed with the family members History of hyponatremia Current sodium level is at 134 Will monitor-sodium level is 136 potassium was supplemented Chest x-ray result Right upper lung density has increased in conspicuity from prior exam. Right perihilar density is again seen. CTA result IMPRESSION: 1. Small segmental and subsegmental pulmonary embolus in the right middle lobe. No right heart strain. 2. Redemonstration of thick-walled cavitary mass with air-fluid level in the right upper lobe, somewhat enlarged from prior exam. Right lower lobe lesion, previously appearing more solid and cavitary, is somewhat flattened and with greater cavitation. Findings are compatible with malignancy and/or abscess. Large subcarinal lymph node is again seen, concerning for malignancy. 3. Additional findings as above. (5) COPD (chronic obstructive pulmonary disease): Plan: No acute exacerbation Prior history of smoking Will continue current medications for COPD (6) Pericardial effusion: Plan: History of medical effusion and is status post pericardiocentesis on 03/06/2023 at [facility] Repeat echo on 03/13-normal pericardial effusion CTA during that time did not show any pulmonary embolism CTA on 04/02/2023 is not showing any cardiomegaly or suspicion for tracheal effusion Plan DVT prophylaxis On Lovenox for pulmonary embolism CODE STATUS DNR/DNI Prognosis remains poor Admission and Anticipated Discharge Date Admission Date: April 02, 2023 Subjective 04/03/2023 The patient was seen and examined in medical telemetry unit She has been very weak and lethargic but feels that the breathing is better She wants to go home tomorrow if possible 04/04/2023 The patient was seen and examined in medical telemetry unit She has had a fall last night and injured her head-CT scan of the head did not show any bleeding She has been stable this morning Remains very weak and lethargic and has been requiring 4 L at rest to maintain saturation 04/05/2023 Patient was seen and examined in medical telemetry unit She has been very weak and lethargic and minimally shortness of breath at rest Requiring 4 L to maintain saturation Denies any fever, nausea no vomiting or any abdominal distention. No chest pain or palpitation 04/06/2023 The patient was seen and examined in medical telemetry unit in presence of the family members She has been deteriorating and noted to have A-fib with RVR last night Has been seen by phone banker and the rate is controlled now Condition has been deteriorating and there is updated to the family members Prognosis remains extremely poor Review of Systems Review of Systems: All systems reviewed and are unremarkable except as noted below Respiratory: Mild to moderate shortness of breath at rest Neurologic: Extremely weak and lethargic Physical Exam Physical Exam: Lying in bed comfortably and not having any acute distress or shortness of breath Constitutional: + ill appearing and + thin Eyes: PERRL, conjunctivae normal, anicteric sclerae ENMT: external ear and nose normal, oropharynx normal Neck: trachea midline, no thyromegaly Respiratory: + respiratory distress (Minimal at rest) Auscultation: + diminished lung sounds and + crackles (Coarse crackles both sides) Cardiovascular: Rate/Rhythm: regular rate, regular rhythm and + tachycardic Heart Sounds: normal S1 and normal S2; no murmur Extremities: no edema Gastrointestinal (Abdomen): Inspection/Auscultation: normal bowel sounds; abdomen not distended Percussion/Palpation: abdomen soft; abdomen nontender Musculoskeletal: Generally very weak and does not have any acute arthritis involving any of the joint Neurologic: normal touch/pain/proprioception and moves all extremities; no focal motor deficits Psychiatric: A+Ox3, euthymic affect Lymphatic: no cervical or axillary lymphadenopathy Results & Data Results & Data Vital Signs (Past 12 Hours) Vital Signs Temp Pulse Pulse Pulse Resp BP BP 04/06/23 14:19 103 H 18 04/06/23 12:04 36.5 C 122 H 18 04/06/23 11:00 115 H 18 04/06/23 09:07 36.6 C 110 H 18 04/06/23 09:00 110 H 107/70 04/06/23 08:45 180 H 140/70 04/06/23 08:00 04/06/23 07:54 116 H 04/06/23 07:52 111 H 18 04/06/23 07:43 36.5 C 108 H 16 04/06/23 06:21 115 H 20 121/69 04/06/23 04:35 125 H 110/74 04/06/23 04:08 36.6 C 172 H 96/58 L BP Pulse Ox O2 Del Method O2 Flow Rate 04/06/23 14:19 96 Nasal Cannula 3 04/06/23 12:04 132/68 91 Nasal Cannula 3 04/06/23 11:00 91 Nasal Cannula 3 04/06/23 09:07 107/70 93 Nasal Cannula 4 04/06/23 09:00 04/06/23 08:45 04/06/23 08:00 Nasal Cannula 4 04/06/23 07:54 04/06/23 07:52 93 Nasal Cannula 3 04/06/23 07:43 134/70 97 Nasal Cannula 4 04/06/23 06:21 98 Nasal Cannula 4 04/06/23 04:35 98 Nasal Cannula 5 04/06/23 04:08 92 Nasal Cannula 5 Laboratory Results Short CBC 04/06/23 Range/Units 04:44 WBC 2.93 L (4.8-10.8) K/ul Hgb 8.8 L (12.0-16.0) g/dl Hct 26.9 L (37.0-47.0) % Plt Count 123 L (130-400) K/uL BMP 04/06/23 04:43 Sodium 138 Potassium 4.1 D Chloride 105 Carbon Dioxide 25 BUN 15 Creatinine 0.61 Glucose 128 H Calcium 7.9 L Medications Administered Current Inpatient Medications Acetaminophen (Acetaminophen 500 Mg Tab) 1,000 mg PO BID PRN PRN Reason: Pain Stop: 05/02/23 11:51 Albuterol (Albuterol Hfa 8 Gm Inhaler) 2 puffs INH Q4H PRN PRN Reason: shortness of breath or wheezing Stop: 05/02/23 11:51 Last Admin: 04/05/23 04:45 Dose: 2 puffs Diltiazem HCl (Diltiazem Hcl 30 Mg Tab) 30 mg PO TID YU Stop: 05/06/23 20:59 Enoxaparin Sodium (Enoxaparin Inj 60 Mg/0.6 Ml Syr) 50 mg SQ Q12H YU Stop: 05/04/23 07:59 Last Admin: 04/06/23 08:51 Dose: 50 mg Fluticasone/Vilanterol (Fluticasone/Vilanterol 100/25mcg 14 Puffs/Inhaler) 1 puffs INH DAILY YU Stop: 05/03/23 08:59 Last Admin: 04/06/23 08:51 Dose: 1 puffs Levalbuterol HCl (Levalbuterol 1.25 Mg/3 Ml Neb) 1.25 mg NEB QIDR YU; Protocol Stop: 05/05/23 06:59 Last Admin: 04/06/23 14:18 Dose: 1.25 mg Lorazepam (Lorazepam 0.5 Mg Tab) 0.5 mg PO Q8H PRN PRN Reason: Anxiety Stop: 05/02/23 11:51 Last Admin: 04/05/23 23:15 Dose: 0.5 mg Metoprolol Tartrate (Metoprolol Tartrate 1 Mg/Ml Vial) 5 mg IV Q6 PRN PRN Reason: Tachycardia Stop: 05/06/23 05:59 Last Admin: 04/06/23 08:45 Dose: 5 mg Metoprolol Tartrate (Metoprolol Tartrate 25 Mg Tab) 25 mg PO BID [facility] Stop: 05/06/23 20:59 Mirtazapine (Mirtazapine Tab 15 Mg Tab) 15 mg PO HS YU Stop: 05/02/23 20:59 Last Admin: 04/05/23 21:01 Dose: 15 mg Nystatin (Nystatin Susp 500,000 U/5 Ml Udc) 5 ml PO QID YU Stop: 04/16/23 12:59 Oxycodone HCl (Oxycodone Hcl Ir 5 Mg Tab (Immediate Release)) 5 mg PO Q4H PRN PRN Reason: Pain (Scale Score 1-3) Stop: 04/16/23 11:51 Last Admin: 04/05/23 23:15 Dose: 5 mg Sucralfate (Sucralfate 1 Gm Tab) 2 gm PO ACHS YU Stop: 05/02/23 11:51 Last Admin: 04/06/23 12:02 Dose: 2 gm Trazodone HCl (Trazodone Hcl 50 Mg Tab) 50 mg PO HS PRN PRN Reason: insomnia Stop: 05/02/23 11:51 (1) Pulmonary embolism Acute cor pulmonale presence: without acute cor pulmonale Chronicity: acute Pulmonary embolism type: unspecified Qualified Code(s): I26.99 - Other pulmonary embolism without acute cor pulmonale (4) Adenocarcinoma of lung Laterality: right Qualified Code(s): C34.91 - Malignant neoplasm of unsp ecified part of right bronchus or lung (5) COPD (chronic obstructive pulmonary disease) COPD type: unspecified COPD Qualified Code(s): J44.9 - Chronic obstructive pulmonary disease, unspecified
[2023-04-06] MEDS: NYSTATIN SUSP 500,000 U/5 ML UDC PO SCH ×3 (17:41→22:29)
[2023-04-06] MEDS: METOPROLOL TARTRATE 25 MG TAB PO SCH ×2 (17:50→22:29)
--- NOTE | 2023-04-06 19:32 | Electrocardiogram Report ---
Test Reason : Blood Pressure : / mmHG Vent. Rate : 178 BPM Atrial Rate : 187 BPM P-R Int : 000 ms QRS Dur : 076 ms QT Int : 264 ms P-R-T Axes : 000 094 020 degrees QTc Int : 454 ms Atrial fibrillation with rapid ventricular response Rightward axis Poor R wave progression, consider anterior MT vs. lead placement vs. LVH Abnormal ECG When compared with ECG of 03-APR-2023 20:54, Atrial fibrillation has replaced Sinus rhythm Nonspecific T wave abnormality now evident in Anterior leads Confirmed by Ramírez Deleon ([id number]) on 04/06/2023 7:31:52 PM Referred By: REFERRED SELF Confirmed By:Deandre Deleon
[2023-04-06] MEDS: MIRTAZAPINE TAB 15 MG TAB PO SCH (22:30)
[2023-04-06] MEDS: dilTIAZem HCL 30 MG TAB PO SCH (22:35)
[2023-04-07] MEDS: LEVALBUTEROL 1.25 MG/3 ML NEB NEB SCH ×4 (06:14→20:11)
[2023-04-07 06:33] LABS: Basophils # (auto) 0.01 K/uL (0.00-0.20); Basophils % (auto) 0.3 %; Eosinophils # (auto) 0.01 K/uL (0.00-0.50); Eosinophils % (auto) 0.3 %; Hematocrit (blood only) 25.7 % (37.0-47.0); Hemoglobin 8.7 g/dl (12.0-16.0); Immature Granulocytes # (auto) 0.01 K/uL (0.01-0.20); Immature Granulocytes % (auto) 0.3 %; Lymphocytes # (auto) 0.17 K/uL (1.20-3.40); Lymphocytes % (auto) 5.2 %; Mean Corpuscular Hemoglobin 30.2 pg (25.0-34.0); Mean Corpuscular Hgb Conc 33.9 g/dL (32.0-36.0); Mean Corpuscular Volume 89.2 fL (80.0-100.0); Monocytes # (auto) 0.39 K/uL (0.11-0.59); Monocytes % (auto) 11.9 %; Neutrophils # (auto) 2.69 K/uL (1.40-6.50); Platelet Count 153 K/uL (130-400); RDW Coefficient of Variation 12.5 % (11.5-14.5); RDW Standard Deviation 39.8 fL (36.4-46.3); Red Blood Count 2.88 M/uL (4.20-5.40); White Blood Count 3.28 K/ul (4.8-10.8)
[2023-04-07 06:45] LABS: BUN Creatinine Ratio 26.4 (10-20); Calcium 7.6 mg/dl (8.6-10.3); Creatinine Clr Calc Pharmacy 70.3 ml/min; Est GFR (African American) 106.1 ml/min; Est GFR (Non-African American) 91.6 ml/min; Magnesium 1.2 mg/dl (1.7-2.4); Potassium 3.8 mmol/L (3.5-5.1)
[2023-04-07] MEDS: METOPROLOL TARTRATE 25 MG TAB PO SCH ×2 (09:15→20:54)
[2023-04-07] MEDS: ENOXAPARIN INJ 60 MG/0.6 ML SYR SQ SCH ×2 (09:15→20:54)
[2023-04-07] MEDS: dilTIAZem HCL 30 MG TAB PO SCH (09:16)
[2023-04-07] MEDS: NYSTATIN SUSP 500,000 U/5 ML UDC PO SCH ×4 (09:17→20:54)
[2023-04-07] MEDS: SUCRALFATE 1 GM TAB PO SCH ×4 (09:17→20:53)
[2023-04-07] MEDS: FLUTICASONE/VILANTEROL 100/25MCG 14 PUFFS/INHALER INH SCH (09:17)
--- NOTE | 2023-04-07 13:07 | Cardiology Progress Note ---
Date of Service April 07, 2023 Assessment & Plan (1) Atrial fibrillation with RVR: (2) Pulmonary embolism: (3) Adenocarcinoma of lung: Plan IMPRESSION: Medically complex 77 year old female with recently diagnosed adenocarcinoma of the lung- undergoing chemo and radiation. Found to have a new PE after developing worsening shortness of breath prompting this admission. During admission patient converted to PAF with RVR. Symptomatic with palpitations and worsening dyspnea. PLAN: PAF with RVR: Elevated [id number] score of 3 (age 2, female)--currently anticoagulated with subcu Lovenox. Heart rates as high as the 190s while in atrial fibrillation, patient currently maintaining sinus rhythm with an average heart rate in the 110s-- Continue metoprolol tartrate 25 mg BID. Beta aleyda titration not advised given her current respiratory status/wheezing. Cardizem added yesterday. She had recurrent afib overnight. Increase cardizem to 60 mg TID today. Monitor Hypomagnesium -Mag 1.2 this morning - supplement - 2 gm ordered and recheck levels. Pericardial Effusion: S/p pericardiocentesis 02/2023-- resolved per subsequent echos and CT of the chest Pulmonary embolism: CT of the chest without evidence of right heart strain-- AC for PE per primary service, currently on SQ Lovenox. Case discussed with Dr. Virgen. I spent a total of 25 minutes on the date of service in preparation, delivery, and documentation of the care provided to this patient, excluding any time spent in the performance of separately billed services. Admission and Anticipated Discharge Date Admission Date: April 02, 2023 Supervising Physician Co-Signing Physician Notes Patient seen examined the bedside. More alert today. Cough and shortness of breath improved. Occasional episodes of atrial fibrillation recorded overnight. Sinus tachycardia bed line. Patient states "I am going home tomorrow". Multiple family members at bedside. PE: Gen: No acute distress, chronically ill, cachectic. Heart: Regular rhythm. Normal S1-S2. 1/6 systolic ejection murmur. Tachycardia. Lungs: + Expiratory wheeze. extremities: No edema. A/P: Agree with above PA-C history, physical exam, assessment and plan. Titrate Cardizem to 60 mg p.o. 3 times daily. Continue metoprolol 25 mg twice daily. Hesitant to titrate metoprolol further given active wheeze and underlying pulmonary issues. Continue anticoagulation as per primary service. No need for repeat echocardiogram with most recent study demonstrating hyperdynamic LV function. Subjective Patient resting in bed. Ongoing SOB reported with cough at rest. Significant dyspnea with minimal exertion. Had recurrent episode of PAF last night lasting about 1.5 hours. Treated with IV lopressor and converted to sinus tachycardia. Patient reports her SOB becomes acutely worse with the afib RVR. No chest pain. Family at bedside. Patient wants to go home. They are considering palliative care Review of Systems Review of Systems: All systems reviewed & are unremarkable except as noted in HPI & below Physical Exam Constitutional: + ill appearing and + thin; no acute dis tress Neck: normal visual inspection and trachea midline Respiratory: normal respiratory effort and + cough Auscultation: + crackles, + rhonchi and + wheezes Cardiovascular: Rate/Rhythm: regular rhythm and + tachycardic Heart Sounds: normal S1, normal S2 and + murmur (+2/6 systolic murmur) Vessels: no JVD Extremities: no edema Gastrointestinal (Abdomen): normal bowel sounds, soft, nontender, no hepatosplenomegaly Skin: no rashes, warm and dry Results & Data Vital Signs (Past 12 Hours) Vital Signs Temp Pulse Pulse Resp BP Pulse Ox O2 Del Method 04/07/23 11:23 37.2 C 116 H 16 129/69 93 Nasal Cannula 04/07/23 11:00 110 H 20 92 Nasal Cannula 04/07/23 08:03 36.4 C L 111 H 16 126/72 93 Nasal Cannula 04/07/23 08:00 Nasal Cannula 04/07/23 07:57 110 H 04/07/23 06:14 120 H 22 90 Nasal Cannula 04/07/23 03:52 37.0 C 105 H 14 112/70 92 Nasal Cannula O2 Flow Rate 04/07/23 11:23 2 04/07/23 11:00 3.5 04/07/23 08:03 2 04/07/23 08:00 4 04/07/23 07:57 04/07/23 06:14 3 04/07/23 03:52 3 Laboratory Results Cardiac Enzymes 04/06/23 Range/Units 16:24 Troponin I High Sens 190.8 H* (0-14) pg/ml CBC 04/07/23 Range/Units 05:51 WBC 3.28 L (4.8-10.8) K/ul RBC 2.88 L (4.20-5.40) M/uL Hgb 8.7 L (12.0-16.0) g/dl Hct 25.7 L (37.0-47.0) % Plt Count 153 (130-400) K/uL Neut # (Auto) 2.69 (1.40-6.50) K/uL Lymph # (Auto) 0.17 L (1.20-3.40) K/uL [place] # (Auto) 0.39 (0.11-0.59) K/uL Eos # (Auto) 0.01 (0.00-0.50) K/uL Baso # (Auto) 0.01 (0.00-0.20) K/uL Comprehensive Metabolic Panel 04/07/23 Range/Units 05:51 Sodium 138 (136-145) mmol/L Potassium 3.8 (3.5-5.1) mmol/L Chloride 102 (98-107) mmol/L Carbon Dioxide 28 (21-32) mmol/L BUN 14 (6-23) mg/dl Creatinine 0.53 L (0.6-1.2) mg/dl Glucose 107 H (70-99(Fasting)) mg/dl Calcium 7.6 L (8.6-10.3) mg/dl Intake and Output 04/06/23 04/07/23 04/07/23 22:59 06:59 14:59 Other: # Unmeasured Voids 1 1 Weight 51.3 kg Weight Measurement Method Built in [facility] Diagnostic Findings Telemetry reviewed: Currently Sinus tachycardia with heart rates ranging 100-120 bmp. Recurrent PAF with RVR episode last evening from 9:20-10:45 PM. Medications Administered Current Inpatient Medications Acetaminophen (Acetaminophen 500 Mg Tab) 1,000 mg PO BID PRN PRN Reason: Pain Stop: 05/02/23 11:51 Albuterol (Albuterol Hfa 8 Gm Inhaler) 2 puffs INH Q4H PRN PRN Reason: shortness of breath or wheezing Stop: 05/02/23 11:51 Last Admin: 04/05/23 04:45 Dose: 2 puffs Diltiazem HCl (Diltiazem Hcl 60 Mg Tab) 60 mg PO TID YU Stop: 05/07/23 13:59 Enoxaparin Sodium (Enoxaparin Inj 60 Mg/0.6 Ml Syr) 50 mg SQ Q12H YU Stop: 05/04/23 07:59 Last Admin: 04/07/23 09:15 Dose: 50 mg Fluticasone/Vilanterol (Fluticasone/Vilanterol 100/25mcg 14 Puffs/Inhaler) 1 puffs INH DAILY YU Stop: 05/03/23 08:59 Last Admin: 04/07/23 09:17 Dose: 1 puffs Levalbuterol HCl (Levalbuterol 1.25 Mg/3 Ml Neb) 1.25 mg NEB QIDR [facility]; Protocol Stop: 05/05/23 06:59 Last Admin: 04/07/23 10:59 Dose: 1.25 mg Lorazepam (Lorazepam 0.5 Mg Tab) 0.5 mg PO Q8H PRN PRN Reason: Anxiety Stop: 05/02/23 11:51 Last Admin: 04/05/23 23:15 Dose: 0.5 mg Metoprolol Tartrate (Metoprolol Tartrate 1 Mg/Ml Vial) 5 mg IV Q6 PRN PRN Reason: Tachycardia Stop: 05/06/23 05:59 Last Admin: 04/06/23 22:21 Dose: 5 mg Metoprolol Tartrate (Metoprolol Tartrate 25 Mg Tab) 25 mg PO BID [facility] Stop: 05/06/23 20:59 Last Admin: 04/07/23 09:15 Dose: 25 mg Mirtazapine (Mirtazapine Tab 15 Mg Tab) 15 mg PO HS [facility] Stop: 05/02/23 20:59 Last Admin: 04/06/23 22:30 Dose: 15 mg Nystatin (Nystatin Susp 500,000 U/5 Ml Udc) 5 ml PO QID YU Stop: 04/16/23 12:59 Last Admin: 04/07/23 09:17 Dose: 5 ml Oxycodone HCl (Oxycodone Hcl Ir 5 Mg Tab (Immediate Release)) 5 mg PO Q4H PRN PRN Reason: Pain (Scale Score 1-3) Stop: 04/16/23 11:51 Last Admin: 04/05/23 23:15 Dose: 5 mg Sucralfate (Sucralfate 1 Gm Tab) 2 gm PO ACHS YU Stop: 05/02/23 11:51 Last Admin: 04/07/23 09:17 Dose: 2 gm Trazodone HCl (Trazodone Hcl 50 Mg Tab) 50 mg PO HS PRN PRN Reason: insomnia Stop: 05/02/23 11:51 (2) Pulmonary embolism Acute cor pulmonale presence: without acute cor pulmonale Chronicity: acute Pulmonary embolism type: unspecified Qualified Code(s): I26.99 - Other pulmonary embolism without acute cor pulmonale (3) Adenocarcinoma of lung Laterality: right Qualified Code(s): C34.91 - Malignant neoplasm of unspecified part of right bronchus or lung
[2023-04-07] MEDS: MAGNESIUM SULFATE / D5W 1 GM/100 ML BAG IV SCH ×2 (13:30→15:43)
--- NOTE | 2023-04-07 14:19 | Hospitalist Progress Note ---
Date of Service April 07, 2023 Assessment & Plan (1) Pulmonary embolism: Plan: Acute shortness of breath since early this morning with history of adenocarcinoma of the lung diagnosed on 02/06/2023 and on chemo and radiation CTA showed a small segmental and subsegmental pulmonary embolism in the right middle lobe No right heart strain and no cardiomegaly She was started with subcu Lovenox-pros and cons where discussed with the POA Remains stable following nebulized treatment and oxygen administration Has been feeling better Denies any symptoms except profound weakness Has been requiring 4 L to maintain saturation She wants to go home tomorrow if possible Noted to have missed about 24 hours of doses of Lovenox due to not being transferred from ER ordered Has had a fall and hit her head last night-fortunately no bleeding identified on CAT scan She was put back on Lovenox 50 mg subcu twice daily Discussed with the son in detail Likely discharge home on Thursday with home health nurse after radiation treatment Remains stable without any respiratory distress at rest and has been requiring 4 L to maintain saturation Likely discharge tomorrow on subcu Lovenox Remains extremely weak and lethargic and has not been able to discharge today No more shortness of breath at rest saturating on 2 L Mild elevation of the troponin Subsequent test shows improvement Doubt any ACS A-fib with RVR Appreciate cardiology input and recommendation Started with Cardizem 30 mg p.o. every 8 hours Continue metoprolol 25 mg twice daily Already on level Lovenox Discussed with the family members Magnesium was low and that was replaced Will monitor CBC and PRP (2) Acute dyspnea: Plan: As above No dyspnea at rest (3) Acute on chronic hypoxic respiratory failure: Plan: Has been on 3 to 3.5 L of oxygen at home for chronic respiratory failure Presented with acute shortness of breath secondary to pulmonary embolism Has been requiring little more than usual oxygen administration to maintain saturation (4) Adenocarcinoma of lung: Plan: Diagnosed on 02/06/2023 and has been going through chemo and radiation Chemo is given every Thursday and has had third chemo last Thursday which was 03/30/2023, next chemo on 03/30/2023 Has been in radiation and received radiation on Thursday-next radiation is on 04/06/2023 The tumor has not been shrinking Discussed with Dr. Naqvi and if she remains stable she can be discharged home on Lovenox Lovenox will be continued Scheduled to have radiation therapy tomorrow and chemotherapy on Thursday Will discuss with the radiation oncologist and oncologist tomorrow Likely aspirate of the lung cancer and the patient remains very weak and lethargic to accept any further treatment of chemo and or radiation Will continue with current management and if the patient remains stable for a day or 2 we will plan discharge with hospice in the facility Discussed with the family members Remains very weak and lethargic that she could go for radiation therapy- discussed with the radiation oncologist and canceled today's appointment Patient remains too weak to get chemotherapy as well History of hyponatremia Current sodium level is at 134 Will monitor-sodium level is 136 potassium was supplemented Chest x-ray result Right upper lung density has increased in conspicuity from prior exam. Right perihilar density is again seen. CTA result IMPRESSION: 1. Small segmental and subsegmental pulmonary embolus in the right middle lobe. No right heart strain. 2. Redemonstration of thick-walled cavitary mass with air-fluid level in the right upper lobe, somewhat enlarged from prior exam. Right lower lobe lesion, previously appearing more solid and cavitary, is somewhat flattened and with greater cavitation. Findings are compatible with malignancy and/or abscess. Large subcarinal lymph node is again seen, concerning for malignancy. 3. Additional findings as above. (5) COPD (chronic obstructive pulmonary disease): Plan: No acute exacerbation Prior history of smoking Will continue current medications for COPD (6) Pericardial effusion: Plan: History of medical effusion and is status post pericardiocentesis on 03/06/2023 at [facility] Repeat echo on 03/13-normal pericardial effusion CTA during that time did not show any pulmonary embolism CTA on 04/02/2023 is not showing any cardiomegaly Plan DVT prophylaxis On Lovenox for pulmonary embolism CODE STATUS DNR/DNI Prognosis remains poor Admission and Anticipated Discharge Date Admission Date: April 02, 2023 Subjective 04/03/2023 The patient was seen and examined in medical telemetry unit She has been very weak and lethargic but feels that the breathing is better She wants to go home tomorrow if possible 04/04/2023 The patient was seen and examined in medical telemetry unit She has had a fall last night and injured her head-CT scan of the head did not show any bleeding She has been stable this morning Remains very weak and lethargic and has been requiring 4 L at rest to maintain saturation 04/05/2023 Patient was seen and examined in medical telemetry unit She has been very weak and lethargic and minimally shortness of breath at rest Requiring 4 L to maintain saturation Denies any fever, nausea no vomiting or any abdominal distention. No chest pain or palpitation 04/06/2023 The patient was seen and examined in medical telemetry unit in presence of the family members She has been deteriorating and noted to have A-fib with RVR last night Has been seen by welfare service aide and the rate is controlled now Condition has been deteriorating and there is updated to the family members Prognosis remains extremely poor 04/07/2023 The patient was seen and examined in medical telemetry unit She has been deteriorating Remains stable at rest without any significant symptoms except profound weakness Is with the patient about palliative care and possible hospice discharge at home or any facility Discussed with the family members to on 04/06/2023 Review of Systems Review of Systems: All systems reviewed and are unremarkable except as noted below Respiratory: Mild to moderate shortness of breath at rest Neurologic: Extremely weak and lethargic Physical Exam Physical Exam: Lying in bed comfortably and not having any acute distress or shortness of breath Constitutional: + ill appearing and + thin Eyes: PERRL, conjunctivae normal, anicteric sclerae ENMT: external ear and nose normal, oropharynx normal Neck: trachea midline, no thyromegaly Respiratory: + respiratory distress (Minimal at rest) Auscultation: + diminished lung sounds and + crackles (Coarse crackles both sides) Cardiovascular: Rate/Rhythm: regular rate, regular rhythm and + tachycardic Heart Sounds: normal S1 and normal S2; no murmur Extremities: no edema Gastrointestinal (Abdomen): Inspection/Auscultation: normal bowel sounds; abdomen not distended Percussion/Palpation: abdomen soft; abdomen nontender Musculoskeletal: No acute arthritis involving any of the joint Neurologic: normal touch/pain/proprioception and moves all extremities; no focal motor deficits Psychiatric: A+Ox3, euthymic affect Lymphatic: no cervical or axillary lymphadenopathy Results & Data Results & Data Vital Signs (Past 12 Hours) Vital Signs Temp Pulse Pulse Resp BP Pulse Ox O2 Del Method 04/07/23 11:23 37.2 C 116 H 16 129/69 93 Nasal Cannula 04/07/23 11:00 110 H 20 92 Nasal Cannula 04/07/23 08:03 36.4 C L 111 H 16 126/72 93 Nasal Cannula 04/07/23 08:00 Nasal Cannula 04/07/23 07:57 110 H 04/07/23 06:14 120 H 22 90 Nasal Cannula 04/07/23 03:52 37.0 C 105 H 14 112/70 92 Nasal Cannula O2 Flow Rate 04/07/23 11:23 2 04/07/23 11:00 3.5 04/07/23 08:03 2 04/07/23 08:00 4 04/07/23 07:57 04/07/23 06:14 3 04/07/23 03:52 3 Laboratory Results Short CBC 04/07/23 Range/Units 05:51 WBC 3.28 L (4.8-10.8) K/ul Hgb 8.7 L (12.0-16.0) g/dl Hct 25.7 L (37.0-47.0) % Plt Count 153 (130-400) K/uL BMP 04/07/23 05:51 Sodium 138 Potassium 3.8 Chloride 102 Carbon Dioxide 28 BUN 14 Creatinine 0.53 L Glucose 107 H Calcium 7.6 L Medications Administered Current Inpatient Medications Acetaminophen (Acetaminophen 500 Mg Tab) 1,000 mg PO BID PRN PRN Reason: Pain Stop: 05/02/23 11:51 Albuterol (Albuterol Hfa 8 Gm Inhaler) 2 puffs INH Q4H PRN PRN Reason: shortness of breath or wheezing Stop: 05/02/23 11:51 Last Admin: 04/05/23 04:45 Dose: 2 puffs Diltiazem HCl (Diltiazem Hcl 60 Mg Tab) 60 mg PO TID YU Stop: 05/07/23 13:59 Enoxaparin Sodium (Enoxaparin Inj 60 Mg/0.6 Ml Syr) 50 mg SQ Q12H YU Stop: 05/04/23 07:59 Last Admin: 04/07/23 09:15 Dose: 50 mg Fluticasone/Vilanterol (Fluticasone/Vilanterol 100/25mcg 14 Puffs/Inhaler) 1 puffs INH DAILY YU Stop: 05/03/23 08:59 Last Admin: 04/07/23 09:17 Dose: 1 puffs Magnesium Sulfate/Dextrose (Magnesium Sulfate / D5w) 1 gm in 100 mls @ 50 mls/hr IV Q2H [facility] Stop: 04/07/23 17:14 Last Admin: 04/07/23 13:30 Dose: 50 mls/hr Levalbuterol HCl (Levalbuterol 1.25 Mg/3 Ml Neb) 1.25 mg NEB QIDR [facility]; Protocol Stop: 05/05/23 06:59 Last Admin: 04/07/23 10:59 Dose: 1.25 mg Lorazepam (Lorazepam 0.5 Mg Tab) 0.5 mg PO Q8H PRN PRN Reason: Anxiety Stop: 05/02/23 11:51 Last Admin: 04/05/23 23:15 Dose: 0.5 mg Metoprolol Tartrate (Metoprolol Tartrate 1 Mg/Ml Vial) 5 mg IV Q6 PRN PRN Reason: Tachycardia Stop: 05/06/23 05:59 Last Admin: 04/06/23 22:21 Dose: 5 mg Metoprolol Tartrate (Metoprolol Tartrate 25 Mg Tab) 25 mg PO BID [facility] Stop: 05/06/23 20:59 Last Admin: 04/07/23 09:15 Dose: 25 mg Mirtazapine (Mirtazapine Tab 15 Mg Tab) 15 mg PO HS [facility] Stop: 05/02/23 20:59 Last Admin: 04/06/23 22:30 Dose: 15 mg Nystatin (Nystatin Susp 500,000 U/5 Ml Udc) 5 ml PO QID [facility] Stop: 04/16/23 12:59 Last Admin: 04/07/23 13:59 Dose: Not Given Oxycodone HCl (Oxycodone Hcl Ir 5 Mg Tab (Immediate Release)) 5 mg PO Q4H PRN PRN Reason: Pain (Scale Score 1-3) Stop: 04/16/23 11:51 Last Admin: 04/05/23 23:15 Dose: 5 mg Sucralfate (Sucralfate 1 Gm Tab) 2 gm PO ACHS [facility] Stop: 05/02/23 11:51 Last Admin: 04/07/23 13:58 Dose: Not Given Trazodone HCl (Trazodone Hcl 50 Mg Tab) 50 mg PO HS PRN PRN Reason: insomnia Stop: 05/02/23 11:51 (1) Pulmonary embolism Acute cor pulmonale presence: without acute cor pulmonale Chronicity: acute Pulmonary embolism type: unspecified Qualified Code(s): I26.99 - Other pulmonary embolism without acute cor pulmonale (4) Adenocarcinoma of lung Laterality: right Qualified Code(s): C34.91 - Malignant neoplasm of unspecified part of right bronchus or lung (5) COPD (chronic obstructive pulmonary disease) COPD type: unspecified COPD Qualified Code(s): J44.9 - Chronic obstructive pulmonary disease, unspecified
[2023-04-07] MEDS: dilTIAZem HCl 60 MG TAB PO SCH ×2 (14:30→20:54)
--- NOTE | 2023-04-07 14:40 | Palliative Care Consultation ---
Date of Consultation April 07, 2023 Assessment & Plan (1) Dyspnea and respiratory abnormalities: (2) Weakness generalized: (3) Fatigue: Fatigue type: due to neoplasm Qualified Code(s): R53.0 - Neoplastic (malignant) related fatigue (4) Cancer related pain: (5) Palliative care by specialist: Met with pt/family. Provided overview of Palliative Medicine, a subspecialty that provides specialized medical care for people living with a serious illness by offering a focus on quality of life. Palliative Medicine is often conflated with hospice: I advised patient/family that Palliative and hospice can be partners but we are not the same. It is important to understand the difference so that we may be informed, and not afraid. Palliative Medicine works to improve QOL through reduction of symptom burden/more control over their illness, for both the patient and family. Palliative medicine clinicians are board certified, specially-trained and another member of the patient's medical care team. We often provide an extra layer of support because our care is based on the needs of the patient, not the prognosis; as such, it's appropriate at any age/advancing stage of a serious illness and can be provided along with curative treatment. Palliative Medicine clinicians are also trained in advanced communication methodologies, to facilitate complex discussions about advanced illness planning, which are needed to help assure that the treatment choices match the patient's goals, aka delivering Goal Concordant care. Finally, we discussed that hospice is a visiting nurse service that focuses on care delivered at the very end of life for patients with terminal illness, with life expectancy less than 6 month. (6) Advanced care planning/counseling discussion: 60 min face to face ACP with pt, son and dtr at bedside Reviewed their concerns to date: +progressive weakness, declining PS and worsening dyspnea Dtr does not feels she can tolerate chemo and feels she may be on a more acute decline, states pt is needing more help with basic needs and there is not enough support from current VNS through [facility] which family tell me is a 30 in visit one a week without any additional support. Son in agreement, feels time may be limited. I reviewed with them that her fatigue/dyspnea in setting of acute PE is quite normal and in context of lung cancer, not an unexpected complication. I shared with them I spoke with Dr Naqvi earlier this morning, who feels pt may have a decent prognosis, so the route of rehab with f/u in oncology within 1 mo to re assess chemo readiness would not be unreasonable. Pt however states she is not willing to do this and does not want chemo or cancer therapies right now. Lynette states she does not want to be "running around for visits, I just want to go home, get some rest and see if my body can get stronger." I reviewed options for home with VNS + PT vs sub acute rehab at SNF vs home with hospice. She decline, very emphatically, any option of rehab acute or subacute and emphatically states she will only be going home. Family expressed support. Son and his live next door, the works from home so she is with pt thru the day and on occasions when she needs to be on site for her work, their nephew Jesus Manuel (who is the son of the dtr here today) will come sit with pt. Son and take turns staying overnight with pt. Dtr lives in [facility] and has taken FMLA and for now she is coming up every other week for a one week stay. This allows brother and sister in law a break. They asked about home hospice options. We discussed the goals of hospice as a patient service and the goals of care; we discussed EOL trajectories and transitions ricki the emotional impact of realizing mortality as a concrete reality from prior abstract considerations. Pt was reassured that no matter where they are along this trajectory, they are not alone - their medical team will remain by their side through their journey. Discussed the pros/cons of accepting help when especially weakened and distressed by pain-which would also help provide relief/decrease caregiver burden/strain. I provided education about the hospice benefit: an interdisciplinary program offered by nurses, nurses aides, social workers, chaplains and a medical research scientist for patients with a terminal condition and a life expectancy of less than 6 months. This is covered by Medicare at 100%/no out of pocket expense to patient and all meds/supplies needed by patient for the reason they are on hospice are paid for/covered by hospice. The goal is assure quality of life of the patient in their home setting (home, halfway, inpatient hospice setting) by providing symptoms management, psychosocial and spiritual support. However, they cannot offer 24 hours care and if the family is unable to provide that care, they will have to consider personal care with out of pocket cost vs. halfway placement. We discussed the goals of hospice as a patient service and the goals of care; we discussed EOL trajectories and transitions ricki the emotional impact of realizing mortality as a concrete reality from prior abstract considerations. Pt was reassured that no matter where they are along this trajectory, they are not alone - their medical team will remain by their side through their journey. Discussed the pros/cons of accepting help when especially weakened and distressed by pain-which would also help provide relief/decrease caregiver burden/strain. Although I encouraged Lynette to consider a trial of rehab, maybe given Subacute rehab a 2-4 week trial, she firmly declined. She was open to hospice and states she will engage with the hospice PT and I very carefully and specifically reviewed this is a very gentle PT focused on maintaining ROM, energy conservation etc. Visits with hospice PT likely 1x per week, but their "homework" can be done everyday with pt supervised by her family. Also encouraged her to follow some chair and bed based regimens for conditioning such as Jesus Manuel Bills PT routine available through social media platforms or the [facility]ie. I updated Essence Ervin CM and primary team. I advised pt and family if she is feeling stronger in 3 weeks, then plan a follow up with oncology at the 4 week tammie and revoke hospice if she elects to resume cancer directed therapy. I advised them I feel it is 50/50 she will make progress vs decline given overall frailty, pulm status and cachexia. (7) Encounter for hospice care discussion: Plan * ACP as outlined above * hospice per case mgt Thank you for allowing us to participate in the ongoing care of this patient. Please don't hesitate to call or page with any additional concerns. Dr. Codie Stone DNP Director, Palliative Care History of Present Illness Reason for Consultation: GOC, lung ca new PE Attending Physician: Jewels Lancaster MD History of Present Illness Lynette is a 77yo female admitted from home with worsening dyspnea, fatigue, chest pain. Found to have PE +hx lung cancer - adenoca dx 02/06/23- currently under chemoradiation known COPD/smoking related, +active smoker, +cavitary lung lesions, cachexia, we akness has had issues with RVR, metoprolol dose adjusted again today/cardiology following CXR: RUL density has increased in conspicuity from prior exam. Right perihilar density is again seen. CTA: 1. Small segmental and subsegmental pulmonary embolus in the right middle lobe. No right heart strain. 2. Redemonstration of thick-walled cavitary mass with air-fluid level in the right upper lobe, somewhat enlarged from prior exam. Right lower lobe lesion, previously appearing more solid and cavitary, is somewhat flattened and with greater cavitation. Findings are compatible with malignancy and/or abscess. Large subcarinal lymph node is again seen, concerning for malignancy. Lynette is seen bedside together with her son and dtr. they report generalized but progressive decline past few weeks with growing weakness, frailty, dyspnea daughter states pt can barely tolerate getting OOB to bathroom at home without signif dyspnea and is now unable to even bring herself to seated position at bedside without RVR son states appetite on decline, waxing strength, weight loss and bronchitic cough with rollins sputum dtr states they do not feel she can safely tolerate more chemo at this time and they are inquiring about home with hospice pt is clear the only option she wants is to go home she is open to gentle PT at home but firmly refuses rehab or snf rehab pt states she feels too weak for more cancer therapy and does not want to take anymore "for now" and "wants to see how she feels after a few weeks or a month at home, give myself a break and see if my body can get stronger." Allergies Allergy/AdvReac Type Severity Reaction Status Date / Time No Known Allergies Allergy Unverified 04/02/23 09:24 Home Medications Medication Instructions Recorded Confirmed Type metoprolol tartrate 25 mg tablet 25 mg PO BID 02/05/23 04/02/23 History albuterol sulfate 90 mcg/actuation 2 inh inhalation Q4H PRN shortness 02/18/23 04/02/23 Rx aerosol inhaler of breath or wheezing #8.5 grams budesonide-formoterol HFA 160 2 puff inhalation BID #10.2 grams 02/18/23 04/02/23 Rx mcg-4.5 mcg/actuation aerosol inhaler acetaminophen 500 mg tablet 1,000 mg PO BID PRN Pain 02/19/23 04/02/23 History (Tylenol Extra Strength) oxycodone 5 mg tablet 5 mg PO Q4H PRN Pain (Scale Score 03/12/23 04/02/23 History 1-3) mirtazapine 15 mg tablet 15 mg PO HS #30 tabs 03/19/23 04/02/23 Rx trazodone 50 mg tablet 50 mg PO HS PRN insomnia #30 tabs 03/19/23 04/02/23 Rx ibuprofen 200 mg tablet (Advil) 200 mg PO Q6H PRN Pain 04/02/23 04/02/23 History lorazepam 0.5 mg tablet 0.5 mg PO Q8H PRN Anxiety 04/02/23 04/02/23 History sucralfate 1 gram tablet (Carafate) 2 g PO ACHS Radiation esophagitis 04/02/23 04/02/23 History Patient History Medical History Cavitary lesion of lung Arthritis Tobacco use disorder COPD (chronic obstructive pulmonary disease) Smoker Surgical History History of bronchoscopy History of partial hysterectomy Family History Mother Diabetes Heart disease Father Heart disease Brother Cancer Lung cancer Sister Cancer Bone Sister Cancer Breast Brother Cancer Esophageal cancer Kidney disease Social History Smoking Status: Current every day smoker Tobacco Type: Cigarettes Age Started Using Tobacco: 11; Cigarettes Per Day: 4-5; Second Hand Exposure: Yes; Do You Dip or Chew Tobacco: No; Tobacco Cessation Education Requested by Patient: No Hx Alcohol Use: No Hx Substance Use: No Preferred Language: [place]rugu[place] Communication Ability: Effective 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 current occupational status: retired Other Information That Helps Us Care for You: No Feels Safe at Home: Yes Assistive Devices: Oxygen - at Night Review of Systems Review of Systems: All systems reviewed & are unremarkable except as noted in Subjective Physical Exam Physical Exam: resting in bed on right side intermittent bronchitic cough with +rollins to beige thick sputum Bitemp wasting +perrla +eomi's tired appearing resp effort increased with conversation +use of abd muscles for resp effort lungs rhonchorous tachy irreg HR scaphoid abdomen cachectic/thin skin pale, cool irritable mood, at times near shouting Results & Data Vital Signs (Past 12 Hours) Vital Signs Temp Pulse Pulse Resp BP Pulse Ox O2 Del Method 04/07/23 11:23 37.2 C 116 H 16 129/69 93 Nasal Cannula 04/07/23 11:00 110 H 20 92 Nasal Cannula 04/07/23 08:03 36.4 C L 111 H 16 126/72 93 Nasal Cannula 04/07/23 08:00 Nasal Cannula 04/07/23 07:57 110 H 04/07/23 06:14 120 H 22 90 Nasal Cannula 04/07/23 03:52 37.0 C 105 H 14 112/70 92 Nasal Cannula O2 Flow Rate 04/07/23 11:23 2 04/07/23 11:00 3.5 04/07/23 08:03 2 04/07/23 08:00 4 04/07/23 07:57 04/07/23 06:14 3 04/07/23 03:52 3 Laboratory Results data reviewed Diagnostic Findings data reviewed PG Care Time/CCT Total # of Minutes Spent Total Time Spent: 130 Total Time Spent with Patient: Total time spent is greater than 50% in coordination of care (as documented) at patient's floor/unit and/or counseling patient: I spent 130 minutes overall addressing this complex case: 15 min in medical data review/discussion with referring provider(s) and/or preparation for the visit 25 min in direct interaction with the patient/exam 60 min in Advance Care Planning/Goals of Care discussions as detailed above in note (must be >16min) 15 min in subsequent review and synthesis of assessment and plan 15 min communicating with other providers regarding the patient's case: Advanced Care Planning 81485 Advanced Care Planning 30 Min [id number] Advanced Care Planning Additional 30 [place] [address] IN/OBS CONSULT LVL 5,80M Patient Type New History Comprehensive Exam Comprehensive Medical Decision Making High Complexity Diagnoses Dyspnea and respiratory abnormalities R06.00; R06.89 Weakness generalized R53.1 Neoplastic malignant related fatigue R53.0 Fatigue type: due to neoplasm Cancer related pain G89.3 Palliative care by specialist Z51.5 Advanced care planning/counseling discussion Z71.89 Encounter for hospice care discussion Z71.89 Additional Codes Advanced Care Planning - 19986 Advanced Care Planning 30 Min: 72133 Advanced Care Planning 30 Min ([id number]) Advanced Care Planning - 45714 Advanced Care Planning Additional 30 Min: 33956 Advanced Care Planning Additional 30 Min ([id number])
[2023-04-07] MEDS: MIRTAZAPINE TAB 15 MG TAB PO SCH (20:54)
[2023-04-08] MEDS: METOPROLOL TARTRATE 1 MG/ML VIAL IV PRN (04:54)
[2023-04-08 06:39] LABS: Hematocrit (blood only) 25.9 % (37.0-47.0); Hemoglobin 8.6 g/dl (12.0-16.0); Mean Corpuscular Hemoglobin 29.8 pg (25.0-34.0); Mean Corpuscular Hgb Conc 33.2 g/dL (32.0-36.0); Mean Corpuscular Volume 89.6 fL (80.0-100.0); Mean Platelet Volume 9.8 fL (9.4-12.4); Platelet Count 136 K/uL (130-400); RDW Coefficient of Variation 12.8 % (11.5-14.5); RDW Standard Deviation 40.5 fL (36.4-46.3); Red Blood Count 2.89 M/uL (4.20-5.40); White Blood Count 2.78 K/ul (4.8-10.8)
[2023-04-08 07:04] LABS: BUN Creatinine Ratio 28.9 (10-20); Basophils # (auto) 0.01 K/uL (0.00-0.20); Basophils % (auto) 0.4 %; Calcium 7.5 mg/dl (8.6-10.3); Creatinine Clr Calc Pharmacy 82.8 ml/min; Eosinophils # (auto) 0.01 K/uL (0.00-0.50); Eosinophils % (auto) 0.4 %; Est GFR (Non-African American) 96.7 ml/min; Immature Granulocytes # (auto) 0.02 K/uL (0.01-0.20); Immature Granulocytes % (auto) 0.7 %; Lymphocytes # (auto) 0.13 K/uL (1.20-3.40); Lymphocytes % (auto) 4.7 %; Magnesium 1.5 mg/dl (1.7-2.4); Monocytes # (auto) 0.38 K/uL (0.11-0.59); Monocytes % (auto) 13.7 %; Neutrophils # (auto) 2.23 K/uL (1.40-6.50); Neutrophils % (auto) 80.1 %; Potassium 3.7 mmol/L (3.5-5.1)
[2023-04-08] MEDS: LEVALBUTEROL 1.25 MG/3 ML NEB NEB SCH ×3 (07:11→15:18)
[2023-04-08] MEDS: dilTIAZem HCl 60 MG TAB PO SCH ×2 (07:32→14:23)
[2023-04-08] MEDS: LORazepam 0.5 MG TAB PO PRN (07:32)
[2023-04-08] MEDS: SUCRALFATE 1 GM TAB PO SCH ×2 (07:32→13:02)
[2023-04-08] MEDS: FLUTICASONE/VILANTEROL 100/25MCG 14 PUFFS/INHALER INH SCH (07:33)
[2023-04-08] MEDS: ENOXAPARIN INJ 60 MG/0.6 ML SYR SQ SCH (07:33)
[2023-04-08] MEDS: METOPROLOL TARTRATE 25 MG TAB PO SCH (07:33)
[2023-04-08] MEDS: NYSTATIN SUSP 500,000 U/5 ML UDC PO SCH ×2 (07:36→13:03)
[2023-04-08] MEDS: MAGNESIUM SULFATE / D5W 1 GM/100 ML BAG IV SCH ×2 (11:39→13:32)
--- NOTE | 2023-04-08 14:15 | Discharge Summary ---
Date of Service April 08, 2023 Admission HPI Per Admitting Provider She is a 77-year-old female with significant past medical history of tobacco use disorder, COPD, chronic respiratory failure with hypoxia and recently diagnosed right lung adenocarcinoma who is undergoing chemo and radiation for the same apparently woke up from sleep at around 2 AM this morning with increasing shortness of breath. She did not have any chest pain, has had cough with phlegm but no hemoptysis, no abdominal pain nausea or vomiting this morning and no fever and or chills. Did not have any problem with bowel and or bladder. She had her third chemo on Thursday last and ongoing radiation on Thursday last. She felt a little better following first chemo but she has been weak and lethargic and less mobile at home. She also complained to have nausea with vomiting since Thursday afternoon following a sandwich and since then she has not been drinking or eating much and passing time most of the time in bed. She has next chemo scheduled on Thursday and radiation on Thursday. She was noted to have an acute right segmental and subsegmental pulmonary embolism involving the middle lobe. After discussion with the patient and the POA she was started with subcu Lovenox. The pros and cons of Lovenox were discussed in detail with the POA. Admission Exam Per Admitting Provider Physical Exam: Lying in bed comfortably and not having any acute distress or shortness of breath Constitutional: + ill appearing and + thin Eyes: PERRL, conjunctivae normal, anicteric sclerae ENMT: external ear and nose normal, oropharynx normal Neck: trachea midline, no thyromegaly Respiratory: + respiratory distress (Minimal at rest) Auscultation: + diminished lung sounds and + crackles (Coarse crackles both sides) Cardiovascular: Rate/Rhythm: regular rate, regular rhythm and + tachycardic Heart Sounds: normal S1 and normal S2; no murmur Extremities: no edema Gastrointestinal (Abdomen): Inspection/Auscultation: normal bowel sounds; abdomen not distended Percussion/Palpation: abdomen soft; abdomen nontender Musculoskeletal: No acute arthritis involving any joint Neurologic: normal touch/pain/proprioception and moves all extremities; no focal motor deficits Remains weak and lethargic Psychiatric: A+Ox3, euthymic affect Lymphatic: no cervical or axillary lymphadenopathy Principal Diagnosis Generalized weakness ISO adenocarcinoma of lung Pulmonary embolism A-fib with RVR Discharge Exam GENERAL: Alert and oriented x3. NAD, on 4L NC O2, ill appearing/cachectic/frail. HEENT: No pallor, no icterus. Pupils equal, round and reactive to light. Oral mucosa moist. NECK: No JVD, no neck masses. HEART: S1 and S2 heard. regular rate and rhythm. No murmur, no gallop. RESPIRATORY SYSTEM: Normal AP diameter. No accessory muscle use. No wheezing, + crackles. ABDOMEN: Soft, bowel sounds present, nontender, no distention. CENTRAL NERVOUS SYSTEM: No facial droop. Speech is clear. Obeys simple commands. Moves extremities. EXTREMITIES: trace ble edema, no erythema seen. Discharge Data Allergies Allergy/AdvReac Type Severity Reaction Status Date / Time No Known Allergies Allergy Unverified 04/02/23 09:24 Consultations 04/02/23 08:57 ED Decision to Admit Stat 04/06/23 08:00 Consult Cardiology Routine 04/07/23 08:30 Consult Palliative Care Routine Ordered Studies 04/02/23 06:19 CT angio chest PE protocol Stat 04/04/23 03:00 CT head/brain wo con Stat Hospital Course (1) Pulmonary embolism: Per prior attending w/ addendum: Acute shortness of breath since early this morning with history of adenocarcinoma of the lung diagnosed on 02/06/2023 and on chemo and radiation CTA showed a small segmental and subsegmental pulmonary embolism in the right middle lobe No right heart strain and no cardiomegaly She was started with subcu Lovenox-pros and cons where discussed with the POA Remains stable following nebulized treatment and oxygen administration Has been feeling better Denies any symptoms except profound weakness Has been requiring 4 L to maintain saturation She wants to go home tomorrow if possible Noted to have missed about 24 hours of doses of Lovenox due to not being transferred from ER ordered Has had a fall and hit her head last night-fortunately no bleeding identified on CAT scan She was put back on Lovenox 50 mg subcu twice daily Discussed with the son in detail Likely discharge home on Thursday with home health nurse after radiation treatment Remains stable without any respiratory distress at rest and has been requiring 4 L to maintain saturation Likely discharge tomorrow on subcu Lovenox Remains extremely weak and lethargic and has not been able to discharge today No more shortness of breath at rest saturating on 2 L Mild elevation of the troponin Subsequent test shows improvement Doubt any ACS A-fib with RVR Appreciate cardiology input and recommendation Started with Cardizem 30 mg p.o. every 8 hours Continue metoprolol 25 mg twice daily Already on level Lovenox Discussed with the family members Magnesium was low and that was replaced Will monitor CBC and PRP (2) Acute dyspnea: As above No dyspnea at rest (3) Acute on chronic hypoxic respiratory failure: Has been on 3 to 3.5 L of oxygen at home for chronic respiratory failure Presented with acute shortness of breath secondary to pulmonary embolism Has been requiring little more than usual oxygen administration to maintain saturation (4) Adenocarcinoma of lung: Diagnosed on 02/06/2023 and has been going through chemo and radiation Chemo is given every Thursday and has had third chemo last Thursday which was 03/30/2023, next chemo on 03/30/2023 Has been in radiation and received radiation on Thursday-next radiation is on 04/06/2023 The tumor has not been shrinking Discussed with Dr. Naqvi and if she remains stable she can be discharged home on Lovenox Lovenox will be continued Scheduled to have radiation therapy tomorrow and chemotherapy on Thursday Will discuss with the radiation oncologist and oncologist tomorrow Likely aspirate of the lung cancer and the patient remains very weak and lethargic to accept any further treatment of chemo and or radiation Will continue with current management and if the patient remains stable for a day or 2 we will plan discharge with hospice in the facility Discussed with the family members Remains very weak and lethargic that she could go for radiation therapy- discussed with the radiation oncologist and canceled today's appointment Patient remains too weak to get chemotherapy as well History of hyponatremia Current sodium level is at 134 Will monitor-sodium level is 136 potassium was supplemented Chest x-ray result Right upper lung density has increased in conspicuity from prior exam. Right perihilar density is again seen. CTA result IMPRESSION: 1. Small segmental and subsegmental pulmonary embolus in the right middle lobe. No right heart strain. 2. Redemonstration of thick-walled cavitary mass with air-fluid level in the right upper lobe, somewhat enlarged from prior exam. Right lower lobe lesion, previously appearing more solid and cavitary, is somewhat flattened and with greater cavitation. Findings are compatible with malignancy and/or abscess. Large subcarinal lymph node is again seen, concerning for malignancy. 3. Additional findings as above. (5) COPD (chronic obstructive pulmonary disease): No acute exacerbation Prior history of smoking Will continue current medications for COPD (6) Pericardial effusion: History of medical effusion and is status post pericardiocentesis on 03/06/2023 at [facility] Repeat echo on 03/13-normal pericardial effusion CTA during that time did not show any pulmonary embolism CTA on 04/02/2023 is not showing any cardiomegaly Plan DVT prophylaxis On Lovenox for pulmonary embolism CODE STATUS DNR/DNI Prognosis remains poor Addendum: Seen and examined patient at bedside, patient appears frail/weak/ill. Patient is oriented. She wants to go home with hospice. Patient's daughter was at bedside, answered all her questions. Discussed with oncology, will discharge the patient on Eliquis. She is being discharged to home with hospice with following instruction at the point of discharge: Follow-up with your primary care physician within a week time and likely you will need labs CBC/CMP/magnesium/phosphorus. You are being discharged to home with hospice, your medication has been optimized to account for atrial fibrillation and blood clots in the lung. Hospice team will take over your care and your medications might be adjusted per their recommendation down the road. Take your medications as prescribed. Please make sure that you are able to get your medications today by calling your pharmacy before you leave the hospital so that your treatment continuity is not broken. Home Health Attestation I certify that this patient is under my care and that I, or a physicians clothing sales assistant working with me, had a face to-face encounter that meets the home health [id number] encounter requirements with this patient. The encounter with the patient was in whole, or in part, for the following medical condition, which is the primary reason for home health care (list medical condition): PE; resumption of care at discharge I certify that, based on my findings, the following services are medically necessary home health services: My clinical findings support the need for the above services because: PT Assessment for Endurance / Balance / Strength PT Eval for Safety and Mobility PT Eval for Safety, Gait Training, Assistive Devices PT Gait and Balance Training, Strengthening and Safety Skilled Nsg Assessment Skilled Nsg Assess Pt Illness, Disease and Sx Monitoring S/S to Report to Provider Teach on Disease Management and Interventions Vital Signs Further, I certify that my clinical findings support that this patient is homebound (i.e. absences from home require considerable and taxing effort and are for medical reasons or [facility] or infrequently or of short duration when for other reasons) because: Transportation Assistance/Unable to Leave Home Unassisted Certification for Home Health Services: Based on the above findings, I certify that this patient is confined to the home and needs intermittent residential care, physical therapy and/or speech therapy or continues to need occupational therapy. The patient is under my care, and I have initiated the establishment of the plan of care. This patient will be followed by a physician who will periodically review the plan of care. Total Time Total Time Spent Total Time Spent (In Minutes): 45 Discharge Plan Discharge Items Patient Disposition: Hospice - Home Reason For Visit: SOB, PULMONARY EBOLISM, CA LUNG Discharge Diagnosis: Generalized weakness ISO adenocarcinoma of lung Pulmonary embolism A-fib with RVR Activity: Resume your previous activity Non-emergency contact: Primary Care Provider Call non-emergency contact if: you have any medication questions and your temperature is above 101 Follow-up/Referrals: Ele Alford, [Primary Care Provider] - Diet: Regular Addtl Attending Provider Instructions: Follow-up with your primary care physician within a week time and likely you will need labs CBC/CMP/magnesium/phosphorus. You are being discharged to home with hospice, your medication has been optimized to account for atrial fibrillation and blood clots in the lung. Hospice team will take over your care and your medications might be adjusted per their recommendation down the road. Take your medications as prescribed. Please make sure that you are able to get your medications today by calling your pharmacy before you leave the hospital so that your treatment continuity is not broken. Pending Studies at Discharge: Yes Stand-Alone Forms: My [facility] Medications and DC Order Prescriptions: New nystatin 100,000 unit/mL Suspension 5 ml PO QID 3 Days Qty: 60 0RF diltiazem HCl 60 mg Tablet 60 mg PO TID Qty: 90 0RF magnesium oxide 400 mg (241.3 mg magnesium) Tablet 400 mg PO BID 7 Days Qty: 14 0RF Eliquis 5 mg tablet 5 mg PO UD Qty: 74 0RF Rx Instructions: 2 tab twice a day for 7 days then 1 tab twice a day. Continued acetaminophen [Tylenol Extra Strength] 500 mg tablet 1,000 mg PO BID PRN (Reason: Pain) budesonide-formoterol 160-4.5 mcg/actuation HFA aerosol inhaler 2 puff INHALATION BID Qty: 10.2 4RF albuterol sulfate 90 mcg/actuation HFA aerosol inhaler 2 inh INH Q4H PRN (Reason: shortness of breath or wheezing) Qty: 8.5 3RF metoprolol tartrate 25 mg tablet 25 mg PO BID oxycodone 5 mg tablet 5 mg PO Q4H PRN (Reason: Pain (Scale Score 1-3)) trazodone 50 mg Tablet 50 mg PO HS PRN (Reason: insomnia) Qty: 30 0RF mirtazapine 15 mg Tablet 15 mg PO HS Qty: 30 0RF lorazepam 0.5 mg tablet 0.5 mg PO Q8H PRN (Reason: Anxiety) sucralfate [Carafate] 1 gram tablet 2 g PO ACHS Rx Instructions: Dissolve in water. Swallow before meals and at bed time. Discontinued ibuprofen [Advil] 200 mg Tablet 200 mg PO Q6H PRN (Reason: Pain) Discharge Orders: Discharge Order (Routine); Ordered 04/08/23 Ordered By: Juan Jose Connors Admission Data Admit Date/Time: 04/02/23 09:31 Attending Provider: Juan Jose Connors Admit Provider: Jewels Lancaster Primary Care Provider: Ele Alford Other Providers: Jewels Lancaster; David Burris [facility]; Fidelina Dean; Rosales Holman; Bethel Jones; Lorenzo Virgen; Ken Escalante; Champ Akers; Samantha Harrell; Suly Arriola; Fidelina Robles; Manuelito Jordan; Michael Valiente; Megan Cardoso; Felicita Estrada; Natalia Hull; Dung Thakkar; Codie Stone
--- NOTE | 2023-04-08 14:34 | Cardiology Progress Note ---
Date of Service April 08, 2023 Assessment & Plan (1) Atrial fibrillation with RVR: (2) Pulmonary embolism: (3) Adenocarcinoma of lung: Plan IMPRESSION: Medically complex 77 year old female with recently diagnosed adenocarcinoma of the lung- undergoing chemo and radiation. Found to have a new PE after developing worsening shortness of breath prompting this admission. During admission patient converted to PAF with RVR. Symptomatic with palpitations and worsening dyspnea. PLAN: PAF with RVR: Elevated [id number] score of 3 (age 2, female)--currently anticoagulated with subcu Lovenox. 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 Rates currently controlled on Cardizem and metoprolol Hypomagnesium supplement Pericardial Effusion: S/p pericardiocentesis 02/2023-- resolved per subsequent echo and CT of the chest Pulmonary embolism: CT of the chest without evidence of right heart strain-- AC for PE per primary service, currently on SQ Lovenox. Agree with conservative therapies/hospice given comorbidities. Afib rates to be controlled at home with Cardizem and metoprolol on discharge. Will sign off. Please notify contract programmer provider with additional questions or concerns. Case discussed with Dr. Virgen. I spent a total of 25 minutes on the date of service in preparation, delivery, and documentation of the care provided to this patient, excluding any time spent in the performance of separately billed services. Admission and Anticipated Discharge Date Admission Date: April 02, 2023 Supervising Physician Co-Signing Physician Notes Patient seen examined the bedside. No changes overnight. Telemetry demonstrates occasional episodes of rapid atrial fibrillation. Currently atrial flutter with controlled ventricular response. PE: Gen: No acute distress, chronically ill, cachectic. Heart: Regular rhythm. Normal S1-S2. 1/6 systolic ejection murmur. Tachycardia. Lungs: + Expiratory wheeze. extremities: No edema. A/P: Agree with above PA-C history, physical exam, assessment and plan. Continue oral diltiazem and metoprolol at discharge. Family may utilize additional dose of diltiazem if patient experiences symptomatic tachycardia at home. Plan for discharge today with home hospice. Cardiology will sign off. Subjective Patient resting in bed sleeping. Review of systems not performed. Daughter at bedside. Taking her home on hospice. Review of Systems Review of Systems: Other (Patient sleeping) Physical Exam Constitutional: + ill appearing and + thin; no acute dis tress Neck: normal visual inspection and trachea midline Respiratory: Auscultation: + rhonchi and + wheezes Cardiovascular: Rate/Rhythm: regular rhythm and + tachycardic Heart Sounds: normal S1, normal S2 and + murmur (+2/6 systolic murmur) Vessels: no JVD Extremities: no edema Gastrointestinal (Abdomen): normal bowel sounds, soft, nontender, no hepatosplenomegaly Skin: no rashes, warm and dry Results & Data Vital Signs (Past 12 Hours) Vital Signs Temp Pulse Pulse Pulse Resp BP BP 04/08/23 14:26 36.8 C 113 H 93 H 20 102/57 L 04/08/23 14:24 93 H 102/57 L 04/08/23 09:00 04/08/23 07:38 62 20 04/08/23 07:26 36.8 C 172 H 24 101/64 04/08/23 07:11 95 H 18 04/08/23 06:19 95 H 108/65 04/08/23 04:58 04/08/23 04:56 94 H 18 108/65 04/08/23 04:54 148 H 105/66 04/08/23 03:29 36.5 C 94 H 18 BP Pulse Ox O2 Del Method O2 Flow Rate 04/08/23 14:26 102/59 L 92 04/08/23 14:24 04/08/23 09:00 Nasal Cannula 4 04/08/23 07:38 92 Nasal Cannula 8 04/08/23 07:26 92 Nasal Cannula 8 04/08/23 07:11 93 Nasal Cannula 5 04/08/23 06:19 04/08/23 04:58 94 Oxymask 4 04/08/23 04:56 94 Oxymask 6 04/08/23 04:54 04/08/23 03:29 102/59 L 95 Nasal Cannula 6 Laboratory Results CBC 04/08/23 Range/Units 06:10 WBC 2.78 L (4.8-10.8) K/ul RBC 2.89 L (4.20-5.40) M/uL Hgb 8.6 L (12.0-16.0) g/dl Hct 25.9 L (37.0-47.0) % Plt Count 136 (130-400) K/uL Neut # (Auto) 2.23 (1.40-6.50) K/uL Lymph # (Auto) 0.13 L (1.20-3.40) K/uL [place] # (Auto) 0.38 (0.11-0.59) K/uL Eos # (Auto) 0.01 (0.00-0.50) K/uL Baso # (Auto) 0.01 (0.00-0.20) K/uL Comprehensive Metabolic Panel 04/08/23 Range/Units 06:10 Sodium 137 (136-145) mmol/L Potassium 3.7 (3.5-5.1) mmol/L Chloride 101 (98-107) mmol/L Carbon Dioxide 34 H (21-32) mmol/L BUN 13 (6-23) mg/dl Creatinine 0.45 L (0.6-1.2) mg/dl Glucose 127 H (70-99(Fasting)) mg/dl Calcium 7.5 L (8.6-10.3) mg/dl Intake and Output 04/07/23 04/08/23 04/08/23 22:59 06:59 14:59 Intake Total 440 / 440 94.167 / 94.167 Balance 440 / 440 94.167 / 94.167 Intake: IV 200 / 200 94.167 / 94.167 Magnesium Sulfate / D5w 1 gm In 200 / 200 94.167 / 94.167 100 ml @ 50 mls/hr IV Q2H [facility] Rx#:[id number] Oral 240 / 240 Other: Other Intake Source 100 Sips - sleeping a lot. However, RN and I are encouraging patient to eat. Weight 51.5 kg 51.5 kg Patient Weight 04/09/23 06:59 Weight 51.5 kg Diagnostic Findings Telemetry reviewed: Patient developed recurrent atrial flutter around 1:00 AM this morning. persistent since that time. Several times elevated rates noted in the 150-170's, but patient was apparently out of bed. Currently sleeping and HR's are in the 90's and controlled. Medications Administered Current Inpatient Medications Acetaminophen (Acetaminophen 500 Mg Tab) 1,000 mg PO BID PRN PRN Reason: Pain Stop: 05/02/23 11:51 Albuterol (Albuterol Hfa 8 Gm Inhaler) 2 puffs INH Q4H PRN PRN Reason: shortness of breath or wheezing Stop: 05/02/23 11:51 Last Admin: 04/05/23 04:45 Dose: 2 puffs Diltiazem HCl (Diltiazem Hcl 60 Mg Tab) 60 mg PO TID [facility] Stop: 05/07/23 13:59 Last Admin: 04/08/23 14:23 Dose: 60 mg Enoxaparin Sodium (Enoxaparin Inj 60 Mg/0.6 Ml Syr) 50 mg SQ Q12H [facility] Stop: 05/04/23 07:59 Last Admin: 04/08/23 07:33 Dose: 50 mg Fluticasone/Vilanterol (Fluticasone/Vilanterol 100/25mcg 14 Puffs/Inhaler) 1 puffs INH DAILY [facility] Stop: 05/03/23 08:59 Last Admin: 04/08/23 07:33 Dose: 1 puffs Magnesium Sulfate/Dextrose (Magnesium Sulfate / D5w) 1 gm in 100 mls @ 50 mls/hr IV Q2H [facility] Stop: 04/08/23 15:14 Last Admin: 04/08/23 13:32 Dose: 50 mls/hr Levalbuterol HCl (Levalbuterol 1.25 Mg/3 Ml Neb) 1.25 mg NEB QIDR [facility]; Protocol Stop: 05/05/23 06:59 Last Admin: 04/08/23 11:37 Dose: Not Given Lorazepam (Lorazepam 0.5 Mg Tab) 0.5 mg PO Q8H PRN PRN Reason: Anxiety Stop: 05/02/23 11:51 Last Admin: 04/08/23 07:32 Dose: 0.5 mg Magnesium Oxide (Magnesium Oxide 400 Mg Tab) 400 mg PO BID [facility] Stop: 05/08/23 20:59 Metoprolol Tartrate (Metoprolol Tartrate 1 Mg/Ml Vial) 5 mg IV Q6 PRN PRN Reason: Tachycardia Stop: 05/06/23 05:59 Last Admin: 04/08/23 04:54 Dose: 5 mg Metoprolol Tartrate (Metoprolol Tartrate 25 Mg Tab) 25 mg PO BID [facility] Stop: 05/06/23 20:59 Last Admin: 04/08/23 07:33 Dose: 25 mg Mirtazapine (Mirtazapine Tab 15 Mg Tab) 15 mg PO HS [facility] Stop: 05/02/23 20:59 Last Admin: 04/07/23 20:54 Dose: 15 mg Nystatin (Nystatin Susp 500,000 U/5 Ml Udc) 5 ml PO QID [facility] Stop: 04/16/23 12:59 Last Admin: 04/08/23 13:03 Dose: 5 ml Oxycodone HCl (Oxycodone Hcl Ir 5 Mg Tab (Immediate Release)) 5 mg PO Q4H PRN PRN Reason: Pain (Scale Score 1-3) Stop: 04/16/23 11:51 Last Admin: 04/05/23 23:15 Dose: 5 mg Sucralfate (Sucralfate 1 Gm Tab) 2 gm PO ACHS [facility] Stop: 05/02/23 11:51 Last Admin: 04/08/23 13:02 Dose: 2 gm Trazodone HCl (Trazodone Hcl 50 Mg Tab) 50 mg PO HS PRN PRN Reason: insomnia Stop: 05/02/23 11:51 Last Admin: 04/07/23 21:18 Dose: 50 mg (2) Pulmonary embolism Acute cor pulmonale presence: without acute cor pulmonale Chronicity: acute Pulmonary embolism type: unspecified Qualified Code(s): I26.99 - Other pulmonary embolism without acute cor pulmonale (3) Adenocarcinoma of lung Laterality: right Qualified Code(s): C34.91 - Malignant neoplasm of unspecified part of right bronchus or lung
[2023-04-08] MEDS ORDERED: MAGNESIUM OXIDE 400 MG TAB PO SCH (21:00)
== END 2023-04-08 15:40 | disposition hospice, home (50) | DRG 175 ==
LOC: ED 05:12 → EDINP 09:31 → SUATTDRO 09:31 → 2W 11:48